=== PATIENT | male | born 1960 | race Caucasian/White ===

== ENCOUNTER → 2017-02-26 | Day surgery (SDC) | payer OTHER ==
[~2017-02-26] MED LIST: ASPIRIN EC 325 MG TAB PO ONE; ATROPINE SULFATE 1 MG/10 ML SYR IVP PRN; ATROPINE SULFATE 1 MG/10 ML SYR ONE; DIAZEPAM 5 MG TAB ONE; DIAZEPAM 5 MG TAB PO ONE; FAMOTIDINE 20 MG TAB ONE; FAMOTIDINE 20 MG TAB PO ONE; HYDROCODONE/APAP 5/325 TAB PO PRN; IOPAMIDOL (ISOVUE-370) 150 ML BTL IV ONE; LIDOCAINE 1% 30 ML SDV ONE; MIDAZOLAM 2 MG/2 ML VIAL ONE; NITROGLYCERIN 0.4 MG BTL SL PRN; NS 1,000 ML IV ONE; ONDANSETRON 4 MG/2 ML VIAL IVP PRN; OXYCODONE/APAP 5/325 TAB PO PRN; diphenhydrAMINE 25 MG CAP PO ONE; fentaNYL 100 MCG/2 ML INJ ONE
--- NOTE | 2017-02-26 06:52 | CPEKG ---
Heart Rate: 67 RR Interval: 896 P-R Interval: 140 QRSD Interval: 106 QT Interval: 420 QTC Interval: 444 P South English: 12 QRS South English: 37 T Wave South English: -21 EKG Severity - ABNORMAL ECG - EKG Impression: SINUS RHYTHM EKG Impression: PROBABLE INFERIOR INFARCT, AGE INDETERMINATE Electronically Signed By: Vicki Patterson 26-Feb-2017 09:57:57
[2017-02-26 07:09] LABS: % IMMATURE GRANULYOCYTES 0.1 % (0.0-1.1); ABSOLUTE IMMATURE GRANULOCYTES 0.01 10^3/uL (0.00-0.10); ADD DIFF? NO; ADD MORPH? NO; ADD SCAN? NO; ATYPICAL LYMPHOCYTE FLAG 0 (0-99); FRAGMENT RBC FLAG 0 (0-99); HEMATOCRIT 44.6 % (40.0-51.0); HEMOGLOBIN 15.1 g/dL (13.7-17.5); LEFT SHIFT FLG 0 (0-99); LIPEMIA HEMOLYSIS FLAG 90 (0-99); MEAN CELL HEMOGLOBIN 30.2 pg (27.9-34.1); MEAN CELL HEMOGLOBIN CONCENTR. 33.9 g/dL (32.4-36.7); MEAN CELL VOLUME 89.2 fL (81.5-99.8); MEAN PLATELET VOLUME 8.6 fL (8.7-11.7); PLATELET CLUMPS FLAG 0 (0-99); PLATELET COUNT 293 10^3/uL (150-400)
[2017-02-26 07:25] LABS: ANION GAP 10 mEq/L (8-16); CALCIUM 9.2 mg/dL (8.5-10.4); CARBON DIOXIDE 23 mEq/l (22-31); CHLORIDE 109 mEq/L (97-110); CHOLESTEROL 121 mg/dL (140-220); CHOLESTEROL/HDL RATIO 1.95 RATIO (1.00-4.97); CREATININE 0.9 mg/dL (0.7-1.3); GLOMERULAR FILTRATION RATE > 60; GLUCOSE 99 mg/dL (70-100); HIGH DENSITY LIPOPROTEIN 62 mg/dL (40-65); LDL/HDL RATIO 0.79 RATIO (1.00-3.64); LOW DENSITY LIPOPROTEIN 49 mg/dL (80-100); MAGNESIUM 2.1 mg/dL (1.6-2.3); NON-HIGH DENSITY LIPOPROTEIN 59 mg/dL (90-129); POTASSIUM 4.1 mEq/L (3.5-5.2); SODIUM 142 mEq/L (134-144); TRIGLYCERIDE 54 mg/dL (40-150); VERY LOW DENSITY LIPOPROTEINS 10 mg/dL (8-25)
[2017-02-26 07:27] LABS: INR 0.97 (0.83-1.16); PROTIME(PATIENT) 12.8 SEC (12.0-15.0)
--- NOTE | 2017-02-26 12:29 | CPIP ---
[f rep st] INVASIVE CARDIAC PROCEDURE DATE OF PROCEDURE: 02/26/2017 PROCEDURE PERFORMED: 1. Diagnostic left heart catheterization. 2. Left coronary angiography. 3. Right coronary angiography. 4. Left ventriculogram. 5. Right common femoral artery angiography. INDICATION FOR PROCEDURE: The patient is a pleasant 56-year-old gentleman with a known history of c oronary artery disease, with previous inferior wall infarction, with PCI x3 to the RCA in 2012. He underwent an exercise nuclear stress test earlier this month, demonstrating inferior ischemia and in ferior lateral ischemia, as well as anterior ischemia in the mid and basal anterior wall, with evide nce of transient ischemic dilatation. In the setting of significant findings on his nuclear stress test that placed him at high risk, part icularly in the setting of known coronary artery disease with PCI x3 to the RCA, the decision was ma carey to pursue diagnostic left heart catheterization. PROCEDURE: After informed consent was obtained, the patient was brought to the cardiac catheterizat ion lab, where he was prepped and draped in sterile fashion. Using 1% lidocaine, the right groin wa s anesthetized. Using the modified Seldinger technique, a right common femoral artery catheter was placed without complication. A JL4 catheter was used to take images of the left coronary anatomy in multiple projections. A JL4 catheter was exchanged over a guidewire for a JR4 catheter. JR4 maria [address] was used to take images of the right coronary anatomy in multiple projections. JR4 catheter was exchanged over a guidewire for angled pigtail catheter. Angled pigtail catheter was used to cross the aortic valve. LVEDP was assessed. Left ventriculogram was performed. Aortic valve gradient wa s pulled back and assessed. Angled pigtail catheter was removed over guidewire. Right common femor al artery angiography was obtained, demonstrating appropriate location of the 6-[place] sheath. Ther e was a high bifurcation at the level of the femoral head, and will with manual pressure. There was no evidence of trauma to the femoral or iliac vessel. FINDINGS: 1. Left main normal size and caliber, and trifurcates into a left anterior descending, ramus interm edius, and circumflex artery. There is no evidence of coronary disease within the left main. 2. Left anterior descending artery provides a large 1st diagonal branch. There is no evidence of c oronary disease within the left anterior descending artery, the diagonal branch, or septal perforato rs. 3. Left circumflex artery is a nondominant vessel. There is no evidence of coronary disease within the circumflex vessels. 4. The right coronary artery is a large dominant vessel with a large PDA and PLV branch. There is some mild narrowing proximal to the 1st stent of approximately 10%. There is some mild in-stent feroz nosis in the mid RCA of approximately 10%. There is a large PDA and PLV branch, free of coronary ar priscilla disease. 5. Left ventriculogram demonstrates normal left ventricular function. HEMODYNAMICS: 1. Aortic pressure of 141/78, with a mean of 103. 2. LV pressure of 136/9. 3. LVEDP of 21 mmHg. 4. No aortic valve gradient on pullback. 5. LVEF 55% to 60%. CONCLUSION: 1. Minimal in-stent stenosis to the mid right coronary artery, and minimal proximal stenosis proxim al to the 1st stent to the right coronary artery. No evidence of coronary disease within the left a nterior descending and circumflex. 2. False positive findings on nuclear stress test. PLAN: 1. Manual pressure to be held on right groin secondary to catheter placement at bifurcation. 2. Patient will continue outpatient medical management. 3. Patient is scheduled for followup as an outpatient. /[id number]/MODL
== END | disposition home or self-care (01) ==
LOC: FCATH 06:26
PROVIDERS: ATTEND Internal Medicine Cardiovascular Disease
DX: I25.10 Atherosclerotic heart disease of native coronary artery without angina pectoris (principal); I25.2 Old myocardial infarction; E78.2 Mixed hyperlipidemia; Z95.5 Presence of coronary angioplasty implant and graft
CPT/HCPCS: J0461; J1644; J2250; J3010; Q9967

== ENCOUNTER 2018-10-14 13:07 | Inpatient (IN) | payer OTHER ==
[2018-10-14] MEDS ORDERED: NS 1,000 ML IV ONE (13:09)
--- NOTE | 2018-10-14 13:09 | EDPHY ---
HPI/HX/ROS/PE/MDM Narrative: 1500: Patient is signed out to me at change of shift. The per sign out, the patient is awaiting evaluation by Neurosurgery. Patient will be admitted to either neuro surgical services or hospitalist services depending on their evaluation. 1625: I discussed the case with Dr. Eden from Neurosurgery. He feels the patient does not need be admitted from a neurosurgical standpoint. He feels this can be evaluated as an outpatient. I discussed the case with Dr. Jimenez. (Ivet Sutherland) CHIEF COMPLAINT: Altered mental status / possible seizure HPI: This patient is a 58 year old male with remote history of seizure disorder. Around 13:00 today, he was in ultrasound for a routine imaging exam and speaking with radiology staff when he had sudden onset AMS. Witnesses noted one arm was curled up to side, and the patient became altered and combative. I met radiology staff in their department following an overhead page for assistance and transferred patient here to emergency department. He is currently doing better and is alert and oriented, calm. He endorses history of possible seizure disorder in high school, and he was formerly on Dilantin. He is no longer medicated. Additionally, he endorses history of heart attack three years ago and takes daily ASA 81mg. He felt well today prior to this episode. He denies fever, chest pain, shortness of breath, nausea, vomiting diarrhea, urinary complaints, or other associated symptoms. REVIEW OF SYSTEMS: A comprehensive 10 system review of systems is otherwise negative aside from elements mentioned in the history of present illness and medical decision making. PMH: History of seizure disorder. Hypertension. [place] s/p stent placement. SOCIAL HISTORY: . Lives in [place]. Works for [employer]. PHYSICAL EXAM: General:Patient is alert, in no acute distress. ENT:Eyes are normal to inspection. ENT inspection normal. Neck: Normal inspection. Full range of motion. Respiratory:No respiratory distress. Breath sounds normal bilaterally. Cardiovascular: Regular rate and rhythm. Strong peripheral pulses. Normal cap refill. Abdomen:The abdomen is nontender to palpation. There are no peritoneal signs. There are normal bowel sounds. Back: Normal to inspection. No tenderness to palpation. Skin: Normal color. No rash. Warm and dry. Extremities: Normal appearance. Full range of motion. Neuro: Oriented x3. Normal motor function. Normal sensory function. (Samm Taveras) ED Course: 58 year-old male presents following an episode of altered mental status and possible seizure activity while waiting for a routine ultrasound appointment today. Plan for EKG, CT head, and labs including CBC, chemistries, coag panel, troponin. EKG was ordered and interpreted by myself. Please see [employer] system for official reading. Sinus rhythm. On further discussion, patient states he has had very occasional seizure activity over the past 20 years. Laboratory studies unremarkable. POC troponin negative. CT head pending. 14:[address] Martinez, radiologist. CT head shows vascular malformation vs neoplasm. Recommend MRI for further evaluation. Reassessed patient. Discussed imaging results. Plan to proceed with MRI brain for further evaluation. Preliminary MRI read indicates two brain lesions. I consulted Dr. Rubio from Neurosurgery at 1535. I informed Dr. Jimenez. Patient signed out [place]. (Samm Taveras) - Data Points Imaging Results: Imaging Impressions Head CT 10/14/18 13:16 Impression: 1. Indeterminate partially calcified posterior fossa mass at the base of the fourth ventricle. Differential diagnosis includes vascular malformation and neoplasm including metastatic disease, choroid plexus papilloma, and ependymoma/ subependymoma. Recommend MRI of the brain with and without IV contrast to further characterize. 2. No acute intracranial hemorrhage or evidence of acute cortical ischemia. 3. Normal caliber ventricular system. No obstruction. 4. Three nonaggressive, ground-glass lesions in the occipitoparietal bone may be unrelated and be manifestation of fibrous dysplasia. Findings discussed with Emergency Department physician, Samm Taveras MD, on 10/14/2018, 14:15. Brain MRI 10/14/18 14:15 Impression: 1. Two separate contrast-enhancing masses within the posterior fossa. A multilobulated partially calcified 2.4 cm tumor within the floor of the fourth ventricle is present along with a 2.3 cm mildly enhancing lesion within the right side of the brainstem at the level of the carol ann. 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 However, given the multiplicity of lesions within the posterior fossa, metastatic disease is not excluded, and CT examination of the chest, abdomen, and pelvis is suggested for further evaluation. 2. Other findings as above. Examination was reviewed directly with Dr. Samm Taveras. Cosign: Dr. Timmy Martinez. Laboratory Results: Laboratory Results 10/14/18 13:12 10/14/18 13:12 10/14/18 10/14/18 10/14/18 13:19 13:18 13:12 WBC RBC Hgb POC Hgb 16.3 gm/dL gm/dL (13.7-17.5) Hct POC Hct 48 % % (40-51) MCV MCH MCHC RDW Plt Count MPV Neut % (Auto) Lymph % (Auto) [place] % (Auto) Eos % (Auto) Baso % (Auto) Nucleat RBC Rel Count Absolute Neuts (auto) Absolute Lymphs (auto) Absolute Monos (auto) Absolute Eos (auto) Absolute Basos (auto) Absolute Nucleated RBC Immature Gran % Immature Gran # PT INR APTT POC Sodium 141 mEq/L mEq/L (135-145) Sodium 139 mEq/L mEq/L (135-145) POC Potassium 4.0 mEq/L mEq/L (3.3-5.0) Potassium 4.4 mEq/L mEq/L (3.5-5.2) POC Chloride 103 mEq/L mEq/L (97-110) Chloride 105 mEq/L mEq/L (97-110) Carbon Dioxide 26 mEq/l mEq/l (22-31) Anion Gap 8 mEq/L mEq/L (6-14) POC BUN 15 mg/dL mg/dL (7-23) BUN 16 mg/dL mg/dL (7-23) Creatinine 0.9 mg/dL mg/dL (0.7-1.3) POC Creatinine 1.0 mg/dL mg/dL (0.7-1.3) Estimated GFR > 60 Glucose 115 mg/dL H mg/dL (70-100) POC Glucose 120 mg/dL H mg/dL (70-100) Calcium 9.3 mg/dL mg/dL (8.5-10.4) POC Troponin I 0.00 ng/mL ng/mL (0.00-0.08) 10/14/18 10/14/18 13:12 13:12 WBC 7.88 10^3/uL 10^3/uL (3.80-9.50) RBC 5.06 10^6/uL 10^6/uL (4.40-6.38) Hgb 15.4 g/dL g/dL (13.7-17.5) POC Hgb Hct 45.9 % % (40.0-51.0) POC Hct MCV 90.7 fL fL (81.5-99.8) MCH 30.4 pg pg (27.9-34.1) MCHC 33.6 g/dL g/dL (32.4-36.7) RDW 14.2 % % (11.5-15.2) Plt Count 315 10^3/uL 10^3/uL (150-400) MPV 8.4 fL L fL (8.7-11.7) Neut % (Auto) 61.5 % % (39.3-74.2) Lymph % (Auto) 30.5 % % (15.0-45.0) [place] % (Auto) 6.3 % % (4.5-13.0) Eos % (Auto) 0.9 % % (0.6-7.6) Baso % (Auto) 0.3 % % (0.3-1.7) Nucleat RBC Rel Count 0.0 % % (0.0-0.2) Absolute Neuts (auto) 4.85 10^3/uL 10^3/uL (1.70-6.50) Absolute Lymphs (auto) 2.40 10^3/uL 10^3/uL (1.00-3.00) Absolute Monos (auto) 0.50 10^3/uL 10^3/uL (0.30-0.80) Absolute Eos (auto) 0.07 10^3/uL 10^3/uL (0.03-0.40) Absolute Basos (auto) 0.02 10^3/uL 10^3/uL (0.02-0.10) Absolute Nucleated RBC 0.00 10^3/uL 10^3/uL (0-0.01) Immature Gran % 0.5 % % (0.0-1.1) Immature Gran # 0.04 10^3/uL 10^3/uL (0.00-0.10) PT 12.8 SEC SEC (12.0-15.0) INR 0.94 (0.83-1.16) APTT 26.3 SEC SEC (23.0-38.0) POC Sodium Sodium POC Potassium Potassium POC Chloride Chloride Carbon Dioxide Anion Gap POC BUN BUN Creatinine POC Creatinine Estimated GFR Glucose POC Glucose Calcium POC Troponin I Medications Given: Discontinued Medications Sodium Chloride (Ns) 1,000 mls @ 0 mls/hr IV EDNOW ONE; Wide Open PRN Reason: Protocol Stop: 10/14/18 13:10 Last Admin: 10/14/18 13:59 Dose: 1,000 mls Point of Care Test Results: Chemistry 10/14/18 10/14/18 13:19 13:18 POC Sodium 141 mEq/L mEq/L (135-145) POC Potassium 4.0 mEq/L mEq/L (3.3-5.0) POC Chloride 103 mEq/L mEq/L (97-110) POC BUN 15 mg/dL mg/dL (7-23) POC Creatinine 1.0 mg/dL mg/dL (0.7-1.3) POC Glucose 120 mg/dL H mg/dL (70-100) POC Troponin I 0.00 ng/mL ng/mL (0.00-0.08) ISTAT H&H 10/14/18 13:19 POC Hgb 16.3 gm/dL gm/dL (13.7-17.5) POC Hct 48 % % (40-51) General Time Seen by Provider: 10/14/18 13:07 Initial Vital Signs: Initial Vital Signs Temperature (C) 36.3 C 10/14/18 13:14 Heart Rate 83 10/14/18 13:14 Respiratory Rate 16 10/14/18 13:14 Blood Pressure 175/92 H 10/14/18 13:14 O2 Sat (%) 96 10/14/18 13:14 O2 Delivery Mode Room Air Allergies/Adverse Reactions: No Known Allergies Allergy (Unverified 10/07/15 20:41) Home Medications: Medication Instructions Recorded Ascorbic Acid [Vitamin C 500 mg 2,000 mg PO DAILY 10/14/18 (*)] Aspirin EC [Aspirin EC 81 mg (*)] 162 mg PO DAILY 10/14/18 Atorvastatin Calcium [Lipitor 40 40 mg PO HS 10/14/18 mg (*)] Lisinopril [Zestril 2.5 mg (*)] 2.5 mg PO HS 10/14/18 Metoprolol Succinate Xr [Toprol Xl 12.5 mg PO DAILY 10/14/18 25 mg (*)] Departure - Departure Disposition: [facility] Inpatient Acute Clinical Impression: Brain mass, Seizure Condition: Fair Report Scribed for: Samm Taveras Report Scribed by: Lisa Steve Date of Report: 10/14/18 Time of Report: 13:16
[2018-10-14 13:38] LABS: PLATELET COUNT 315 10^3/uL (150-400)
[2018-10-14 14:02] LABS: INR 0.94 (0.83-1.16); PROTIME(PATIENT) 12.8 SEC (12.0-15.0)
[2018-10-14] MEDS ORDERED: GADOBUTROL 10 ML VIAL IVP ONE (14:45)
--- NOTE | 2018-10-14 14:45 | CPEKG ---
Test Reason : OPEN Blood Pressure : / mmHG Vent. Rate : 081 BPM Atrial Rate : 081 BPM P-R Int : 162 ms QRS Dur : 114 ms QT Int : 404 ms P-R-T Axes : 058 028 -12 degrees QTc Int : 469 ms Sinus rhythm Nonspecific T abnormalities, inferior leads Confirmed by Samm Taveras ([id number]) on 10/14/2018 2:45:01 PM Referred By: Confirmed By:Samm Taveras
[2018-10-14] MEDS ORDERED: HYDROCODONE/APAP 5/325 TAB PO PRN (17:53)
[2018-10-14] MEDS ORDERED: ONDANSETRON 4 MG/2 ML VIAL IVP PRN (17:53)
[2018-10-14] MEDS ORDERED: ONDANSETRON DISINTEGRATING 4 MG TAB PO PRN (17:53)
[2018-10-14] MEDS ORDERED: ACETAMINOPHEN 325 MG TAB PO PRN (17:53)
[2018-10-14] MEDS ORDERED: oxyCODONE IR 5 MG TAB PO PRN (17:53)
--- NOTE | 2018-10-14 18:29 | GCON ---
NEUROSURGERY CONSULT. DATE OF CONSULTATION: 10/14/2018 The patient was seen and evaluated at approximately 4 p.m. in the ER at [facility]. HISTORY OF PRESENT ILLNESS: The patient is a 58-year-old man with an apparent remote history of seiz ure disorder. He says he had epilepsy when he was a teenager for which he took some medication at th at time, but has not taken medication for many years. His also states that he has intermittent episodes while sleeping where his eyes are open, but he is unresponsive, which she has always thought were likely seizures. He does not take any medications for these and has never had 1 of these episo lluvia during the daytime to her knowledge over the past 10 years. Today, he was talking to a friend he re at the hospital when he reportedly became unresponsive for a brief time period, approximately a fe w minutes. He did not have a fall, but was sitting in a chair. According to the ED reports, 1 arm w as curled up to the side and the patient was a little altered and combative but cleared fairly quickl y after coming to the emergency department. He currently has no complaints and feels completely norm al. A CT of the brain and subsequent MRI of the brain was completed and the CT showed a mass with sp eckled calcification near the obex in the inferior 4th ventricle. 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 It is difficult to discern if this is based at the floor of the 4th ventricle or m ore posteriorly at the vermis. Of note, he also has what appears to be a DVA and some change in the tissue signal within the carol ann. This is originally read as a possible tumor such as a primary brainst em glioma. 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 He does not have any hydrocephalus and I do not see any other obvious abnormalities on his MRI. PAST MEDICAL HISTORY: 1. Epilepsy. 2. Hypertension. 3. Myocardial infarction in 2012, status post 2 cardiac stents placed. REVIEW OF SYSTEMS: A 10-point review of systems is negative other than described above in the HPI. SOCIAL HISTORY: The patient is . 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 FAMILY HISTORY: Strongly positive for cardiac disease with several large myocardial infarcts within his family, but no other history of cancer or neurologic disease. ALLERGIES: No known drug allergies. MEDICATIONS: 1. Aspirin. 2. Atorvastatin. 3. Lisinopril. 4. Metoprolol. 5. Plavix. PHYSICAL EXAM: VITAL SIGNS: Currently he is afebrile with normal stable vital signs. NEUROLOGIC: Lisa sewell is awake, alert, and oriented x3. Speech is clear and fluent. Pupils are equal, round, and react to light. Extraocular movements are intact. Face is symmetric. Tongue is midline. 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 In the lo wer extremities, he has 5/5 strength of the hip flexors, extensors, knee flexors, extensors, and plan tar and dorsiflexion. There is no pronator drift. His sensation is normal. He does not have any dy smetria or dysdiadochokinesia. IMAGING REVIEW: See HPI. ASSESSMENT AND PLAN: 1. The patient is a 58-year-old man who had some sort of syncopal versus a seizure type episode here at the hospital today. He currently is completely asymptomatic and feeling normal. 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 He also h as some alteration in the signal characteristics within the carol ann itself, which was read as a possible glioma. 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 He is currently completely asymptomatic and I do not think brandon t either of these findings has anything to do with the episode that he had today. He is likely to be admitted to the hospital service for further cardiac workup to be sure that he did not have syncope related to a cardiac arrhythmia or other abnormality related to the heart. I talked to him and his w sunny at length about the finding of this tumor and given the amount of calcification, it appears it serrato s been relatively slow growing. I do not think there is any urgent need for surgical intervention fo r this. However, within the short term over the next several weeks, we would like to make plans for biopsy and resection. We discussed the nature of this type of surgery at length and will discuss in further detail in the clinic. If nothing is found on his inpatient admission as a cause for this out patient followup with Neurology, possible EEG may also be useful given this history of epilepsy. Thi s type of tumor would not cause seizures or syncope given the location. Therefore, I do not think th at it is related in any way to what happened to him today. Please do not hesitate to contact us with any further questions or concerns. Thanks for the kind con sultation. /[id number]/MODL
[2018-10-14] MEDS ORDERED: ATORVASTATIN CALCIUM 40 MG TAB PO SCH (21:00)
[2018-10-14] MEDS ORDERED: LISINOPRIL 2.5 MG TAB PO SCH (21:00)
--- NOTE | 2018-10-14 21:50 | PDGENHP ---
History and Physical - Chief Complaint seizure like activity - History of Present Illness Patient is a 58 yo M with PMH of CAD s/p STEMI and PCI x 3 in 2013 as well as remote hx of seizure as a young man who presents after being called as a code blue today. 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 He was never pulseless and did not fall or clearly lose consciousness, however he was in a chair when this occurred and he does not remember the episode very well. Patient was brought to the ER and per ER doctor shortly after arrival was essentially back to normal, speaking clearly and not altered. 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 At the time of my evaluation patient notes that he feels essentially normal. He notes that he has had episodes similar to the one he had today but that they always occur at night when he will essentially sleepwalk and say strange things and not remember the episode later. He has been told that this may represent seizure and he has had seizures as a child/teenager, but he has not had this worked up. He does not believe that today was a syncopal event, but he is not sure. He will require surgery for the brain mass noted above, and this will be scheduled as an outpatient. History Information - Allergies/Home Medication List Allergies/Adverse Reactions: No Known Allergies Allergy (Unverified 10/07/15 20:41) Home Medications: Ascorbic Acid [Vitamin C 500 mg (*)] 2,000 mg PO DAILY 10/14/18 [Last Taken 12/01] Aspirin EC [Aspirin EC 81 mg (*)] 162 mg PO DAILY 10/14/18 [Last Taken 10/14/18] Atorvastatin Calcium [Lipitor 40 mg (*)] 40 mg PO HS 10/14/18 [Last Taken ] Lisinopril [Zestril 2.5 mg (*)] 2.5 mg PO HS 10/14/18 [Last Taken 10/13/18] Metoprolol Succinate Xr [Toprol Xl 25 mg (*)] 12.5 mg PO DAILY 10/14/18 [Last Taken 10/14/18] I have personally reviewed and updated: family history, medical history, social history, surgical history - Past Medical History coronary artery disease, hypertension, hyperlipidemia, seizures (as a teen) - Surgical History Reports: coronary stent - Family History Positive for: CAD Additional family history: brother with epilepsy - Social History Smoking Status: Never smoked Alcohol Use: Rarely Drug Use: None Additional social history: , works here at [employer] Review of Systems Review of Systems: ROS: 10pt was reviewed & negative except for what was stated in HPI & below Physical Exam Physical Exam: Temp Pulse Resp BP Pulse Ox 36.3 C 72 16 151/85 H 95 10/14/18 13:14 10/14/18 15:49 10/14/18 15:49 10/14/18 21:01 10/14/18 15:49 Constitutional: no apparent distress, appears nourished Eyes: PERRL, anicteric sclera Ears, Nose, Mouth, Throat: moist mucous membranes, hearing normal Cardiovascular: regular rate and rhythym, no murmur, rub, or gallop, No edema Respiratory: no respiratory distress, no rales or rhonchi, clear to auscultation Gastrointestinal: normoactive bowel sounds, soft, non-tender abdomen Genitourinary: no bladder tenderness Skin: warm, normal color Musculoskeletal: full muscle strength, no muscle tenderness Neurologic: AAOx3 Psychiatric: interacting appropriately, not anxious, not encephalopathic Lab Data & Imaging Review 10/14/18 13:12 10/14/18 13:12 WBC 7.88 10^3/uL (3.80-9.50) 10/14/18 13:12 RBC 5.06 10^6/uL (4.40-6.38) 10/14/18 13:12 Hgb 15.4 g/dL (13.7-17.5) 10/14/18 13:12 POC Hgb 16.3 gm/dL (13.7-17.5) 10/14/18 13:19 Hct 45.9 % (40.0-51.0) 10/14/18 13:12 POC Hct 48 % (40-51) 10/14/18 13:19 MCV 90.7 fL (81.5-99.8) 10/14/18 13:12 MCH 30.4 pg (27.9-34.1) 10/14/18 13:12 MCHC 33.6 g/dL (32.4-36.7) 10/14/18 13:12 RDW 14.2 % (11.5-15.2) 10/14/18 13:12 Plt Count 315 10^3/uL (150-400) 10/14/18 13:12 MPV 8.4 fL (8.7-11.7) L 10/14/18 13:12 Neut % (Auto) 61.5 % (39.3-74.2) 10/14/18 13:12 Lymph % (Auto) 30.5 % (15.0-45.0) 10/14/18 13:12 [place] % (Auto) 6.3 % (4.5-13.0) 10/14/18 13:12 Eos % (Auto) 0.9 % (0.6-7.6) 10/14/18 13:12 Baso % (Auto) 0.3 % (0.3-1.7) 10/14/18 13:12 Nucleat RBC Rel Count 0.0 % (0.0-0.2) 10/14/18 13:12 Absolute Neuts (auto) 4.85 10^3/uL (1.70-6.50) 10/14/18 13:12 Absolute Lymphs (auto) 2.40 10^3/uL (1.00-3.00) 10/14/18 13:12 Absolute Monos (auto) 0.50 10^3/uL (0.30-0.80) 10/14/18 13:12 Absolute Eos (auto) 0.07 10^3/uL (0.03-0.40) 10/14/18 13:12 Absolute Basos (auto) 0.02 10^3/uL (0.02-0.10) 10/14/18 13:12 Absolute Nucleated RBC 0.00 10^3/uL (0-0.01) 10/14/18 13:12 Immature Gran % 0.5 % (0.0-1.1) 10/14/18 13:12 Immature Gran # 0.04 10^3/uL (0.00-0.10) 10/14/18 13:12 PT 12.8 SEC (12.0-15.0) 10/14/18 13:12 INR 0.94 (0.83-1.16) 10/14/18 13:12 APTT 26.3 SEC (23.0-38.0) 10/14/18 13:12 POC Sodium 141 mEq/L (135-145) 10/14/18 13:19 Sodium 139 mEq/L (135-145) 10/14/18 13:12 POC Potassium 4.0 mEq/L (3.3-5.0) 10/14/18 13:19 Potassium 4.4 mEq/L (3.5-5.2) 10/14/18 13:12 POC Chloride 103 mEq/L (97-110) 10/14/18 13:19 Chloride 105 mEq/L (97-110) 10/14/18 13:12 Carbon Dioxide 26 mEq/l (22-31) 10/14/18 13:12 Anion Gap 8 mEq/L (6-14) 10/14/18 13:12 POC BUN 15 mg/dL (7-23) 10/14/18 13:19 BUN 16 mg/dL (7-23) 10/14/18 13:12 Creatinine 0.9 mg/dL (0.7-1.3) 10/14/18 13:12 POC Creatinine 1.0 mg/dL (0.7-1.3) 10/14/18 13:19 Estimated GFR > 60 10/14/18 13:12 Glucose 115 mg/dL (70-100) H 10/14/18 13:12 POC Glucose 120 mg/dL (70-100) H 10/14/18 13:19 Calcium 9.3 mg/dL (8.5-10.4) 10/14/18 13:12 POC Troponin I 0.00 ng/mL (0.00-0.08) 10/14/18 13:18 Troponin I < 0.012 ng/mL (0.000-0.034) 10/14/18 18:15 Visualized and Interpreted imaging results: Yes Interpretation: brain MRI: reviewed with NSG, notable for calcified 4th ventricle mass c/w ependymoma and ? of brainstem lesion Visualized and Interpreted EKG results: Yes EKG Interpretation: Positive for: normal sinsus rhythm, T waves inversion Assessment & Plan Assessment: Brain mass (Acute) Seizure (Acute) 58 yo M with PMH of CAD and found to have newly discovered brain mass presenting with seizure versus syncope # seizure versus syncope: somewhat unusual hx in patient that has a hx of remote seizures and night time events that have been noted to be potentially seizure in the past. Significant cardiac hx as well, and without real post ictal period, syncope is a consideration. Will monitor on tele, serial trops and ecgs, cardiology and neurology consultations requested. He will likely require brain surgery in the coming weeks and will need cardiac eval prior to that as well which hopefully can be completed in house. Will get echo in am. # brain mass: discussed with Dr. Mendez, the one clear mass that is present in the 4th ventricle is calcified and appears to be of some age, likely ependymoma and very unlikely to be the etiology for above. Patient to f/u as an OP with NSG to scheduled surgical resection. The ? 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 Neurology to weigh in as well as above. # CAD: with hx of STEMI in 2012 and a clean cath in 02/2017. Followed by [facility], no chest pain but given concern for syncope acs r/o undertaken, cardiology consulted, echo in am # htn: bp has been mildly elevated since arrival, will continue home meds including lisinopril and metoprolol and adjust if needed # hld: continue statin # IP status, given multiple active issues suspect patient will require > 48 hours stay for eval/mgmt of above Patient new to my care. Old records reviewed and summarized as above. Care plan reviewed with ER doctor as well as Neurosurgery and further hx obtained from patients present at bedside.
--- NOTE | 2018-10-15 07:54 | NEUSURGPN ---
Assessment/Plan: Assessment: 58 yr old M s/p syncopal episode vs seizure, incidentally found the have a 4th ventricular mass Plan: -Patient remains neuro intact -Location of brain mass likely not related to syncopal/seizure episode -Patient getting cardiac workup as well as neurology consult -We will have patient follow up with Dr Mendez as outpatient to make plans for biopsy and resection of mass. Surgery does not need to be done during this hospitalization. Neurosurgery will sign off at this time. -Patient will need cardiac clearance for surgery and plans to stop/hold anticoagulants -Patient discussed with Dr Mendez Please call neurosurgery with questions/concerns Subjective: Doing well, no complaints. Feeling fine Objective: AxO x4 CN 2-12 grossly intact PERRL EOMI MAEx4 5/ BUE, BLE Neuro Check Frequency: per routine Urinary Catheter in Place: No - Physician Discussed Patient with Dr.: Mendez Neurosurgery Physical Exam - Vitals, I&O, Labs I and O 10/14/18 10/15/18 10/16/18 05:59 05:59 05:59 Weight 77.111 kg Vital Signs Temp Pulse Resp BP Pulse Ox 36.3 C 54 L 16 151/85 H 95 10/14/18 13:14 10/15/18 03:30 10/14/18 15:49 10/14/18 21:01 10/14/18 15:49 ICD10 Worksheet Patient Problems: Problems Problem Status Onset Brain mass Acute Seizure Acute
[2018-10-15 08:33] LABS: PLATELET COUNT 288 10^3/uL (150-400)
[2018-10-15] MEDS ORDERED: ASPIRIN EC 81 MG TAB PO SCH (09:00)
[2018-10-15] MEDS ORDERED: METOPROLOL SUCCINATE XR 25 MG TAB PO SCH (09:00)
--- NOTE | 2018-10-15 09:40 | PDMN ---
Medical Necessity Medical necessity: MCG: M340 syncope A-1 day : inpt for syncope vs Sz with new brain mass noted on MRI. pt also with sig. cardiac hx ( stemi in 2012) elevated BP anticipate > 2 MN ongoing med nec care, further monitoring eval and tx.
[2018-10-15 10:19] VITALS: BP 144/94
--- NOTE | 2018-10-15 10:31 | ECHO ---
[email or web address] [address] [address] Main: [phone] Fax: [email or web address] Echocardiogram Name: MILLIE GOOD MR#: [id number] Study Date: 10/15/2018 Study Time: 08:04 AM Date of : 1960 Age: 58 year(s) Height: 167.6 cm (66 in.) Weight: 77.11 kg (170 lb.) BSA: 1.87 m2 Gender: Male Examination: Echo Indication: possible syncope, hx of CAD Image Quality: Adequate Contrast: Requested by: Debra Jimneez BP: / Heart Rate: Rhythm: Indication: possible syncope, hx of CAD Procedure Staff World Geography Teacher: Elena Lemus RDCS Reading Physician: Hima Joaquin MD Requesting Provider: Conclusions: Low normal left ventricular systolic function. EF is 51 %. Trivial mitral valve regurgitation. Trivial tricuspid valve regurgitation. Measurements: Chambers Valvular Assessment AV/MV Valvular Assessment TV/PV Normal Normal Normal Name Value Range Name Value Range Name Value Range Ao Ines (2D): 2.7 cm (1.4 cm-2.6 AV Vmax: 1.21 m/s (1 m/s-1.7 PV Vmax: 0.88 m/s (0.6 m/s-0.9 cm) m/s) m/s) IVSd (2D): 0.9 cm (0.6 cm-1.1 AV maxP mmHg ( - ) PV PGmax: 3 mmHg ( - ) cm) AV meanP mmHg ( - ) LVDd (2D): 5.2 cm (4.2 cm-5.9 SONAM (VTI): 1.8 cm ( - ) cm) MV E Vmax: 0.62 m/s ( - ) LVDs (2D): 3.8 cm (2.1 cm-4 MV A Vmax: 0.54 m/s ( - ) cm) MV E/A: 1.15 ( - ) LVPWd (2D): 0.8 cm (0.6 cm-1 cm) MV PHT: 0.085 s ( - ) LVOTd 2.0 cm 2.0 cm mm MVA (PHT): 2.6 s ( - ) LVEF (BP): 51 % (>=55 %) Continued Measurements: Chambers Valvular Assessment AV/MV Name Value Name Value LADs: 3.2 cm MV DecTime: 292 m/s LADs Lon.6 cm MV E' Septal: 0.11 m/s LA Area: 19.4 cm2 MV E/E' Septal: 5.80 LA Volume: 64 ml MV E/E' Lateral: 4.70 Patient: MILLIE GOOD Study Date: 10/15/2018 Page 1 of 2 08:04 AM LA Volume Index: 34.2 ml/m2 RA Area: 16.2 cm2 Additional Vessels Name Value Ao Ascendin.2 cm Inferior Vena Cava: 1.4 cm Findings: Left Ventricle: Normal size left ventricle. No LV hypertrophy. Low normal left ventricular systolic function. EF is 51 %. No regional wall motion abnormality. Normal diastolic LV function. Right Ventricle: Normal size right ventricle. Normal RV function. Left Atrium: The left atrium is normal in size. Right Atrium: The right atrium is normal in size. Mitral Valve: The mitral valve is normal in appearance and function. Trivial mitral valve regurgitation. No mitral stenosis is present. Aortic Valve: The aortic valve is tri-leaflet. Mild aortic valve regurgitation is present. No aortic valve stenosis is present. Tricuspid Valve: The tricuspid valve is normal in appearance and function. Trivial tricuspid valve regurgitation. Pulmonic Valve: The pulmonic valve is normal in appearance and function. There is no pulmonic regurgitation seen. Aorta: The aorta is normal. Normal size aortic root measuring 2.7 cm. Normal size ascending aorta measuring 3.2 cm. IVC: The IVC is normal sized. Pericardium: No pericardial effusion. No pleural effusion. (No Signature Object) Patient: MILLIE GOOD Study Date: 10/15/2018 Page 2 of 2 08:04 AM [id number]
--- NOTE | 2018-10-15 11:15 | CPEKG ---
Test Reason : OPEN Blood Pressure : / mmHG Vent. Rate : 061 BPM Atrial Rate : 061 BPM P-R Int : 140 ms QRS Dur : 105 ms QT Int : 448 ms P-R-T Axes : 008 028 -21 degrees QTc Int : 452 ms Sinus rhythm Inferior infarct, age indeterminate Confirmed by Jakob Parisi ([id number]) on 10/15/2018 11:15:08 AM Referred By: Confirmed By:Jakob Parisi
--- NOTE | 2018-10-15 11:17 | NEUROPROG ---
Assessment: [id number] - Neurology Consult: - CC: Dr. Debra Jimenez consulted neurology for brain mass and possible seizures. Results placed in EMR for her review. - HPI: Pt admitted to [facility] on 10/14/18 for recurrent seizure like activity. He was witnessed to have a loss of awareness event on 10/14/18 so was brought to the [facility] ER. Head CT showed a possible tumor so brain MRI was obtained showing two possible tumors. Neurosurgery was consulted and recommended outpatient f/u for the tumors. Neurosurgery felt one of the tumors may actually be a blood vessel abnormality. The patient did report a history of seizures in the past and noted the event on 10/14/18 was similar to other events he has had in the past but they generally occur at night. His has witnessed events and they typically occur at night when pt awakens in sleep, rhythmically pounds his chest , and appears confused. These may be frontal lobe seizures or temporal lobe seizures. His brother has seizures. It was not clear if the patient was having seizures or syncope per hospitalist so neurology and cardiology were consulted. I initially saw the patient on 10/15/18. Normal neurologic exam. I recommended beginning Keppra 500 mg bid for seizure prevention and f/u in neurology clinic 4-6 weeks after hospital discharge. Pt also counseled on driving and seizure precautions. - PMHx: CAD s/p STEMI and PCI x 3 in 2012, seizure d/o, HTN, HLD - SHx: no tobacco FHx: CAD, brother with seizures - ROS: Pt denied acute fever, total vision loss, active severe chest pain, respiratory failure, total body severe rash, total bowel/bladder incontinence, psychosis, active seizures, or active bleeding - O: VS reviewed General: Alert Eyes: Fundoscopic exam not able to visualize optic disks CV: Heart RRR, no murmur, no carotid bruit Lungs: Clear to auscultation bilaterally, no rhonchi or rales Neuro: - Mental: . Oriented x person/place/date . concentration appears normal . speech fluency/comprehension normal . memory appears normal . fund of knowledge appear intact - Cranial Nerves: . II: PERRL, VFFTC . III/IV/: EOMI, no nystagmus, normal smooth pursuits, no Ptosis . V: facial sensation intact to LT . VII: face symmetric to eye closure and smile . VIII: hearing intact to conversation . IX/X: uvula raises symmetrically . XI: SCM 5/5 B/L strength . XII: tongue protrudes midline w/nl strength - Motor: . Tone: normal tone in all 4 extremity . 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 A multilobulated partially calcified 2.4 cm tumor within the floor of the fourth ventricle is present along with a 2.3 cm mildly enhancing lesion within the right side of the brainstem at the level of the carol ann. The brainstem lesion may represent a primary [employer] glioma, with the cerebellar lesion demonstrating features suggestive of ependymoma, including calcification. However, given the multiplicity of lesions within the posterior fossa, metastatic disease is not excluded, and CT examination of the chest, abdomen, and pelvis is suggested for further evaluation. (I personally visualized the images on 10/15/18) - Assessment: 1. Two brain masses noted on brain MRI 10/14/18: It appears to be a possible ependymoma and a possible glioma or blood vessel abnormality. Neurosurgery has evaluated and plans otpt f/u for further evaluation and treatment. I do not have any additional insight into the etiology of the brain masses. I agree with neurosurgery plan. - 2. Recurrent episodes of altered awareness concerning for seizures: His recurrent events seem most consistent with seizures given prior reported seizure disorder, recurrent confusion events, abnormal brain MRI, and history of brother with seizure disorder. Recommend Keppra 500 mg bid and outpatient neurology f/u for EEG. Agree with cardiology evaluation to evaluate for any atypical syncope from cardiac cause. - Plan: - Agree with neurosurgery plan for outpatient f/u of brain masses with them - Begin Keppra 500 mg bid for seizure prevention - Agree with cardiology consult to exclude atypical cardiac syncope - Seizure precautions and no driving until 90 days event free - F/U in neurology clinic 1-5 weeks after hospital discharge for EEG - No further neurologic w/u needed inpatient, neurology will sign off Objective: Vital Signs Temp Pulse Resp BP Pulse Ox 36.6 C 58 L 16 144/94 H 99 10/15/18 08:36 10/15/18 08:36 10/15/18 08:36 10/15/18 08:36 10/15/18 08:36 Laboratory Results 10/15/18 08:20 10/15/18 08:20 PT 12.8 SEC (12.0-15.0) 10/14/18 13:12 INR 0.94 (0.83-1.16) 10/14/18 13:12 Allergies/Adverse Reactions: No Known Allergies Allergy (Unverified 10/07/15 20:41)
[2018-10-15] MEDS ORDERED: levETIRAcetam 500 MG TAB PO SCH (14:00)
--- NOTE | 2018-10-15 14:14 | GDS ---
DISCHARGE DIAGNOSES: Coronary artery disease, status post ST-segment elevation myocardial infarction, percutaneous coronary intervention x3 in 2013; suspected seizure, newly diagnosed fourth ventricle tumor consistent with ependymoma and right brainstem lesion. 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 He was never pulseless , did not fall or clearly have loss of consciousness. He does not remember the episode very well. He was brought to the ER and was back to normal shortly after. CT head showed a 2.4 cm tumor within the floor of the fourth ventricle and a 2.3 cm enhancing lesion in the right side of the brainstem. HOSPITAL COURSE BY PROBLEM: 1. Seizure versus syncopal episode: Per patient's history, does not appear to be syncopal; no clear LOC. Very active, plays racquetball and tennis several times a week without chest pain, shortness of breath, or dizziness. Troponins and EKG negative for ischemia. Echocardiogram showed EF of 51%, no WMA, no VHD. Dr. Stallings recommends Keppra 500 mg b.i.d. for seizure prevention. No driving for 90 days event free. Follow up in clinic in 1-5 weeks for EEG. 2. Newly diagnosed brain masses: one in the fourth ventricle and right brainstem. Follow up with Dr. Mendez for biopsy and resection of mass. 3. CAD: Troponins negative x3. No evidence of ischemia. Echocardiogram reassuring with EF of 51%. No wall motion abnormalities or no significant valvular disorder. Continue beta samantha, statin, and aspirin. Follow up with Dr. Ledezma. DISPOSITION: Patient is stable for discharge home. FOLLOWUP: 1. Dr. Stallings with Neurology in 1-[address] Mendez with Neurosurgery. 3. Dr. Ledezma, can consider outpatient Holter monitor. PHYSICAL EXAMINATION: VITAL SIGNS: Today, temperature 36.6, blood pressure 144 /94, heart rate in the 50s, respirations 16, 99% on room air. GENERAL: He is well appearing, no acute distress. HEENT: PERRLA. Moist mucous membranes. CV : Regular rate and rhythm. LUNGS: Clear. ABDOMEN: Soft, nontender, nondistended. Positive bowel sounds. : No Harvey. MUSCULOSKELETAL: 5/5 upper and lower extremity strength. NEURO: 2 through 12 intact. PSYCH: Alert and oriented x3. Time spent on discharge: Greater than 30 minutes at bedside with patient, coordinating followup plan. /[id number]/MODL MTDD
== END 2018-10-15 14:45 | disposition home or self-care (01) | DRG 101 ==
LOC: OBSVTOIN 17:18 → F2N 17:18
PROVIDERS: ADMIT Internal Medicine; ATTEND Internal Medicine
DX: G40.909 Epilepsy, unspecified, not intractable, without status epilepticus (principal); R55 Syncope and collapse; D49.6 Neoplasm of unspecified behavior of brain; G93.9 Disorder of brain, unspecified; I10 Essential (primary) hypertension; I25.10 Atherosclerotic heart disease of native coronary artery without angina pectoris; E78.5 Hyperlipidemia, unspecified; I25.2 Old myocardial infarction; Z95.5 Presence of coronary angioplasty implant and graft
CPT/HCPCS: 82435-PO; 82565-PO; 82947-PO; 84132-PO; 84295-PO; 84484-ER; 84520-PO; 85014-ER; A9585

== ENCOUNTER 2018-11-16 05:14 | Inpatient (IN) | payer OTHER ==
[2018-11-16] MEDS ORDERED: ACETAMINOPHEN 500 MG TAB PO ONE (05:42)
[2018-11-16] MEDS ORDERED: ceFAZolin 2 GM/DEXTROSE 100 ML IV ONE (05:42)
[2018-11-16] MEDS ORDERED: LR 1,000 ML IV ONE (06:04)
[2018-11-16] MEDS ORDERED: GADOBUTROL 10 ML VIAL IVP ONE (06:12)
[2018-11-16 06:25] LABS: PLATELET COUNT 290 10^3/uL (150-400)
[2018-11-16] MEDS ORDERED: DEXAMETHASONE 4 MG/ML VIAL ONE ×2 (06:42→08:17)
[2018-11-16] MEDS ORDERED: ROCURONIUM 50 MG/5 ML VIAL ONE (06:42)
[2018-11-16] MEDS ORDERED: ONDANSETRON 4 MG/2 ML VIAL ONE (06:42)
[2018-11-16] MEDS ORDERED: LIDOCAINE 2% 5 ML SDV ONE (06:42)
[2018-11-16] MEDS ORDERED: fentaNYL 250 MCG/5 ML INJ ONE (06:43)
[2018-11-16] MEDS ORDERED: PROPOFOL/EMULSION 500 MG/50 ML BOTTLE IV ONE ×4 (06:43→11:02)
[2018-11-16] MEDS ORDERED: PROPOFOL 200 MG/20 ML VIAL ONE ×3 (06:43→12:21)
[2018-11-16] MEDS ORDERED: BACITRACIN ZINC 0.5 OZ OINTTUBE TP ONE (06:48)
[2018-11-16] MEDS ORDERED: SURGIFLO MATRIX KIT WITH THROMBIN 8 ML TP ONE (06:48)
[2018-11-16] MEDS ORDERED: HYDROGEN PEROXIDE 236 ML BOTTLE TP ONE (06:49)
[2018-11-16] MEDS ORDERED: CHLORHEXIDINE GLUC HIBICLENS 118 ML BTL TP ONE (06:49)
[2018-11-16] MEDS ORDERED: BUPIVACAINE 0.25% 30 ML SDV ONE (06:49)
[2018-11-16] MEDS ORDERED: MANNITOL 20% 100 GM/500 ML BAG IV ONE (06:49)
[2018-11-16] MEDS ORDERED: THROMBIN (BOVINE) 20,000 UNIT VIAL TP ONE (06:49)
[2018-11-16] MEDS ORDERED: AVITENE POWDER 1 GM JAR TP ONE (06:49)
[2018-11-16] MEDS ORDERED: EPINEPHrine 1 MG/ML INJ ONE (06:50)
[2018-11-16] MEDS ORDERED: GENTAMICIN SULFATE 80 MG/2 ML VIAL ONE ×2 (06:50→09:13)
[2018-11-16] MEDS ORDERED: THROMBIN (BOVINE) 5,000 UNIT VIAL TP ONE (06:51)
[2018-11-16] MEDS ORDERED: MIDAZOLAM 2 MG/2 ML VIAL IVP ONE (06:58)
--- NOTE | 2018-11-16 07:02 | PDHPUP ---
History & Physical Update H&P update statement: This history and physical update is based on an assessment of the patient which was completed after admission or registration (within 24 hours), but prior to the surgery/procedure. H&P update: H&P reviewed & patient examined, no change in patient's condition since H&P completed
--- NOTE | 2018-11-16 07:13 | PDANEPAE ---
ANE Past Medical History - Cardiovascular History Hx Hypertension: Yes Hx Arrhythmias: No Hx Chest Pain: No Hx Coronary Artery / Peripheral Vascular Disease: Yes Hx CHF / Valvular Disease: No Hx Palpitations: No Cardiovascular History Comment: 2 stents placed 2013 after [place]. No issues since stents and last cath was negative - Pulmonary History Hx COPD: No Hx Asthma/Reactive Airway Disease: No Hx Recent Upper Respiratory Infection: No Hx Oxygen in Use at Home: No Hx Sleep Apnea: No Sleep Apnea Screening Result - Last Documented: Positive - Neurologic History Hx Cerebrovascular Accident: No Hx Seizures: Yes Hx Dementia: No - Endocrine History Hx Diabetes: No - Renal History Hx Renal Disorders: No - Liver History Hx Hepatic Disorders: No - Neurological & Psychiatric Hx Hx Neurological and Psychiatric Disorders: Yes Neurological / Psychiatric History Comment: seizures disorder - Cancer History Hx Cancer: No - Congenital Disorder History Hx Congenital Disorders: No - GI History Hx Gastrointestinal Disorders: No Gastrointestinal History Comment: none - Other Health History Other Health History: L healing scratch on hand - Chronic Pain History Chronic Pain: No - Surgical History Prior Surgeries: none ANE Review of Systems Review of Systems: - Exercise capacity METS (RN): 6 METS ANE Patient History - Allergies Allergies/Adverse Reactions: No Known Allergies Allergy (Verified 11/13/18 17:41) - Home Medications Home Medications: Ascorbic Acid [Vitamin C 500 mg (*)] 10/14/18 [Last Taken 11/11/18] Aspirin EC [Aspirin EC 81 mg (*)] 10/14/18 [Last Taken 11/11/18] Atorvastatin Calcium [Lipitor 40 mg (*)] 10/14/18 [Last Taken 11/15/18] Lisinopril [Zestril 2.5 mg (*)] 10/14/18 [Last Taken 11/16/18] Metoprolol Succinate Xr [Toprol Xl 25 mg (*)] 10/14/18 [Last Taken 11/15/18] levETIRAcetam [Keppra 500 mg (*)] 11/13/18 [Last Taken 11/16/18 04:30] - NPO status NPO Since - Liquids (Date): 11/16/18 NPO Since - Liquids (Time): 04:30 NPO Since - Solids (Date): 11/15/18 NPO Since - Solids (Time): 20:30 - Smoking Hx Smoking Status: Never smoked - Family Anes Hx Family Hx Anesthesia Complications: none ANE Labs/Vital Signs - Labs Result Diagrams: 11/16/18 05:42 11/16/18 05:42 - Vital Signs Blood Pressure: 146/92 Heart Rate: 59 Respiratory Rate: 16 O2 Sat (%): 97 Height: 167.64 cm Weight: 77.111 kg ANE Physical Exam - Airway Neck exam: FROM Mallampati Score: Class 2 Mouth exam: normal dental/mouth exam - Pulmonary Pulmonary: no respiratory distress, no rales or rhonchi, clear to auscultation - Cardiovascular Cardiovascular: regular rate and rhythym, no murmur, rub, or gallop - ASA Status ASA Status: III ANE Anesthesia Plan Anesthesia Plan: general endotracheal anesthesia
[2018-11-16] MEDS ORDERED: ONDANSETRON 4 MG/2 ML VIAL IVP PRN (07:14)
[2018-11-16] MEDS ORDERED: HYDROmorphONE/DILAUDID 2 MG/ML INJ IVP PRN (07:14)
[2018-11-16] MEDS ORDERED: METOCLOPRAMIDE 10 MG/2 ML VIAL IVP PRN (07:14)
[2018-11-16] MEDS ORDERED: fentaNYL 100 MCG/2 ML INJ IVP PRN (07:14)
[2018-11-16] MEDS ORDERED: PROMETHAZINE HCL 25 MG/ML INJ IVP PRN ×2 (07:14→13:48)
[2018-11-16] MEDS ORDERED: PHENYLEPHRINE HCL 100 MCG/ML SYR IVP PRN (07:14)
[2018-11-16] MEDS ORDERED: oxyCODONE IR 5 MG TAB PO PRN (07:14)
[2018-11-16] MEDS ORDERED: NALOXONE HCL 0.4 MG/ML INJ IVP PRN (07:14)
[2018-11-16] MEDS ORDERED: PHENYLEPHRINE HCL 100 MCG/ML SYR ONE (08:17)
--- NOTE | 2018-11-16 09:09 | POSTANESTH ---
Post Anesthetic Evaluation Cardiovascular Status: Normal, Stable Respiratory Status: Normal, Stable Level of Consciousness/Mental Status: Can Participate in Eval Pain Control: Adequate, Prn Tx Ordered Nausea/Vomiting Control: Adequate, Prn Tx Ordered Complications Possibly Related to Anesthesia: None Noted
[2018-11-16] MEDS ORDERED: fentaNYL 100 MCG/2 ML INJ ONE (11:39)
[2018-11-16] MEDS ORDERED: ESMOLOL HCL 100 MG/10 ML VIAL IV ONE (12:49)
[2018-11-16] MEDS ORDERED: NITROGLYCERIN 50 MG/10 ML SDV IV ONE (13:07)
--- NOTE | 2018-11-16 13:29 | POSTOPPROG ---
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 Mendez in PACU 11/16/18 13:30 Objective: Vital Signs Temp Pulse Resp BP Pulse Ox 36.4 C 59 L 16 146/92 H 97 11/16/18 06:21 11/16/18 07:13 11/16/18 07:13 11/16/18 07:13 11/16/18 07:13 Laboratory Results 11/16/18 05:42 11/16/18 05:42
[2018-11-16] MEDS ORDERED: HYDROCODONE/APAP 10/325 TAB PO PRN (13:36)
[2018-11-16] MEDS ORDERED: POLYETHYLENE GLYCOL 3350 17 GM PKT PO PRN (13:36)
[2018-11-16] MEDS ORDERED: LACTULOSE 20 GM/30 ML UDCUP PO PRN (13:36)
[2018-11-16] MEDS ORDERED: BISACODYL 10 MG SUPP PR PRN (13:36)
[2018-11-16] MEDS ORDERED: ACETAMINOPHEN 325 MG TAB PO PRN (13:36)
[2018-11-16] MEDS ORDERED: MAGNESIUM HYDROXIDE 30 ML UDCUP PO PRN (13:36)
[2018-11-16] MEDS ORDERED: ONDANSETRON DISINTEGRATING 4 MG TAB PO PRN (13:48)
[2018-11-16] MEDS ORDERED: DIAZEPAM 5 MG TAB PO PRN (13:48)
--- NOTE | 2018-11-16 13:51 | GOP ---
[f rep st] OPERATIVE REPORT DATE OF OPERATION: 11/16/2018 SURGEON: Davy Mendez MD CHIEF DEPUTY: Anuja Lazo PA-C. ANESTHESIA: General endotracheal. PREOPERATIVE DIAGNOSIS: Fourth ventricular mass. POSTOPERATIVE DIAGNOSIS: Fourth ventricular mass. PROCEDURE PERFORMED: 1. Suboccipital craniotomy. 2. Microsurgical gross total resection of 4th ventricular mass. 3. Use of the operative microscope. 4. Stealth stereotactic neuronavigation for volumetric gross total resection of tumor. 5. Intraoperative neurophysiological monitoring, including somatosensory- evoked potentials, motor-evoked potentials, EMG, and 6th and 7th nerve monitoring. FINDINGS: Successful tumor resection. SPECIMENS: Fourth ventricular mass for frozen and permanent section. ESTIMATED BLOOD LOSS: Blood loss was 100 cc. INDICATIONS: Rosas Jacobsen is a 58-year-old man with history of seizures. He presented after a seizure to the emergency department and scan incidentally showed a 4th ventricular mass. 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 We discussed the options, but ultimately I recommended surgical resection and biopsy. He presents electively today for this procedure. DESCRIPTION OF PROCEDURE: After informed consent was obtained from the patient , the patient was brought to the operating room and a formal time-out was performed, identifying the patient by name, medical record number and date of . Preoperative antibiotics were given. Endotracheal tube was placed and general endotracheal anesthesia was smoothly induced. All appropriate leads were placed for intraoperative neurophysiologic monitoring. Ruiz pins were placed and the patient was turned to the prone position on a standard table where all appropriate pressure points were padded and checked. The Stealth was registered to the scalp and checked for accuracy using known surface landmarks. A midline incision extending onto the posterior neck from the inion was planned and 20 cc of 4% Marcaine with epinephrine was infiltrated in the skin for hemostasis. The region was prepped and draped in the normal sterile fashion. A skin incision was made using a 10 blade and the subcutaneous tissues were dissected using monopolar electrocautery. The skin was undermined over the fascia and a transverse incision was made in the fascia just below the inion. The upper portions of the suboccipital muscles were divided and the avascular midline plane was then opened in a T-fashion. The occiput was skeletonized and the arch of C1 was also skeletonized. Once we had this exposure, the exposure was checked using the Stealth. Using a high-speed drill with matchstick bur, we then drilled 2 bur holes laterally over the cerebellar hemispheres. This was then used to continue a roughly 4 x 4 cm craniotomy flap down to the foramen magnum. Once this was removed, all bleeding was controlled using bipolar electrocautery, Gelfoam and bone wax. This allowed good decompression of the cerebellar hemispheres. We then drilled the upper portion of the C1 lamina, performing a near total C1 laminectomy. This allowed a good enough exposure to access the entirety of the tumor. At this point, all bleeding was controlled with bipolar electrocautery and Gelfoam. The operative microscope was brought on the field and the remainder of the procedure was performed under high-power magnification. Starting near the arch of C1, the dura was opened in the midline and then over the cerebellar hemisphere and hemispheres in a Y-shaped fashion. The dura was tacked up and the arachnoid was opened. This allowed egress of CSF. The tumor was visualized extending out of the area near the obex and was heavily involved in the left PICA. We carefully then inspected the area and the cerebellar tonsils were lifted slightly and the mass was seen extending laterally in this area. At this point , both the cerebellomedullary fissure and tubular tonsillar fissures were dissected. There were arachnoid adhesions. This allowed us to open the area between the uvula of the vermis and the tonsil. We then were able to dissect carefully around the lateral aspect of the tumor and the tumor was extending both sides out quite far laterally. The PICA branches were carefully dissected with care not to damage the PICA. Several branches from the PICA were seen coursing into the tumor and these were bipolared and cut. 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 We continued removing tumor in this piecemeal fashion. On the left side, we were able to skeletonize the entire PICA and its branches, and we then carefully were able to dissect around the lateral aspect of the tumor. The tumor was pulled from the area of the foramen of Luschka and the 4th ventricular floor was identified. We then coursed more cephalad, trying to carefully separate the tumor from the inferior portion of the vermis. Once this was obtained, we were also able to dissect the right side. On the right side, the tumor extended further out into the area of the foramen of Luschka extensively. The small vessels were carefully dissected away from the tumor capsule and was collapsed upon itself. This brought us down to the area of the obex. This tumor was clearly attached to the brainstem in this area and there was no clear plane between the tumor and the 4th ventricular floor. The ultrasonic aspirator was used to carefully aspirate the tumor from this interface until I did not see any tissue that had the appearance of tumor any longer. At this point, the floor of the 4th ventricle was covered with some Surgicel. This allowed complete relaxation of the 4th ventricle and the cephalad area was completely free of tumor. We then extended out into the area of the PICA where the tumor was extensively near circumferential around the brainstem, extending out near the vertebral artery. The tumor was then carefully from the small branches of the PICA and the vertebral artery and these pieces of tumor were removed en bloc. This was the case on both sides, which required extensive decompression into the cerebellar medullary fissure. Both vertebral arteries were well visualized and both 11th cranial nerves were well visualized. At this point, it appeared as though we had removed the entirety of the tumor. Our borders were checked again with navigation and I did not see any further areas of tumor and the brain was well decompressed. The wound was then copiously irrigated using sterile saline irrigation. All neurophysiologic monitoring remained stable with no changes from baseline. Some Surgicel was laid over the cerebellar tonsils and the inferior portion of the dura was then closed using interrupted 4-0 Nurolons. The dura had shrunk some and was not able to be closed completely in a watertight fashion. Therefore, a DuraGen graft was placed superiorly, both as an inlay and onlay and was held in place using DuraSeal. No more CSF was seen leaking. Therefore, the bone flap was plated back in place using Synthes titanium plates and screws. The muscles were tacked together centrally to close the space. The fascia was then closed in a watertight fashion using interrupted 0 Vicryls. The deep dermis was closed using interrupted 2-0 Vicryls. The skin was closed using Steri- Strips. The patient was then turned back into the supine position where the Ruiz pins were removed and he was extubated. He was transferred to the PACU in stable condition with no operative complications. I was scrubbed and present the entire procedure. All sponge and needle counts were correct at the end of the case. FLUIDS AND URINE OUTPUT: Per the anesthesia record. /[id number]/MODL MTDD
[2018-11-16] MEDS ORDERED: *MD ORDERING ONLY-DEXAMETHASONE TAPER PO SCH (14:00)
[2018-11-16] MEDS ORDERED: hydrALAZINE 20 MG/ML VIAL ONE (14:00)
[2018-11-16] MEDS: hydrALAZINE 20 MG/ML VIAL IVP PRN ×2 (14:01→14:17)
[2018-11-16] MEDS: niCARdipine/NACL 200 ML IV PRN ×3 (15:03→22:37)
[2018-11-16] MEDS: NS W/ 20 KCl/L 1,000 ML IV SCH (15:11)
[2018-11-16] MEDS: ONDANSETRON 4 MG/2 ML VIAL IVP PRN (15:11)
[2018-11-16] MEDS: METHOCARBAMOL 750 MG TAB PO SCH ×2 (15:33→16:22)
[2018-11-16] MEDS: DEXAMETHASONE 4 MG TAB PO SCH ×2 (15:33→16:22)
--- NOTE | 2018-11-16 15:42 | PDMN ---
Medical Necessity Medical necessity: MCG: S410 craniotomy 3 days: OP: suboccipital craniotomy, resection of 4th ventriucular mass, -AUTH# [id number] APPROVED FOR 3 DAYS LOS FOR INPATIENT STAY
--- NOTE | 2018-11-16 16:12 | GCON ---
[f rep st] CONSULTATION CATSHOVEL DRIVER CONSULTATION REASON FOR CONSULTATION: I was asked by Dr. Davy Mendez to see the patient in barrel straightener consultat ion. HISTORY OF PRESENT ILLNESS: The patient is a 58-year-old white male with a past medical history of h yperlipidemia, hypertension, coronary artery disease, and seizures. He was admitted earlier in the [facility] and found to have a brain mass in the 4th ventricle. He underwent a suboccipital craniotomy wit h a microsurgical resection of 4th ventricle mass. In discussion with the patient, he states he is c urrently complaining of some pain and nausea. He has no resting shortness of breath or any dyspnea u richard exertion. There is no chest pain, pleuritic-type chest pain, or angina equivalent. There is no fever or night sweats. In early October of 2018, he was admitted for seizure. REVIEW OF SYSTEMS: A 10-point review of systems is performed and negative except for what is listed in the HPI. PAST MEDICAL HISTORY: Significant for coronary artery disease, hyperlipidemia, hypertension, seizure s. PAST SURGICAL HISTORY: He has had a coronary stent. ALLERGIES: No known allergies to medications. SOCIAL HISTORY: No history of tobacco use. Infrequent alcohol use. He works at [employer]. He is , has excellent family support. MEDICATIONS: At home include vitamin C, aspirin, atorvastatin, lisinopril, metoprolol. PHYSICAL EXAM: VITAL SIGNS: Blood pressure 123/81, pulse is 80, respiration 14, temperature is 36.1 , oxygen saturation 97% on 2 L. GENERAL: He is a well-developed, well-nourished 58-year-old white m zakia who is resting comfortably, although complaining of headache and nausea. HEENT: Eyes PERRL, EOMI . Throat shows no erythema or tonsillar hypertrophy. NECK: Supple. There is no cervical adenopath y. HEART: Regular rate and rhythm without murmurs, rubs, gallops. LUNGS: Clear to auscultation. No wheeze or rhonchi. ABDOMEN: Soft, nontender. Bowel sounds are present in all 4 quadrants. EXTR EMITIES: No clubbing, cyanosis, or edema. LABORATORIES: White count is 6.7, hemoglobin 14, hematocrit 43, platelet count is 290. Sodium 138, potassium 4.3, chloride 108, CO2 is 22, BUN 29, creatinine 1.1, glucose is 95. IMPRESSION: 1. 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 2. Status post suboccipital craniotomy and microsurgical resection of 4th ventricle mass. 3. History of coronary artery disease. 4. Hypertension. 5. Hyperlipidemia. 6. History of seizures. RECOMMENDATIONS: 1. Adequate blood pressure control. 2. DVT and PE prophylaxis. Holding anticoagulation for now. 3. Stress ulcer prophylaxis. 4. Adequate pain control. 5. Nausea control. 6. Close cardiovascular monitoring. 7. Follow chemistries closely. /[id number]/MODL
[2018-11-16] MEDS: KETOROLAC 30 MG/1 ML SDV IVP PRN (16:32)
[2018-11-16] MEDS: DEXAMETHASONE 4 MG/ML VIAL IVP SCH ×2 (17:24→21:41)
[2018-11-16] MEDS: METHOCARBAMOL 750 MG in NS 50 ML IV SCH ×2 (17:24→21:35)
[2018-11-16] MEDS: DIAZEPAM 5 MG/ML 1 ML SYR IVP PRN (20:37)
[2018-11-16] MEDS ORDERED: levETIRAcetam 500 MG TAB PO SCH (21:00)
[2018-11-16] MEDS ORDERED: levOFLOXACIN 500 MG/DEXTROSE 100 ML IV SCH (21:00)
[2018-11-16] MEDS ORDERED: DEXAMETHASONE 4 MG/ML VIAL IVP ONE (21:15)
[2018-11-16] MEDS: levETIRAcetam 500MG/NACL 100 ML IV SCH (21:35)
[2018-11-16] MEDS: SENNOSIDES/DOCUSATE SODIUM TAB PO SCH (21:40)
[2018-11-16] MEDS: ATORVASTATIN CALCIUM 40 MG TAB PO SCH (21:41)
[2018-11-17] MEDS: niCARdipine/NACL 200 ML IV PRN ×2 (02:41→19:36)
[2018-11-17] MEDS: DEXAMETHASONE 4 MG/ML VIAL IVP SCH ×2 (02:42→08:40)
[2018-11-17] MEDS: DIAZEPAM 5 MG/ML 1 ML SYR IVP PRN ×2 (02:42→08:40)
[2018-11-17] MEDS: KETOROLAC 30 MG/1 ML SDV IVP PRN ×2 (03:02→19:36)
[2018-11-17 06:06] LABS: PLATELET COUNT 273 10^3/uL (150-400)
[2018-11-17] MEDS: METHOCARBAMOL 750 MG in NS 50 ML IV SCH ×3 (06:19→21:09)
[2018-11-17] MEDS: LISINOPRIL 2.5 MG TAB PO SCH (08:33)
[2018-11-17] MEDS: METOPROLOL SUCCINATE XR 25 MG TAB PO SCH (08:33)
[2018-11-17] MEDS: SENNOSIDES/DOCUSATE SODIUM TAB PO SCH ×2 (08:34→20:41)
[2018-11-17] MEDS: levETIRAcetam 500MG/NACL 100 ML IV SCH ×2 (08:39→21:09)
--- NOTE | 2018-11-17 08:42 | NEUSURGPN ---
Date of Surgery: 11/16/18 Post Op Day: 1 Assessment/Plan: A: 58 yo male sp Sub-occipital craniotomy for resection of 4th ventricular mass POD#1 Postoperatively having diplopia P: -Continue neuro checks -SBP < 140 -Postop MRI pending -Advance diet as tolerated -Advance activity as tolerated -7 day Decadron taper -PT/OT/HEALTH AND SAFETY CONSULTANT -Monitor incision for signs of CSF leak -Please contact neurosurgery with any changes in neuro status/exam -Possibly to the floor later today if progresses well Discussed with Dr. Mendez. Subjective: Notes difficulty with swallowing secretions and diplopia. Objective: Awake. Alert. Pupils equal. Has nystagmus upon extraocular movements and absent lateral gaze tongue in midline with protrusion speech fluent facial expression symmetrical strength full following commands incision c/d/i Catheter Insertion Date: 11/16/18 - Physician Discussed Patient with Dr.: Mendez Neurosurgery Physical Exam - Vitals, I&O, Labs I and O 11/16/18 11/17/18 11/18/18 05:59 05:59 05:59 Intake Total 3608 Output Total 1230 Balance 2378 Weight 77.111 kg Intake: Oral (ml) 0 IV Intake (ml) 1500 IV Infused (ml) 2108 NS W/ 20 KCl/L 1,000 ml @ 1499 100 mls/hr IV CONT ERIN Rx#:[id number] niCARdipine/NACL 200 ml @ 609 Titrate IV PRN PRN Rx#: [id number] Output: Urine (ml) 1180 Catheter 1180 Estimated Blood Loss (ml) 50 Vital Signs Temp Pulse Resp BP Pulse Ox 37.1 C 99 18 124/66 H 98 11/17/18 07:32 11/17/18 08:33 11/17/18 07:32 11/17/18 08:33 11/17/18 07:32 Laboratory Results 11/17/18 05:15 11/16/18 05:42 ICD10 Worksheet Patient Problems: Problems Problem Status Onset Brain mass Acute Seizure Acute
--- NOTE | 2018-11-17 08:55 | PDINTPN ---
Access Lead Progress Note Assessment/Plan: Assessment/plan: * Tumor-4th ventricle * Status post suboccipital craniotomy and microsurgical resection of 4th ventricle mass -pathology is pending * Diplopia * Pain-complains of throat pain -consider magic mouthwash * Dyspnea-likely secondary to intubation. Oxygen saturations are good on room air -follow closely * History of coronary disease * VTE prophylaxis * Hypertension * PT/OT * Out of bed Subjective: Sitting up in chair. Complains of throat pain. Feels that his throat pain/ swelling is contributing to dyspnea Objective: Vital Signs Temp Pulse Resp BP Pulse Ox 37.1 C 99 18 124/66 H 98 11/17/18 07:32 11/17/18 08:33 11/17/18 07:32 11/17/18 08:33 11/17/18 07:32 Laboratory Results 11/17/18 05:15 11/16/18 05:42 11/16/18 11/17/18 11/18/18 05:59 05:59 05:59 Intake Total 3608 Output Total 1230 Balance 2378 - Time Spent With Patient Time Spent With Patient: 35 min of time spent with patient, over 1/2 involved coordination of care counseling. Case discussed with Nursing and patient's Physical Exam - Physical Exam General Appearance: alert, mild distress EENT: PERRL/EOMI Neck: non-tender, supple, other (No stridor) Respiratory: chest non-tender, lungs clear, normal breath sounds Cardiac/Chest: normal peripheral pulses, regular rate, rhythm Abdomen: normal bowel sounds, non-tender, soft Male Genitalia: deferred Rectal: deferred Skin: normal color, warm/dry Extremities: normal range of motion, non-tender, normal inspection, normal capillary refill Neuro/Psych: alert, oriented x 3 ICD10 Worksheet Patient Problems: Problems Problem Status Onset Brain mass Acute Seizure Acute
[2018-11-17] MEDS ORDERED: DIAZEPAM 5 MG/ML 1 ML SYR IVP ONE (09:26)
--- NOTE | 2018-11-17 09:42 | ASMTCMCOM ---
CM Note CM Note Notes: CM met with pt and his and sister. Pt presents with suboccipital craniotomy. CM provided education about CM and discharge planning. Therapies are ordered; pending eval. CM to follow. Plan: TBD Date Signed: 11/17/2018 09:42 AM Electronically Signed By:RADHA Mcdonald
[2018-11-17] MEDS: hydrALAZINE 20 MG/ML VIAL IVP PRN ×2 (10:09→18:11)
[2018-11-17] MEDS: NS W/ 20 KCl/L 1,000 ML IV SCH (10:10)
[2018-11-17] MEDS ORDERED: GADOBUTROL 10 ML VIAL IVP ONE (11:25)
[2018-11-17] MEDS: ONDANSETRON 4 MG/2 ML VIAL IVP PRN (15:25)
[2018-11-17] MEDS: DEXAMETHASONE 4 MG/ML VIAL IV SCH (18:11)
[2018-11-17] MEDS: ATORVASTATIN CALCIUM 40 MG TAB PO SCH (20:41)
[2018-11-18] MEDS: DEXAMETHASONE 4 MG/ML VIAL IV SCH ×3 (00:19→20:33)
[2018-11-18] MEDS: ONDANSETRON 4 MG/2 ML VIAL IVP PRN ×2 (02:43→16:39)
[2018-11-18] MEDS: KETOROLAC 30 MG/1 ML SDV IVP PRN (02:43)
[2018-11-18] MEDS: METHOCARBAMOL 750 MG in NS 50 ML IV SCH (05:28)
[2018-11-18] MEDS: hydrALAZINE 20 MG/ML VIAL IVP PRN ×2 (07:40→13:26)
--- NOTE | 2018-11-18 07:45 | SOAPPROG ---
SOAP Progress Note Assessment/Plan: Assessment: 58 yo M POD #2 resection of fourth ventricular tumor Plan: neuro: stable MRI with good resection of tumor, some edema in medula which is likely source of diplopia dysphagia, starting to improve today, ST to work with patient PT/OT on decadron transfer to floor please call with neuro changes seen by Dr Mendez 11/18/18 07:42 Subjective: No headaches, no N/V. some issues with swallowing, continued double vision Objective: Vital Signs Temp Pulse Resp BP Pulse Ox 36.6 C 107 H 20 131/73 H 95 11/18/18 04:00 11/18/18 06:00 11/18/18 06:00 11/18/18 06:00 11/18/18 06:00 Laboratory Results 11/17/18 05:15 11/16/18 05:42 11/17/18 11/18/18 11/19/18 05:59 05:59 05:59 Intake Total 3608 2486 Output Total 1230 2775 Balance 2378 -289 AAOx4, +FC PERRL, nystagmus with EOM no facial droop DAVID x 4 + light touch C/D/I ICD10 Worksheet Patient Problems: Problems Problem Status Onset Brain mass Acute Seizure Acute
[2018-11-18] MEDS ORDERED: LABETALOL HCL 20 MG/4 ML INJ IVP ONE (08:45)
[2018-11-18] MEDS: levETIRAcetam 500MG/NACL 100 ML IV SCH ×2 (08:53→21:37)
[2018-11-18] MEDS ORDERED: BISACODYL 10 MG SUPP PR PRN (11:33)
[2018-11-18] MEDS: METOPROLOL TARTRATE 5 MG/5 ML INJ IV SCH ×2 (12:04→17:59)
[2018-11-18] MEDS: SENNOSIDES/DOCUSATE SODIUM TAB PO SCH (12:05)
[2018-11-18] MEDS: DIAZEPAM 5 MG/ML 1 ML SYR IVP PRN ×2 (12:05→17:59)
[2018-11-18] MEDS: LISINOPRIL 2.5 MG TAB PO SCH (12:05)
[2018-11-18] MEDS: METOPROLOL SUCCINATE XR 25 MG TAB PO SCH (12:05)
[2018-11-18] MEDS ORDERED: METHOCARBAMOL 750 MG TAB PO PRN (14:00)
[2018-11-18] MEDS: ENALAPRILAT DIHYDRATE 1.25 MG/ML VIAL IV PRN (15:40)
[2018-11-18] MEDS ORDERED: IOHEXOL 300 mgI/ML (OMNIPAQUE) 150 ML BTL IV ONE (18:10)
[2018-11-18] MEDS: niCARdipine/NACL 200 ML IV PRN (22:03)
[2018-11-19] MEDS: METOPROLOL TARTRATE 5 MG/5 ML INJ IV SCH ×5 (01:06→23:50)
[2018-11-19] MEDS: niCARdipine/NACL 200 ML IV PRN ×2 (04:30→11:44)
[2018-11-19] MEDS: ENOXAPARIN 40 MG/0.4 ML SYR SC SCH (08:57)
[2018-11-19] MEDS: DEXAMETHASONE 4 MG/ML VIAL IV SCH ×2 (08:57→20:51)
[2018-11-19] MEDS: levETIRAcetam 500MG/NACL 100 ML IV SCH ×2 (08:57→20:52)
--- NOTE | 2018-11-19 09:20 | NEUSURGPN ---
Assessment/Plan: Assessment: Plan: S: Doing ok, emotional this morning and happy that double vision slightly improved this morning. Has abdominal pain that he describes as wrapping around jsut below his sternum. O: NAD, VSS PERRL No facial droop Still waking up from anesthesia ABBE X4 Assessment/Plan: Assessment: 58 yo M POD #3 resection of fourth ventricular tumor Plan: neuro: Overall doing ok, continued double vision that is slightly improved this morning MRI with good resection of tumor, some edema in medula which is likely source of diplopia dysphagia, still present- will continue to have PRODUCTION SUPV see him today and will talk to Dr. Mendez about ENT possibly seeing patient as well PT/OT on decadron Some GI upset/abdominal pain- no BM yet but passing gas. Also will consider steroids as source of GI discomfort- will start Protonix for this Will order xray abdomen to check for ileus or obstruction. Patient is passing gas please call with neuro changes Discussed with Dr. Mendez Catheter Insertion Date: 11/16/18 - Physician Discussed Patient with Dr.: Mendez Neurosurgery Physical Exam - Vitals, I&O, Labs I and O 11/18/18 11/19/18 11/20/18 05:59 05:59 05:59 Intake Total 2486 1666 Output Total 2775 2325 325 Balance -289 -789 325 Intake: Oral (ml) 0 IV Infused (ml) 2486 1666 NS W/ 20 KCl/L 1,000 ml @ 2157 1323 100 mls/hr IV CONT ERIN Rx#:[id number] niCARdipine/NACL 200 ml @ 329 343 Titrate IV PRN PRN Rx#: [id number] Output: Urine (ml) 2775 2325 325 Urinal 2775 2325 325 Other: Number of Voids Urinal 5 1 1 Vital Signs Temp Pulse Resp BP Pulse Ox 36.5 C 84 15 132/72 H 97 11/19/18 07:44 11/19/18 07:44 11/19/18 07:44 11/19/18 07:44 11/19/18 07:44 Laboratory Results 11/17/18 05:15 11/16/18 05:42 ICD10 Worksheet Patient Problems: Problems Problem Status Onset Brain mass Acute Seizure Acute
[2018-11-19] MEDS: PANTOPRAZOLE SODIUM 40 MG VIAL IVP SCH (10:20)
--- NOTE | 2018-11-19 12:25 | ASMTCMCOM ---
CM Note CM Note Notes: Therapies are recommending inpatient rehab. Spoke with Dr. Mortensen who will place the inpatient rehab eval order. CM will follow. Date Signed: 11/19/2018 12:25 PM Electronically Signed By:Kizzy Monte LCSW
[2018-11-19] MEDS: D5W NS 1,000 ML IV SCH (19:40)
[2018-11-19] MEDS: hydrALAZINE 20 MG/ML VIAL IVP PRN (20:42)
[2018-11-19] MEDS: ONDANSETRON 4 MG/2 ML VIAL IVP PRN (23:55)
[2018-11-20] MEDS: ENALAPRILAT DIHYDRATE 1.25 MG/ML VIAL IV PRN ×2 (01:01→13:45)
[2018-11-20] MEDS: DIAZEPAM 5 MG/ML 1 ML SYR IVP PRN (01:20)
[2018-11-20] MEDS: D5W NS 1,000 ML IV SCH (01:31)
[2018-11-20] MEDS: hydrALAZINE 20 MG/ML VIAL IVP PRN ×2 (03:52→10:33)
[2018-11-20] MEDS: KETOROLAC 30 MG/1 ML SDV IVP PRN (03:57)
[2018-11-20] MEDS ORDERED: niCARdipine/NACL/200 ML BAG IV ONE (04:49)
[2018-11-20] MEDS: METOPROLOL TARTRATE 5 MG/5 ML INJ IV SCH ×3 (07:23→18:34)
--- NOTE | 2018-11-20 07:48 | NEUSURGPN ---
Assessment/Plan: Assessment: 58 yo M POD #4 resection of fourth ventricular tumor Plan: MRI with good resection of tumor, some edema in medula which is likely source of diplopia dysphagia, still present- will continue to have SEPTIC TANK CLEANER see. Discussed with patient and that if they do not see improvement and progression that may need to place a dobhoff for nutrition PT/OT Continue decadron Some GI upset/abdominal pain- no BM yet but passing gas. Started on PPI yesterday with some improvement. Medicine consulted Will order xray abdomen, ordered but patient was having increased pain and blood pressure concerns so this was not done yesterday. Hospitalist consults for assistance with BP meds, goal is <160. Was transferred to SDU for SBP on >180 last night and Cardene gtt started Discussed plan of care with patient and this morning Discussed with Dr. Mendez Please notify NS with any change in neuro/motor exam Subjective: Abdominal pain improved somewhat with adding in PPI. Still with significant dysphagia Objective: NAD, VSS PERRL No facial droop MCADAMS X4 5/5 and equal Incisional dressing with sanguineous staining Catheter Insertion Date: 11/16/18 - Physician Discussed Patient with : Vanessa Neurosurgery Physical Exam - Vitals, I&O, Labs I and O 11/19/18 11/20/18 11/21/18 05:59 05:59 05:59 Intake Total 1666 1420 Output Total 2325 1775 Balance -659 -355 Intake: Oral (ml) 300 IV Intake (ml) 950 IV Infused (ml) 1666 170 NS W/ 20 KCl/L 1,000 ml @ 1323 100 mls/hr IV CONT ERIN Rx#:[id number] niCARdipine/NACL 200 ml @ 343 170 Titrate IV PRN PRN Rx#: [id number] Output: Urine (ml) 2325 1775 Toilet 700 Urinal 2325 1075 Other: Intake Quantity Yes Sufficient Number of Voids Toilet 1 Urinal 1 1 Number of Stools Toilet 0 Vital Signs Temp Pulse Resp BP Pulse Ox 36.5 C 77 20 120/75 96 11/19/18 23:34 11/20/18 07:23 11/20/18 07:00 11/20/18 07:23 11/20/18 07:00 Laboratory Results 11/17/18 05:15 11/16/18 05:42 ICD10 Worksheet Patient Problems: Problems Problem Status Onset Brain mass Acute Seizure Acute
[2018-11-20] MEDS: levETIRAcetam 500MG/NACL 100 ML IV SCH ×2 (09:31→21:13)
[2018-11-20] MEDS: DEXAMETHASONE 4 MG/ML VIAL IV SCH ×2 (09:31→21:14)
[2018-11-20] MEDS: PANTOPRAZOLE SODIUM 40 MG VIAL IVP SCH ×2 (09:31→21:14)
[2018-11-20] MEDS: ENOXAPARIN 40 MG/0.4 ML SYR SC SCH (09:40)
--- NOTE | 2018-11-20 11:36 | ASMTCMCOM ---
CM Note CM Note Notes: Inpatient rehab states they feel patient is a good candidate but they need to monitor his progress. All therapies are recommending inpatient rehab currently. Patient continues to have significant dysphagia. CM will follow. Date Signed: 11/20/2018 11:35 AM Electronically Signed By:Kizzy Monte LCSW
--- NOTE | 2018-11-20 11:58 | PDINTPN ---
Rigger Helper Progress Note Assessment/Plan: Assessment/plan: * Tumor-4th ventricle * Status post suboccipital craniotomy and microsurgical resection of 4th ventricle mass -pathology is pending * Pain-complains of throat pain -consider magic mouthwash * Dyspnea-likely secondary to intubation. Oxygen saturations are good on room air -follow closely * History of coronary disease * VTE prophylaxis * Hypertension--difficult to control with IV pushes. Cannot take p.o. Yet. -will add clonidine patch * PT/OT * Out of bed Subjective: Sitting up in chair. About to work with physical therapy. Still having some dizziness. Objective: Vital Signs Temp Pulse Resp BP Pulse Ox 36.9 C 84 16 147/86 H 96 11/20/18 09:30 11/20/18 11:00 11/20/18 08:04 11/20/18 11:27 11/20/18 08:04 Laboratory Results 11/17/18 05:15 11/16/18 05:42 11/19/18 11/20/18 11/21/18 05:59 05:59 05:59 Intake Total 1666 1420 Output Total 2325 1775 575 [facility] -[phone] - Time Spent With Patient Time Spent With Patient: 35 min of time spent with patient, over 1/2 involved with coordination of care or counseling. Case discussed with nursing Physical Exam - Physical Exam General Appearance: alert, no apparent distress EENT: PERRL/EOMI Neck: non-tender, supple Respiratory: chest non-tender, lungs clear Cardiac/Chest: normal peripheral pulses, regular rate, rhythm Abdomen: normal bowel sounds, non-tender, soft Male Genitalia: deferred Rectal: deferred Skin: normal color, warm/dry Extremities: normal range of motion, non-tender, normal inspection, normal capillary refill Neuro/Psych: alert ICD10 Worksheet Patient Problems: Problems Problem Status Onset Brain mass Acute Seizure Acute
[2018-11-20] MEDS: niCARdipine/NACL 200 ML IV PRN (15:43)
[2018-11-20] MEDS ORDERED: LORazepam 2 MG/ML INJ IVP PRN (16:04)
[2018-11-20] MEDS ORDERED: ORAL BALANCE GEL TUBE PO PRN (16:50)
--- NOTE | 2018-11-20 16:56 | ASMTCMCOM ---
CM Note CM Note Notes: Met with patient's and sister regarding discharge planning. Patient is being recommended for inpatient rehab and Ashley is in agreement. A referral has been sent . Inpatient rehab is following and thinks patient is appropriate. Ashley was given the folder containing info on the program and encouraged to go visit. Ashley had questions about coverage and we let her know they had to have insurance auth before the patient transfers. CM will follow. Date Signed: 11/20/2018 04:56 PM Electronically Signed By:Kizzy Monte LCSW
--- NOTE | 2018-11-20 18:07 | GCON ---
[f rep st] CONSULTATION INTERNAL MEDICINE CONSULTATION DATE OF CONSULTATION: 11/20/2018 REASON FOR CONSULTATION: Medical opinion regarding hypertension. HISTORY: The patient is a 58-year-old male, who recently had a syncopal event and was incidentally f ound to have a 4th ventricle brain mass. He was seen by Neurosurgery. They thought this was probabl y an ependymoma and could be resected electively. He presented to the hospital and had craniotomy on November 16. Postoperatively, he has had edema in the medulla which has caused some persistent dip lopia and dysphagia. He remains n.p.o. and has been n.p.o. now for 5 days. Video fluoro swallow ivania dy scheduled for tomorrow morning and if he does not pass, plan is to proceed with Dobbhoff tube plac ement. He is on IV Decadron. The IV Decadron is causing some upper GI distress which has improved w ith initiation of empiric IV PPI. He has also been having severe blood pressure issues. He spent la st night on IV Cardene drip with a blood pressure goal of less than 160. His anxiety level is extrem gena high, although he does not have a baseline anxiety disorder. A combination of being n.p.o. and h aving the postoperative course being bumpier than anticipated has caused him severe emotional distres s. PAST MEDICAL HISTORY: 1. Hypertension. 2. Coronary artery disease, status post stent. 3. Seizure disorder. MEDICATIONS: Please see computerized record for full details. ALLERGIES: No known drug allergies. SOCIAL HISTORY: No smoking. No alcohol. He lives with his . He is a [employer] employee. REVIEW OF SYSTEMS: Complete review of systems obtained. Review of systems negative regarding consti tutional, HEENT, GI, pulmonary, cardiovascular, , hematology, skin, musculoskeletal, endocrine, psy ch, except for positives as in HPI. FAMILY HISTORY: Reviewed, noncontributory to presenting complaint. PHYSICAL EXAMINATION: GENERAL: Well-developed, well-nourished male, in no distress. VITAL SIGNS: Temperature is 36.5, pulse 81, blood pressure 190/90, saturating 94% on room air. EYES: Normal conj unctivae. Pupils equal and reactive to light. ENT: Normal ears, nose. Hearing intact. Normal danny th. Oropharynx moist. NECK: Trachea midline. No thyromegaly. CHEST: Normal effort. LUNGS: Sai ar to auscultation bilaterally. CARDIOVASCULAR: Regular rate and rhythm. No murmur. No lower extr emity edema. ABDOMEN: Soft, nontender. No hepatosplenomegaly. SKIN: Warm, dry, intact. No rash. MUSCULOSKELETAL: No cyanosis or clubbing. Strength 5/5 upper and lower extremities. NEUROLOGIC: Cranial nerves intact, except he does suffer from diplopia. Normal sensation light touch. PSYCH: Alert and oriented x3. Normal affect. Normal judgment and insight. Normal memory. LABORATORY DATA: White count 18.44, hematocrit 39.6, platelets 273. Sodium 138, potassium 4.3 chlor baljit 108, bicarb 22, BUN 29, creatinine 1.1. Glucose 95. CT angiogram of the chest shows atelectasis. No PE. This case was discussed with Dr. Guilherme Mortensen, ICU physician, regarding addition of clonidine patch thi s morning and lack of response. He continues to require multiple doses of IV medications throughout the day today. ASSESSMENT/PLAN: 1. Hypertensive urgency. This is due to cerebral edema and anxiety. For now, will continue on the IV Cardene drip. Will start oral medications once he is able to take p.o. or once the Dobbhoff tube is placed. He is also on scheduled IV metoprolol and initiated on a clonidine patch. 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 Formal pathology is pending. For cerebra l edema, he is on IV Decadron. 3. Seizure disorder. Continue IV Keppra. 4. Dyspepsia secondary to intravenous steroids. This has improved on intravenous proton pump inhibi tor. 5. Dysphagia. Videofluoroscopic swallowing study is scheduled for tomorrow morning. He is agreeabl e to Dobbhoff tube feeding if he fails. Once we re-establish ability to take oral medications, I thi nk we will have an easier time getting his blood pressure under control in a sustained manner. 6. Coronary artery disease, status post previous stent. He is appropriately on aspirin, a statin dr pinzon, beta samantha, and MOHAMUD inhibitor as an outpatient, but these are currently being held due to inabi lity for oral intake. Thank you very much for this consultation. Internal Medicine will continue to follow. /[id number]/MODL
[2018-11-21] MEDS: METOPROLOL TARTRATE 5 MG/5 ML INJ IV SCH ×3 (00:10→12:33)
[2018-11-21] MEDS: niCARdipine/NACL 200 ML IV PRN (00:44)
[2018-11-21 06:24] LABS: PLATELET COUNT 246 10^3/uL (150-400)
--- NOTE | 2018-11-21 08:36 | NEUSURGPN ---
Date of Surgery: 11/16/18 Post Op Day: 5 Assessment/Plan: A: 58 yo male sp Sub-occipital craniotomy for resection of 4th ventricular mass MRI with good resection of tumor, some edema in medula which is likely source of diplopia P: -Continue neuro checks -dysphagia: video swallow eval today. If swallowing does not improve, will need to place Dobhoff -SBP < 160, appreciate medicine's assistance with this -GI upset improved on PPI -Advance activity as tolerated -7 day Decadron taper -PT/OT/CENTRAL SUPPLY TECHNICIAN SUPERVISOR -Monitor incision for signs of CSF leak -Please contact neurosurgery with any changes in neuro status/exam Discussed with Dr. Mendez. Subjective: Was able to sleep 6 hours last night. Continues to have diplopia and difficulties swallowing. Objective: Awake. Alert. PERRL. Facial expression symmetrical Tongue in midline Following commands Strength full at 5/5 Incision c/d/i Catheter Insertion Date: 11/16/18 - Physician Discussed Patient with Dr.: Mendez Neurosurgery Physical Exam - Vitals, I&O, Labs I and O 11/20/18 11/21/18 11/22/18 05:59 05:59 05:59 Intake Total 1420 1765 Output Total 1775 2075 Balance -355 -310 Intake: Oral (ml) 300 IV Intake (ml) 950 IV Infused (ml) 170 1765 D5w Ns 1,000 ml @ 100 mls 1499 /hr IV CONT ERIN Rx#: [id number] niCARdipine/NACL 200 ml @ 170 266 Titrate IV PRN PRN Rx#: [id number] Output: Urine (ml) 1775 2075 Toilet 700 1975 Urinal 1075 100 Other: Intake Quantity Yes Sufficient Number of Voids Toilet 1 Urinal 1 1 Number of Stools Toilet 0 Vital Signs Temp Pulse Resp BP Pulse Ox 36.9 C 77 14 154/103 H 96 11/20/18 09:30 11/21/18 05:50 11/21/18 04:00 11/21/18 05:50 11/21/18 04:00 Laboratory Results 11/21/18 06:00 11/21/18 06:00 ICD10 Worksheet Patient Problems: Problems Problem Status Onset Brain mass Acute Seizure Acute
[2018-11-21] MEDS: ENOXAPARIN 40 MG/0.4 ML SYR SC SCH (09:06)
[2018-11-21] MEDS: levETIRAcetam 500MG/NACL 100 ML IV SCH ×2 (09:06→21:15)
[2018-11-21] MEDS: DEXAMETHASONE 4 MG/ML VIAL IV SCH ×2 (09:07→21:15)
[2018-11-21] MEDS: PANTOPRAZOLE SODIUM 40 MG VIAL IVP SCH ×2 (09:07→21:15)
--- NOTE | 2018-11-21 09:50 | ASMTCMCOM ---
CM Note CM Note Notes: 11/21/2018 Case Management Note Notified from [employer] that pt has auth for inpatient rehab. Auth # [id number]. Referral sent to [facility] inpatient rehab. Case Management d/c poc: Inpatient rehab pending acceptance. Case Management to follow. Date Signed: 11/21/2018 09:49 AM Electronically Signed By:Leah Jiménez RN
--- NOTE | 2018-11-21 09:52 | PDINTPN ---
Access Director Progress Note Assessment/Plan: Assessment/plan: * Tumor-4th ventricle * Status post suboccipital craniotomy and microsurgical resection of 4th ventricle mass -pathology is pending * Pain-complains of throat pain -consider magic mouthwash * Dyspnea-resolved -continue IS * History of coronary disease * VTE prophylaxis * Hypertension--difficult to control with IV pushes. Improved -will add clonidine patch * Dysphagia- -swallow eval today * PT/OT * Out of bed Subjective: Sitting up in chair. Resting comfortably. Slept well last night. Denies any dyspnea. Objective: Vital Signs Temp Pulse Resp BP Pulse Ox 35.7 C L 75 24 H 136/89 H 96 11/21/18 08:00 11/21/18 08:00 11/21/18 08:00 11/21/18 08:00 11/21/18 08:00 Laboratory Results 11/21/18 06:00 11/21/18 06:00 11/20/18 11/21/18 11/22/18 05:59 05:59 05:59 Intake Total 1420 1765 Output Total 1772 3366 Balance -355 -310 - Time Spent With Patient Time Spent With Patient: 35 min of time spent with patient, over 1/2 involved with coordination of care or counseling. Case discussed with nursing Physical Exam - Physical Exam General Appearance: alert, no apparent distress EENT: PERRL/EOMI Neck: non-tender, supple Respiratory: chest non-tender, lungs clear Cardiac/Chest: normal peripheral pulses, regular rate, rhythm Peripheral Pulses: 2+: carotid (R), carotid (L), femoral (R), femoral (L), dorsalis-pedis (R), dorsalis-pedis (L) Abdomen: normal bowel sounds, non-tender, soft Male Genitalia: deferred Rectal: deferred Skin: normal color, warm/dry Extremities: normal range of motion, non-tender, normal inspection, normal capillary refill Neuro/Psych: alert, normal mood/affect, oriented x 3 ICD10 Worksheet Patient Problems: Problems Problem Status Onset Brain mass Acute Seizure Acute
[2018-11-21] MEDS: D5W NS 1,000 ML IV SCH (12:36)
[2018-11-21] MEDS: hydrALAZINE 20 MG/ML VIAL IVP PRN (14:55)
[2018-11-21] MEDS ORDERED: LORazepam 2 MG/ML INJ IVP PRN (15:07)
[2018-11-21] MEDS ORDERED: METOPROLOL TARTRATE 5 MG/5 ML INJ IV PRN (15:18)
[2018-11-21] MEDS ORDERED: ZOLPIDEM TARTRATE 5 MG TAB PO PRN (16:40)
--- NOTE | 2018-11-21 16:40 | HOSPPROG ---
Hospitalist Progress Note Assessment/Plan: * HTN urgency -still on IV Cardene gtt - transition to PO meds once able to give * Dysphagia -failed VFSS - place feeding tube * Brain tumor 4th ventricle s/p resection -suspect ependymoma - path pending * Cerebral edema - causing diplopia/dysphagia -IV decadron * Seizure disorder -IV keppra while NPO * CAD/stent -holding ASA * Dyspepsia due to IV steroids -IV PPI BID Subjective: Better night last night, slept with ativan Objective: Vital Signs Temp Pulse Resp BP Pulse Ox 35.7 C L 77 14 112/76 97 11/21/18 08:00 11/21/18 15:10 11/21/18 15:10 11/21/18 15:10 11/21/18 15:10 Laboratory Results 11/21/18 06:00 11/21/18 06:00 11/20/18 11/21/18 11/22/18 05:59 05:59 05:59 Intake Total 1420 1765 Output Total 1772 5925 Balance -355 -310 - Physical Exam Constitutional: no apparent distress, appears nourished, not in pain Cardiovascular: regular rate and rhythym, no murmur, rub, or gallop Respiratory: no respiratory distress, no rales or rhonchi, clear to auscultation Gastrointestinal: normoactive bowel sounds, soft, non-tender abdomen, no palpable masses Skin: no rashes or abrasions, no fluctuance, no induration Neurologic: AAOx3, sensation intact bilaterally Psychiatric: interacting appropriately, not anxious, not encephalopathic, thought process linear ICD10 Worksheet Patient Problems: Problems Problem Status Onset Brain mass Acute Seizure Acute
[2018-11-21] MEDS ORDERED: LISINOPRIL 10 MG TAB PO SCH (16:45)
[2018-11-21] MEDS ORDERED: LISINOPRIL 2.5 MG TAB PO SCH (17:00)
[2018-11-21] MEDS ORDERED: METOPROLOL SUCCINATE XR 25 MG TAB PO SCH (17:00)
[2018-11-21] MEDS: LISINOPRIL 10 MG TAB TUBE SCH (19:00)
[2018-11-21] MEDS: METOPROLOL TARTRATE 25 MG TAB TUBE SCH (21:15)
[2018-11-22] MEDS: niCARdipine/NACL 200 ML IV PRN (04:33)
[2018-11-22] MEDS: hydrALAZINE 20 MG/ML VIAL IVP PRN ×2 (07:33→14:25)
[2018-11-22] MEDS: METOPROLOL TARTRATE 25 MG TAB TUBE SCH ×2 (08:21→21:42)
[2018-11-22] MEDS: levETIRAcetam 500MG/NACL 100 ML IV SCH (08:22)
[2018-11-22] MEDS: LISINOPRIL 10 MG TAB TUBE SCH ×2 (08:22→21:43)
[2018-11-22] MEDS: ENOXAPARIN 40 MG/0.4 ML SYR SC SCH (08:22)
[2018-11-22] MEDS: PANTOPRAZOLE SODIUM 40 MG VIAL IVP SCH (08:22)
[2018-11-22] MEDS: D5W NS 1,000 ML IV SCH (08:22)
--- NOTE | 2018-11-22 08:33 | NEUSURGPN ---
Date of Surgery: 11/16/18 Post Op Day: 6 Assessment/Plan: A: 58 yo male sp Sub-occipital craniotomy for resection of 4th ventricular mass MRI with good resection of tumor, some edema in medula which is likely source of diplopia P: -Continue neuro checks -dysphagia: failed video swallow eval, feeding tube placed -SBP < 160, appreciate medicine's assistance with this, transitioning to orals -GI upset improved on PPI -Advance activity as tolerated -7 day Decadron taper -PT/OT/HOSPICE DIRECTOR -Monitor incision for signs of CSF leak -Please contact neurosurgery with any changes in neuro status/exam Discussed with Dr. Mendez. Subjective: Continues to have diplopia and dysphagia Objective: Awake. Alert. PERRL Following commands, Strength full Incision c/d/i Catheter Insertion Date: 11/16/18 - Physician Discussed Patient with Dr.: Mendez Neurosurgery Physical Exam - Vitals, I&O, Labs I and O 11/21/18 11/22/18 11/23/18 05:59 05:59 05:59 Intake Total 1765 2487 Output Total 2075 1100 Balance -310 1387 Intake: IV Infused (ml) 1765 2487 D5w Ns 1,000 ml @ 100 mls 1499 2328 /hr IV CONT ERIN Rx#: [id number] niCARdipine/NACL 200 ml @ 266 159 Titrate IV PRN PRN Rx#: [id number] Output: Urine (ml) 2075 1100 Toilet 1975 1100 Urinal 100 Other: Number of Voids Toilet 3 Urinal 1 Vital Signs Temp Pulse Resp BP Pulse Ox 35.8 C L 74 11 L 152/94 H 98 11/22/18 07:20 11/22/18 08:21 11/22/18 07:20 11/22/18 08:22 11/22/18 07:20 Laboratory Results 11/21/18 06:00 11/21/18 06:00 ICD10 Worksheet Patient Problems: Problems Problem Status Onset Brain mass Acute Seizure Acute
--- NOTE | 2018-11-22 09:34 | PDINTPN ---
Leasing Machine Tender Progress Note Assessment/Plan: Assessment/plan: * Tumor-4th ventricle * Status post suboccipital craniotomy and microsurgical resection of 4th ventricle mass -pathology is pending * Pain-controlled * Dyspnea-resolved -continue IS * History of coronary disease * VTE prophylaxis * Hypertension-now on orals -continue hydralazine pushes * Dysphagia-did not pass swallow eval -feeding for Dobbhoff * PT/OT * Out of bed Subjective: Sitting up in chair. Still somewhat dizzy. Objective: Vital Signs Temp Pulse Resp BP Pulse Ox 35.8 C L 74 11 L 152/94 H 98 11/22/18 07:20 11/22/18 08:21 11/22/18 07:20 11/22/18 08:22 11/22/18 07:20 Laboratory Results 11/21/18 06:00 11/21/18 06:00 11/21/18 11/22/18 11/23/18 05:59 05:59 05:59 Intake Total 1765 2487 Output Total 2075 1100 Balance -310 1387 - Time Spent With Patient Time Spent With Patient: 35 min of time spent with patient, over 1/2 involved with coordination of care or counseling. Case discussed with nursing Physical Exam - Physical Exam General Appearance: alert, no apparent distress EENT: PERRL/EOMI Neck: non-tender, supple Respiratory: chest non-tender, lungs clear, normal breath sounds Cardiac/Chest: normal peripheral pulses, regular rate, rhythm Abdomen: normal bowel sounds, non-tender, soft Male Genitalia: deferred Rectal: deferred Skin: normal color, warm/dry Extremities: non-tender Neuro/Psych: alert, oriented x 3 ICD10 Worksheet Patient Problems: Problems Problem Status Onset Brain mass Acute Seizure Acute
--- NOTE | 2018-11-22 14:29 | HOSPPROG ---
Hospitalist Progress Note Assessment/Plan: * HTN urgency -still on IV Cardene gtt -started oral meds down tube, lisinopril + metoprolol -IV hydralazine prn, okay to DC gtt * Dysphagia -failed VFSS - place feeding tube * Brain tumor 4th ventricle s/p resection -suspect ependymoma - path pending * Cerebral edema - causing diplopia/dysphagia -IV decadron * Seizure disorder -keppra * CAD/stent -holding ASA * Dyspepsia due to IV steroids -PPI BID Subjective: No new complaints, double vision is the same Objective: Vital Signs Temp Pulse Resp BP Pulse Ox 35.8 C L 74 11 L 167/93 H 98 11/22/18 07:20 11/22/18 08:21 11/22/18 07:20 11/22/18 14:25 11/22/18 07:20 Laboratory Results 11/21/18 06:00 11/21/18 06:00 11/21/18 11/22/18 11/23/18 05:59 05:59 05:59 Intake Total 1765 2487 Output Total 2075 1100 Balance -310 1387 - Physical Exam Constitutional: no apparent distress, appears nourished, not in pain Cardiovascular: regular rate and rhythym, no murmur, rub, or gallop Respiratory: no respiratory distress, no rales or rhonchi, clear to auscultation Gastrointestinal: normoactive bowel sounds, soft, non-tender abdomen, no palpable masses Skin: no rashes or abrasions, no fluctuance, no induration Neurologic: AAOx3, sensation intact bilaterally Psychiatric: interacting appropriately, not anxious, not encephalopathic, thought process linear ICD10 Worksheet Patient Problems: Problems Problem Status Onset Brain mass Acute Seizure Acute
[2018-11-22] MEDS ORDERED: amLODIPine BESYLATE 5 MG TAB PO SCH (16:00)
[2018-11-22] MEDS: amLODIPine BESYLATE 5 MG TAB TUBE SCH (17:06)
[2018-11-22] MEDS ORDERED: BISACODYL 10 MG SUPP PR PRN (17:07)
[2018-11-22] MEDS ORDERED: LACTULOSE 20 GM/30 ML UDCUP TUBE PRN (17:07)
[2018-11-22] MEDS ORDERED: POLYETHYLENE GLYCOL 3350 17 GM PKT TUBE PRN (17:07)
[2018-11-22] MEDS ORDERED: MAGNESIUM HYDROXIDE 30 ML UDCUP TUBE PRN (17:07)
[2018-11-22] MEDS: levETIRAcetam 500 MG/5 ML UDCUP TUBE SCH (21:41)
[2018-11-22] MEDS: SENNOSIDES 17.6 MG/10 ML UDL - IF LIQUID ORDERED TUBE SCH (21:41)
[2018-11-22] MEDS: LANSOPRAZOLE SUSP 30MG/10ML UDSYR (Adult) TUBE SCH (21:41)
[2018-11-22] MEDS: DEXAMETHASONE 4 MG/ML VIAL IV SCH (21:41)
[2018-11-22] MEDS: ZOLPIDEM TARTRATE 5 MG TAB TUBE PRN (21:42)
[2018-11-22] MEDS: ACETAMINOPHEN 325 MG TAB TUBE PRN (21:43)
[2018-11-22] MEDS: ATORVASTATIN CALCIUM 40 MG TAB TUBE SCH (21:43)
[2018-11-23 05:22] LABS: PLATELET COUNT 257 10^3/uL (150-400)
[2018-11-23] MEDS: ACETAMINOPHEN 325 MG TAB TUBE PRN ×3 (05:51→21:44)
[2018-11-23] MEDS: levETIRAcetam 500 MG/5 ML UDCUP TUBE SCH ×2 (08:02→21:46)
[2018-11-23] MEDS: SENNOSIDES 17.6 MG/10 ML UDL - IF LIQUID ORDERED TUBE SCH (08:02)
[2018-11-23] MEDS: METOPROLOL TARTRATE 25 MG TAB TUBE SCH ×2 (08:02→21:49)
[2018-11-23] MEDS: amLODIPine BESYLATE 5 MG TAB TUBE SCH (08:03)
[2018-11-23] MEDS: LISINOPRIL 10 MG TAB TUBE SCH ×2 (08:03→21:48)
[2018-11-23] MEDS: ENOXAPARIN 40 MG/0.4 ML SYR SC SCH (08:03)
--- NOTE | 2018-11-23 08:22 | NEUSURGPN ---
Assessment/Plan: Assessment: Plan: Assessment/Plan: A: 58 yo male sp Sub-occipital craniotomy for resection of 4th ventricular mass MRI with good resection of tumor, some edema in medula which is likely source of diplopia P: -Continue neuro checks: Overall continued diplopia but this is getting slowly better. -dysphagia: Continue work with TIME STUDY OBSERVER, feeding tube placed. -SBP < 160, appreciate medicine's assistance with this, transitioning to orals. Currently not on any Cardene -GI upset improved on PPI -Advance activity as tolerated -7 day Decadron taper -PT/OT/TIME STUDY OBSERVER -Monitor incision for signs of CSF leak -Ok to transfer to floor as long as medicine ok with this. BP seems to be controlled on orals now and Ok to dispo to rehab as well when bed available -Please contact neurosurgery with any changes in neuro status/exam Discussed with Dr. Mendez. Subjective: Continues to have diplopia but he feels that he has Objective: Awake. Alert. PERRL Nystagmus horizontal still present, EOMI- not moving together but improving Following commands, Strength full Incision c/d/i Catheter Insertion Date: 11/16/18 - Physician Discussed Patient with : Vanessa Patient Seen by : Vanessa Neurosurgery Physical Exam - Vitals, I&O, Labs I and O 11/22/18 11/23/18 11/24/18 05:59 05:59 05:59 Intake Total 2487 2006 Output Total 1100 800 Balance 1387 1207 Weight 73.028 kg Intake: IV Infused (ml) 2487 866 D5w Ns 1,000 ml @ 100 mls 2328 866 /hr IV CONT ERIN Rx#: [id number] niCARdipine/NACL 200 ml @ 159 Titrate IV PRN PRN Rx#: [id number] Tube Feeding (ml) 531 Tube Flush (ml) 610 Output: Urine (ml) 1100 800 Toilet 1100 Urinal 800 Other: Intake Quantity NPO Sufficient Number of Voids Toilet 3 2 Urinal 1 Vital Signs Temp Pulse Resp BP Pulse Ox 36.4 C 80 15 140/75 H 94 11/23/18 07:52 11/23/18 07:52 11/23/18 07:52 11/23/18 07:52 11/23/18 07:52 Laboratory Results 11/23/18 05:03 11/23/18 05:03 ICD10 Worksheet Patient Problems: Problems Problem Status Onset Brain mass Acute Seizure Acute
[2018-11-23] MEDS: LANSOPRAZOLE SUSP 30MG/10ML UDSYR (Adult) TUBE SCH ×2 (09:06→21:55)
[2018-11-23] MEDS ORDERED: oxyCODONE IR 5 MG TAB PO PRN (12:23)
[2018-11-23] MEDS ORDERED: guaiFENesin 200 MG/10 ML UDL TUBE PRN (16:34)
--- NOTE | 2018-11-23 16:34 | HOSPPROG ---
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 * Cerebral edema - causing diplopia/dysphagia -IV decadron - taper complete -d/w neurosurgery plan for further decadron * Seizure disorder -keppra * CAD/stent -holding ASA * Dyspepsia due to IV steroids -PPI BID Subjective: Diarrhea Objective: Vital Signs Temp Pulse Resp BP Pulse Ox 36.4 C 67 19 98/67 L 96 11/23/18 11:08 11/23/18 11:08 11/23/18 11:08 11/23/18 11:08 11/23/18 11:08 Laboratory Results 11/23/18 05:03 11/23/18 05:03 11/22/18 11/23/18 11/24/18 05:59 05:59 05:59 Intake Total 2487 2006 Output Total 1100 800 Balance 1387 1207 - Time Spent With Patient Time Spent with Patient: greater than 35 minutes (lots of questions from patient and answered) Time Spent with Patient: Greater than 35 minutes spent on this patients care, greater than 50% of time spent counseling, educating, and coordinating care regarding the above mentioned plan. - Physical Exam Constitutional: no apparent distress, appears nourished, not in pain Cardiovascular: regular rate and rhythym, no murmur, rub, or gallop Respiratory: no respiratory distress, no rales or rhonchi, clear to auscultation Gastrointestinal: normoactive bowel sounds, soft, non-tender abdomen, no palpable masses Skin: no rashes or abrasions, no fluctuance, no induration Neurologic: AAOx3, sensation intact bilaterally Psychiatric: interacting appropriately, not anxious, not encephalopathic, thought process linear ICD10 Worksheet Patient Problems: Problems Problem Status Onset Brain mass Acute Seizure Acute
[2018-11-23] MEDS: ATORVASTATIN CALCIUM 40 MG TAB TUBE SCH (21:48)
[2018-11-23] MEDS: ZOLPIDEM TARTRATE 5 MG TAB TUBE PRN (21:51)
[2018-11-24] MEDS: ACETAMINOPHEN 325 MG TAB TUBE PRN (02:05)
--- NOTE | 2018-11-24 07:11 | NEUSURGPN ---
Date of Surgery: 11/16/18 Post Op Day: 8 Assessment/Plan: Assessment: 58 yo male sp Sub-occipital craniotomy for resection of 4th ventricular mass MRI with good resection of tumor, some edema in medulla which is likely source of diplopia Plan: -Continue neuro checks: Overall continued diplopia but this is getting slowly better. -dysphagia: Continue work with HUMAN FACTORS SCIENTIST, feeding tube placed. -SBP < 160, currently controlled with oral medications -Advance activity as tolerated -7 day Decadron taper -PT/OT/HUMAN FACTORS SCIENTIST -Monitor incision for signs of CSF leak -Ok to transfer to rehab today Please franklin with questions/concerns Discussed with Dr. Mendez. Subjective: resting in bed, denies headache Objective: Awake. Alert. PERRL Nystagmus horizontal still present, EOMI- not moving together but improving CN2-12 otherwise grossly intact Following commands, Strength full Incision c/d/i Neuro Check Frequency: per routine Urinary Catheter in Place: No Catheter Insertion Date: 11/16/18 - Physician Discussed Patient with Dr.: Mendez Neurosurgery Physical Exam - Vitals, I&O, Labs I and O 11/23/18 11/24/18 11/25/18 05:59 05:59 05:59 Intake Total 2006 818 Output Total 800 Balance 1207 818 Weight 73.028 kg Intake: IV Infused (ml) 866 D5w Ns 1,000 ml @ 100 mls 866 /hr IV CONT ERIN Rx#: [id number] Tube Feeding (ml) 531 368 Tube Flush (ml) 610 450 Output: Urine (ml) 800 Urinal 800 Other: Intake Quantity NPO Sufficient Number of Voids Toilet 2 1 Urinal 1 Number of Stools Toilet 8 Vital Signs Temp Pulse Resp BP Pulse Ox 36.7 C 81 16 131/91 H 94 11/24/18 04:00 11/24/18 04:00 11/24/18 04:00 11/24/18 04:00 11/24/18 04:00 Laboratory Results 11/23/18 05:03 11/23/18 05:03 ICD10 Worksheet Patient Problems: Problems Problem Status Onset Brain mass Acute Seizure Acute
--- NOTE | 2018-11-24 07:21 | PDIAF ---
- Diagnosis Diagnosis: S/P suboccipital craniotomy for resection of mass Code Status: Full Code - Medication Management Discharge Medications: electronically signed and located in the Home Medication List. PICC Care - Routine: N/A - Orders Services needed: Registered Nurse, Certified Hide Worker, Physical Therapy, Occupational Therapy, Speech Language Pathologist Diet Recommendation: other (Currently receiviung Jevity TF ) Diet Texture: Ice Chips, Non Oral Meds Tube feeding: Jevity Additional Instructions: Do not lift greater than 10 pounds Ok to shower daily - Follow Up Care Current Providers and Referrals: Anupama Fragoso MD [Primary Care Provider] - Davy Mendez MD [Medical Doctor] - follow up in 2 weeks
[2018-11-24] MEDS: levETIRAcetam 500 MG/5 ML UDCUP TUBE SCH (08:21)
[2018-11-24] MEDS: amLODIPine BESYLATE 5 MG TAB TUBE SCH (08:21)
[2018-11-24] MEDS: LISINOPRIL 10 MG TAB TUBE SCH (08:22)
[2018-11-24] MEDS: METOPROLOL TARTRATE 25 MG TAB TUBE SCH (08:23)
[2018-11-24] MEDS: ENOXAPARIN 40 MG/0.4 ML SYR SC SCH (08:24)
[2018-11-24] MEDS ORDERED: hydrALAZINE 10 MG TAB PO PRN (09:10)
--- NOTE | 2018-11-24 09:34 | ASMTLACE ---
LACE Length of stay for Answers: 7-13 days current admission Acuity / Level of Answers: Yes Care: Did the patient have an inpatient admission? Comorbidities - select Answers: Any tumor (including all that apply lymphoma or leukemia) Coronary Artery Disease Previous myocardial infarction Other Notes: HTN; Seizure disorder # of Emergency department Answers: 1-2 visits in the last 6 months Score: 15 Date Signed: 11/24/2018 09:33 AM Electronically Signed By:Kizzy Monte LCSW
[2018-11-24] MEDS ORDERED: oxyCODONE IR 5 MG TAB TUBE PRN (10:30)
[2018-11-24] MEDS ORDERED: hydrALAZINE 10 MG TAB TUBE PRN (10:30)
[2018-11-24] MEDS: LANSOPRAZOLE SUSP 30MG/10ML UDSYR (Adult) TUBE SCH (10:58)
[2018-11-24 11:34] VITALS: BP 142/70
--- NOTE | 2018-11-24 11:38 | ASMTDCNOTE ---
Case Management Discharge Discharge Order Complete? Answers: Yes Patient to Obtain Answers: Other Notes: [facility] Inpatient Rehab Medications Transportation Arranged Answers: Other Notes: [facility] Transport will Pick (Date 11/24/2018 12:00 AM & Time) Case Management Transport Answers: No Form Complete Faxed Final Orders Answers: Yes Notes: [facility] Inpatient Rehab Agency/Facility Transfer Answers: Yes Notes: [facility] Inpatient Rehab Report Printed & Faxed to Receiving Agency Family Notified Answers: Yes Notes: - Ashley Discharge Comments Notes: Patient is discharging to [facility] Inpatient Rehab today. Orders to be obtained via [employer]. WC transport scheduled with [facility] for 1300, pt aware of payment requirement. Date Signed: 11/24/2018 11:37 AM Electronically Signed By:TRAMAINE Romero
--- NOTE | 2018-11-24 16:34 | ASDISCHSUM ---
Discharge Information Plan Status:Inpatient Rehab Medically Cleared to Leave: Discharge Date:11/24/2018 01:26 PM CM D/C Disposition: ADT D/C Disposition:[facility] IP Projected Discharge Date:11/24/2018 11:00 AM Transportation at D/C: Discharge Delay Reason: Follow-Up Date:11/24/2018 11:00 AM Discharge Slot: Final Diagnosis: Placement Information Referral Type:Rehabilitation Hospital Referral ID:[id number] Provider Name:[facility] Inpatient Rehab Address 1:[address] Phone Number: Address 2: Fax Number: City:[place] Selection Factors: State:[place] Patient Contact Information Contact Name:CROW Relationship: Address:[address] City:[facility] Phone: State/[facility] Code:[place] [address] Email: Financial Information Financial Class:[employer] Primary Plan Desc:[facility] Primary Plan Number:[id number] Secondary Plan Desc: Secondary Plan Number: Assessment Information LACE LACE Length of stay for Answers: 7-13 days current admission Acuity / Level of Answers: Yes Care: Did the patient have an inpatient admission? Comorbidities - select Answers: Any tumor (including all that apply lymphoma or leukemia) Coronary Artery Disease Previous myocardial infarction Other Notes: HTN; Seizure disorder # of Emergency department Answers: 1-2 visits in the last 6 months Score: 15 Date Signed: 11/24/2018 09:33 AM Electronically Signed By:Kizzy Monte LCSW [facility] CM Progress Note CM Note CM Note Notes: CM met with pt and his and sister. Pt presents with suboccipital craniotomy. CM provided education about CM and discharge planning. Therapies are ordered; pending eval. CM to follow. Plan: TBD Date Signed: 11/17/2018 09:42 AM Electronically Signed By:RADHA Mcdonald [facility] CM Progress Note CM Note CM Note Notes: Therapies are recommending inpatient rehab. Spoke with Dr. Mortensen who will place the inpatient rehab eval order. CM will follow. Date Signed: 11/19/2018 12:25 PM Electronically Signed By:Kizzy Monte LCSW [facility] CM Progress Note CM Note CM Note Notes: Inpatient rehab states they feel patient is a good candidate but they need to monitor his progress. All therapies are recommending inpatient rehab currently. Patient continues to have significant dysphagia. CM will follow. Date Signed: 11/20/2018 11:35 AM Electronically Signed By:Kizzy Monte LCSW [facility] CM Progress Note CM Note CM Note Notes: Met with patient's and sister regarding discharge planning. Patient is being recommended for inpatient rehab and Ashley is in agreement. A referral has been sent . Inpatient rehab is following and thinks patient is appropriate. Ashley was given the folder containing info on the program and encouraged to go visit. Ashley had questions about coverage and we let her know they had to have insurance auth before the patient transfers. CM will follow. Date Signed: 11/20/2018 04:56 PM Electronically Signed By:Kizzy Monte LCSW [facility] CM Progress Note CM Note CM Note Notes: 11/21/2018 Case Management Note Notified from [facility] that pt has auth for inpatient rehab. Auth # [id number]. Referral sent to [facility] inpatient rehab. Case Management d/c poc: Inpatient rehab pending acceptance. Case Management to follow. Date Signed: 11/21/2018 09:49 AM Electronically Signed By:Leah Jiménez RN Case Management Discharge Plan Note Case Management Discharge Discharge Order Complete? Answers: Yes Patient to Obtain Answers: Other Notes: [facility] Inpatient Rehab Medications Transportation Arranged Answers: Other Notes: Huy RAMSAY Transport will Pick (Date 11/24/2018 12:00 AM & Time) Case Management Transport Answers: No Form Complete Faxed Final Orders Answers: Yes Notes: [facility] Inpatient Rehab Agency/Facility Transfer Answers: Yes Notes: [facility] Inpatient Rehab Report Printed & Faxed to Receiving Agency Family Notified Answers: Yes Notes: - Ashley Discharge Comments Notes: Patient is discharging to [facility] Inpatient Rehab today. Orders to be obtained via [employer]. transport scheduled with Huy Vasquez for 1300, pt aware of payment requirement. Date Signed: 11/24/2018 11:37 AM Electronically Signed By:TRAMAINE Romero Intervention Information
--- NOTE | 2018-11-24 18:05 | HOSPPROG ---
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 * Cerebral edema - causing diplopia/dysphagia -IV decadron - taper complete -d/w neurosurgery, no plan for further decadron * Seizure disorder -keppra * CAD/stent -ASA restarted by neurosurgery * Dyspepsia due to IV steroids -PPI BID Subjective: feeling ready for rehab today Objective: Vital Signs Temp Pulse Resp BP Pulse Ox 36.6 C 73 18 142/70 H 92 11/24/18 11:33 11/24/18 11:33 11/24/18 11:33 11/24/18 11:33 11/24/18 11:33 Laboratory Results 11/23/18 05:03 11/23/18 05:03 11/23/18 11/24/18 11/25/18 05:59 05:59 05:59 Intake Total 2006 818 Output Total 800 Balance 1207 818 - Physical Exam Constitutional: no apparent distress, appears nourished, not in pain Cardiovascular: regular rate and rhythym, no murmur, rub, or gallop Respiratory: no respiratory distress, no rales or rhonchi, clear to auscultation Gastrointestinal: normoactive bowel sounds, soft, non-tender abdomen, no palpable masses Skin: no rashes or abrasions, no fluctuance, no induration Neurologic: AAOx3, sensation intact bilaterally Psychiatric: interacting appropriately, not anxious, not encephalopathic, thought process linear ICD10 Worksheet Patient Problems: Problems Problem Status Onset Brain mass Acute Seizure Acute
== END 2018-11-24 13:26 | DRG 25 ==
LOC: F3N 05:14 → F2N 11:08 → F3N 11-19 18:30 → F2N 11-20 04:35 → F3N 11-23 17:45
PROVIDERS: ADMIT Neurological Surgery; ATTEND Neurological Surgery
PROC: 00B60ZZ Excision of Cerebral Ventricle, Open Approach (ICD-10-PCS; principal; 2018-11-16 07:15)
PROC: 8E09XBZ Computer Assisted Procedure of Head and Neck Region (ICD-10-PCS; principal; 2018-11-16 07:15)
PROC: 4A1004G Monitoring of Central Nervous Electrical Activity, Intraoperative, Open Approach (ICD-10-PCS; principal; 2018-11-16 07:15)
DX: C71.5 Malignant neoplasm of cerebral ventricle (principal); G93.6 Cerebral edema; H53.2 Diplopia; R13.10 Dysphagia, unspecified; I16.0 Hypertensive urgency; I25.10 Atherosclerotic heart disease of native coronary artery without angina pectoris; G40.909 Epilepsy, unspecified, not intractable, without status epilepticus; E78.5 Hyperlipidemia, unspecified; I25.2 Old myocardial infarction; G47.30 Sleep apnea, unspecified; Z95.5 Presence of coronary angioplasty implant and graft
CPT/HCPCS: 88323-90; 88342; 92526-GN; 92610-GN; 92611-GN; 97110-GP; 97112-GP; 97116-GP; 97163-GP; 97166-GO; 97530-GO; 97530-GP; 97535-GO; A9585; C1713; J0171; J0360; J0690; J1100; J1580; J1650; J1885; J1953; J1956; J2060; J2250; J2270; J2370; J2405; J2550; J2704; J2800; J3010; J3360; Q9967

== ENCOUNTER 2018-11-23 15:34 | Inpatient (IN) | payer OTHER ==
[2018-11-24] MEDS ORDERED: POLYETHYLENE GLYCOL 3350 17 GM PKT TUBE PRN (15:08)
[2018-11-24] MEDS ORDERED: ZOLPIDEM TARTRATE 5 MG TAB TUBE PRN (15:08)
--- NOTE | 2018-11-24 17:07 | GHP ---
[f rep st] HISTORY AND PHYSICAL DATE OF ADMISSION: 11/24/2018 TIME OF EVALUATION: 1455. REFERRING FACILITY: [facility]. REFERRING PHYSICIAN: Dr. Mortensen IMPAIRMENT GROUP: 2.1. DATE OF ONSET: 11/16/2017. REHABILITATION DIAGNOSIS: Debility following excision of 4th ventricle tumor. ETIOLOGIC DIAGNOSIS: Nontraumatic brain dysfunction. DATE OF SURGERY: 11/16/2017. HISTORY OF PRESENT ILLNESS: This patient had a seizure at work on October 28, 2018. He was taken to the emergency department where a CT scan revealed a tumor in the 4th ventricle and right brainstem. The patient returned to the hospital on November 16, 2018, and he underwent a he underwent a suboccipital craniotomy and resection of a 4th ventricular mass, which also largely surrounded the posterior inferior cerebellar artery. He came through surgery well and Neurosurgery believed there was a complete resection. 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 Postoperatively the patient has double vision, likely due to edema in the brain stem. He also has dysphagia and has an NG tube, all nutrition and medications by the tube. There was elevated blood pressure postoperatively, but ultimately he was medically stabilized and appropriate for inpatient rehabilitation. His main complaint is phlegm in his mouth. He has a suction catheter which he is using regularly whenever the phlegm buildup in his throat. He feels that this awakens him from sleep and interferes with his sleep. He has an occasional cough. He denies dyspnea. Studies and labs during his hospitalization: most recent blood tests were done on November 23, 2017. He had an elevated white blood cell count at 15.33, consistent with corticosteroid treatment. There was no left shift. He did not have anemia and platelet count was normal. Coagulation studies on 10/14/2018 prior to his hospitalization were normal. Serum chemistry on 11/23/2018 revealed a slightly elevated chloride at 111 and he had some dehydration with a BUN of 49 and creatinine of 0.8. Otherwise, renal function and electrolytes were normal. Glucose was elevated at 112, calcium was slightly low at 8.3, Mag was high at 2.7. In his emergency department evaluation from the seizure, troponins were checked and were normal. 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 He had a CT angiogram done on 11/18/2018 , which ruled out a pulmonary embolus, but showed left lower lobe consolidation consistent atelectasis versus pneumonia. There was trace left pleural effusion. Abdominal x-ray on 11/21/2018 confirmed placement of feeding tube. By my reading of it, there was no infiltrate in the left lower lobe. Swallow study rather on 11/21/2018 showed delayed initiation of swallow and persistent contrast in both piriform sinuses. There was 1 episode of penetration but no aspiration below the level of the vocal cords. PRECAUTIONS: He has fall risk and aspiration precautions. ACTIVE COMORBIDITIES: tier 2 dysphagia. PAST MEDICAL HISTORY: 1. Coronary artery disease. 2. Dyslipidemia. 3. Hypertension. 4. Seizures in his teens. PAST SURGICAL HISTORY: He has had coronary stenting. PRE-HOSPITAL MEDICATIONS: 1. Vitamin C. 2. Aspirin. 3. Atorvastatin. 4. Lisinopril. 5. Metoprolol. ADMISSION MEDICATIONS: 1. Acetaminophen 650 mg per tube q.4 hours as needed. 2. Amlodipine 5 mg per tube daily. 3. Aspirin 81 mg per tube daily. 4. Atorvastatin 40 mg per tube at bedtime. 5. Enoxaparin 40 mg subcutaneous daily. 6. Pantoprazole 30 mg per tube twice daily. 7. Levetiracetam 500 mg per tube twice daily. 8. Lisinopril 10 per tube twice daily. 9. Metoprolol 50 mg per tube twice daily. 10. Polyethylene glycol 17 g per tube daily. 11. Zolpidem 5 mg per tube at bedtime. ALLERGIES: There are no known drug allergies. PSYCHOSOCIAL HISTORY: He is . He lives with . They have no children. He has children and grandchildren out of state. They have 2 teenage high school exchange students living with them. There are 2 stairs to enter the house through the garage or 3 platform steps to the front door and he needs to climb 16 steps in the house to access a full bath and his bedroom. He is a nonsmoker and has infrequent alcohol use. He works at [employer]. FAMILY HISTORY: Noncontributory. REVIEW OF SYSTEMS: He complains of phlegm production and frequent use of the suction catheter. He is unclear if it is coming from his sinuses and nasopharynx versus lungs. He coughs it up when it is accumulating. He denies dyspnea otherwise, though he used oxygen briefly postoperatively. He had excessive bowel movements yesterday and laxatives were reduced or eliminated. He has not had a bowel movement today. He had a very dry throat postoperatively , but not currently. He has no chest pain or palpitations. He has no nausea or vomiting and the last use of ondansetron was on 11/19/2018. He has some headache pain which is effectively treated with acetaminophen. He has double vision. It resolves when he closes one or the other eye. It is improving. He reports that he can see and read the clock even though he sees 2 clocks across the room. He is aware of difficulty swallowing. He feels his hand conductor orchestra are weak. Otherwise, he denies weakness, numbness or tingling of the extremities. He has been ambulating. He denies any urinary complaints. Otherwise, a 10- point review of systems is negative. PHYSICAL EXAM: VITAL SIGNS: Blood pressure is 137/94, heart rate is 79, respiratory rate is 19, oxygen saturation 94% on room air, temperature is 36.9 centigrade. His weight is 73 kg for a body mass of 26. GENERAL: This is a well-nourished, well-developed man, sitting in a chair, dressed in street clothes cooperative and in no acute distress HEENT: Extraocular movements are intact but discoordinated, especially with up gaze and lateral gaze to either side. If he closes 1 eye, the other eye deviates medially and this happens bilaterally. Pupils are equal, round, and reactive to light. Mucous membranes are moist. Dentition is in good condition. He has a non-crowded airway, Mallampati class 2. NECK: Supple. HEART: There is a regular rate and rhythm. No murmurs, rubs, or gallops. LUNGS: He has crackles in the left lower lobe. Otherwise lungs are clear to auscultation bilaterally with no wheezes or rhonchi. ABDOMEN: Soft, nontender, nondistended, with normoactive bowel sounds. No splenomegaly. EXTREMITIES: There is no cyanosis, clubbing, or edema. Radial and dorsalis pedis pulses are 2+ bilaterally. NEUROLOGIC: He is alert and oriented x3. Other than the eye movements, cranial nerves generally appear to be intact. There is no focal weakness and hand conductor orchestra are 5 + bilaterally and equal. Sensation is intact to light touch. Deep tendon reflexes are 2+ bilaterally at the biceps, patellar, and Achilles tendon. There is no dysdiadochokinesis. [id number]-gc-[id number] is inaccurate and wavering bilaterally, more so on the right than the left. Heel to ng is overall normal. SKIN: He has a well-approximated incision on his posterior occipital and neck region. It is closed with Steri-Strips. There is no edema and no purulence or drainage. CURRENT LEVEL OF FUNCTION PER THE PRE-ADMISSION SCREEN: He was n.p.o. due to dysphagia, except for ice chips, and feeding was by NG tube. Grooming required setup and minimal assist. Lower extremity was done seated with moderate assist. Toileting required minimal assistance to manage clothing and standing. Toilet transfer required minimal assist with a front-wheeled walker. Bed mobility required minimal assist with a raised head of the bed. Transfers required minimal to moderate assist with a front-wheeled walker. Standing balance required minimal to moderate assist. He was able to tolerate 4 minutes of work with ADLs. He ambulated 20 to 100 feet with a front-wheeled walker and minimal assist. Communication and cognition were considered to be normal. There are no significant changes from the pre-existing screen on today's exam. IMPRESSION: This is a 58-year-old man who had a seizure in October and was diagnosed with a 4th ventricle mass. 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 He came through the surgery well but has diplopia, loss of coordination and deficits to mobility and needs assistance with mobility and activities of daily living. He has dysphagia and is fed by NG tube. His goal is to complete a rehabilitation stay and then return home to his family. For a safe discharge he will need to achieve supervision level for all ADLs and mobility using the least restrictive device. He will need to tolerate the least restrictive diet. He will need to have insight into his deficits and be able to use compensatory strategies. He will have therapy with physical therapy, occupational therapy, and speech and language pathology for 60 minute per day for each discipline on 5-7 week. His expected duration of stay is 21 days. 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 PLAN: 1. Debility with diplopia and impaired balance and coordination. Status post suboccipital craniotomy 11/16/2018 and excision of 4th ventricle tumor. PT and OT to optimize mobility and activities of daily living. 2. Dysphagia to be assessed and treated per speech pathology. 3. Excessive phlegm production. Guaifenesin has been started today at the hospital. Unclear whether this will be effective. He and his were not clear whether he had less phlegm production when he is on dexamethasone; might consider a nasal steroid, but only 1 nare is available due to the NG tube. We will investigate other options to reduce phlegm. In the meantime, continue periodic self suctioning. 4. Coronary artery disease status post stenting. Continue aspirin. 5. Hypertension. Continue amlodipine, lisinopril and metoprolol. 6. Dyslipidemia. Continue atorvastatin. 7. Prophylaxis with recent excision of solid tumor and impaired mobility. He is at elevated risk for deep venous thrombosis. Continue enoxaparin 40 mg subcutaneous daily until his mobility considerably improves. While he is concurrently on enoxaparin and aspirin, continue lansoprazole, and will investigate further whether there is history of gastroesophageal reflux disorder justifying continued use of lansoprazole subsequently. 8. Followup. Primary care provider is Anupama Fragoso. He is to follow up with neurosurgeon, Dr. Mendez in approximately 2 weeks. /[id number]/MODL MTDD
[2018-11-24] MEDS: LANSOPRAZOLE SUSP 30MG/10ML UDSYR (Adult) TUBE SCH (20:55)
[2018-11-24] MEDS: levETIRAcetam 500 MG/5 ML UDCUP TUBE SCH (20:55)
[2018-11-24] MEDS: ATORVASTATIN CALCIUM 40 MG TAB TUBE SCH (20:55)
[2018-11-24] MEDS: ACETAMINOPHEN 325 MG TAB TUBE PRN (20:56)
[2018-11-24] MEDS: LISINOPRIL 10 MG TAB TUBE SCH (20:56)
[2018-11-24] MEDS: METOPROLOL TARTRATE 25 MG TAB TUBE SCH (20:56)
[2018-11-24] MEDS ORDERED: levETIRAcetam 500 MG TAB TUBE SCH (21:00)
[2018-11-25] MEDS: ACETAMINOPHEN 325 MG TAB TUBE PRN (04:00)
[2018-11-25] MEDS ORDERED: ASPIRIN EC 81 MG TAB PO SCH (09:00)
[2018-11-25] MEDS: levETIRAcetam 500 MG/5 ML UDCUP TUBE SCH ×2 (09:03→20:29)
[2018-11-25 09:04] LABS: PLATELET COUNT 264 10^3/uL (150-400)
[2018-11-25] MEDS: LISINOPRIL 10 MG TAB TUBE SCH ×2 (09:04→20:29)
[2018-11-25] MEDS: LANSOPRAZOLE SUSP 30MG/10ML UDSYR (Adult) TUBE SCH ×2 (09:04→20:29)
[2018-11-25] MEDS: METOPROLOL TARTRATE 25 MG TAB TUBE SCH ×2 (09:04→20:43)
[2018-11-25] MEDS: amLODIPine BESYLATE 5 MG TAB TUBE SCH (09:04)
[2018-11-25] MEDS: ASPIRIN 81 MG CHEWABLE TAB TUBE SCH (09:05)
[2018-11-25] MEDS: ENOXAPARIN 40 MG/0.4 ML SYR SC SCH (09:05)
[2018-11-25] MEDS: GLYCOPYRROLATE 1 MG TAB PO SCH ×3 (11:29→20:44)
--- NOTE | 2018-11-25 11:29 | SOAPPROG ---
SOAP Progress Note Assessment/Plan: Assessment: Debility with diplopia and impaired balance and coordination. Status post suboccipital craniotomy 11/16/2018 and excision of 4th ventricle tumor. Radiologist noted ischemia in the medulla on MRI. PT and OT to optimize mobility and activities of daily living. Dysphagia to be assessed and treated per speech pathology. Continue Dobbhoff tube feeding until swallowing improves. Dietitian has adjusted rate so that it can be turned off during therapies. Excessive phlegm production. Guaifenesin has been started today at the hospital. Unclear whether this will be effective, though he reports less phlegm production today, 11/25/2018. * Ordered glycopyrrolate starting 11/25/2018. Observe for improvement. Hypertension. Prior to hospitalization he was on lisinopril 2.5 mg at bedtime and metoprolol XL 12.5 mg q.day. Had hypertensive urgency in the hospital requiring IV medication as well as clonidine patch, subsequently changed to p.o. Medications once Dobbhoff was in place per * Currently taking amlodipine 5 mg q.day,, lisinopril 10 mg twice daily, and metoprolol 50 mg twice daily. * Had elevated blood pressure overnight 11/24/2018 to 11/25/2018. Unclear whether there might have been an anxiety component. Continue to monitor. * Check orthostatics. Insomnia. Will schedule trazodone 50 mg at HS beginning 11/25/2018. Seizure prevention status post craniotomy. Continue levetiracetam until followup with Neurosurgery. Coronary artery disease status post stenting. Continue aspirin, blood pressure control, lipid control. Will also serve as prophylaxis for CVA. Dyslipidemia. Continue atorvastatin. Prophylaxis with recent excision of solid tumor and impaired mobility. He is at elevated risk for deep venous thrombosis. Continue enoxaparin 40 mg subcutaneous daily until his mobility considerably improves. While he is concurrently on enoxaparin and aspirin, continue lansoprazole, and will investigate further whether there is history of gastroesophageal reflux disorder justifying continued use of lansoprazole subsequently. FOLLOW-UP. Primary care provider is Anupama Fragoso. He is to follow up with neurosurgeon, Dr. Mendez in approximately 2 weeks. 11/25/18 12:23 Subjective: Had interrupted sleep overnight. He was concerned about high blood pressure. He did not take p.r.n. Zolpidem. He thinks the phlegm in his throat is improving though he continues to suction regularly. Not in pain. No fevers or chills. No cough or dyspnea. Objective: Vital Signs Temp Pulse Resp BP Pulse Ox 36.7 C 89 18 110/72 92 11/25/18 06:25 11/25/18 09:04 11/25/18 06:25 11/25/18 10:32 11/25/18 06:25 Laboratory Results 11/25/18 06:00 11/25/18 06:00 11/24/18 11/25/18 11/26/18 05:59 05:59 05:59 Intake Total 120 Output Total 600 Balance 120 -600 Physical Exam - Physical Exam General Appearance: WD/WN, alert, no apparent distress Respiratory: normal breath sounds, No crackles, No rhonchi, No wheezing Cardiac/Chest: regular rate, rhythm, No edema, No diastolic murmur, No systolic murmur Skin: normal color, warm/dry Neuro/Psych: alert, normal mood/affect, oriented x 3 ICD10 Worksheet Patient Problems: Problems Problem Status Onset Brain mass Acute Seizure Acute
[2018-11-25] MEDS: ATORVASTATIN CALCIUM 40 MG TAB TUBE SCH (20:29)
[2018-11-25] MEDS: traZODone 50 MG TAB TUBE SCH (20:43)
[2018-11-26] MEDS: ACETAMINOPHEN 325 MG TAB TUBE PRN (03:20)
[2018-11-26] MEDS: ENOXAPARIN 40 MG/0.4 ML SYR SC SCH (09:23)
[2018-11-26] MEDS: levETIRAcetam 500 MG/5 ML UDCUP TUBE SCH ×2 (09:28→20:14)
[2018-11-26] MEDS: amLODIPine BESYLATE 5 MG TAB TUBE SCH (09:33)
[2018-11-26] MEDS: ASPIRIN 81 MG CHEWABLE TAB TUBE SCH (09:34)
[2018-11-26] MEDS: LANSOPRAZOLE SUSP 30MG/10ML UDSYR (Adult) TUBE SCH ×2 (09:40→20:15)
[2018-11-26] MEDS: GLYCOPYRROLATE 1 MG TAB PO SCH (10:41)
[2018-11-26] MEDS: METOPROLOL TARTRATE 25 MG TAB TUBE SCH ×2 (10:48→20:14)
[2018-11-26] MEDS: LISINOPRIL 10 MG TAB TUBE SCH ×2 (10:51→20:14)
[2018-11-26] MEDS ORDERED: ACETAMINOPHEN 650 MG/20.3 ML UDCUP TUBE PRN (11:15)
--- NOTE | 2018-11-26 12:28 | SOAPPROG ---
SOAP Progress Note Assessment/Plan: Assessment: Debility with diplopia and impaired balance and coordination. Status post suboccipital craniotomy 11/16/2018 and excision of 4th ventricle tumor. Radiologist noted ischemia in the medulla on MRI. * Ataxic gait complicated by diplopia and occasional presyncopal symptoms. * Continue PT and OT to optimize mobility and activities of daily living. Dysphagia to be assessed and treated per speech pathology. Continue Dobbhoff tube feeding until swallowing improves. Dietitian has adjusted rate so that it can be turned off during therapies. Excessive phlegm production. * No improvement with guaifenesin and glycopyrrolate. Will discontinue. * Hypoxia noted, 11/26/2018. CXR with questionable early infiltrate right upper lobe. CBC with white blood cell count increased to 20 from 15. Initiated antibiotics with p.o. Augmentin as he does not seem ill enough to merit IV Unasyn or piperacillin/tazobactam. Augmentin would also cover a possible sinusitis. Repeat CBC in the morning 11/27/2018. Monitor for continued hypoxia. Hypertension. Prior to hospitalization he was on lisinopril 2.5 mg at bedtime and metoprolol XL 12.5 mg q.day. Had hypertensive urgency in the hospital requiring IV medication as well as clonidine patch, subsequently changed to p.o. Medications once Dobbhoff was in place per * Currently taking amlodipine 5 mg q.day,, lisinopril 10 mg twice daily, and metoprolol 50 mg twice daily. * Had elevated blood pressure overnight 11/24/2018 to 11/25/2018. Unclear whether there might have been an anxiety component. * He is orthostatic and intermittently symptomatic. Ordered thigh-high GWEN hose when out of bed. Continue to monitor. Insomnia. Scheduled trazodone 50 mg at HS beginning 11/25/2018. Seizure prevention status post craniotomy. Continue levetiracetam until followup with Neurosurgery. Coronary artery disease status post stenting. Continue aspirin, blood pressure control, lipid control. Will also serve as prophylaxis for CVA. Dyslipidemia. Continue atorvastatin. Prophylaxis: with recent excision of solid tumor and impaired mobility, he is at elevated risk for deep venous thrombosis. Continue enoxaparin 40 mg subcutaneous daily until his mobility considerably improves. While he is concurrently on enoxaparin and aspirin, continue lansoprazole, and will investigate further whether there is history of gastroesophageal reflux disorder justifying continued use of lansoprazole subsequently. FOLLOW-UP. Primary care provider is Anupama Fragoso. He is to follow up with neurosurgeon, Dr. Mendez in approximately 2 weeks. 11/26/18 15:30 Subjective: Continues to experience increased phlegm. Woke up during the night and felt that he was choking. Not clear that the guaifenesin or the glycopyrrolate have had any effect. Has a cough. Feels warm sometimes but has not had fevers or chills. No sinus pain. Objective: Vital Signs Temp Pulse Resp BP Pulse Ox 36.9 C 92 94 H 113/66 91 L 11/26/18 09:33 11/26/18 09:33 11/26/18 09:33 11/26/18 09:33 11/26/18 06:26 Laboratory Results 11/25/18 06:00 11/25/18 06:00 11/25/18 11/26/18 11/27/18 05:59 05:59 05:59 Intake Total 120 2790 500 Output Total 1925 Balance 120 865 500 Physical Exam - Physical Exam General Appearance: WD/WN, alert, no apparent distress EENT: normal ENT inspection, other (No tenderness over the maxillary or frontal sinuses), No purulent nasal drainage Respiratory: normal breath sounds, crackles (Left lower lobe), No rhonchi, No wheezing Skin: normal color, warm/dry Neuro/Psych: alert, normal mood/affect, oriented x 3 ICD10 Worksheet Patient Problems: Problems Problem Status Onset Brain mass Acute Seizure Acute
[2018-11-26 14:42] LABS: PLATELET COUNT 282 10^3/uL (150-400)
[2018-11-26] MEDS: AMOXICILLIN/CLAVULANATE POT 875/125 MG TAB PO SCH ×2 (16:35→20:14)
[2018-11-26] MEDS: ATORVASTATIN CALCIUM 40 MG TAB TUBE SCH (20:14)
[2018-11-26] MEDS: traZODone 50 MG TAB TUBE SCH (20:15)
[2018-11-27 01:04] VITALS: BP 83/43
--- NOTE | 2018-11-27 12:50 | PDOREHIP ---
Admission [facility] - Admission - 3 Day Assessment Period Admission Date/Day 1: 11/24/18 Day 2: 11/25/18 Day 3: 11/26/18 - Active Diagnoses Comorbidities and Co-existing Conditions at Admission: 59556. None of the Above - Skin Conditions Unhealed Pressure Ulcer (1 or more/Stage 1 or >)-Admission: 0. No # Stage 1 Pressure Ulcers-Admission: 0 # Stage 2 Pressure Ulcers-Admission: 0 # Stage 3 Pressure Ulcers-Admission: 0 # Stage 4 Pressure Ulcers-Admission: 0 # Unstageable Pressure Ulcers (Non-remove Dress)-Admission: 0 # Unstageable Pressure Ulcers (Slough/Eschar)-Admission: 0 # Unstageable Pressure Ulcers (Deep Tissue Injury)-Admission: 0
--- NOTE | 2018-11-27 12:50 | PDOREHIP ---
Admission [facility] - Admission - 3 Day Assessment Period Admission Date/Day 1: 11/24/18 Day 2: 11/25/18 Day 3: 11/26/18 - Active Diagnoses Comorbidities and Co-existing Conditions at Admission: 50177. None of the Above Discharge [facility] - Discharge Skin Conditions Unhealed Pressure Ulcer (1 or more/Stage 1 or >)-Discharge: 0. No # Stage 1 Pressure Ulcers-Discharge: 0 # Stage 2 Pressure Ulcers-Discharge: 0 # of These Stage 2 Pressure Ulcers Present on Admission: 0 # Stage 3 Pressure Ulcers-Discharge: 0 # of These Stage 3 Pressure Ulcers Present on Admission: 0 # Stage 4 Pressure Ulcers-Discharge: 0 # of These Stage 4 Pressure Ulcers Present on Admission: 0 # Unstageable Pressure Ulcers (Non-remove Dress)-Discharge: 0 # These Unstageable Pressure Ulcers (NRD)-Present on Admit: 0 # Unstageable Pressure Ulcers (Slough/Eschar)-Discharge: 0 # These Unstageable Pressure Ulcers(Slough) Present on Admit: 0 # Unstageable Pressure Ulcers (Deep Tissue Injury)-Discharge: 0 # These Unstageable Pressure Ulcers (DTI) Present on Admit: 0
--- NOTE | 2018-11-27 18:17 | GDS ---
[f rep st] DISCHARGE SUMMARY ADMITTING DIAGNOSIS: Debility status post occipital craniotomy and excision of fourth ventricle tumo r. DISCHARGE DIAGNOSIS: Debility status post occipital craniotomy and excision of fourth ventricle tumo r. OTHER DISCHARGE DIAGNOSES: 1. Dysphagia. 2. Likely aspiration . 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 He had debility including diplopia, impaired balance and coordination and severe dysphagia with feeding per Dobbhoff tube. He had a very brief rehabilitation stay and on his 3rd day in rehabilitation develope d fevers and chills. He had an elevated white blood cell count. This was considered to be possibly co nsistent with aspiration pneumonia. He was begun on Augmentin, but his condition deteriorated with hy potension and so he was discharged to the emergency department and admitted to [facility] DICTATION ENDS HERE... /[id number]/MODL
== END 2018-11-27 04:41 | disposition still patient (30) | DRG 949 ==
LOC: BREH 11-24 13:50
PROVIDERS: ADMIT Internal Medicine Hospice and Palliative Medicine; ATTEND Internal Medicine Hospice and Palliative Medicine
DX: Z48.3 Aftercare following surgery for neoplasm (principal); H53.2 Diplopia; R13.10 Dysphagia, unspecified; J69.0 Pneumonitis due to inhalation of food and vomit; R09.3 Abnormal sputum; R51 Headache; G40.909 Epilepsy, unspecified, not intractable, without status epilepticus; I10 Essential (primary) hypertension; I25.10 Atherosclerotic heart disease of native coronary artery without angina pectoris; G47.00 Insomnia, unspecified; E78.5 Hyperlipidemia, unspecified; I25.2 Old myocardial infarction; Z95.5 Presence of coronary angioplasty implant and graft; Z96.89 Presence of other specified functional implants
CPT/HCPCS: 92523-GN; 92526-GN; 92610-GN; 97112-GP; 97162-GP; 97166-GO; 97530-GP; 97535-GO; J1650

== ENCOUNTER 2018-11-27 01:38 | Inpatient (IN) | payer OTHER ==
[2018-11-27] MEDS ORDERED: NS 1,000 ML IV ONE ×3 (01:40→02:22)
[2018-11-27] MEDS ORDERED: PIPERACILLIN/TAZO 4.5 GM/DEX 100 ML IV ONE (01:46)
[2018-11-27] MEDS ORDERED: VANCOMYCIN HCL/NORMAL SALINE 250 ML IV ONE (01:46)
--- NOTE | 2018-11-27 01:51 | EDPHY ---
H & P Stated Complaint: hYPOTENSIVE, POST BRAIN TUMOR REMOVED /, DIZZY, CONGESTED COUGH Time Seen by Provider: 11/27/18 01:49 HPI/ROS: HPI CHIEF COMPLAINT: Shortness of breath cough. Hypotension from rehab. HISTORY OF PRESENT ILLNESS: Patient very pleasant 58-year-old male, presents emergency room by EMS from rehab for hypotension. Patient presents emergency room by EMS for low blood pressure at rehab. He has been recovering in rehab from brain surgery. He was noted tonight that he had low blood pressures in the 80s and 70 systolic. Due to this he was sent to the emergency room for evaluation for low blood pressure. He presents emergency room in his coughing up thick yellow foul-smelling sputum , is noted be hypotensive in the 70s. Patient's main complaint shortness of breath and cough. Denies chest pain. 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 Family History: Noncontributory ROS REVIEW OF SYSTEMS: 10 Systems were reviewed and negative with the exception of the elements mentioned in the history of present illness. Exam Constitutional triage nursing summary reviewed, vital signs reviewed, awake/ alert. Vital signs upon arrival 70s over 50s. Eyes normal conjunctivae and sclera, EOMI, PERRLA. HENT NG tube. normal inspection, atraumatic, moist mucus membranes, no epistaxis, neck supple/ no meningismus, no raccoon eyes. Respiratory rhonchorous cough on exam. Thick upper airway secretions yellow, foul-smelling Cardiovascular rate normal, regular rhythm, no murmur, no edema, distal pulses normal. Gastrointestinal soft, non-tender, no rebound, no guarding, normal bowel sounds, no distension, no pulsatile mass. Genitourinary no CVA tenderness. Musculoskeletal no midline vertebral tenderness, full range of motion, no calf swelling, no tenderness of extremities, no meningismus, good pulses, neurovascularly intact. Skin pink, warm, & dry, no rash, skin atraumatic. Neurologic awake, alert and oriented x 3, AAOx3, moves all 4 extremities equally, motor intact, sensory intact, CN II-XII intact, normal cerebellar, normal vision, normal speech. Psychiatric normal mood/affect. Heme/Lymph/Immune no lymphadenopathy. Differential Diagnosis: Includes but is not limited to in a particular order sepsis, severe sepsis him a 2nd shock, pneumonia, bacteremia Medical Decision Making: Plan for this patient IV establishment, x2, IV fluid bolus 2 L normal saline, lactic acid, blood cultures, sputum culture, chest x- ray, KUB, fluid resuscitation. If patient states hypertensive will need vasopressors. Will need broad-spectrum antibiotics IV vancomycin IV Zosyn. Re-evaluation: Critical Care: Total Critical Care Time Spent Managing this Patient: 85 Minutes. This time was spent Exclusively with this patient. This Care was exclusive of procedures. The Organ System/life at risk was hypotension, end-organ damage, pneumonia, bacteremia, sepsis This Patient was in Critical Condition because hypotension, end-organ damage, pneumonia, bacteremia, sepsis EKG interpretation by me on record in [facility] system. Impression time of EKG 1:47 a.m., sinus rhythm rate of 87, no signs of acute ischemia. Chest x-ray reviewed possible early right infiltrate. KUB reviewed NG tube in place. No free air no abnormal bowel gas pattern. Patient here with hypertension, cough with yellow sputum. Chest x-ray possible shows an early right infiltrate will proceed with CT angiogram of the chest to make sure there is no dense pneumonia or PE. Patient has received broad-spectrum antibiotics IV vancomycin IV Zosyn. Patient getting 3rd L fluid. Patient's current vitals heart rate 84, blood pressure 102/62 at this time. CBC sent to me by the lab on paper, white count 73755, hemoglobin 11.9, hematocrit 34.6, platelet count 239. Troponin 0.03. Patient pending CT angiogram Patient to the hospitalist service ICU for severe sepsis. Lactic acid less than 2. Blood pressure has stabilized. Patient is gotten 3 L of fluid. Broad-spectrum antibiotics. CT angiogram chest results are pending Plan for admission to ICU for close observation. Spoke with the hospitalist service Dr. Singh Agrees to admit. Source: Patient, EMS - Personal History Current Tetanus Diphtheria and Acellular Pertussis (TDAP): Yes - Medical/Surgical History Hx Asthma: No Hx Chronic Respiratory Disease: No Hx Diabetes: No Hx Cardiac Disease: Yes Hx Renal Disease: No Hx Cirrhosis: No Hx Alcoholism: No Hx HIV/AIDS: No Hx Splenectomy or Spleen Trauma: No Other PMH: NC with 2 stents, Seizure Disorder (currently unmedicated - last SZ in teens), HTN, - Social History Smoking Status: Never smoked Constitutional: Initial Vital Signs Temperature (C) 37.6 C 11/27/18 01:42 Heart Rate 90 11/27/18 01:42 Respiratory Rate 14 11/27/18 01:42 Blood Pressure 77/55 L 11/27/18 01:42 O2 Sat (%) 93 11/27/18 01:42 O2 Delivery Mode Nasal Cannula O2 (L/minute) 3 Allergies/Adverse Reactions: No Known Allergies Allergy (Verified 11/27/18 01:41) Home Medications: Medication Instructions Recorded Aspirin EC [Aspirin EC 81 mg (*)] 81 mg PO DAILY 10/14/18 Atorvastatin Calcium [Lipitor 40 40 mg PO HS 10/14/18 mg (*)] levETIRAcetam [Keppra 500 mg (*)] 500 mg PO BID 11/13/18 Enoxaparin [Lovenox 40 MG (*)] 40 mg SC DAILY syr 11/24/18 Ondansetron HCl Pf [Zofran 4 mg 4 mg IVP Q4HRS PRN vial 11/24/18 Inj (*)] Acetaminophen [Tylenol 325mg (*)] 650 mg PO Q4HRS PRN 11/27/18 Lansoprazole [PREVACID 30mg/10ml 30 mg PO BID 11/27/18 susp (Adult) (*)] Lisinopril [Zestril 10 mg (*)] 10 mg PO BID 11/27/18 Metoprolol Tartrate [Lopressor 25 50 mg PO BID 11/27/18 mg (*)] Polyethylene Glycol 3350 [Miralax 17 gm PO DAILY PRN 11/27/18 17 gm (*)] Zolpidem Tartrate [Ambien 5MG (*)] 5 mg PO HS PRN 11/27/18 amLODIPine BESYLATE [Norvasc 5 mg 5 mg PO DAILY 11/27/18 (*)] Medical Decision Making - Data Points Laboratory Results: Laboratory Results 11/27/18 01:40 11/27/18 01:40 Microbiology Results: MICROBIOLOGY 11/27/18 01:55 Sputum, Expectorated - Final 11/27/18 01:55 Sputum, Expectorated Sputum Culture - Final 11/27/18 02:05 Blood Blood Culture - Preliminary 11/27/18 02:05 Blood Blood Culture - Preliminary Medications Given: Acetaminophen (Tylenol 650/20.3ml Oral Liquid) 650 mg TUBE Q4HRS PRN PRN Reason: Pain, Mild/Fever, Can Take PO Stop: 05/26/19 03:00 Last Admin: 11/28/18 05:58 Dose: 650 mg Amlodipine Besylate (Norvasc) 5 mg TUBE DAILY ERIN Stop: 05/26/19 11:44 Last Admin: 11/28/18 08:52 Dose: 5 mg Atorvastatin Calcium (Lipitor) 40 mg TUBE HS ERIN Stop: 05/26/19 20:59 Last Admin: 11/28/18 21:14 Dose: Not Given Enoxaparin Sodium (Lovenox) 40 mg SC DAILY ERIN Stop: 05/27/19 11:14 Last Admin: 11/28/18 12:32 Dose: 40 mg Sodium Chloride (Ns) 1,000 mls @ 150 mls/hr IV CONT ERIN Stop: 05/26/19 03:14 Last Admin: 11/28/18 21:37 Dose: 1,000 mls Piperacillin/Tazobactam/Dextrose (Zosyn 3.375 Gm (Premix)) 50 mls @ 100 mls/hr IV Q6HRS ERIN PRN Reason: Protocol Stop: 12/27/18 06:29 Last Admin: 11/28/18 23:57 Dose: 50 mls Lansoprazole (Prevacid Susp (Adult)) 30 mg TUBE BID ERIN Stop: 05/26/19 20:59 Last Admin: 11/28/18 21:21 Dose: 30 mg Levetiracetam (Keppra Oral Liquid) 500 mg TUBE BID ERIN Stop: 05/26/19 11:44 Last Admin: 11/28/18 21:16 Dose: 500 mg Lisinopril (Zestril) 10 mg TUBE BID ERIN Stop: 05/26/19 11:44 Last Admin: 11/28/18 21:14 Dose: Not Given Metoprolol Tartrate (Lopressor) 50 mg TUBE BID ERIN Stop: 05/26/19 11:44 Last Admin: 11/28/18 21:15 Dose: Not Given Discontinued Medications Acetaminophen (Tylenol 650/20.3ml Oral Liquid) 650 mg PO Q4HRS PRN PRN Reason: Pain, Mild/Fever, Can Take PO Stop: 05/26/19 03:00 Last Admin: 11/27/18 04:38 Dose: 650 mg Enoxaparin Sodium (Lovenox) 40 mg SC ONCE ONE Stop: 11/27/18 11:46 Last Admin: 11/27/18 11:58 Dose: 40 mg Sodium Chloride (Ns) 1,000 mls @ 0 mls/hr IV EDNOW ONE; Wide Open PRN Reason: Protocol Stop: 11/27/18 01:41 Last Admin: 11/27/18 01:45 Dose: 1,000 mls Sodium Chloride (Ns) 1,000 mls @ 3,000 mls/hr IV ONCE ONE Stop: 11/27/18 02:05 Last Admin: 11/27/18 01:47 Dose: 1,000 mls Vancomycin/Sodium Chloride (Vancomycin 1 Gm (Premix)) 250 mls @ 250 mls/hr IV EDNOW ONE PRN Reason: Protocol Stop: 11/27/18 02:45 Last Admin: 11/27/18 02:23 Dose: 250 mls Piperacillin/Tazobactam/Dextrose (Zosyn (Premix)) 100 mls @ 200 mls/hr IV EDNOW ONE PRN Reason: Protocol Stop: 11/27/18 02:15 Last Admin: 11/27/18 02:07 Dose: 100 mls Sodium Chloride (Ns) 1,000 mls @ 0 mls/hr IV ONCE ONE PRN Reason: Wide Open Stop: 11/27/18 02:23 Last Admin: 11/27/18 02:33 Dose: 1,000 mls Vancomycin HCl 1.25 gm/ Sodium (Chloride) 250 mls @ 166.667 mls/hr IV Q12H ERIN Stop: 11/28/18 14:00 Last Admin: 11/28/18 12:32 Dose: 250 mls Levetiracetam (Keppra) 500 mg PO BID ERIN Stop: 05/26/19 10:44 Last Admin: 11/27/18 12:59 Dose: Not Given Point of Care Test Results: Chemistry 11/27/18 02:36 POC Troponin I 0.03 ng/mL ng/mL (0.00-0.08) Departure - Departure Disposition: [facility] Acute Clinical Impression: Sepsis Qualifiers: Sepsis type: sepsis due to unspecified organism Qualified Code(s): A41.9 - Sepsis, unspecified organism Hypotension Qualifiers: Hypotension type: unspecified hypotension type Qualified Code(s): I95.9 - Hypotension, unspecified Pneumonia Qualifiers: Pneumonia type: due to unspecified organism Laterality: bilateral Lung location : lower lobe of lung Qualified Code(s): J18.1 - Lobar pneumonia, unspecified organism Condition: Critical
[2018-11-27 02:19] LABS: INR 1.03 (0.83-1.16); PROTIME(PATIENT) 13.7 SEC (12.0-15.0)
[2018-11-27] MEDS ORDERED: IOHEXOL 350mgI/ML (OMNIPAQUE) 150 ML BTL IV ONE (02:23)
[2018-11-27 02:58] LABS: PLATELET COUNT 239 10^3/uL (150-400)
[2018-11-27] MEDS ORDERED: ONDANSETRON 4 MG/2 ML VIAL IVP PRN (03:01)
[2018-11-27] MEDS ORDERED: ACETAMINOPHEN 325 MG TAB PO PRN (03:01)
[2018-11-27] MEDS ORDERED: ONDANSETRON DISINTEGRATING 4 MG TAB PO PRN (03:01)
[2018-11-27] MEDS ORDERED: ACETAMINOPHEN 650 MG/20.3 ML UDCUP PO PRN (04:00)
--- NOTE | 2018-11-27 04:23 | PDGENHP ---
History and Physical - Chief Complaint Fever, hypoxia, cough - History of Present Illness 58 yo M w/ hx of recent brain tumor excision (11/16/18), related dysphagia, CAD, and HTN presents form rehab with reports of fever, hypotension, and hypoxia. The patient was discharged to inpatient rehab on 11/24. Over the last 24 hours he has developed hypoxia and chills. Tonight he was noted to be febrile and hypotensive so he was sent back to our ED for evaluation. In the ED his BP responded nicely to fluids. His evaluation is highly suggestive of aspiration pneumonia, for which he is at very high risk. He continues to have significant dysphagia and has been receiving tube feeds via Dobhoff tube at his facility. CT performed here suggestive of multifocal pneumonia. The patient is being admitted for severe sepsis. Case discussed with ED physician Dr. Arnold; records reviewed and summarized above. History Information - Allergies/Home Medication List Allergies/Adverse Reactions: No Known Allergies Allergy (Verified 11/27/18 01:41) Home Medications: Aspirin EC [Aspirin EC 81 mg (*)] 81 mg PO DAILY 10/14/18 [Last Taken 11/11/18] Atorvastatin Calcium [Lipitor 40 mg (*)] 40 mg PO HS 10/14/18 [Last Taken ] levETIRAcetam [Keppra 500 mg (*)] 500 mg PO BID 11/13/18 [Last Taken 11/16/18 04 :30] I have personally reviewed and updated: family history, medical history - Past Medical History coronary artery disease, hypertension, hyperlipidemia, seizures (as a teen) - Surgical History Reports: coronary stent Additional surgical history: Suboccipital craniotomy and brain tumor resection - Family History Positive for: CAD Additional family history: brother with epilepsy - Social History Smoking Status: Never smoked Additional social history: , works here at [employer] Review of Systems Review of Systems: ROS: 10pt was reviewed & negative except for what was stated in HPI & below Physical Exam Physical Exam: Temp Pulse Resp BP Pulse Ox 37.5 C 90 17 118/77 94 11/27/18 03:23 11/27/18 03:23 11/27/18 03:23 11/27/18 03:23 11/27/18 03:23 O2 (L/minute) 3 Constitutional: appears nourished, uncomfortable, other (Dobhoff tube in place) Eyes: PERRL, EOMI Ears, Nose, Mouth, Throat: dry mucous membranes, other (Copious secretions) Cardiovascular: regular rate and rhythym, no murmur, rub, or gallop Respiratory: no respiratory distress, inspiratory crackles, rhonchi Gastrointestinal: normoactive bowel sounds, soft, non-tender abdomen Skin: warm, normal color, other (Posterior cervical incision without signs of infection) Musculoskeletal: full muscle strength, no muscle tenderness Neurologic: AAOx3, CN II-XII Intact Psychiatric: interacting appropriately, not anxious Lab Data & Imaging Review 11/27/18 01:40 11/27/18 03:50 WBC 16.53 10^3/uL (3.80-9.50) H 11/27/18 01:40 RBC 3.84 10^6/uL (4.40-6.38) L 11/27/18 01:40 Hgb 11.9 g/dL (13.7-17.5) L 11/27/18 01:40 Hct 34.6 % (40.0-51.0) L 11/27/18 01:40 MCV 90.1 fL (81.5-99.8) 11/27/18 01:40 MCH 31.0 pg (27.9-34.1) 11/27/18 01:40 MCHC 34.4 g/dL (32.4-36.7) 11/27/18 01:40 RDW 14.2 % (11.5-15.2) 11/27/18 01:40 Plt Count 239 10^3/uL (150-400) 11/27/18 01:40 MPV 9.9 fL (8.7-11.7) 11/27/18 01:40 Neut % (Auto) 89.2 % (39.3-74.2) H 11/27/18 01:40 Lymph % (Auto) 4.8 % (15.0-45.0) L 11/27/18 01:40 [place] % (Auto) 5.2 % (4.5-13.0) 11/27/18 01:40 Eos % (Auto) 0.1 % (0.6-7.6) L 11/27/18 01:40 Baso % (Auto) 0.2 % (0.3-1.7) L 11/27/18 01:40 Nucleat RBC Rel Count 0.0 % (0.0-0.2) 11/27/18 01:40 Absolute Neuts (auto) 14.75 10^3/uL (1.70-6.50) H 11/27/18 01:40 Absolute Lymphs (auto) 0.79 10^3/uL (1.00-3.00) L 11/27/18 01:40 Absolute Monos (auto) 0.86 10^3/uL (0.30-0.80) H 11/27/18 01:40 Absolute Eos (auto) 0.02 10^3/uL (0.03-0.40) L 11/27/18 01:40 Absolute Basos (auto) 0.03 10^3/uL (0.02-0.10) 11/27/18 01:40 Absolute Nucleated RBC 0.00 10^3/uL (0-0.01) 11/27/18 01:40 Immature Gran % 0.5 % (0.0-1.1) 11/27/18 01:40 Immature Gran # 0.08 10^3/uL (0.00-0.10) 11/27/18 01:40 PT 13.7 SEC (12.0-15.0) 11/27/18 01:40 INR 1.03 (0.83-1.16) 11/27/18 01:40 APTT 22.9 SEC (23.0-38.0) L 11/27/18 01:40 Puncture Site RIGHT RADIAL 11/27/18 02:00 pCO2 39 mmHg (34-38) H 11/27/18 02:00 pO2 116 mmHg (65-75) H 11/27/18 02:00 Total CO2 29 mEq/L (23-27) H 11/27/18 02:00 ABG pH 7.47 (7.35-7.45) H 11/27/18 02:00 ABG HCO3 28 mEq/L (22-26) H 11/27/18 02:00 ABG O2 Saturation 98 % (92-95) H 11/27/18 02:00 ABG Base Excess 4.0 mEq/L (-2.5-2.5) H 11/27/18 02:00 VBG Lactic Acid 1.2 mmol/L (0.7-2.1) 11/27/18 01:42 Total O2 Concentration 5.0 LITERS 11/27/18 02:00 Sodium 135 mEq/L (135-145) 11/27/18 03:50 Potassium 4.0 mEq/L (3.5-5.2) 11/27/18 03:50 Chloride 107 mEq/L (97-110) 11/27/18 03:50 Carbon Dioxide 26 mEq/l (22-31) 11/27/18 03:50 Anion Gap 2 mEq/L (6-14) L 11/27/18 03:50 BUN 30 mg/dL (7-23) H 11/27/18 03:50 Creatinine 1.0 mg/dL (0.7-1.3) 11/27/18 03:50 Estimated GFR > 60 11/27/18 03:50 Glucose 118 mg/dL (70-100) H 11/27/18 03:50 Calcium 6.9 mg/dL (8.5-10.4) L 11/27/18 03:50 Total Bilirubin 0.7 mg/dL (0.1-1.4) 11/27/18 01:40 Conjugated Bilirubin 0.2 mg/dL (0.0-0.5) 11/27/18 01:40 Unconjugated Bilirubin 0.5 mg/dL (0.0-1.1) 11/27/18 01:40 AST 31 IU/L (17-59) 11/27/18 01:40 ALT 59 IU/L (21-72) 11/27/18 01:40 Alkaline Phosphatase 148 IU/L (38-126) H 11/27/18 01:40 POC Troponin I 0.03 ng/mL (0.00-0.08) 11/27/18 02:36 NT-Pro-B Natriuret Pep 81 pg/mL (0-125) 11/27/18 01:40 Total Protein 4.4 g/dL (6.3-8.2) L 11/27/18 01:40 Albumin 2.3 g/dL (3.5-5.0) L 11/27/18 01:40 Procalcitonin 0.40 ng/mL (0.02-0.10) H 11/27/18 01:40 Urine Color YELLOW 11/27/18 03:20 Urine Appearance CLEAR 11/27/18 03:20 Urine pH 6.0 (5.0-7.5) 11/27/18 03:20 Ur Specific [place] 1.029 (1.002-1.030) 11/27/18 03:20 Urine Protein NEGATIVE (NEGATIVE) 11/27/18 03:20 Urine Ketones NEGATIVE (NEGATIVE) 11/27/18 03:20 Urine Blood NEGATIVE (NEGATIVE) 11/27/18 03:20 Urine Nitrate NEGATIVE (NEGATIVE) 11/27/18 03:20 Urine Bilirubin NEGATIVE (NEGATIVE) 11/27/18 03:20 Urine Urobilinogen 2.0 EU (0.2-1.0) H 11/27/18 03:20 Ur Leukocyte Esterase NEGATIVE (NEGATIVE) 11/27/18 03:20 Urine Glucose NEGATIVE (NEGATIVE) 11/27/18 03:20 Imaging Review: CTPE Prelim: - Multifocal pneumonia - No PE Visualized and Interpreted EKG results: Yes EKG Interpretation: Positive for: normal sinsus rhythm, Q waves (Inferior leads) Assessment & Plan Assessment: 58 yo M w/ recent brain surgery and related dysphagia presents with sepsis due to aspiration pneumonia. Plan: 1. Sepsis - 2/2 aspiration pneumonia; CT obtained (personally reviewed/ interpreted) demonstrates multifocal airspace disease. Sepsis per 3/4 SIRS criteria (WBC, T, RR); he was also hypotensive on arrival but this corrected with IVF. He is at high risk for hospital acquired organisms due to recent hospitalization. - Vancomycin, Zosyn for broad coverage - Blood and sputum cultures ordered - Continue IVF 2. AHRF - Currently requiring 4 L/min O2 to maintain O2 sats>89%; this is due to multifocal pneumonia. - Infectious management as above - O2 PRN - Incentive spirometry 3. Dysphagia - Thought to be due to cerebral edema related to recent surgery. - NPO for now noting aspiration - Dietary consult placed 4. Brain tumor - S/p suboccipital craniotomy and brain tumor resection 11/16/18. Pathology revealed mixed subependymoma-ependymoma, WHO grade II. Surgical incision does not appear infected. - Will need neurosurgery consult most likely 5. HTN - With recently labile BPs. - Hold antihypertensives in setting of acute infection, restart as indicated 6. CAD - Continue home medications pending reconciliation Diet - NPO Code - Full Ppx - SCDs Dispo - Admit under inpatient status
[2018-11-27] MEDS: NS 1,000 ML IV SCH ×2 (04:38→11:29)
[2018-11-27] MEDS: PIPERACILLIN/TAZO 3.375 GM/DEX 50 ML IV SCH ×3 (06:14→17:21)
--- NOTE | 2018-11-27 08:19 | PDMN ---
Medical Necessity Medical necessity: Pt meets inpt criteria per MD order and MCG [id number], Pneumonia Due to Aspiration, 3 days. 58 y/o w/hx recent craniotomy for brain tumor excision (11/16/18), related dysphagia, CAD, and HTN presents from inpt rehab w/ fever, hypotension (77/55), and hypoxia, admitted now w/sepsis sec to asp pneumonia, and AHRF- currently requiring 3-4 LO2 to maintain sats>90%. ICU care , anticipate>2MN for ongoing eval/management of above.
[2018-11-27] MEDS ORDERED: POLYETHYLENE GLYCOL 3350 17 GM PKT PO PRN (10:36)
[2018-11-27] MEDS ORDERED: ZOLPIDEM TARTRATE 5 MG TAB PO PRN (10:36)
[2018-11-27] MEDS ORDERED: levETIRAcetam 500 MG TAB PO SCH (10:45)
--- NOTE | 2018-11-27 11:13 | ASMTCMCOM ---
CM Note CM Note Notes: Pt is a 58 yo M, discharged to inpatient rehab on 11/24. Presents from rehab with fever, hypotension, and hypoxia; pt being admitted for severe sepsis. No therapies ordered at this time, CM to follow to determine discharge plan. Pt will likely return to Inpatient rehab once medically stabled. CM left message for inpt rehab. Plan: TBD, likely will return to inpatient rehab. Date Signed: 11/27/2018 11:12 AM Electronically Signed By:RADHA Mcdonald
[2018-11-27] MEDS: VANCOMYCIN 1.25 GM in NS 250 ML IV SCH (11:29)
[2018-11-27] MEDS ORDERED: ZOLPIDEM TARTRATE 5 MG TAB TUBE PRN (11:30)
[2018-11-27] MEDS ORDERED: ENOXAPARIN 40 MG/0.4 ML SYR SC SCH (11:30)
[2018-11-27] MEDS ORDERED: ONDANSETRON DISINTEGRATING 4 MG TAB TUBE PRN (11:30)
[2018-11-27] MEDS ORDERED: ENOXAPARIN 40 MG/0.4 ML SYR SC ONE (11:45)
[2018-11-27] MEDS: levETIRAcetam 500 MG/5 ML UDCUP TUBE SCH ×2 (11:59→21:37)
[2018-11-27] MEDS: METOPROLOL TARTRATE 25 MG TAB TUBE SCH ×2 (11:59→21:38)
[2018-11-27] MEDS: LISINOPRIL 10 MG TAB TUBE SCH ×2 (11:59→21:38)
[2018-11-27] MEDS: amLODIPine BESYLATE 5 MG TAB TUBE SCH (12:00)
--- NOTE | 2018-11-27 12:42 | PDCONSULT ---
[employer] Manager Note: ASSESSMENT 58-year-old male recent sub-occipital craniotomy (11/16/18) for resection of 4th ventricular mass admitted with acute hypoxemic respiratory failure from aspiration pneumonia versus pneumonitis in the setting of persistent and severe dysphagia # acute hypoxemic respiratory. Improving # aspiration pneumonia. Versus pneumonitis # dysphagia, severe. No improvement today with speech therapy. Currently with Dobbhoff in place. GI consulted. Prefer to wait until Friday after adequate antibiosis to attempt GJ tube # diplopia # fevers # hypertension PLAN # continue broad spectrum abx given rx for MDR, if cx negative at 48 to 72 hrs will descalate to CTX or unasyn # trend procalcitonin # restart antihypertensives # Dr Mendez is aware patient is admitted and in agreement with PEG # GI consulted for PEG, they would like to wait until patient has been treated with antibiotics for a few days to proceed and will likely place GJ tube # PT/OT/Speech # Feeding - continue tube feeds # Analgesia APAP # Sedation propofol # Thromboprophylaxis - lovenox # Head of bed elevated # Ulcer prophylaxis - NA # Glucose SSI # Skin no skin breakdown # Delirium - delirium precautions # if clinically stable can downgrade ABX 11/27/18 vanc, zosyn- EVENTS 08/08/18 intubation, bronchoscopy CX Data Pending IMAGING LABS 11/27/18 procalcitonin 0.4, WBC 16.5 w 90% neutrophils CONSULT I was asked by Dr. Holland holguin of Hospital Medicine to evaluate this patient for acute hypoxemic respiratory failure and ICU care CC shortness of breath HPI 58-year-old male recent sub-occipital craniotomy (11/16/18) for resection of 4th ventricular mass admitted with acute hypoxemic respiratory failure from aspiration pneumonia versus pneumonitis in the setting of persistent and severe dysphagia. He was discharged from [facility] and rehabilitation. He developed progressive shortness of breath, fevers and low blood pressure was given 1 dose of Augmentin in his fci. He subsequently worsened and was brought to the emergency department. He was initially hypotensive in responded well to fluids. He was also given antibiotics. He was admitted to the ICU for closer monitoring. He had a CT scan done the demonstrate bilateral lower lobe opacifications with scattered right upper lobe ground-glass opacifications Allergies No known drug allergies Past medical history Fourth ventricle tumor status post suboccipital craniotomy 11/16/2018, hypertension, coronary disease, hyperlipidemia, remote history of epilepsy as a child Family history Coronary disease Social history , works at [employer], lives with Review of systems A comprehensive 10 point review of systems was obtained is negative except as per HPI Physical exam Afebrile, blood pressure 170/90, respiratory 16, 99% 2 L nasal cannula, heart rate 81 GEN: NAD, up in chair, interactive NEURO: Diplopia present, some difficulties with [id number], hearing in tact tongue midline HEENT: PERRL, EOMI, MMM, OP clear NECK: supple, trachea midline CHEST normal shape, no pes excavatum CVS: rrr no m/r/g PULM: Coarse breath sounds bilaterally, no use of accessory muscles ABD: soft, NT, ND, NABS EXT: no swelling, no cyanosis, full ROM SKIN: warm, dry, intact, no rash PSYCH CAM negative, appropriate affect
--- NOTE | 2018-11-27 16:16 | NEUSURGPN ---
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 Discussed timing for follow up MRI at 6-12 weeks from surgery. Discussed in detail with Dr. Mendez Please notify NS with any change in neuro/motor exam Subjective: Vision slowly improving. Will have some right sided zingers on his scalp. Objective: NAD, VSS PERRL No facial droop MCADAMS X4 5/5 and equal Incision c/d/i Neurosurgery Physical Exam - Vitals, I&O, Labs I and O 11/26/18 11/27/18 11/28/18 05:59 05:59 05:59 Intake Total 2350 Output Total 750 1400 Balance 1600 -1400 Weight 83.1 kg Intake: Oral (ml) 0 IV Infused (ml) 2350 Output: Urine (ml) 750 1400 Urinal 300 1400 Other: Number of Voids 1 Urinal 1 Number of Stools Urinal 0 Microbiology 11/27/18 09:30 - Final Sputum, Expectorated Vital Signs Temp Pulse Resp BP Pulse Ox 36.8 C 69 14 141/86 H 98 11/27/18 15:10 11/27/18 15:10 11/27/18 15:10 11/27/18 15:10 11/27/18 15:10 Laboratory Results 11/27/18 03:50 ICD10 Worksheet Patient Problems: Problems Problem Status Onset Hypotension Acute Sepsis Acute Brain mass Acute Seizure Acute
[2018-11-27] MEDS: LANSOPRAZOLE SUSP 30MG/10ML UDSYR (Adult) TUBE SCH (21:37)
[2018-11-27] MEDS: ATORVASTATIN CALCIUM 40 MG TAB TUBE SCH (21:38)
[2018-11-28] MEDS: PIPERACILLIN/TAZO 3.375 GM/DEX 50 ML IV SCH ×5 (00:58→23:57)
[2018-11-28] MEDS: VANCOMYCIN 1.25 GM in NS 250 ML IV SCH ×2 (00:58→12:32)
[2018-11-28] MEDS: NS 1,000 ML IV SCH ×2 (01:00→21:37)
[2018-11-28] MEDS: ACETAMINOPHEN 650 MG/20.3 ML UDCUP TUBE PRN ×2 (01:29→05:58)
--- NOTE | 2018-11-28 07:34 | CPEKG ---
Test Reason : OPEN Blood Pressure : / mmHG Vent. Rate : 087 BPM Atrial Rate : 086 BPM P-R Int : 124 ms QRS Dur : 100 ms QT Int : 375 ms P-R-T Axes : -03 -05 -04 degrees QTc Int : 451 ms Sinus rhythm Consider inferior infarct Confirmed by Rey Bonilla ([id number]) on 11/28/2018 7:34:02 AM Referred By: Rey Bonilla Confirmed By:Rey Bonilla
--- NOTE | 2018-11-28 08:06 | PDCONSULT ---
Transmission Superintendent Note: [email or web address] p: f: REFERRING PHYSICIAN: I was asked to see the patient in consultation by Dr. Ronak Singh for a chief complaint of dysphagia. HISTORY OF PRESENT ILLNESS: Mr. Jacobsen is a 58-year-old male with a recent suboccipital craniotomy on 11/16/2018 for 1/4 ventricular mass presenting with acute hypoxic respiratory failure from aspiration pneumonia in the setting of severe oropharyngeal dysphagia. There are reports of severe oropharyngeal dysphasia based on speech therapy evaluation though I do not have these reports for confirmation. He was reportedly receiving Dobbhoff feeds at his rehabilitation facility. Avelino endorses not being able to swallow his saliva and has to use a suction catheter constantly to for comfort. Preceding the surgery he did not have any heartburn or regurgitation. He does not feel that he is having refluxate either. PAST MEDICAL HISTORY: Suboccipital craniotomy to 11/16/2018, coronary artery disease, hypertension, hyperlipidemia, seizures PAST SURGICAL HISTORY: Suboccipital craniotomy to 11/16/2018, hypertension, coronary artery disease, hyperlipidemia, remote history of epilepsy as a child HomeMEDICATIONS: Aspirin 81 mg daily, atorvastatin 40 mg daily at bedtime, Keppra 500 mg twice a day Inpatient medications: Acetaminophen 650 mg via tube every 4, amlodipine 5 mg via tube daily, atorvastatin 40 mg via tube daily, and nontoxic appearing 40 mg SQ daily, lansoprazole 30 mg via tube daily, Keppra 500 mg twice a day, lisinopril 10 mg twice a day, metoprolol 50 mg twice a day, O dances turned 4 mg every 4 when necessary, so sent 3.375 g every 6 hours, vancomycin 1.25 g every 12 hours, Ambien 5 mg tube every HS when necessary ALLERGIES: NKDA FAMILY HISTORY: No family history coronary artery disease SOCIAL HISTORY visit white No Tobacco use No Alcohol use ROS I have performed a comprehensive review of systems, which is negative except for pertinent positives and/or pertinent negatives as noted above in the HPI Physical exam: Vitals 36.6 78 17 163/91 07:30 am CONSTITUTIONAL: alert, unwell appearing, in no distress MENTAL STATUS: alert, oriented to person, place and time PSYCH: mood appropriate for affect EYES: pupils equal and reactive extra ocular eye movements intact EARS: right and left ear normal NOSE: normal and patent, no erythema, discharge or polyps MOUTH: mucous membranes moist, pharynx normal without lesions, Mallampati II HEAD: normal NECK: supple, no significant adenopatchy CHEST: clear to auscultation, no wheezes, rales or rhonchi, symmetric air entry CARDIOVASCULAR: normal rate, regular rhythm, normal S1,S2, no murmurs, rubs, clicks or gallops GASTROINTESTINAL: no surgical scars, soft, non tender, non distended, no masses or organomegaly NEUROLOGICAL: alert, oriented, slightly slurred speech, not swallowing well - suction catheter in mouth MUSCULOSKELETAL: no joint tenderness, deformity or swelling SKIN: normal coloration and turgor, no rashes, no suspicious skin lesions CURRENT DATA: LABS: 11/27/2018 CBC: 16>11<239 IMAGIN11/27/2018 CT scan of chest Multifactorial bilateral pneumonia and a pattern suggestive of possible aspiration pneumonitis, continued imaging surveillance until reticulocyte solution as documented, no evidence of embolic disease ASSESSMENT: Mr. Jacobsen,goes by "Avelino" is a 58-year-old male with a recent suboccipital craniotomy on 11/16/2018 for a 4th ventricular mass presenting with severe sepsis, acute hypoxic respiratory failure from aspiration pneumonia in the setting of severe oropharyngeal dysphagia. Overally hypoxia is significantly improving. Likely this is oropharyngeal dysphagia causing aspiration. In this situation the oropharyngeal dysphagia may resolve with time. Though silent reflux can lead to aspiration I do not think this is the situation. We discussed the benefits and risk PEG tube placement. Typically I require at least 12 weeks of placement before removing the PEG tube. RECOMMENDATIONS: -Keep patient NPO. Ensure large bore IV access. -Dobhoff for current feedings -Will obtain previous beside swallow evaluation or any esophograms, if available -Will plan on endoscopy with PEG placement this upcoming week. The patient will be at increased risk for this procedure given his recent pneumonia, hypoxia and history of CAD but the benefits of placement outweigh the risk. -Thank you for this consultation Sincerely, Kathy Pedro MD [facility]
[2018-11-28] MEDS: LISINOPRIL 10 MG TAB TUBE SCH ×2 (08:52→21:14)
[2018-11-28] MEDS: levETIRAcetam 500 MG/5 ML UDCUP TUBE SCH ×2 (08:52→21:16)
[2018-11-28] MEDS: LANSOPRAZOLE SUSP 30MG/10ML UDSYR (Adult) TUBE SCH ×2 (08:52→21:21)
[2018-11-28] MEDS: METOPROLOL TARTRATE 25 MG TAB TUBE SCH ×2 (08:52→21:15)
[2018-11-28] MEDS: amLODIPine BESYLATE 5 MG TAB TUBE SCH (08:52)
--- NOTE | 2018-11-28 12:13 | PDINTPN ---
[employer] [employer] Progress Note Assessment/Plan: ASSESSMENT 58-year-old male recent sub-occipital craniotomy (11/16/18) for resection of 4th ventricular mass admitted with acute hypoxemic respiratory failure from aspiration pneumonia versus pneumonitis in the setting of persistent and severe dysphagia # acute hypoxemic respiratory. Improving # aspiration pneumonia versus pneumonitis # dysphagia, severe. No improvement today with speech therapy. Currently with Dobbhoff in place. GI consulted. Prefer to wait until Friday after adequate antibiosis to attempt GJ tube # diplopia # fevers, resolved # hypotension, resolved # hypertension # GERD PLAN # continue broad spectrum abx given rx for MDR, if cx negative at 48 to 72 hrs will descalate to CTX or unasyn to complete 5 TOTAL DAYS OF ABX # trend procalcitonin # restart antihypertensives # PEG placement friday per GI\ # continue PPI but decrease dose to 30 daily # Dr Mendez is aware of admission # PT/OT/Speech # Feeding - continue tube feeds # Analgesia APAP # Sedation none # Thromboprophylaxis - lovenox, hold on # Head of bed elevated # Ulcer prophylaxis - NA # Glucose SSI # Skin no skin breakdown # Delirium - delirium precautions # med surg today ABX 11/27/18 vanc, zosyn- EVENTS 08/08/18 intubation, bronchoscopy CX Data Pending IMAGING LABS 11/27/18 procalcitonin 0.4, WBC 16.5 w 90% neutrophils 11/28/18 12:15 Subjective: Hypoxemia has nearly resolved. Patient feeling better. More strength. No fevers, no chills, no nausea, no vomiting, no shortness of Breath. Current wearing glasses for diplopia, Objective: Vital Signs Temp Pulse Resp BP Pulse Ox 36.6 C 79 17 145/88 H 97 11/28/18 07:30 11/28/18 08:52 11/28/18 07:30 11/28/18 08:52 11/28/18 07:30 Microbiology 11/27/18 09:30 - Final Sputum, Expectorated Laboratory Results 11/27/18 03:50 11/27/18 11/28/18 11/29/18 05:59 05:59 05:59 Intake Total 2350 3721 Output Total 750 3300 Balance 1600 421 PT 13.7 SEC (12.0-15.0) 11/27/18 01:40 INR 1.03 (0.83-1.16) 11/27/18 01:40 Physical Exam - Physical Exam General Appearance: alert, no apparent distress EENT: normal ENT inspection, pharynx normal, other (Dobbhoff in place, diplopia present) Neck: non-tender, supple, normal inspection Respiratory: chest non-tender, lungs clear, normal breath sounds, No respiratory distress Cardiac/Chest: normal peripheral pulses, regular rate, rhythm, No edema Abdomen: normal bowel sounds, non-tender Back: Normal inspection, No CVA tenderness Skin: normal color, warm/dry, No cyanosis, No jaundice Extremities: normal range of motion, non-tender, normal inspection Neuro/Psych: speech abnormalities, other (Alert and oriented to person place and time. Double vision present in still with dysphagia but but cranial nerves 2-12 otherwise intact) ICD10 Worksheet Patient Problems: Problems Problem Status Onset Hypotension Acute Sepsis Acute Brain mass Acute Seizure Acute
[2018-11-28] MEDS: ENOXAPARIN 40 MG/0.4 ML SYR SC SCH (12:32)
--- NOTE | 2018-11-28 16:22 | HOSPPROG ---
Hospitalist Progress Note Assessment/Plan: 58 yo M w subocciptal craniotomy for 4th ventricle mass here w sepsis, aspiration pneumonia aspiration: zosyn, tube feeds gpc in sputum noted follow dysphagia: PEG this week shaking episodes: not rigors on keppra but consider partial seizures eeg if continue may also be diaphragmatic spasm as initiate w hiccups cad: statin, soco asa on hold proph: scd dispo: inpt Subjective: case d/w dr [place]. having episodes of "shaking" that begin w hiccups. afebrile Objective: Vital Signs Temp Pulse Resp BP Pulse Ox 36.4 C 77 15 138/85 H 96 11/28/18 12:12 11/28/18 12:12 11/28/18 12:12 11/28/18 12:12 11/28/18 12:12 Microbiology 11/27/18 09:30 - Final Sputum, Expectorated Laboratory Results 11/27/18 03:50 11/27/18 11/28/18 11/29/18 05:59 05:59 05:59 Intake Total 2350 3721 Output Total 750 3300 500 Balance 1600 421 -500 PT 13.7 SEC (12.0-15.0) 11/27/18 01:40 INR 1.03 (0.83-1.16) 11/27/18 01:40 - Physical Exam Constitutional: no apparent distress, appears nourished Eyes: PERRL, anicteric sclera Ears, Nose, Mouth, Throat: moist mucous membranes, hearing normal Cardiovascular: regular rate and rhythym, no murmur, rub, or gallop Respiratory: no respiratory distress, no rales or rhonchi Gastrointestinal: normoactive bowel sounds, soft, non-tender abdomen Genitourinary: no bladder fullness, No ohara in urethra Skin: warm Musculoskeletal: No full muscle strength Neurologic: AAOx3 ICD10 Worksheet Patient Problems: Problems Problem Status Onset Hypotension Acute Sepsis Acute Brain mass Acute Seizure Acute
[2018-11-28] MEDS: ATORVASTATIN CALCIUM 40 MG TAB TUBE SCH (21:14)
[2018-11-29] MEDS: NS 1,000 ML IV SCH ×5 (04:46→23:49)
[2018-11-29] MEDS: PIPERACILLIN/TAZO 3.375 GM/DEX 50 ML IV SCH ×4 (06:11→23:46)
[2018-11-29] MEDS: amLODIPine BESYLATE 5 MG TAB TUBE SCH (08:03)
[2018-11-29] MEDS: ENOXAPARIN 40 MG/0.4 ML SYR SC SCH (08:03)
[2018-11-29] MEDS: LISINOPRIL 10 MG TAB TUBE SCH ×2 (08:03→20:57)
[2018-11-29] MEDS: levETIRAcetam 500 MG/5 ML UDCUP TUBE SCH ×2 (08:04→20:56)
[2018-11-29] MEDS: METOPROLOL TARTRATE 25 MG TAB TUBE SCH ×2 (08:04→21:00)
[2018-11-29] MEDS: LANSOPRAZOLE SUSP 30MG/10ML UDSYR (Adult) TUBE SCH ×2 (08:38→20:56)
[2018-11-29] MEDS ORDERED: LANSOPRAZOLE SUSP 30MG/10ML UDSYR (Adult) TUBE SCH (09:00)
--- NOTE | 2018-11-29 11:57 | SOAPPROG ---
SOAP Progress Note Assessment/Plan: ASSESSMENT: Mr. Jacobsen,goes by "Avelino" is a 58-year-old male with a recent suboccipital craniotomy on 11/16/2018 for a 4th ventricular mass presenting with severe sepsis, acute hypoxic respiratory failure from aspiration pneumonia in the setting of severe oropharyngeal dysphagia. Overall his hypoxia has significantly improved and he is on the floor with minimal oxygen requirements. We had a very long discussion about placement of an endoscopic PEG tube with both Avelino as well as his , Ashley,. I answered all the questions about the postoperative, as well as when the PEG tube could be manually removed. Plan: 1. Tube feeds off at midnight 2. Patient considered high risk for this procedure given recent aspiration, will have Anesthesia support, the benefit of the procedure outweighs the risk 3. Will need antibiotics prior to the PEG - patient on Zosyn thus may not need to add pending dose timing tomorrow 4. Hold any anti-coagulants such as morning heparin Kathy Pedro MD 11/29/18 11:52 11/29/18 12:00 11/29/18 12:04 Subjective: no shortness of breath, unable to swallow, no abdominal pain Objective: Vital Signs Temp Pulse Resp BP Pulse Ox 36.8 C 84 16 168/90 H 91 L 11/29/18 11:44 11/29/18 11:44 11/29/18 11:44 11/29/18 11:44 11/29/18 11:44 Microbiology 11/27/18 09:30 - Final Sputum, Expectorated Laboratory Results 11/27/18 03:50 11/28/18 11/29/18 11/30/18 05:59 05:59 05:59 Intake Total 3721 1142 2682 Output Total 3300 1300 600 Balance 421 -158 2082 PT 13.7 SEC (12.0-15.0) 11/27/18 01:40 INR 1.03 (0.83-1.16) 11/27/18 01:40 Physical Exam - Physical Exam General Appearance: alert EENT: PERRL/EOMI Neck: non-tender Respiratory: chest non-tender, lungs clear Cardiac/Chest: regular rate, rhythm Skin: normal color Neuro/Psych: alert, normal mood/affect, oriented x 3 ICD10 Worksheet Patient Problems: Problems Problem Status Onset Hypotension Acute Pneumonia Acute Sepsis Acute Brain mass Acute Seizure Acute
[2018-11-29] MEDS ORDERED: DIAZEPAM 5 MG TAB PO PRN (15:47)
--- NOTE | 2018-11-29 15:50 | HOSPPROG ---
Hospitalist Progress Note Assessment/Plan: 58 yo M w subocciptal craniotomy for 4th ventricle mass here w sepsis, aspiration pneumonia aspiration: zosyn, tube feeds gpc in sputum noted follow dysphagia: PEG tomorrow shaking episodes: looks like diaphragmatic spasm trial of low dose valium cad: statin, soco asa on hold proph: scd dispo: inpt Subjective: witnessed "shaking episode". afebrile Objective: Vital Signs Temp Pulse Resp BP Pulse Ox 36.7 C 82 17 140/84 H 97 11/29/18 15:02 11/29/18 15:02 11/29/18 15:02 11/29/18 15:02 11/29/18 15:02 Microbiology 11/27/18 09:30 - Final Sputum, Expectorated Laboratory Results 11/27/18 03:50 11/28/18 11/29/18 11/30/18 05:59 05:59 05:59 Intake Total 3721 1142 3099 Output Total 3300 1300 1375 Balance 421 -158 1724 PT 13.7 SEC (12.0-15.0) 11/27/18 01:40 INR 1.03 (0.83-1.16) 11/27/18 01:40 - Physical Exam Constitutional: no apparent distress, appears nourished Eyes: PERRL, anicteric sclera Ears, Nose, Mouth, Throat: moist mucous membranes, hearing normal Cardiovascular: regular rate and rhythym, no murmur, rub, or gallop Respiratory: no respiratory distress, no rales or rhonchi Gastrointestinal: normoactive bowel sounds, soft, non-tender abdomen Genitourinary: No ohara in urethra Skin: warm, normal color Musculoskeletal: full muscle strength Neurologic: AAOx3 ICD10 Worksheet Patient Problems: Problems Problem Status Onset Hypotension Acute Pneumonia Acute Sepsis Acute Brain mass Acute Seizure Acute
[2018-11-29] MEDS: ATORVASTATIN CALCIUM 40 MG TAB TUBE SCH (20:56)
[2018-11-29] MEDS: DIAZEPAM 5 MG TAB TUBE PRN (21:00)
[2018-11-30] MEDS: DIAZEPAM 5 MG TAB TUBE PRN ×2 (03:02→21:20)
[2018-11-30] MEDS: PIPERACILLIN/TAZO 3.375 GM/DEX 50 ML IV SCH ×4 (05:39→23:54)
--- NOTE | 2018-11-30 07:45 | PDGENHP ---
History & Physical Chief Complaint: oropharyngeal dysphagia History of Present Illness: 58 year old male with oropharyngeal dysphagia with aspiration pneumonitis s/p craniotomy Relevant Physical Exam: Alert and oriented x 3, Abdomen soft non tender no surgical scars, Mallampati 1 Cardiorespiratory Assessment: RRR, CTAB. Plan for endoscopy with PEG tube placement
[2018-11-30] MEDS ORDERED: LR 1,000 ML IV ONE (08:43)
[2018-11-30] MEDS: amLODIPine BESYLATE 5 MG TAB TUBE SCH (09:53)
[2018-11-30] MEDS: LISINOPRIL 10 MG TAB TUBE SCH ×2 (09:54→21:21)
[2018-11-30] MEDS: levETIRAcetam 500 MG/5 ML UDCUP TUBE SCH ×2 (09:54→21:20)
[2018-11-30] MEDS: LANSOPRAZOLE SUSP 30MG/10ML UDSYR (Adult) TUBE SCH (09:54)
[2018-11-30] MEDS: METOPROLOL TARTRATE 25 MG TAB TUBE SCH ×2 (10:11→21:22)
[2018-11-30] MEDS ORDERED: MIDAZOLAM 2 MG/2 ML VIAL ONE (11:02)
[2018-11-30] MEDS ORDERED: PROPOFOL/EMULSION 500 MG/50 ML BOTTLE IV ONE ×2 (11:02→11:39)
[2018-11-30] MEDS ORDERED: fentaNYL 100 MCG/2 ML INJ ONE (11:02)
[2018-11-30] MEDS ORDERED: LIDOCAINE 2% 5 ML SDV ONE (11:03)
[2018-11-30] MEDS ORDERED: EPINEPHrine 1 MG/ML INJ ONE ×2 (11:22→11:30)
[2018-11-30] MEDS ORDERED: ePHEDrine SULFATE 25 MG/5 ML SYR ONE (11:42)
[2018-11-30] MEDS ORDERED: ALBUTEROL 3 ML DEYVIAL IH PRN (12:04)
[2018-11-30] MEDS ORDERED: fentaNYL 100 MCG/2 ML INJ IVP PRN (12:04)
[2018-11-30] MEDS ORDERED: ONDANSETRON 4 MG/2 ML VIAL IVP PRN (12:04)
[2018-11-30] MEDS ORDERED: NALOXONE HCL 0.4 MG/ML INJ IVP PRN (12:04)
--- NOTE | 2018-11-30 12:04 | GIREPORT ---
[facility] Surgical Services - Endoscopy Department Patient Name: Rosas Jacobsen Procedure Date: 11/30/2018 10:04 AM Patient Type: Inpatient Attending MD/ ER Physician: Kathy Pedro MD Procedure: Upper GI endoscopy Indications: Place PEG due to dysphagia, Place PEG due to impaired swallowing Providers: Kathy Pedro MD Medicines: Monitored Anesthesia Care Complications: No immediate complications. Description of Procedure: After obtaining informed consent, the endoscope was passed under direct vision. Throughout the procedure, the patient's blood pressure, pulse, and oxygen saturations were monitored continuously. The Endoscope was intro duced through the mouth, and advanced to the second part of duodenum. The [facility] GI endoscopy was accomplished without difficulty. The patient tolerated th e procedure well. Findings: The examined esophagus was normal. One oozing cratered gastric ulcer with adherent clot was found in the prepyloric region of the stomach. The lesion was 5 mm in largest dimens ion. Area was successfully injected with 2 mL of a 1:10,000 solution of epinephrine for drug delivery. Coagulation for hemostasis using bipolar probe was successful. Estimated blood loss was minimal. Diffuse moderate inflammation characterized by erythema was found in th e entire examined stomach. Biopsies were taken with a cold forceps for histology. The patient was placed in the supine position for PEG placem ent. The stomach was insufflated to appose gastric and abdominal bhardwaj. A si te was located in the body of the stomach with excellent transillumination for placement. The abdominal wall was marked and prepped in a sterile martina r. The area was anesthetized with 4 mL of 0.5% lidocaine. The trocar needl e was introduced through the abdominal wall and into the stomach under direct endoscopic view. A snare was introduced through the endoscope and opene d in the gastric lumen. The guide wire was passed through the trocar and int o the open snare. The snare was closed around the guide wire. The endoscope a nd snare were removed, pulling the wire out through the mouth. A skin inci samina was made at the site of needle insertion. The externally removable 20 F r EndoVive Safety gastrostomy tube was lubricated. The G-tube was tied to the guide wire and pulled through the mouth and into the stomach. The troca r needle was removed, and the gastrostomy tube was pulled out from the [facility] through the skin. The external bumper was attached to the gastrostomy t ube, and the tube was cut to remove the guide wire. The final position of th e gastrostomy tube was confirmed by relook endoscopy, and skin marking no nilsa to be 2.5 cm at the external bumper. The final tension and compression of the abdominal wall by the PEG tube and external bumper were checked and revealed that the bumper was loose and lightly touching the skin. The feeding tube was capped, and the tube site cleaned and dressed. Estimat ed blood loss was minimal. Many oozing cratered duodenal ulcers with a visible vessel were found i n the duodenal bulb and in the first portion of the duodenum. Area was successfully injected with 8 mL of a 1:10,000 solution of epinephrine f or hemostasis. Coagulation for hemostasis using bipolar probe was successf ul. Estimated blood loss was minimal. The second portion of the duodenum was normal. Estimated Blood Loss: Estimated blood loss was minimal. Post Op Diagnosis: - Normal esophagus. - Oozing gastric ulcer with adherent clot. Injected. Treated with bipol ar cautery. - Gastritis. Biopsied. - Multiple oozing duodenal ulcers with a visible vessel. Injected. [place] nilsa with bipolar cautery. - Normal second portion of the duodenum. - An externally removable PEG placement was successfully completed. Recommendation: - Return patient to [facility] for ongoing care. - NPO. - Use Protonix (pantoprazole) 40 mg PO QID for 3 days then BID x 12 wee ks then daily. - Await biopsies from today's endoscopy - Please follow the post-PEG recommendations including: Nutrition consu lt for formula and volume. DO NOT START TUBE FEEDINGS UNTIL TOMORROW. - Please follow the post-PEG recommendations including: external bolste r 1 cm from abdominal wall and may use PEG today for meds and water. - Repeat hospital endoscopy in 12 weeks to assess for the gastric/pylor ic channel ulcer healing. - Thank you for this consultation Attending Participation: I personally performed the entire procedure. Kathy Pedro MD Kathy Pedro MD 11/30/2018 12:03:38 PM This report has been signed electronicallyKathy Pedro MD Number of Addenda: 0 Note Initiated On: 11/30/2018 10:04 AM [email or web address]
--- NOTE | 2018-11-30 12:05 | PDANEPAE ---
ANE History of Present Illness egd/peg ANE Past Medical History - Cardiovascular History Hx Hypertension: Yes Hx Arrhythmias: No Hx Chest Pain: No Hx Coronary Artery / Peripheral Vascular Disease: Yes Hx CHF / Valvular Disease: No Hx Palpitations: No Cardiovascular History Comment: 2 stents placed 2013 after [place]. No issues since stents and last cath was negative - Pulmonary History Hx COPD: No Hx Asthma/Reactive Airway Disease: No Hx Recent Upper Respiratory Infection: No Hx Oxygen in Use at Home: No Hx Sleep Apnea: No Sleep Apnea Screening Result - Last Documented: Positive - Neurologic History Hx Cerebrovascular Accident: No Hx Seizures: Yes Hx Dementia: No - Endocrine History Hx Diabetes: No - Renal History Hx Renal Disorders: No - Liver History Hx Hepatic Disorders: No - Neurological & Psychiatric Hx Hx Neurological and Psychiatric Disorders: Yes Neurological / Psychiatric History Comment: seizures disorder - Cancer History Hx Cancer: No - Congenital Disorder History Hx Congenital Disorders: No - GI History Hx Gastrointestinal Disorders: No Gastrointestinal History Comment: none - Other Health History Other Health History: L healing scratch on hand - Chronic Pain History Chronic Pain: No - Surgical History Prior Surgeries: none ANE Review of Systems Review of Systems: - Exercise capacity Exercise capacity: <4 METS ANE Patient History - Allergies Allergies/Adverse Reactions: No Known Allergies Allergy (Verified 11/27/18 01:41) - Home Medications Home Medications: Aspirin EC [Aspirin EC 81 mg (*)] 81 mg PO DAILY 10/14/18 [Last Taken 11/11/18] Atorvastatin Calcium [Lipitor 40 mg (*)] 40 mg PO HS 10/14/18 [Last Taken ] levETIRAcetam [Keppra 500 mg (*)] 500 mg PO BID 11/13/18 [Last Taken 11/16/18 04 :30] Acetaminophen [Tylenol 325mg (*)] 650 mg PO Q4HRS PRN 11/27/18 [Last Taken Unknown] Lansoprazole [PREVACID 30mg/10ml susp (Adult) (*)] 30 mg PO BID 11/27/18 [Last Taken Unknown] Lisinopril [Zestril 10 mg (*)] 10 mg PO BID 11/27/18 [Last Taken Unknown] Metoprolol Tartrate [Lopressor 25 mg (*)] 50 mg PO BID 11/27/18 [Last Taken Unknown] Polyethylene Glycol 3350 [Miralax 17 gm (*)] 17 gm PO DAILY PRN 11/27/18 [Last Taken Unknown] Zolpidem Tartrate [Ambien 5MG (*)] 5 mg PO HS PRN 11/27/18 [Last Taken Unknown] amLODIPine BESYLATE [Norvasc 5 mg (*)] 5 mg PO DAILY 11/27/18 [Last Taken Unknown] - NPO status NPO Status: no food or drink >8 hours NPO Since - Liquids (Date): 11/29/18 NPO Since - Liquids (Time): 21:15 NPO Since - Solids (Date): 11/29/18 NPO Since - Solids (Time): 21:15 - Smoking Hx Smoking Status: Never smoked - Family Anes Hx Family Hx Anesthesia Complications: none ANE Labs/Vital Signs - Labs Result Diagrams: 11/27/18 01:40 11/27/18 03:50 - Vital Signs Blood Pressure: 148/72 Heart Rate: 83 Respiratory Rate: 14 O2 Sat (%): 97 Height: 167.64 cm Weight: 83.1 kg ANE Physical Exam - Airway Mallampati Score: Class 2 Mouth exam: normal dental/mouth exam - Pulmonary Pulmonary: no respiratory distress - Cardiovascular Cardiovascular: regular rate and rhythym - ASA Status ASA Status: II ANE Anesthesia Plan Anesthesia Plan: GA with mask, MAC
[2018-11-30] MEDS: PANTOPRAZOLE SODIUM 40 MG VIAL IVP SCH ×3 (13:12→23:54)
--- NOTE | 2018-11-30 17:04 | HOSPPROG ---
Hospitalist Progress Note Assessment/Plan: 58 yo M w subocciptal craniotomy for 4th ventricle mass here w sepsis, aspiration pneumonia aspiration: zosyn, tube feeds gpc in sputum noted follow dysphagia: PEG today ulcers: cushings ulcers qid ppi cbc and met panel in am shaking episodes: looks like diaphragmatic spasm not seizures trial of low dose valium cad: statin, soco asa on hold proph: scd dispo: inpt, inpt rehab consult placed Subjective: case d/w dr oconnor. unexpected finding of multiple ulcers on egd. peg placed uneventfully Objective: Vital Signs Temp Pulse Resp BP Pulse Ox 36.8 C 91 14 138/84 H 91 L 11/30/18 16:00 11/30/18 16:00 11/30/18 16:00 11/30/18 16:00 11/30/18 16:00 Microbiology 11/27/18 09:30 - Final Sputum, Expectorated Sputum Culture - Final Laboratory Results 11/27/18 03:50 11/29/18 11/30/18 12/01/18 05:59 05:59 05:59 Intake Total 1142 6989 1000 Output Total 1300 3750 670 Balance -158 3239 330 PT 13.7 SEC (12.0-15.0) 11/27/18 01:40 INR 1.03 (0.83-1.16) 11/27/18 01:40 - Physical Exam Constitutional: no apparent distress, appears nourished Eyes: PERRL, anicteric sclera Ears, Nose, Mouth, Throat: moist mucous membranes, hearing normal Cardiovascular: regular rate and rhythym, no murmur, rub, or gallop Respiratory: no respiratory distress, no rales or rhonchi Gastrointestinal: normoactive bowel sounds, soft, non-tender abdomen Genitourinary: No ohara in urethra Skin: warm, normal color Musculoskeletal: No full muscle strength Neurologic: AAOx3 ICD10 Worksheet Patient Problems: Problems Problem Status Onset Hypotension Acute Pneumonia Acute Sepsis Acute Brain mass Acute Seizure Acute
[2018-11-30] MEDS: NS 1,000 ML IV SCH ×2 (21:16→21:17)
[2018-11-30] MEDS: ATORVASTATIN CALCIUM 40 MG TAB TUBE SCH (21:21)
[2018-12-01] MEDS: NS 1,000 ML IV SCH ×4 (03:54→21:21)
[2018-12-01 05:26] LABS: PLATELET COUNT 291 10^3/uL (150-400)
[2018-12-01] MEDS: PANTOPRAZOLE SODIUM 40 MG VIAL IVP SCH ×3 (05:40→18:27)
[2018-12-01] MEDS: PIPERACILLIN/TAZO 3.375 GM/DEX 50 ML IV SCH ×3 (05:40→18:21)
[2018-12-01] MEDS: DIAZEPAM 5 MG TAB TUBE PRN (05:49)
--- NOTE | 2018-12-01 09:29 | SOAPPROG ---
SOAP Progress Note Assessment/Plan: ASSESSMENT: Mr. Jacobsen,goes by "Avelino" is a 58-year-old male with a recent suboccipital craniotomy on 11/16/2018 for a 4th ventricular mass presenting aspiration pneumonia in the setting of severe oropharyngeal dysphagia. Currently he is s/p endoscopic treatment of a pyloric channel and duodenal ulcer ([employer]'s ulcer?) and gastric PEG tube placement. Overall doing well. Plan: 1. PPI 40 mg IV q 6 for a total of 3 days 2. Then PPI BID x 12 weeks then daily 3. Okay to use the PEG tube for water, medications and tube feeds 4. Patient to follow up in clinic in next 1-2 months to assess PEG and discuss scheduling a repeat endoscopy 5. If he needs the PEG tube longer we can discuss exchange with a low profile Gurpreet-Goins tube (2.5 cm at bumper now) Kathy Pedro MD Subjective: trouble swallowing, having diaphragm spasms, no large bowel movements, no bleeding Objective: Vital Signs Temp Pulse Resp BP Pulse Ox 36.8 C 80 14 136/86 H 97 12/01/18 07:29 12/01/18 07:29 12/01/18 07:29 12/01/18 07:29 12/01/18 07:29 Microbiology 11/27/18 09:30 - Final Sputum, Expectorated Sputum Culture - Final Laboratory Results 12/01/18 04:25 12/01/18 04:25 11/30/18 12/01/18 12/02/18 05:59 05:59 05:59 Intake Total 6989 3000 Output Total 3750 2290 250 Balance 3239 710 -250 PT 13.7 SEC (12.0-15.0) 11/27/18 01:40 INR 1.03 (0.83-1.16) 11/27/18 01:40 Physical Exam - Physical Exam General Appearance: alert, no apparent distress Respiratory: lungs clear Abdomen: normal bowel sounds, non-tender, soft, other (PEG tube site clean, removed gauze, at 2-2.5 cm at bumper, tight but does not indent skin) Skin: normal color Neuro/Psych: alert ICD10 Worksheet Patient Problems: Problems Problem Status Onset Hypotension Acute Pneumonia Acute Sepsis Acute Brain mass Acute Seizure Acute
[2018-12-01] MEDS: levETIRAcetam 500 MG/5 ML UDCUP TUBE SCH ×2 (10:49→21:18)
--- NOTE | 2018-12-01 12:37 | ASMTCMCOM ---
CM Note CM Note Notes: Pt had PEG tube placed. OT/PT/[employer] continue to rec inpatient rehab. [facility] inpatient rehab still following pt and will need new insurance authorization, spoke with Sammi in admissions today. Pt not medically ready for d/c today per SILVIA Swartz. CM to follow. Date Signed: 12/01/2018 12:36 PM Electronically Signed By:TRAMAINE Romero
[2018-12-01] MEDS: LISINOPRIL 10 MG TAB TUBE SCH ×2 (12:45→21:19)
[2018-12-01] MEDS: METOPROLOL TARTRATE 25 MG TAB TUBE SCH ×2 (12:45→21:20)
[2018-12-01] MEDS: amLODIPine BESYLATE 5 MG TAB TUBE SCH (12:45)
[2018-12-01] MEDS ORDERED: DIAZEPAM 5 MG TAB TUBE PRN (13:52)
--- NOTE | 2018-12-01 20:33 | HOSPPROG ---
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 hiccups * Insomnia -no effect with valium, did better on Ambien in past -trazodone qhs * CAD/stent * HTN -goal SBP < 160 * Seizure disorder -Keppra Subjective: insomnia, spasms Objective: Vital Signs Temp Pulse Resp BP Pulse Ox 36.6 C 73 17 126/68 H 98 12/01/18 20:00 12/01/18 20:00 12/01/18 20:00 12/01/18 20:00 12/01/18 20:00 Laboratory Results 12/01/18 04:25 12/01/18 04:25 11/30/18 12/01/18 12/02/18 05:59 05:59 05:59 Intake Total 6989 3000 1918 Output Total 3750 2290 250 Balance 3239 710 1668 PT 13.7 SEC (12.0-15.0) 11/27/18 01:40 INR 1.03 (0.83-1.16) 11/27/18 01:40 - Time Spent With Patient Time Spent with Patient: greater than 35 minutes Time Spent with Patient: Greater than 35 minutes spent on this patients care, greater than 50% of time spent counseling, educating, and coordinating care regarding the above mentioned plan. - Physical Exam Constitutional: no apparent distress, appears nourished, not in pain, other ( frequent shaking episodes visualized, atypical) Respiratory: no respiratory distress Gastrointestinal: normoactive bowel sounds, soft, non-tender abdomen, no palpable masses Skin: no rashes or abrasions, no fluctuance, no induration Neurologic: AAOx3, sensation intact bilaterally Psychiatric: interacting appropriately, not anxious, not encephalopathic, thought process linear ICD10 Worksheet Patient Problems: Problems Problem Status Onset Brain mass Acute Seizure Acute Sepsis Acute Hypotension Acute Pneumonia Acute
[2018-12-01] MEDS: traZODone 50 MG TAB TUBE SCH (21:19)
[2018-12-01] MEDS: ATORVASTATIN CALCIUM 40 MG TAB TUBE SCH (21:19)
[2018-12-02] MEDS: PIPERACILLIN/TAZO 3.375 GM/DEX 50 ML IV SCH ×5 (05:42→23:10)
[2018-12-02] MEDS: PANTOPRAZOLE SODIUM 40 MG VIAL IVP SCH ×5 (05:42→23:06)
[2018-12-02] MEDS: LISINOPRIL 10 MG TAB TUBE SCH ×2 (12:11→22:41)
[2018-12-02] MEDS: amLODIPine BESYLATE 5 MG TAB TUBE SCH (12:11)
[2018-12-02] MEDS: METOPROLOL TARTRATE 25 MG TAB TUBE SCH ×2 (12:12→22:41)
[2018-12-02] MEDS: ENOXAPARIN 40 MG/0.4 ML SYR SC SCH (14:27)
[2018-12-02] MEDS: levETIRAcetam 500 MG/5 ML UDCUP TUBE SCH ×2 (14:30→22:38)
[2018-12-02] MEDS ORDERED: METHOCARBAMOL 750 MG TAB PO PRN (15:10)
[2018-12-02] MEDS ORDERED: chlorproMAZINE HCL 25 MG TAB PO PRN (15:12)
[2018-12-02] MEDS ORDERED: ALBUTEROL 3 ML DEYVIAL IH ONE (15:15)
[2018-12-02] MEDS ORDERED: ACETYLCYSTEINE 10% IH/PO 4 ML VIAL IH ONE (15:16)
[2018-12-02] MEDS ORDERED: IPRATROPIUM/ALBUTEROL 3 ML DEYVIAL IH PRN (15:17)
[2018-12-02] MEDS ORDERED: chlorproMAZINE HCL 25 MG TAB TUBE PRN (15:30)
--- NOTE | 2018-12-02 15:34 | SOAPPROG ---
SOAP Progress Note Assessment/Plan: ASSESSMENT: Mr. Jacobsen is a 58-year-old male with a recent suboccipital craniotomy on 11/16/2018 presenting aspiration pneumonia in the setting of severe oropharyngeal dysphagia. Currently he is s/p endoscopic treatment of a pyloric channel and duodenal ulcer and gastric PEG tube placement. Overall doing well. Gastric residuals have been high but he is not reporting reflux, regurgitation or nausea with tube feedinsg. Plan: 0. Okay if patient has Reglan 5-10 mg q6 to help with PEG tube feedings 1. PPI 40 mg IV q 6 for a total of 3 days 2. Then PPI BID x 12 weeks then daily 3. Okay to use the PEG tube for water, medications and tube feeds 4. Patient to follow up in clinic in next 1-2 months to assess PEG and discuss scheduling a repeat endoscopy 5. If he needs the PEG tube longer we can discuss exchange with a low profile Gurpreet-Goins tube (2.5 cm at bumper now) Kathy Pedro MD 12/02/18 15:32 Subjective: PEG tube feels sore, nauseated once Objective: Vital Signs Temp Pulse Resp BP Pulse Ox 36.5 C 58 L 16 133/83 H 100 12/02/18 11:38 12/02/18 12:12 12/02/18 11:38 12/02/18 13:08 12/02/18 11:38 Laboratory Results 12/01/18 04:25 12/01/18 04:25 12/01/18 12/02/18 12/03/18 05:59 05:59 05:59 Intake Total 3000 4438 Output Total 2290 1050 200 Balance 710 3388 -200 PT 13.7 SEC (12.0-15.0) 11/27/18 01:40 INR 1.03 (0.83-1.16) 11/27/18 01:40 Physical Exam - Physical Exam General Appearance: alert, no apparent distress Respiratory: lungs clear, normal breath sounds Abdomen: normal bowel sounds, non-tender, soft Male Genitalia: other (PEG tight, adjust so not too tight to skin) Skin: normal color Extremities: normal range of motion, non-tender Neuro/Psych: alert, oriented x 3 ICD10 Worksheet Patient Problems: Problems Problem Status Onset Hypotension Acute Pneumonia Acute Sepsis Acute Brain mass Acute Seizure Acute
--- NOTE | 2018-12-02 16:36 | ASMTCMCOM ---
CM Note CM Note Notes: Sammi at the [facility] inpatient rehab reports she received [employer] authorization for 7 days this afternoon. Hospitalist Tone indicated pt may be medically ready for d/c tomorrow, Sammi is updated to plan on pt admission tomorrow. Pt Ashley ([phone]) is updated. Went to pt room to updated him and he was occupied with RT, this CM will try to update him this afternoon. D/c plan of care: [facility] inpatient rehab Date Signed: 12/02/2018 04:36 PM Electronically Signed By:TRAMAINE Romero
[2018-12-02] MEDS: METOCLOPRAMIDE 10 MG/2 ML VIAL IVP SCH ×2 (16:44→23:06)
[2018-12-02] MEDS: ACETYLCYSTEINE 10% IH/PO 4 ML VIAL IH PRN (16:47)
[2018-12-02] MEDS: METHOCARBAMOL 750 MG TAB TUBE PRN (17:01)
[2018-12-02] MEDS: guaiFENesin 200 MG/10 ML UDL TUBE SCH ×2 (17:01→22:42)
--- NOTE | 2018-12-02 21:14 | HOSPPROG ---
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 hiccups -try Robaxin -he thinks it's related to his excessive secretions * Insomnia -trazodone qhs * CAD/stent * HTN -goal SBP < 160 -consider decrease meds if low BP persists * Seizure disorder -Keppra Subjective: Still with spasms/hiccups - no better, lots of secretions Objective: Vital Signs Temp Pulse Resp BP Pulse Ox 36.5 C 66 12 114/73 98 12/02/18 16:16 12/02/18 16:21 12/02/18 16:21 12/02/18 16:16 12/02/18 16:21 Laboratory Results 12/01/18 04:25 12/01/18 04:25 12/01/18 12/02/18 12/03/18 05:59 05:59 05:59 Intake Total 3000 4438 1538 Output Total 2290 1050 200 Balance 710 3388 1338 PT 13.7 SEC (12.0-15.0) 11/27/18 01:40 INR 1.03 (0.83-1.16) 11/27/18 01:40 - Physical Exam Constitutional: no apparent distress, appears nourished, not in pain Cardiovascular: regular rate and rhythym, no murmur, rub, or gallop Respiratory: no respiratory distress, no rales or rhonchi, clear to auscultation Gastrointestinal: normoactive bowel sounds, soft, non-tender abdomen, no palpable masses Skin: no rashes or abrasions, no fluctuance, no induration Neurologic: AAOx3, sensation intact bilaterally Psychiatric: interacting appropriately, not anxious, not encephalopathic, thought process linear ICD10 Worksheet Patient Problems: Problems Problem Status Onset Brain mass Acute Seizure Acute Sepsis Acute Hypotension Acute Pneumonia Acute
[2018-12-02] MEDS: ATORVASTATIN CALCIUM 40 MG TAB TUBE SCH (22:38)
[2018-12-02] MEDS: traZODone 50 MG TAB TUBE SCH (22:42)
[2018-12-03 05:37] LABS: PLATELET COUNT 320 10^3/uL (150-400)
[2018-12-03] MEDS: METOCLOPRAMIDE 10 MG/2 ML VIAL IVP SCH (05:46)
[2018-12-03] MEDS: PANTOPRAZOLE SODIUM 40 MG VIAL IVP SCH ×2 (05:47→20:03)
[2018-12-03] MEDS: PIPERACILLIN/TAZO 3.375 GM/DEX 50 ML IV SCH ×4 (05:48→23:02)
[2018-12-03] MEDS: ACETYLCYSTEINE 10% IH/PO 4 ML VIAL IH PRN ×2 (09:33→18:34)
[2018-12-03] MEDS: guaiFENesin 200 MG/10 ML UDL TUBE SCH ×3 (09:33→23:06)
[2018-12-03] MEDS: levETIRAcetam 500 MG/5 ML UDCUP TUBE SCH ×2 (09:33→20:02)
[2018-12-03] MEDS ORDERED: METOCLOPRAMIDE 10 MG/2 ML VIAL IVP PRN (09:35)
[2018-12-03] MEDS: METHOCARBAMOL 750 MG TAB TUBE PRN ×2 (09:36→18:29)
[2018-12-03] MEDS: ENOXAPARIN 40 MG/0.4 ML SYR SC SCH (09:39)
[2018-12-03] MEDS ORDERED: NS 1,000 ML IV SCH (09:45)
--- NOTE | 2018-12-03 10:44 | ASMTCMCOM ---
CM Note CM Note Notes: Pt is not medically stable for d/c today to [facility] inpatient rehab. Voicemail left for Lindsey at [facility] updating her. updated pt Ashley. CM to follow. Date Signed: 12/03/2018 10:44 AM Electronically Signed By:TRAMAINE Romero
[2018-12-03] MEDS: LISINOPRIL 10 MG TAB TUBE SCH (15:22)
[2018-12-03] MEDS: METOPROLOL TARTRATE 25 MG TAB TUBE SCH ×2 (15:24→20:03)
--- NOTE | 2018-12-03 18:30 | HOSPPROG ---
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 hiccups -try Robaxin -he thinks it's related to his excessive secretions * Insomnia -trazodone qhs * CAD/stent * HTN -goal SBP < 160 -BP suddenly much lower - decrease meds * Seizure disorder -Keppra * ABL anemia -H/H down this am - continue to monitor Subjective: High residuals on TF. Still lots of secretions with spasms Objective: Vital Signs Temp Pulse Resp BP Pulse Ox 36.6 C 70 16 98/58 L 94 12/03/18 15:20 12/03/18 15:20 12/03/18 15:20 12/03/18 15:22 12/03/18 15:20 Laboratory Results 12/03/18 11:36 12/03/18 04:30 12/02/18 12/03/18 12/04/18 05:59 05:59 05:59 Intake Total 4438 1538 1455 Output Total 1050 1275 400 Balance 3388 263 1055 PT 13.7 SEC (12.0-15.0) 11/27/18 01:40 INR 1.03 (0.83-1.16) 11/27/18 01:40 - Physical Exam Constitutional: no apparent distress, appears nourished, not in pain Cardiovascular: regular rate and rhythym, no murmur, rub, or gallop Respiratory: no respiratory distress, no rales or rhonchi, clear to auscultation Gastrointestinal: normoactive bowel sounds, soft, non-tender abdomen, no palpable masses Skin: no rashes or abrasions, no fluctuance, no induration Neurologic: AAOx3, sensation intact bilaterally Psychiatric: interacting appropriately, not anxious, not encephalopathic, thought process linear ICD10 Worksheet Patient Problems: Problems Problem Status Onset Brain mass Acute Seizure Acute Sepsis Acute Hypotension Acute Pneumonia Acute
[2018-12-03] MEDS: LISINOPRIL 5 MG TAB TUBE SCH (20:02)
[2018-12-03] MEDS: ATORVASTATIN CALCIUM 40 MG TAB TUBE SCH (20:02)
[2018-12-03] MEDS: traZODone 50 MG TAB TUBE SCH (20:04)
[2018-12-04 05:08] LABS: PLATELET COUNT 325 10^3/uL (150-400)
[2018-12-04] MEDS: PIPERACILLIN/TAZO 3.375 GM/DEX 50 ML IV SCH (05:22)
[2018-12-04] MEDS: guaiFENesin 200 MG/10 ML UDL TUBE SCH (08:59)
[2018-12-04] MEDS: levETIRAcetam 500 MG/5 ML UDCUP TUBE SCH (08:59)
[2018-12-04] MEDS: PANTOPRAZOLE SODIUM 40 MG VIAL IVP SCH (08:59)
[2018-12-04 09:05] VITALS: BP 120/68
[2018-12-04] MEDS: LISINOPRIL 5 MG TAB TUBE SCH (09:06)
[2018-12-04] MEDS: METOPROLOL TARTRATE 25 MG TAB TUBE SCH (09:07)
--- NOTE | 2018-12-04 09:29 | PDIAF ---
- Diagnosis Diagnosis: UGIB due to gastric and duodenal ulcers Code Status: Full Code - Medication Management Discharge Medications: electronically signed and located in the Home Medication List. - Orders Diet Recommendation: other Diet Texture: Non Oral Meds, None Additional Instructions: Repeat endoscopy 1-2 months to assess ulcer healing PPI BID for 12 weeks, then reduce to daily Estimated Needs: using admit wt 73kg Energy: 6747-7921 kcals (25-30 kcals/kg) Protein: 88-110 gm/kg (1.2-1.5 gm Pro/kg) Fluids: 2.2 L/day (30mL/g) Recommend: Change to GI tolerance peptide-based low residue formula Vital AF 1.2 , at goal will provide 2016 kcals, 126 gm Pro (29 kcals, 1.7 gm Pro/kg), EN provides 1362 ml free water, see flush schedule for flushes from 50-140 ml q 4 hrs depending on if Pt is on IVF, no residual checks per Dr Wayne, instead, RN will watch for signs of abdominal distress-recommend hold EN if moderately present, alert MD and RD at X [phone] Goal: Pt will tolerate Vital AF 1.2, return to Rehab with this specialized formula, F/U daily - Follow Up Care Current Providers and Referrals: Patient,NotPresent [Unknown] - As per Instructions Willis,Kathy Bloom MD [Medical Doctor] - follow up as scheduled (Follow-up 1 month to check PEG tube and schedule repeat endoscopy)
--- NOTE | 2018-12-04 14:29 | ASMTLACE ---
LACE Length of stay for Answers: 7-13 days current admission Acuity / Level of Answers: Yes Care: Did the patient have an inpatient admission? Comorbidities - select Answers: Any tumor (including all that apply lymphoma or leukemia) Coronary Artery Disease Previous myocardial infarction Other Notes: Seizures; HTN; HLD # of Emergency department Answers: 1-2 visits in the last 6 months Score: 15 Date Signed: 12/04/2018 02:29 PM Electronically Signed By:TRAMAINE Romero
--- NOTE | 2018-12-04 14:31 | ASMTCMCOM ---
CM Note CM Note Notes: Pt medically stable for return to [facility] inpatient rehab. Orders to be obtained via [employer]. [place] transport scheduled for 1400, pt Ashley knows about payment requirement. SILVIA Post called report. Date Signed: 12/04/2018 02:30 PM Electronically Signed By:TRAMAINE Romero
--- NOTE | 2018-12-04 14:33 | ASDISCHSUM ---
Discharge Information Plan Status:Inpatient Rehab Medically Cleared to Leave: Discharge Date:12/04/2018 02:18 PM CM D/C Disposition: ADT D/C Disposition:[facility] IP Projected Discharge Date:12/04/2018 11:00 AM Transportation at D/C: Discharge Delay Reason: Follow-Up Date:12/04/2018 11:00 AM Discharge Slot: Final Diagnosis: Placement Information Referral Type:Rehabilitation Hospital Referral ID:[id number] Provider Name:[facility] Inpatient Rehab Address 1:[address] Phone Number: Address 2: Fax Number: City:[place] Selection Factors: State:[place] Patient Contact Information Contact Name:CROW Relationship: Address:[address] City:[facility] Phone: State/[facility] Code:[place] [address] Email: Financial Information Financial Class:[employer] [facility] Primary Plan Number:[id number] Secondary Plan Desc: Secondary Plan Number: Assessment Information LACE LACE Length of stay for Answers: 7-13 days current admission Acuity / Level of Answers: Yes Care: Did the patient have an inpatient admission? Comorbidities - select Answers: Any tumor (including all that apply lymphoma or leukemia) Coronary Artery Disease Previous myocardial infarction Other Notes: Seizures; HTN; HLD # of Emergency department Answers: 1-2 visits in the last 6 months Score: 15 Date Signed: 12/04/2018 02:29 PM Electronically Signed By:TRAMAINE Romero [facility] CM Progress Note CM Note CM Note Notes: Pt is a 58 yo M, discharged to inpatient rehab on 11/24. Presents from rehab with fever, hypotension, and hypoxia; pt being admitted for severe sepsis. No therapies ordered at this time, CM to follow to determine discharge plan. Pt will likely return to Inpatient rehab once medically stabled. CM left message for inpt rehab. Plan: TBD, likely will return to inpatient rehab. Date Signed: 11/27/2018 11:12 AM Electronically Signed By:RADHA Mcdonald [facility] Progress Note CM Note CM Note Notes: Pt had PEG tube placed. OT/PT/[employer] L[employer]ER continue to rec inpatient rehab. [facility] inpatient rehab still following pt and will need new insurance authorization, spoke with Sammi in admissions today. Pt not medically ready for d/c today per SILVIA Swartz. CM to follow. Date Signed: 12/01/2018 12:36 PM Electronically Signed By:TRAMAINE Romero [facility] CM Progress Note CM Note CM Note Notes: Sammi at the [facility] inpatient rehab reports she received [employer] authorization for 7 days this afternoon. Hospitalist Tone indicated pt may be medically ready for d/c tomorrow, Sammi is updated to plan on pt admission tomorrow. Pt Ashley ([phone]) is updated. Went to pt room to updated him and he was occupied with RT, this CM will try to update him this afternoon. D/c plan of care: [facility] inpatient rehab Date Signed: 12/02/2018 04:36 PM Electronically Signed By:TRAMAINE Romero [facility] CM Progress Note CM Note CM Note Notes: Pt is not medically stable for d/c today to [facility] inpatient rehab. Voicemail left for Lindsey at [facility] updating her. updated pt Ashley. CM to follow. Date Signed: 12/03/2018 10:44 AM Electronically Signed By:TRAMAINE Romero [facility] CM Progress Note CM Note CM Note Notes: Pt medically stable for return to [facility] inpatient rehab. Orders to be obtained via [employer]. [employer] transport scheduled for 1400, pt Ashley knows about payment requirement. SILVIA Post called report. Date Signed: 12/04/2018 02:30 PM Electronically Signed By:TRAMAINE Romero Intervention Information
--- NOTE | 2018-12-04 18:15 | GDS ---
[f rep st] DISCHARGE SUMMARY DISCHARGE DIAGNOSES: 1. Ependymoma of the four ventricle, status post resection. 2. Aspiration pneumonia. 3. Dysphagia, status post PEG. 4. Gastric and duodenal ulcers with a visible vessel. 5. Coronary artery disease, status post stent. 6. Hypertension. 7. Seizure disorder. 8. Acute blood-loss anemia. HISTORY: The patient is a 58-year-old male who recently had an elective resection of an ependymoma o f the fourth ventricle by Dr. Mendez. He went to inpatient rehab with a Dobbhoff tube in place. He p [facility] with [facility] pneumonia, as well as an upper GI bleed. He continues to have difficulty swallowing. EGD showed both gastric and duodenal ulcers with the duoden al ulcer having a visible vessel. This was a high-risk EGD. GI recommended IV proton pump inhibitor q.6 for 3 days, which was done on an inpatient basis. He will now continue on twice-daily proton pu mp inhibitor and will need followup endoscopy to ensure healing. A PEG tube was also placed as it wa s clear his swallow was an ongoing issue. At the time of discharge, he is tolerating tube feeds at g oal. He was treated with a full 7-day course of IV Zosyn for his aspiration pneumonia and antibiotic s are now complete. Prior to surgery, he was only taking 2.5 of lisinopril and 12.5 mg of metoprolol for his history of c oronary artery disease and stenting. He did not have significant hypertension. After surgery, he serrato d severe hypertension and Neurosurgery wanted a systolic blood pressure less than 160. We had to dra roach increase his blood pressure medications. While he was here during this hospitalization, hi s blood pressure has acutely lowered and he is no longer requiring all the medications he did just af ter surgery. I have dramatically reduced doses and I think he can taper back down to his home doses as stated above. DISCHARGE MEDICATIONS: Please see computerized record for full detailed list. New medications: 1. Lisinopril decreased to 5 mg p.o. daily. 2. Metoprolol decreased to 25 mg p.o. twice daily. 3. Trazodone 50 mg p.o. at bedtime for sleep. 4. Robaxin 750 mg p.o. three times daily as needed for spasms. 5. Guaifenesin 200 mg p.o. three times daily for secretions. ADDITIONAL DISCHARGE INSTRUCTIONS: 1. Follow up with Dr. Kathy oconnor of Gastroenterology in 1 month to check PEG tube and schedule repea t endoscopy. 2. Twice-daily proton pump inhibitor for 12 weeks and then it can be reduced to daily. 3. Please refer to chart for tube feed recommendations. 4. Transfer to inpatient rehabilitation for further care. 5. Greater than 30 minutes' time spent arranging this discharge. The patient was seen and examined by emani sewell on the day of discharge. /[id number]/MODL
[2018-12-04] MEDS ORDERED: PANTOPRAZOLE SODIUM 40 MG TAB PO SCH (21:00)
[2018-12-05] MEDS ORDERED: LISINOPRIL 5 MG TAB TUBE SCH (09:00)
--- NOTE | 2018-12-08 12:54 | PQFORM ---
PHYSICIAN QUERY FORM Needs Your Response This query form is being sent to you to assure this patient record is coded properly. Please respond to the question below: DEMOLITION ENGINEER QUESTION: Dear Dr. Wayne, In reviewing this patient medical record, it is noted that the patient was diagnosed with 'Sepsis.' Patient presented to ER with Hypotension, shortness of breath and cough. Critical Care was spent managing patients hypotension, end -organ damage, pneumonia, bacteremia, and sepsis. In the H&P patient was noted to have 'Sepsis due to aspiration pneumonia." Patients labs; WBC 11/27 16.53, 10.19. Blood pressure 11/27 77/55. After study, should the diagnosis of "Sepsis" be included in the Discharge Summary? __x___Yes No Other more appropriate diagnosis (please specify) Unable to determine Thank you PEPE Uriarte HIM/Coding Dept. INSTRUCTIONS FOR RESPONSE: Answer question by clicking on the "Edit Document" button. Move cursor to area below the stars. When complete, hit "Save." Click on the "Sign" button, then click "Sign" again. Type in your PIN and hit "Enter." MTDD
== END 2018-12-04 14:18 | DRG 871 ==
LOC: EDUNIT# → F2N 03:49 → F3N 11-28 17:47
PROVIDERS: ADMIT Student in an Organized Health Care Education/Training Program; ATTEND Student in an Organized Health Care Education/Training Program
DX: A41.9 Sepsis, unspecified organism (principal); J69.0 Pneumonitis due to inhalation of food and vomit; D62 Acute posthemorrhagic anemia; R13.12 Dysphagia, oropharyngeal phase; K28.9 Gastrojejunal ulcer, unspecified as acute or chronic, without hemorrhage or perforation; K26.9 Duodenal ulcer, unspecified as acute or chronic, without hemorrhage or perforation; E86.9 Volume depletion, unspecified; I25.10 Atherosclerotic heart disease of native coronary artery without angina pectoris; I10 Essential (primary) hypertension; G40.909 Epilepsy, unspecified, not intractable, without status epilepticus; E78.5 Hyperlipidemia, unspecified; H53.2 Diplopia; G47.00 Insomnia, unspecified; Z95.5 Presence of coronary angioplasty implant and graft
CPT/HCPCS: 84484-ER; 92526-GN; 92610-GN; 96365; 97116-GP; 97162-GP; 97166-GO; 97530-GO; 97530-GP; 97535-GO; B4087; J0171; J1650; J2250; J2543; J2704; J2765; J3010; J3370; J7613; Q9967

== ENCOUNTER 2018-12-04 14:31 | Inpatient (IN) | payer OTHER ==
[2018-12-04] MEDS ORDERED: POLYETHYLENE GLYCOL 3350 17 GM PKT TUBE PRN (15:57)
[2018-12-04] MEDS ORDERED: ACETAMINOPHEN 160 MG/5 ML UDCUP TUBE PRN (15:57)
[2018-12-04] MEDS ORDERED: METHOCARBAMOL 750 MG TAB TUBE PRN (15:57)
[2018-12-04] MEDS ORDERED: ACETAMINOPHEN 325 MG TAB TUBE PRN (16:30)
--- NOTE | 2018-12-04 16:38 | PDOREHIP ---
Admission [facility] - Admission - 3 Day Assessment Period Admission Date/Day 1: 12/04/18 Day 2: 12/05/18 Day 3: 12/06/18 - Active Diagnoses Comorbidities and Co-existing Conditions at Admission: 77084. None of the Above - Skin Conditions Unhealed Pressure Ulcer (1 or more/Stage 1 or >)-Admission: 0. No # Stage 1 Pressure Ulcers-Admission: 0 # Stage 2 Pressure Ulcers-Admission: 0 # Stage 3 Pressure Ulcers-Admission: 0 # Stage 4 Pressure Ulcers-Admission: 0 # Unstageable Pressure Ulcers (Non-remove Dress)-Admission: 0 # Unstageable Pressure Ulcers (Slough/Eschar)-Admission: 0 # Unstageable Pressure Ulcers (Deep Tissue Injury)-Admission: 0
[2018-12-04] MEDS: guaiFENesin 200 MG/10 ML UDL TUBE SCH ×2 (16:47→20:57)
--- NOTE | 2018-12-04 17:39 | GHP ---
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 ETIOLOGIC DIAGNOSIS: Nontraumatic brain dysfunction DATE OF SURGERY: 11/16/2018 HISTORY OF PRESENT ILLNESS: This patient was initially admitted to [facility] on 10/28/2018 following a seizure. Head CT showed a tumor in the 4th ventricle and brainstem. He was readmitted and had a suboccipital craniotomy for tumor resection on 11/16/2018. Postoperatively he had diplopia and dysphagia, requiring a Dobbhoff tube. He had hypertension. He was medically stabilized and came to [facility] on 09/2019. On 11/27, he developed hypoxia, fevers, chills, and hypotension. He was transferred back to [facility]. There he was diagnosed with aspiration pneumonia and severe sepsis. He was treated with antibiotics. As his swallowing had not improved at all, he had placement of a PEG tube by Gastroenterology and there was an incidental finding of ulcers. Other hospital complications included continued excessive oropharyngeal or bronchial secretions and he was treated with acetylcysteine nebulizers and also guaifenesin. He developed abdominal muscle spasms. He had anemia. He eventually had a lowered blood pressure and adjustment of his medications. STUDIES AND LABS DURING STAY: CT angiogram of the chest showed multifocal bilateral pneumonia and ruled out pulmonary embolus. On labs, he initially had a markedly elevated white blood cell count at 16.53. He had anemia with a hemoglobin of 11.9 and hematocrit of 34.9, hemoglobin and hematocrit drifted down to 8.9 and 26.8. He apparently had a blood transfusion with an improvement to 9.5 and 29.3 and then 10.4 and 31.7 on 11/24/2018. On 12/04/2018, the day of discharge, hemoglobin is 9.1 and hematocrit is 27.9. He had normal coagulation studies on 11/27/2018, with a PT and PTT. Basic metabolic panel revealed overall normal renal function and electrolytes. Liver functions revealed a low albumin at 2.3, but otherwise were overall normal. Alkaline phosphatase was slightly high at 148. TSH was normal at 0.893. Magnesium was slightly high at 2.4. Urinalysis showed 2+ urobilinogen, but otherwise was normal. PRECAUTIONS: He is a fall risk. He has aspiration precautions and has seizure precautions. ACTIVE COMORBIDITIES: He has the tier 2 comorbidity of dysphagia. He otherwise has no active tier 1, tier 2 or tier 3 comorbidities. PAST MEDICAL HISTORY: 1. Coronary artery disease. 2. Dyslipidemia. 3. Hypertension. 4. Seizures as a teenager. 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 PAST SURGICAL HISTORY: 1. Coronary artery stenting. 2. 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 MEDICATIONS: Before his initial hospitalization were vitamin C, aspirin, atorvastatin, lisinopril and metoprolol. ADMISSION MEDICATIONS: 1. Acetaminophen 650 mg per tube q.4 hours p.r.n. 2. Aspirin 81 mg per tube daily. 3. Atorvastatin 40 mg per tube at bedtime. 4. Guaifenesin 200 mg per tube three times daily. 5. Lansoprazole 30 mg per tube twice daily. 6. Levetiracetam 500 mg per tube twice daily. 7. Lisinopril 5 mg per tube daily. 8. Methocarbamol 750 mg per tube three times daily p.r.n. spasms. 9. Metoclopramide 5-10 mg per tube q.6 hours p.r.n. nausea or vomiting. 10. Polyethylene glycol 17 g per tube daily. 11. Trazodone 50 mg per tube at bedtime. ALLERGIES: There are no known drug allergies. PSYCHOSOCIAL HISTORY: He is and lives with his . 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 He and his have no children, but he has children from a previous marriage and a grandchild who live out of [facility]. They have 2 teenage high school exchange students living with them. There are 2 stairs to enter the house through the garage or 3 platform steps to the front door. He needs to climb 16 steps in the house to access a full bath and his bedroom. He is a nonsmoker and has infrequent alcohol use. FAMILY HISTORY: Noncontributory. REVIEW OF SYSTEMS: He continues to have double vision. He continues to have difficulty swallowing. He has abdominal spasms periodically. His breathing feels much better. His secretions still buildup in his mouth and throat and he periodically uses the Yankauer suction device, but he reports his secretions are improved. He does not feel weak. He has had normal bowel movements and no difficulty with urination. He is aware of balance difficulties. Otherwise, a 10- point review of systems is negative. PHYSICAL EXAM: VITAL SIGNS: Blood pressure is 118/74, heart rate is 72, respiratory rate is 16, oxygen saturation is 90% on room air. Temperature is 36.5 degrees centigrade. His most recent weight was 83.1 kg for a body mass index of 29.6. His recorded weight is more than 8 kg up from his weight when previously on the inpatient rehabilitation unit, which was 73 kg. GENERAL: This is a well-nourished, well-developed man, dressed in street clothes, lying in bed , cooperative and in no acute distress. HEENT: Extraocular movements are abnormal and jerky. He has some conversion, in the left eye more so than the right eye with attempts at lateral gaze. He has reduced upgaze. Pupils are equal , round, reactive to light. Mucous membranes are moist. Dentition is in good condition. NECK: Supple. HEART: There is regular rate and rhythm with no murmurs , rubs, or gallops. LUNGS: Clear to auscultation bilaterally with no crackles, rhonchi, or wheezes. ABDOMEN: Soft, nontender, nondistended with normoactive bowel sounds. PEG site is with only minimal secretions and no erythema. He has periodic abdominal myoclonus. EXTREMITIES: No cyanosis, clubbing, or edema. Radial and dorsalis pedis pulses are 2+ bilaterally. NEUROLOGIC: He is alert and oriented x3. He has abnormal eye movements, though it is unclear whether these are due to cranial nerves or medullary or cerebellar control. Sensation is intact to light touch. There is no weakness. On finger-nose testing he is normal on the left. He has inaccuracy, wavering and past-pointing on the right. CURRENT LEVEL OF FUNCTION PER PREADMISSION SCREEN: He had moderate to severe dysphagia. He was n.p.o. and fed by PEG tube. Grooming required minimal assist to contact guard with a front-wheeled walker to stand at the sink. Dressing lower body required minimal assist. Toileting required minimal assist with front wheeled walker when standing for clothing management and standby assist for perineal hygiene, toilet transfer required moderate assist to lower himself on the toilet using a grab bar and minimal assist to stand. He required voice cues for instruction. He was continent of bowel and bladder. Bed mobility required standby assist with voice cues. Transfers required minimal assist with voice cues for safety, using a front-wheeled walker. His balance required minimal to moderate assist. Endurance was fair. He was able to ambulate 60 feet with minimal to moderate assist with voice cues and front wheeled walker. He needed increased assistance with turns. He had decreased coordination and balance. Communication and cognition were considered normal. IMPRESSION: This is a 58-year-old man who had a suboccipital craniotomy and excision of a 4th ventricle tumor on 11/16/2018. 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 He has very abnormal eye movements and diplopia, and he has impaired balance and ataxia. He has severe dysphagia. He left the hospital after his surgery and came to inpatient rehabilitation where he had initial progress in rehabilitation and then he developed aspiration pneumonia and severe sepsis for which he was returned to the hospital. He has been treated with intravenous antibiotics with resolution of pneumonia and sepsis. He had a PEG tube placement by Gastroenterology and discovery of gastric and duodenal ulcers. He had anemia and blood transfusions. He had development of diaphragmatic spasms of unclear etiology, which may have responded to medication with metoclopramide and methocarbamol. He has an improvement in his secretion quantity since treatment with antibiotics. He is medically stable and appropriate to continue inpatient rehabilitation. His goal is to complete a rehabilitation stay and then return home with his family and supportive services. For a safe discharge he will need to progress to modified independent for all activities of daily living and functional activities using the least restrictive device. It is hoped that he will tolerate minimal oral nutritional intake. He will need to learn and utilize compensatory strategies for diplopia independently, he will need to demonstrate a good understanding of all impairments and functional limitations utilizing appropriate strategies for safety. He will have therapy with physical therapy, occupational therapy and speech pathology for 60 minutes per day for each, discipline on 5-7 days of the week. The expected duration of stay is 10-14 days. It is anticipated that upon discharge he will continue to benefit from home health services including nursing, speech and language pathology, occupational therapy, and physical therapy. PLAN: 1. Ataxia, diplopia, and balance impairment following excision of cerebellar tumor. PT and OT to optimize mobility and activities of daily living. 2. Severe dysphagia. Evaluation and treatment per Speech and Language Pathology. N.p.o. for now except for ice chips. Medications, nutrition and hydration by PEG tube. 3. Gastric ulcers. Continue lansoprazole b.i.d. for 12 weeks and then afterwards he will have daily proton pump inhibitor; 12 weeks would be through approximately 02/21/2019. He is to follow up in GI Clinic with Dr. Pedro in the next 1-2 months to assess the PEG and discuss scheduling a repeat endoscopy. 4. Diaphragmatic spasms, unclear etiology. Continue metoclopramide and methocarbamol on a p.r.n. basis. These do not seem to cause him great distress at present. 5. Coronary artery disease with history of angioplasty and stenting. Continue aspirin and can continue secondary prevention with control of lipids and hypertension. 6. Dyslipidemia. Continue atorvastatin. 7. Hypertension. Continue lisinopril. Dose has been reduced to 5 mg per day. Continue metoprolol 25 mg twice daily. 8. Insomnia has responded to trazodone. We will continue 50 mg at bedtime. FOLLOWUP: 1. He will follow up with canvas products sales representative, Dr. Pedro, in 1-2 months. 2. He will follow up with neurosurgeon, Dr. Mendez, likely after discharge from inpatient rehabilitation. His primary care provider is Dr. Anupama Fragoso. 3. Prophylaxis. He is ambulating well. He has had a GI bleed, on balancing the risks of further GI bleeding with pharmacologic anticoagulation exceed the risks of DVT/PE, so pharmacologic prophylaxis will not be initiated. /[id number]/MODL and [id number]/MODL [facility]
--- NOTE | 2018-12-04 17:59 | GHP ---
[f rep st] HISTORY AND PHYSICAL POST ADMISSION PHYSICIAN EVALUATION AND REHABILITATION TREATMENT PLAN DATE OF ADMISSION: 12/04/2018 DATE OF EVALUATION: 12/04/2018 TIME OF EVALUATION: 1545 REFERRING FACILITY: Ronak Singh MD IMPAIRMENT GROUP: 2.1 DATE OF ONSET: 10/28/2018 CONSULTING PHYSICIANS: Last Sawyer Kathy Pedro MD; tobacco educator Alli Myrick MD REHABILITATION DIAGNOSIS: Debility with diplopia and dysphagia status post craniotomy and excision o f 4th ventricular tumor. ETIOLOGIC DIAGNOSIS: Nontraumatic brain dysfunction DATE OF SURGERY: 11/16/2018 HISTORY OF PRESENT ILLNESS: This patient was initially admitted to [facility] on following a seizure. Head CT showed a tumor in the 4th ventricle and brainstem. He was readmi tted and had a suboccipital craniotomy for tumor resection on 11/16/2018. Postoperatively he had dipl opia and dysphagia, requiring a Dobbhoff tube. He had hypertension. He was medically stabilized and c jean paul to [facility] inpatient rehabilitation on 11/24/2018. On 11/27, he went back to [facility]. c/p [facility] #[id number] /[id number]/MODL
[2018-12-04] MEDS: METOPROLOL TARTRATE 25 MG TAB TUBE SCH (20:57)
[2018-12-04] MEDS: levETIRAcetam 500 MG/5 ML UDCUP TUBE SCH (20:57)
[2018-12-04] MEDS: LANSOPRAZOLE SUSP 30MG/10ML UDSYR (Adult) TUBE SCH (20:58)
[2018-12-04] MEDS: traZODone 50 MG TAB TUBE SCH (20:58)
[2018-12-04] MEDS: ATORVASTATIN CALCIUM 40 MG TAB TUBE SCH (20:58)
[2018-12-05] MEDS: METOPROLOL TARTRATE 25 MG TAB TUBE SCH ×2 (08:44→20:21)
[2018-12-05] MEDS: LISINOPRIL 5 MG TAB TUBE SCH (08:44)
[2018-12-05] MEDS: levETIRAcetam 500 MG/5 ML UDCUP TUBE SCH ×2 (08:45→20:21)
[2018-12-05] MEDS: guaiFENesin 200 MG/10 ML UDL TUBE SCH ×3 (08:45→20:21)
[2018-12-05] MEDS: LANSOPRAZOLE SUSP 30MG/10ML UDSYR (Adult) TUBE SCH ×2 (08:45→20:22)
[2018-12-05] MEDS ORDERED: ASPIRIN 81 MG CHEWABLE TAB TUBE SCH (09:00)
--- NOTE | 2018-12-05 10:41 | SOAPPROG ---
SANDRA Progress Note Assessment/Plan: Assessment/Plan: This is a 58-year-old man who had a suboccipital craniotomy and excision of a 4th ventricle tumor on 11/16/2018. 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 He has very abnormal eye movement and diplopia, and he has impaired balance and ataxia. 1. S/p Craniotomy and 4th ventricle tumor resection. Will benefit from supportive care from PT/OT/BLACK [employer]T. 2. Ataxia, diplopia, and balance impairment following excision of cerebellar tumor. PT and OT to optimize mobility and activities of daily living. 3. Severe dysphagia. Evaluation and treatment per Speech and Language Pathology. N.p.o. for now except for ice chips, medications, nutrition hydration by PEG tube. Pt utilizing the suction independently to manage secretions 4. Gastric ulcers. Continue lansoprazole b.i.d. for 12 weeks and then afterwards he will have daily proton pump inhibitor; 12 weeks would be through approximately 02/21/2019. 5. Diaphragmatic spasms, unclear etiology. Continue metoclopramide and methocarbamol on a p.r.n. basis. These do not seem to cause him great distress at present.. Can trial short trial of baclofen for these 6. Coronary artery disease with history of angioplasty and stenting. Continue aspirin and can continue secondary prevention with control of lipids and hypertension. 7. Dyslipidemia. Continue atorvastatin. 8. Hypertension. Continue lisinopril. Dose has been reduced to 5 mg per day. Continue metoprolol 25 mg twice daily. 9. Insomnia has responded to trazodone. We will continue 50 mg at bedtime. 10. Diarrhea - Had his tube feed changed on evening of 12/04. Found to have bleeding ulcers just recently. Will monitor closely and have a low threshold to test for C-diff given recent dosing of IV ABX. Doesn't appear ill currently FOLLOWUP: 1. He will follow up with anchorman, Dr. Pedro, in 1-2 months. Discussion about repeat endoscopy 2. He will follow up with neurosurgeon, Dr. Mendez, likely after discharge from inpatient rehabilitation. 3. His primary care provider is Dr. Anupama Fragoso. 4. Prophylaxis. He is ambulating well. He has had a GI bleed, on balancing the risks of further GI bleeding with pharmacologic anticoagulation exceed the risks of DVT/PE, so pharmacologic prophylaxis will not be initiated. 12/05/18 10:44 Subjective: Overall he is feeling better. Did have questions about his blood counts - he feels it was pretty lety to have found those ulcers when he did. Still continues to have diplopia but feeling that overall he is stronger. NO fever/ chills or abdominal pain. still having 'diaphragm' spasms. Objective: Vital Signs Temp Pulse Resp BP Pulse Ox 97.9 F 70 18 132/75 H 99 12/05/18 08:00 12/05/18 08:44 12/05/18 08:00 12/05/18 08:44 12/05/18 08:00 12/04/18 12/05/18 12/06/18 05:59 05:59 05:59 Intake Total 1222 Output Total 800 Balance 422 Physical Exam - Physical Exam General Appearance: alert, no apparent distress EENT: other (Mouth is midly dry today. ) Respiratory: lungs clear, normal breath sounds Cardiac/Chest: regular rate, rhythm Abdomen: non-tender, soft, other (Having intermittent mid abdomen? spasms ) Skin: normal color, warm/dry, other (G-tube site looks good -no evidence of infection) Neuro/Psych: alert, normal mood/affect ICD10 Worksheet Patient Problems: Problems Problem Status Onset Brain mass Acute Hypotension Acute Pneumonia Acute Seizure Acute Sepsis Acute
[2018-12-05 11:08] LABS: PLATELET COUNT 396 10^3/uL (150-400)
[2018-12-05] MEDS: METOCLOPRAMIDE 5 MG TAB TUBE PRN (17:55)
[2018-12-05] MEDS: ATORVASTATIN CALCIUM 40 MG TAB TUBE SCH (20:22)
[2018-12-05] MEDS: traZODone 50 MG TAB TUBE SCH (21:12)
[2018-12-06] MEDS: levETIRAcetam 500 MG/5 ML UDCUP TUBE SCH ×2 (08:27→20:57)
[2018-12-06] MEDS: LISINOPRIL 5 MG TAB TUBE SCH (08:27)
[2018-12-06] MEDS: guaiFENesin 200 MG/10 ML UDL TUBE SCH ×3 (08:27→20:57)
[2018-12-06] MEDS: LANSOPRAZOLE SUSP 30MG/10ML UDSYR (Adult) TUBE SCH ×2 (08:27→20:58)
[2018-12-06] MEDS: METOPROLOL TARTRATE 25 MG TAB TUBE SCH ×2 (08:28→20:57)
[2018-12-06] MEDS: METOCLOPRAMIDE 5 MG TAB TUBE PRN ×2 (08:39→21:04)
[2018-12-06] MEDS ORDERED: LISINOPRIL 5 MG TAB PO ONE (11:00)
[2018-12-06] MEDS ORDERED: LISINOPRIL 5 MG TAB TUBE ONE (11:00)
--- NOTE | 2018-12-06 12:14 | SOAPPROG ---
SANDRA Progress Note Assessment/Plan: Assessment/Plan: This is a 58-year-old man who had a suboccipital craniotomy and excision of a 4th ventricle tumor on 11/16/2018. 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 He has very abnormal eye movement and diplopia, and he has impaired balance and ataxia. 1. S/p Craniotomy and 4th ventricle tumor resection. Will benefit from supportive care from PT/OT/GENERAL LOT ATTENDANT. 2. Ataxia, diplopia, and balance impairment following excision of cerebellar tumor. PT and OT to optimize mobility and activities of daily living. 3. Severe dysphagia. Evaluation and treatment per Speech and Language Pathology. N.p.o. for now except for ice chips, medications, nutrition hydration by PEG tube. Pt utilizing the suction independently to manage secretions 4. Gastric ulcers. Continue lansoprazole b.i.d. for 12 weeks and then afterwards he will have daily proton pump inhibitor; 12 weeks would be through approximately 02/21/2019. 5. Diaphragmatic spasms, unclear etiology. Continue metoclopramide and methocarbamol on a p.r.n. basis. These do not seem to cause him great distress at present.. Can trial short trial of baclofen for these 6. Coronary artery disease with history of angioplasty and stenting. Continue aspirin and can continue secondary prevention with control of lipids and hypertension. 7. Dyslipidemia. Continue atorvastatin. 8. Hypertension. Will give extra dose of lisinopril today and increase overall dose to 10mg. May need to continue to escalate this medication. Continue metoprolol 25 mg twice daily. 9. Insomnia has responded to trazodone. We will continue 50 mg at bedtime. 10. Diarrhea - Had his tube feed changed on evening of 12/04. Found to have bleeding ulcers just recently. Will monitor closely and have a low threshold to test for C-diff given recent dosing of IV ABX.- Improved 12/05 with d/c of colace and change of tube feeds FOLLOWUP: 1. He will follow up with television announcer, Dr. Pedro, in 1-2 months. Discussion about repeat endoscopy 2. He will follow up with neurosurgeon, Dr. Mendez, likely after discharge from inpatient rehabilitation. 3. His primary care provider is Dr. Anupama Fragoso. 4. Prophylaxis. He is ambulating well. He has had a GI bleed, on balancing the risks of further GI bleeding with pharmacologic anticoagulation exceed the risks of DVT/PE, so pharmacologic prophylaxis will not be initiated. 12/06/18 12:13 Subjective: Feeling good today - better than yesterday. Stool more formed today and feels less gassy than he did yesterday. No new neurologic concerns, no fevers/chills. Objective: Vital Signs Temp Pulse Resp BP Pulse Ox 97.6 F 68 18 145/80 H 97 12/06/18 08:00 12/06/18 11:15 12/06/18 08:00 12/06/18 11:38 12/06/18 08:00 Laboratory Results 12/05/18 06:30 12/05/18 12/06/18 12/07/18 05:59 05:59 05:59 Intake Total 1222 1719 Output Total 800 400 Balance 422 1719 -400 Physical Exam - Physical Exam General Appearance: alert, no apparent distress, other (Relaxing in his recliner in his room. ) EENT: other (wearing glasses with right eye taped. ) Respiratory: lungs clear, normal breath sounds Cardiac/Chest: regular rate, rhythm Abdomen: non-tender, soft, other (PEG site without evidence of infection) Skin: warm/dry Extremities: non-tender Neuro/Psych: alert, normal mood/affect ICD10 Worksheet Patient Problems: Problems Problem Status Onset Brain mass Acute Hypotension Acute Pneumonia Acute Seizure Acute Sepsis Acute
[2018-12-06] MEDS: traZODone 50 MG TAB TUBE SCH (20:58)
[2018-12-06] MEDS: ATORVASTATIN CALCIUM 40 MG TAB TUBE SCH (20:58)
[2018-12-07] MEDS: LISINOPRIL 5 MG TAB TUBE SCH (09:41)
[2018-12-07] MEDS: METOPROLOL TARTRATE 25 MG TAB TUBE SCH (09:42)
[2018-12-07] MEDS: guaiFENesin 200 MG/10 ML UDL TUBE SCH (09:47)
[2018-12-07] MEDS: LANSOPRAZOLE SUSP 30MG/10ML UDSYR (Adult) TUBE SCH ×2 (09:48→21:03)
[2018-12-07] MEDS: levETIRAcetam 500 MG/5 ML UDCUP TUBE SCH ×2 (09:48→21:03)
--- NOTE | 2018-12-07 11:44 | SOAPPROG ---
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 * Initial functional independence measure is 69 on 12/07/2018. Standby assist bed mobility. Transfers are done with standby assist to contact guard assist with mild retropulsion. Ambulated 120 ft with a front wheeled walker and contact guard assist for loss of balance to the left. He is ataxic with decreased endurance. Contact guard assist for shower transfer, minimal assist for bathing. Standby assist for upper body dressing and contact guard assist for lower body dressing. Standby assist for grooming and hygiene. * Continue PT and OT to optimize mobility and activities of daily living. Severe dysphagia. Evaluation and treatment per Speech and Language Pathology. NPO for now except for ice chips. Medications, nutrition and hydration by PEG tube. Gastric ulcers. Continue lansoprazole b.i.d. for 12 weeks and then afterwards he will have daily proton pump inhibitor; 12 weeks would be through approximately 02/21/2019. He is to follow up in GI Clinic with Dr. Pedro in the next 1-2 months to assess the PEG and discuss scheduling a repeat endoscopy. * Decrease in hemoglobin and hematocrit noted on labs today, 12/07/2018. Recheck in a.m., 12/08/2018. Hemoccult stool x3. 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 * Has mild decrease of hemoglobin and hematocrit but questionable whether large enough affect to cause orthostatic hypotension, and would expect a heart rate response, which is absent, if he was hypovolemic. Also he had orthostatic hypotension on 11/25/2018 when he was not anemic. * Will increase tube feeding flushes. * Initiate midodrine 2.5 mg three times daily at 8:00 a.m., noon and 1 600, starting 12/07/2018. Discontinue metoprolol on 12/07/2018. Set parameters for lisinopril to hold for standing blood pressure less than 120. Diaphragmatic spasms, unclear etiology. Continue metoclopramide and methocarbamol on a p.r.n. basis. These do not seem to cause him great distress at present. Coronary artery disease with history of angioplasty and stenting. Continue aspirin and can continue secondary prevention with control of lipids and hypertension. Dyslipidemia. Continue atorvastatin. Hypertension. Continue lisinopril. Dose has been reduced to 5 mg per day. Continue metoprolol 25 mg twice daily. Insomnia has responded to trazodone. We will continue 50 mg at bedtime, Prophylaxis. He is ambulating well. He has had a GI bleed. The risks of further GI bleeding with pharmacologic anticoagulation exceed the risks of DVT/ PE, so pharmacologic prophylaxis will not be initiated. DISPOSITION: Attended staffing, 15 min. Discussed with case management, dietitian, nursing, PT, OT, BUSINESS MACHINE MECHANIC. He lives with his who works from home and is available to assist 24 hr. Plan is to discharge home. Tentative discharge date set for 12/18/2018. FOLLOWUP: 1. He will follow up with taker down, Dr. Pedro, in 1-2 months. 2. He will follow up with neurosurgeon, Dr. Mendez, likely after discharge from inpatient rehabilitation. His primary care provider is Dr. Anupama Fragoso. 12/07/18 14:10 Subjective: Complains of dizziness with standing. Otherwise without complaints. No fevers or chills, no cough or dyspnea. Objective: Vital Signs Temp Pulse Resp BP Pulse Ox 36.7 C 68 18 106/71 90 L 12/07/18 09:00 12/07/18 09:00 12/06/18 20:00 12/07/18 09:00 12/07/18 01:31 Laboratory Results 12/05/18 06:30 12/06/18 12/07/18 12/08/18 05:59 05:59 05:59 Intake Total 1719 2200 Output Total 901 Balance 1719 1299 - Time Spent With Patient Time Spent With Patient: Greater than 35 min floor time today, including more than 50% of time in coordination of care during staffing meeting, and in discussion with taker down Dr. Pedro and neurologist Dr. Zavala, and counseling patient. Physical Exam - Physical Exam General Appearance: WD/WN, alert, no apparent distress Respiratory: normal breath sounds, No crackles, No rhonchi, No wheezing Cardiac/Chest: regular rate, rhythm, No edema, No diastolic murmur, No systolic murmur Abdomen: soft, other (Abdominal myoclonus with palpable movement of the diaphragm. Mild tenderness at PEG tube site.), No pulsatile mass, No distended , No guarding Skin: normal color, warm/dry Neuro/Psych: alert, normal mood/affect, oriented x 3, other (Abnormal eye movements) ICD10 Worksheet Patient Problems: Problems Problem Status Onset Brain mass Acute Hypotension Acute Pneumonia Acute Seizure Acute Sepsis Acute
[2018-12-07 12:24] LABS: PLATELET COUNT 390 10^3/uL (150-400)
[2018-12-07] MEDS ORDERED: MIDODRINE HCL 5 MG TAB PO SCH (14:15)
[2018-12-07] MEDS: MIDODRINE HCL 5 MG TAB TUBE SCH (14:40)
[2018-12-07] MEDS: ATORVASTATIN CALCIUM 40 MG TAB TUBE SCH (21:03)
[2018-12-07] MEDS: traZODone 50 MG TAB TUBE SCH (21:03)
[2018-12-08] MEDS: MIDODRINE HCL 5 MG TAB TUBE SCH ×3 (07:41→16:23)
[2018-12-08] MEDS: levETIRAcetam 500 MG/5 ML UDCUP TUBE SCH ×2 (08:56→20:54)
[2018-12-08] MEDS: LANSOPRAZOLE SUSP 30MG/10ML UDSYR (Adult) TUBE SCH ×2 (09:06→20:54)
[2018-12-08] MEDS: LISINOPRIL 5 MG TAB TUBE SCH (09:10)
--- NOTE | 2018-12-08 14:09 | SOAPPROG ---
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 * Initial functional independence measure is 69 on 12/07/2018. Standby assist bed mobility. Transfers are done with standby assist to contact guard assist with mild retropulsion. Ambulated 120 ft with a front wheeled walker and contact guard assist for loss of balance to the left. He is ataxic with decreased endurance. Contact guard assist for shower transfer, minimal assist for bathing. Standby assist for upper body dressing and contact guard assist for lower body dressing. Standby assist for grooming and hygiene. * Continue PT and OT to optimize mobility and activities of daily living. Severe dysphagia. Evaluation and treatment per Speech and Language Pathology. NPO for now except for ice chips. Medications, nutrition and hydration by PEG tube. Gastric ulcers. Continue lansoprazole b.i.d. for 12 weeks and then afterwards he will have daily proton pump inhibitor; 12 weeks would be through approximately 02/21/2019. He is to follow up in GI Clinic with Dr. Pedro in the next 1-2 months to assess the PEG and discuss scheduling a repeat endoscopy. * Decrease in hemoglobin and hematocrit noted on labs today, 12/07/2018. Improved on 12/08/2018. Hemoccult stool positive, not surprising given recent bleeding ulcer. Recheck H/H PRN. 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 * Had mild decrease of hemoglobin and hematocrit but questionable whether large enough affect to cause orthostatic hypotension, and would expect a heart rate response, which is absent, if he was hypovolemic. Also he had orthostatic hypotension on 11/25/2018 when he was not anemic. * Increased tube feeding flushes 12/07/2018 from 140 cc q.4 hours to 160 cc q.4 hours.. * Initiated midodrine 2.5 mg three times daily at 8:00 a.m., noon and 1 600, starting 12/07/2018. Discontinue metoprolol on 12/07/2018. Set parameters for lisinopril to hold for standing blood pressure less than 120. * Blood pressure elevated this afternoon, 12/08/2018, lying in bed with head of bed at 30 degrees. Did not receive lisinopril in the morning. Will change timing of lisinopril to 10:00 a.m. Reduced dose to 5 mg. Check orthostatics prior to administering. Diaphragmatic spasms, unclear etiology. Continue metoclopramide and methocarbamol on a p.r.n. basis. These do not seem to cause him great distress at present. * Resolving? He reports they are less frequent on 12/08/2018. Coronary artery disease with history of angioplasty and stenting. Continue aspirin and can continue secondary prevention with control of lipids and hypertension. Dyslipidemia. Continue atorvastatin. Hypertension. Continue lisinopril. Change timing to 10:00 a.m.. Check orthostatics and hold for systolic less than 110. Insomnia has responded to trazodone. We will continue 50 mg at bedtime, Prophylaxis. He is ambulating. He has had a GI bleed. The risks of further GI bleeding with pharmacologic anticoagulation exceed the risks of DVT/PE, so pharmacologic prophylaxis will not be initiated. DISPOSITION: He lives with his who works from home and is available to assist 24 hr. Plan is to discharge home. Tentative discharge date set for 2018. FOLLOWUP: 1. He will follow up with manager medicare marketing, Dr. Pedro, in 1-2 months. 2. He will follow up with neurosurgeon, Dr. Mendez, likely after discharge from inpatient rehabilitation. His primary care provider is Dr. Anupama Fragoso. 12/07/18 14:10 12/08/18 14:01 Subjective: Feeling better today. No dizziness with standing. He thinks the hiccups are getting less frequent. Still has double vision. Has noted black stool. Objective: Vital Signs Temp Pulse Resp BP Pulse Ox 36.6 C 75 16 152/86 H 96 12/08/18 12:15 12/08/18 13:39 12/08/18 12:15 12/08/18 13:43 12/08/18 13:39 Laboratory Results 12/08/18 06:00 12/07/18 11:15 12/07/18 12/08/18 12/09/18 05:59 05:59 05:59 Intake Total 2200 2415 533 Output Total 901 1325 500 Balance 1299 1090 33 Physical Exam - Physical Exam General Appearance: WD/WN, alert, no apparent distress Respiratory: No respiratory distress, No accessory muscle use Cardiac/Chest: regular rate, rhythm, No gallop, No diastolic murmur, No systolic murmur, No extra beats Abdomen: non-tender, soft, other (No abdominal myoclonus) Neuro/Psych: alert, normal mood/affect, oriented x 3 ICD10 Worksheet Patient Problems: Problems Problem Status Onset Brain mass Acute Hypotension Acute Pneumonia Acute Seizure Acute Sepsis Acute
[2018-12-08] MEDS: traZODone 50 MG TAB TUBE SCH (20:54)
[2018-12-08] MEDS: ATORVASTATIN CALCIUM 40 MG TAB TUBE SCH (20:54)
[2018-12-09] MEDS: MIDODRINE HCL 5 MG TAB TUBE SCH ×3 (08:09→16:31)
[2018-12-09] MEDS: levETIRAcetam 500 MG/5 ML UDCUP TUBE SCH ×2 (09:33→20:36)
[2018-12-09] MEDS: LANSOPRAZOLE SUSP 30MG/10ML UDSYR (Adult) TUBE SCH ×2 (09:35→20:37)
[2018-12-09] MEDS: LISINOPRIL 5 MG TAB TUBE SCH (11:08)
--- NOTE | 2018-12-09 11:43 | SOAPPROG ---
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 * Initial functional independence measure is 69 on 12/07/2018. Standby assist bed mobility. Transfers are done with standby assist to contact guard assist with mild retropulsion. Ambulated 120 ft with a front wheeled walker and contact guard assist for loss of balance to the left. He is ataxic with decreased endurance. Contact guard assist for shower transfer, minimal assist for bathing. Standby assist for upper body dressing and contact guard assist for lower body dressing. Standby assist for grooming and hygiene. * Continue PT and OT to optimize mobility and activities of daily living. Severe dysphagia. Evaluation and treatment per Speech and Language Pathology. NPO for now except for ice chips. Medications, nutrition and hydration by PEG tube. Gastric ulcers. Continue lansoprazole b.i.d. for 12 weeks and then afterwards he will have daily proton pump inhibitor; 12 weeks would be through approximately 02/21/2019. He is to follow up in GI Clinic with Dr. Pedro in the next 1-2 months to assess the PEG and discuss scheduling a repeat endoscopy. * Decrease in hemoglobin and hematocrit noted on labs today, 12/07/2018. Improved on 12/08/2018. Hemoccult stool positive, not surprising given recent bleeding ulcer. Recheck H/H PRN. 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 * Had mild decrease of hemoglobin and hematocrit but questionable whether large enough affect to cause orthostatic hypotension, and would expect a heart rate response, which is absent, if he was hypovolemic. Also he had orthostatic hypotension on 11/25/2018 when he was not anemic. * Increased tube feeding flushes 12/07/2018 from 140 cc q.4 hours to 160 cc q.4 hours.. * Discontinued metoprolol on 12/07/2018. Set parameters for lisinopril to hold for standing blood pressure less than 120; administer at 10:00 a.m. Reduced dose to 5 mg on 12/08/2018.. Check orthostatics prior to administering. * Initiated midodrine 2.5 mg three times daily at 8:00 a.m., noon and 1 600, starting 12/07/2018. Increased to 5 mg three times daily starting 12/09/2018, as he remains symptomatic. Diaphragmatic spasms, unclear etiology. Continue metoclopramide and methocarbamol on a p.r.n. basis. * Trial of gabapentin at starting 12/09/2018. Coronary artery disease with history of angioplasty and stenting. Continue aspirin and can continue secondary prevention with control of lipids and hypertension. Dyslipidemia. Continue atorvastatin. Hypertension. Continue lisinopril. Change timing to 10:00 a.m.. Check orthostatics and hold for systolic less than 110. Insomnia has responded to trazodone. We will continue 50 mg at bedtime, Prophylaxis. He is ambulating. He has had a GI bleed. The risks of further GI bleeding with pharmacologic anticoagulation exceed the risks of DVT/PE, so pharmacologic prophylaxis will not be initiated. DISPOSITION: He lives with his who works from home and is available to assist 24 hr. Plan is to discharge home. Tentative discharge date set for 2018. FOLLOWUP: 1. He will follow up with watch crystal edge grinder, Dr. Pedro, in 1-2 months. 2. He will follow up with neurosurgeon, Dr. Mendez, likely after discharge from inpatient rehabilitation. His primary care provider is Dr. Anupama Fragoso. 12/09/18 11:39 Subjective: Continues to have diaphragmatic spasms, predominantly at night. Sometimes it seems as though at the end of a bout of spasms he is unable to dry breath through his mouth. He feels he is able to breathe through his nose however. The symptoms can interfere with sleep had hypotension and was symptomatic with dizziness this morning when standing with physical therapy. Objective: Vital Signs Temp Pulse Resp BP Pulse Ox 36.6 C 71 16 86/50 L 94 12/09/18 07:40 12/09/18 10:25 12/09/18 07:40 12/09/18 11:08 12/09/18 00:20 Laboratory Results 12/08/18 06:00 12/07/18 11:15 12/08/18 12/09/18 12/10/18 05:59 05:59 05:59 Intake Total 6515 1997 Output Total 1325 1999 100 Balance 1090 -2 -100 Physical Exam - Physical Exam General Appearance: WD/WN, alert, no apparent distress Respiratory: No respiratory distress, No accessory muscle use Skin: normal color, warm/dry Neuro/Psych: alert, normal mood/affect, oriented x 3, other (Abnormal eye movement) ICD10 Worksheet Patient Problems: Problems Problem Status Onset Brain mass Acute Hypotension Acute Pneumonia Acute Seizure Acute Sepsis Acute
[2018-12-09] MEDS: ATORVASTATIN CALCIUM 40 MG TAB TUBE SCH (20:37)
[2018-12-09] MEDS: traZODone 50 MG TAB TUBE SCH (20:37)
[2018-12-09] MEDS ORDERED: GABAPENTIN 300 MG CAP PO SCH (21:00)
[2018-12-10] MEDS: levETIRAcetam 500 MG/5 ML UDCUP TUBE SCH ×2 (08:02→20:35)
[2018-12-10] MEDS: LANSOPRAZOLE SUSP 30MG/10ML UDSYR (Adult) TUBE SCH ×2 (08:02→20:35)
[2018-12-10] MEDS: MIDODRINE HCL 5 MG TAB TUBE SCH ×3 (08:03→16:14)
[2018-12-10] MEDS: LISINOPRIL 5 MG TAB TUBE SCH (11:00)
--- NOTE | 2018-12-10 13:56 | SOAPPROG ---
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 * Initial functional independence measure is 69 on 12/07/2018. Standby assist bed mobility. Transfers are done with standby assist to contact guard assist with mild retropulsion. Ambulated 120 ft with a front wheeled walker and contact guard assist for loss of balance to the left. He is ataxic with decreased endurance. Contact guard assist for shower transfer, minimal assist for bathing. Standby assist for upper body dressing and contact guard assist for lower body dressing. Standby assist for grooming and hygiene. * Unable to participate in PT, afternoon of 12/10/2018, due to low blood pressure * Continue PT and OT to optimize mobility and activities of daily living. Severe dysphagia. Evaluation and treatment per Speech and Language Pathology. NPO for now except for ice chips. Medications, nutrition and hydration by PEG tube. Gastric ulcers. Continue lansoprazole b.i.d. for 12 weeks and then afterwards he will have daily proton pump inhibitor; 12 weeks would be through approximately 02/21/2019. He is to follow up in GI Clinic with Dr. Pedro in the next 1-2 months to assess the PEG and discuss scheduling a repeat endoscopy. * Decrease in hemoglobin and hematocrit noted on labs today, 12/07/2018. Improved on 12/08/2018. Hemoccult stool positive, not surprising given recent bleeding ulcer. Recheck H/H PRN. 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 * Had mild decrease of hemoglobin and hematocrit but questionable whether large enough affect to cause orthostatic hypotension, and would expect a heart rate response, which is absent, if he was hypovolemic. Also he had orthostatic hypotension on 11/25/2018 when he was not anemic. * Increased tube feeding flushes 12/07/2018 from 140 cc q.4 hours to 160 cc q.4 hours.. * Discontinued metoprolol on 12/07/2018. Discontinue lisinopril, 12/10/2018. * Initiated midodrine 2.5 mg three times daily at 8:00 a.m., noon and 1600, starting 12/07/2018. Increased to 5 mg three times daily starting 12/09/2018, as he remains symptomatic. Increased again to 10 mg three times daily starting . * Consider adding fludrocortisone. Diaphragmatic spasms, unclear etiology. Continue metoclopramide and methocarbamol on a p.r.n. basis. * Trial of gabapentin at HS starting 12/09/2018. May have had improvement. Increased to three times daily 12/10/2018 as he has daytime symptoms as well. Coronary artery disease with history of angioplasty and stenting. Continue aspirin and can continue secondary prevention with control of lipids and hypertension. Dyslipidemia. Continue atorvastatin. Hypertension. Continue lisinopril. Change timing to 10:00 a.m.. Check orthostatics and hold for systolic less than 110. Insomnia has responded to trazodone. We will continue 50 mg at bedtime, Prophylaxis. He is ambulating. He has had a GI bleed. The risks of further GI bleeding with pharmacologic anticoagulation exceed the risks of DVT/PE, so pharmacologic prophylaxis will not be initiated. DISPOSITION: He lives with his who works from home and is available to assist 24 hr. Plan is to discharge home. Tentative discharge date set for 2018. FOLLOWUP: 1. He will follow up with globe cleaner, Dr. Pedro, in 1-2 months. 2. He will follow up with neurosurgeon, Dr. Mendez, likely after discharge from inpatient rehabilitation. His primary care provider is Dr. Anupama Fragoso. 12/10/18 13:56 12/10/18 13:59 Subjective: Has a seated systolic of 64 during physical therapy. Unable to stand up to work with therapist. Abdominal myoclonus continues; last night may have been better than the night before. Otherwise without complaints. Objective: Vital Signs Temp Pulse Resp BP Pulse Ox 36.7 C 68 16 98/60 L 96 12/09/18 20:00 12/10/18 10:59 12/10/18 07:04 12/10/18 11:00 12/10/18 07:04 Laboratory Results 12/08/18 06:00 12/07/18 11:15 12/09/18 12/10/18 12/11/18 05:59 05:59 05:59 Intake Total 19977 Output Total 1999 950 250 Balance -2 1198 -250 Physical Exam - Physical Exam General Appearance: WD/WN, alert, no apparent distress Respiratory: No respiratory distress, No accessory muscle use Abdomen: other (Myoclonus) Skin: normal color, warm/dry Neuro/Psych: alert, normal mood/affect, oriented x 3 ICD10 Worksheet Patient Problems: Problems Problem Status Onset Brain mass Acute Hypotension Acute Pneumonia Acute Seizure Acute Sepsis Acute
[2018-12-10] MEDS ORDERED: MIDODRINE HCL 10 MG TAB TUBE ONE (14:07)
[2018-12-10] MEDS ORDERED: MIDODRINE HCL 5 MG TAB TUBE ONE (14:15)
[2018-12-10] MEDS ORDERED: GABAPENTIN 300 MG CAP PO SCH (16:00)
[2018-12-10] MEDS: GABAPENTIN 250 MG/5 ML 30 ML BOTTLE TUBE SCH ×2 (16:14→20:36)
[2018-12-10] MEDS: ATORVASTATIN CALCIUM 40 MG TAB TUBE SCH (20:35)
[2018-12-10] MEDS: traZODone 50 MG TAB TUBE SCH (20:35)
[2018-12-11] MEDS: levETIRAcetam 500 MG/5 ML UDCUP TUBE SCH ×2 (08:14→20:26)
[2018-12-11] MEDS: MIDODRINE HCL 5 MG TAB TUBE SCH ×3 (08:14→16:16)
[2018-12-11] MEDS: GABAPENTIN 250 MG/5 ML 30 ML BOTTLE TUBE SCH (08:15)
[2018-12-11] MEDS: LANSOPRAZOLE SUSP 30MG/10ML UDSYR (Adult) TUBE SCH ×2 (10:41→20:26)
--- NOTE | 2018-12-11 11:20 | SOAPPROG ---
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 * Initial functional independence measure is 69 on 12/07/2018. Standby assist bed mobility. Transfers are done with standby assist to contact guard assist with mild retropulsion. Ambulated 120 ft with a front wheeled walker and contact guard assist for loss of balance to the left. He is ataxic with decreased endurance. Contact guard assist for shower transfer, minimal assist for bathing. Standby assist for upper body dressing and contact guard assist for lower body dressing. Standby assist for grooming and hygiene. * Unable to participate in PT, morning of 12/10/2018, due to low blood pressure * Continue PT and OT to optimize mobility and activities of daily living. Severe dysphagia. Evaluation and treatment per Speech and Language Pathology. NPO for now except for ice chips. Medications, nutrition and hydration by PEG tube. * D/W Dr. Mendez, Neurosurgery. Cleared for [employer] exercise. Gastric ulcers. Continue lansoprazole b.i.d. for 12 weeks and then afterwards he will have daily proton pump inhibitor; 12 weeks would be through approximately 02/21/2019. He is to follow up in GI Clinic with Dr. Pedro in the next 1-2 months to assess the PEG and discuss scheduling a repeat endoscopy. * Decrease in hemoglobin and hematocrit noted on labs today, 12/07/2018. Improved on 12/08/2018. Hemoccult stool positive, not surprising given recent bleeding ulcer. Recheck H/H PRN. 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 * Had mild decrease of hemoglobin and hematocrit but questionable whether large enough affect to cause orthostatic hypotension, and would expect a heart rate response, which is absent, if he was hypovolemic. Also he had orthostatic hypotension on 11/25/2018 when he was not anemic. * Increased tube feeding flushes 12/07/2018 from 140 cc q.4 hours to 160 cc q.4 hours.. * Discontinued metoprolol on 12/07/2018. Discontinue lisinopril, 12/10/2018. * Initiated midodrine 2.5 mg three times daily at 8:00 a.m., noon and 1600, starting 12/07/2018. Increased to 5 mg three times daily starting 12/09/2018, as he remains symptomatic. Increased again to 10 mg three times daily starting . * Adding fludrocortisone 0.1 mg q.day and sodium chloride 1 g three times daily , 12/11/2018. Initiate 3 inches of reversed Trendelenburg overnight starting 2018. * Get MRI of the brain to evaluate for any new findings in the medulla. Diaphragmatic spasms, unclear etiology. Continue metoclopramide and methocarbamol on a p.r.n. basis. * Trial of gabapentin at HS starting 12/09/2018. May have had improvement. Increased to three times daily 12/10/2018 as he has daytime symptoms as well. * Little improvement. DC gabapentin 12/11/2018. Coronary artery disease with history of angioplasty and stenting. Continue aspirin and can continue secondary prevention with control of lipids and hypertension. Dyslipidemia. Continue atorvastatin. Hypertension. Discontinued all antihypertensives due to severe orthostatic hypotension. Insomnia has responded to trazodone. We will continue 50 mg at bedtime, Prophylaxis. He is ambulating. He has had a GI bleed. The risks of further GI bleeding with pharmacologic anticoagulation exceed the risks of DVT/PE, so pharmacologic prophylaxis will not be initiated. DISPOSITION: He lives with his who works from home and is available to assist 24 hr. Plan is to discharge home. Tentative discharge date set for 2018. FOLLOWUP: 1. He will follow up with vegetable grower, Dr. Pedro, in 1-2 months. 2. He will follow up with neurosurgeon, Dr. Mendez, likely after discharge from inpatient rehabilitation. His primary care provider is Dr. Anupama Fragoso. 12/11/18 11:16 Subjective: Slept well. Thinks his abdominal movements might be a little bit better. Not in pain. No improvement in double vision. Has some improvement in swallowing. Continues to be symptomatic of orthostatic hypotension, better in the afternoon in the morning. Objective: Vital Signs Temp Pulse Resp BP Pulse Ox 36.7 C 60 16 104/61 96 12/11/18 06:51 12/11/18 08:30 12/11/18 06:51 12/11/18 08:30 12/11/18 06:51 Laboratory Results 12/08/18 06:00 12/07/18 11:15 12/10/18 12/11/18 12/12/18 05:59 05:59 05:59 Intake Total 2148 1080 Output Total 950 1350 Balance 1198 -270 Physical Exam - Physical Exam General Appearance: WD/WN, alert, no apparent distress Respiratory: normal breath sounds, No crackles, No rhonchi, No wheezing Cardiac/Chest: regular rate, rhythm, No edema, No JVD, No diastolic murmur, No systolic murmur Skin: normal color, warm/dry Neuro/Psych: alert, normal mood/affect, oriented x 3 ICD10 Worksheet Patient Problems: Problems Problem Status Onset Brain mass Acute Hypotension Acute Pneumonia Acute Seizure Acute Sepsis Acute
[2018-12-11] MEDS: FLUDROCORTISONE ACETATE 0.1 MG TAB TUBE SCH (11:44)
[2018-12-11] MEDS: SODIUM CHLORIDE 1,000 MG TAB TUBE SCH ×2 (11:44→16:17)
[2018-12-11] MEDS ORDERED: GADOBUTROL 10 ML VIAL IVP ONE (17:38)
[2018-12-11] MEDS: ATORVASTATIN CALCIUM 40 MG TAB TUBE SCH (20:26)
[2018-12-11] MEDS: traZODone 50 MG TAB TUBE SCH (20:26)
[2018-12-12] MEDS: LANSOPRAZOLE SUSP 30MG/10ML UDSYR (Adult) TUBE SCH ×2 (08:01→20:55)
[2018-12-12] MEDS: SODIUM CHLORIDE 1,000 MG TAB TUBE SCH ×3 (08:01→16:56)
[2018-12-12] MEDS: FLUDROCORTISONE ACETATE 0.1 MG TAB TUBE SCH (08:01)
[2018-12-12] MEDS: MIDODRINE HCL 5 MG TAB TUBE SCH ×3 (08:01→16:56)
[2018-12-12] MEDS: levETIRAcetam 500 MG/5 ML UDCUP TUBE SCH ×2 (08:01→20:54)
--- NOTE | 2018-12-12 12:00 | HOSPPROG ---
Hospitalist Progress Note Assessment/Plan: Ataxia, diplopia, and balance impairment following excision of cerebellar tumor. * Initial functional independence measure is 69 on 12/07/2018. Standby assist bed mobility. Transfers are done with standby assist to contact guard assist with mild retropulsion. Ambulated 120 ft with a front wheeled walker and contact guard assist for loss of balance to the left. He is ataxic with decreased endurance. Contact guard assist for shower transfer, minimal assist for bathing. Standby assist for upper body dressing and contact guard assist for lower body dressing. Standby assist for grooming and hygiene. * Unable to participate in PT, morning of 12/10/2018, due to low blood pressure * Continue PT and OT to optimize mobility and activities of daily living. Severe dysphagia. Evaluation and treatment per Speech and Language Pathology. NPO for now except for ice chips. Medications, nutrition and hydration by PEG tube. * D/W Dr. Mendez, Neurosurgery. Cleared for [employer]. Gastric ulcers. Continue lansoprazole b.i.d. for 12 weeks and then afterwards he will have daily proton pump inhibitor; 12 weeks would be through approximately 02/21/2019. He is to follow up in GI Clinic with Dr. Pedro in the next 1-2 months to assess the PEG and discuss scheduling a repeat endoscopy. * Decrease in hemoglobin and hematocrit noted on labs today, 12/07/2018. Improved on 12/08/2018. Hemoccult stool positive, not surprising given recent bleeding ulcer. Recheck H/H PRN. 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 * Had mild decrease of hemoglobin and hematocrit but questionable whether large enough affect to cause orthostatic hypotension, and would expect a heart rate response, which is absent, if he was hypovolemic. Also he had orthostatic hypotension on 11/25/2018 when he was not anemic. * Increased tube feeding flushes 12/07/2018 from 140 cc q.4 hours to 160 cc q.4 hours.. * Discontinued metoprolol on 12/07/2018. Discontinue lisinopril, 12/10/2018. * Initiated midodrine 2.5 mg three times daily at 8:00 a.m., noon and 1600, starting 12/07/2018. Increased to 5 mg three times daily starting 12/09/2018, as he remains symptomatic. Increased again to 10 mg three times daily starting . * Adding fludrocortisone 0.1 mg q.day and sodium chloride 1 g three times daily , 12/11/2018. Initiate 3 inches of reversed Trendelenburg overnight starting 2018. 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 Continue metoclopramide and methocarbamol on a p.r.n. basis. * Trial of gabapentin at HS starting 12/09/2018. May have had improvement. Increased to three times daily 12/10/2018 as he has daytime symptoms as well. * Little improvement. DC gabapentin 12/11/2018. Coronary artery disease with history of angioplasty and stenting. Continue aspirin and can continue secondary prevention with control of lipids and hypertension. Dyslipidemia. Continue atorvastatin. Hypertension. Discontinued all antihypertensives due to severe orthostatic hypotension. Insomnia has responded to trazodone. We will continue 50 mg at bedtime, Prophylaxis. He is ambulating. He has had a GI bleed. The risks of further GI bleeding with pharmacologic anticoagulation exceed the risks of DVT/PE, so pharmacologic prophylaxis will not be initiated. DISPOSITION: He lives with his who works from home and is available to assist 24 hr. Plan is to discharge home. Tentative discharge date set for 2018. Subjective: orthostatic this morning before meds with symptoms standing. but bp improved with meds Objective: Vital Signs Temp Pulse Resp BP Pulse Ox 36.6 C 61 16 115/68 96 12/12/18 06:34 12/12/18 11:39 12/12/18 06:34 12/12/18 11:39 12/12/18 06:34 Laboratory Results 12/08/18 06:00 12/07/18 11:15 12/11/18 12/12/18 12/13/18 05:59 05:59 05:59 Intake Total 1080 1930 1060 Output Total 1350 2024 600 Balance -270 -95 460 - Physical Exam Constitutional: no apparent distress, appears nourished, not in pain Eyes: anicteric sclera Cardiovascular: regular rate and rhythym, no murmur, rub, or gallop Respiratory: no respiratory distress, no rales or rhonchi, clear to auscultation Gastrointestinal: normoactive bowel sounds, soft, non-tender abdomen, no palpable masses Skin: warm Neurologic: AAOx3 Psychiatric: interacting appropriately, not anxious, not encephalopathic, thought process linear ICD10 Worksheet Patient Problems: Problems Problem Status Onset Brain mass Acute Hypotension Acute Pneumonia Acute Seizure Acute Sepsis Acute
[2018-12-12] MEDS: ATORVASTATIN CALCIUM 40 MG TAB TUBE SCH (20:55)
[2018-12-12] MEDS: traZODone 50 MG TAB TUBE SCH (20:55)
[2018-12-13] MEDS: MIDODRINE HCL 5 MG TAB TUBE SCH ×3 (06:16→16:16)
[2018-12-13] MEDS: levETIRAcetam 500 MG/5 ML UDCUP TUBE SCH ×2 (07:24→21:11)
[2018-12-13] MEDS: SODIUM CHLORIDE 1,000 MG TAB TUBE SCH ×3 (07:24→16:16)
[2018-12-13] MEDS: LANSOPRAZOLE SUSP 30MG/10ML UDSYR (Adult) TUBE SCH ×2 (07:24→21:11)
[2018-12-13] MEDS: FLUDROCORTISONE ACETATE 0.1 MG TAB TUBE SCH (07:25)
--- NOTE | 2018-12-13 15:31 | HOSPPROG ---
Hospitalist Progress Note Assessment/Plan: Ataxia, diplopia, and balance impairment following excision of cerebellar tumor. * Initial functional independence measure is 69 on 12/07/2018. Standby assist bed mobility. Transfers are done with standby assist to contact guard assist with mild retropulsion. Ambulated 120 ft with a front wheeled walker and contact guard assist for loss of balance to the left. He is ataxic with decreased endurance. Contact guard assist for shower transfer, minimal assist for bathing. Standby assist for upper body dressing and contact guard assist for lower body dressing. Standby assist for grooming and hygiene. * Unable to participate in PT, morning of 12/10/2018, due to low blood pressure * Continue PT and OT to optimize mobility and activities of daily living. Severe dysphagia. Evaluation and treatment per Speech and Language Pathology. NPO for now except for ice chips. Medications, nutrition and hydration by PEG tube. * D/W Dr. Mendez, Neurosurgery. Cleared for [employer]. Gastric ulcers. Continue lansoprazole b.i.d. for 12 weeks and then afterwards he will have daily proton pump inhibitor; 12 weeks would be through approximately 02/21/2019. He is to follow up in GI Clinic with Dr. Pedro in the next 1-2 months to assess the PEG and discuss scheduling a repeat endoscopy. * Decrease in hemoglobin and hematocrit noted on labs today, 12/07/2018. Improved on 12/08/2018. Hemoccult stool positive, not surprising given recent bleeding ulcer. Recheck H/H PRN. 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 * Had mild decrease of hemoglobin and hematocrit but questionable whether large enough affect to cause orthostatic hypotension, and would expect a heart rate response, which is absent, if he was hypovolemic. Also he had orthostatic hypotension on 11/25/2018 when he was not anemic. * Increased tube feeding flushes 12/07/2018 from 140 cc q.4 hours to 160 cc q.4 hours.. * Discontinued metoprolol on 12/07/2018. Discontinue lisinopril, 12/10/2018. * Initiated midodrine 2.5 mg three times daily at 8:00 a.m., noon and 1600, starting 12/07/2018. Increased to 5 mg three times daily starting 12/09/2018, as he remains symptomatic. Increased again to 10 mg three times daily starting . * Adding fludrocortisone 0.1 mg q.day and sodium chloride 1 g three times daily , 12/11/2018. Initiate 3 inches of reversed Trendelenburg overnight starting 2018. 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 Continue metoclopramide and methocarbamol on a p.r.n. basis. * Trial of gabapentin at HS starting 12/09/2018. May have had improvement. Increased to three times daily 12/10/2018 as he has daytime symptoms as well. * Little improvement. DC gabapentin 12/11/2018. Coronary artery disease with history of angioplasty and stenting. Continue aspirin and can continue secondary prevention with control of lipids and hypertension. Dyslipidemia. Continue atorvastatin. Hypertension. Discontinued all antihypertensives due to severe orthostatic hypotension. Insomnia has responded to trazodone. We will continue 50 mg at bedtime, Prophylaxis. He is ambulating. He has had a GI bleed. The risks of further GI bleeding with pharmacologic anticoagulation exceed the risks of DVT/PE, so pharmacologic prophylaxis will not be initiated. DISPOSITION: He lives with his who works from home and is available to assist 24 hr. Plan is to discharge home. Tentative discharge date set for 2018. Subjective: blood pressure still pretty low with some symptoms at times. couldn' t do afternoon rehab because of it Objective: Vital Signs Temp Pulse Resp BP Pulse Ox 36.5 C 64 16 115/69 94 12/13/18 06:05 12/13/18 13:30 12/13/18 06:05 12/13/18 13:30 12/13/18 06:05 Laboratory Results 12/08/18 06:00 12/07/18 11:15 12/12/18 12/13/18 12/14/18 05:59 05:59 05:59 Intake Total 1929 2739 1939 Output Total 2024 5483 200 Balance -95 355 1740 - Physical Exam Constitutional: no apparent distress, appears nourished, not in pain Eyes: anicteric sclera, EOMI Ears, Nose, Mouth, Throat: moist mucous membranes Cardiovascular: regular rate and rhythym, no murmur, rub, or gallop Respiratory: no respiratory distress, no rales or rhonchi, clear to auscultation Gastrointestinal: normoactive bowel sounds Skin: warm Neurologic: AAOx3 Psychiatric: interacting appropriately, not anxious, not encephalopathic, thought process linear ICD10 Worksheet Patient Problems: Problems Problem Status Onset Brain mass Acute Hypotension Acute Pneumonia Acute Seizure Acute Sepsis Acute
[2018-12-13] MEDS: traZODone 50 MG TAB TUBE SCH (21:12)
[2018-12-13] MEDS: ATORVASTATIN CALCIUM 40 MG TAB TUBE SCH (21:12)
[2018-12-14] MEDS: MIDODRINE HCL 5 MG TAB TUBE SCH ×3 (08:26→18:07)
[2018-12-14] MEDS: LANSOPRAZOLE SUSP 30MG/10ML UDSYR (Adult) TUBE SCH ×2 (08:27→21:33)
[2018-12-14] MEDS: SODIUM CHLORIDE 1,000 MG TAB TUBE SCH ×3 (08:27→18:35)
[2018-12-14] MEDS: levETIRAcetam 500 MG/5 ML UDCUP TUBE SCH ×2 (08:27→21:33)
[2018-12-14] MEDS: FLUDROCORTISONE ACETATE 0.1 MG TAB TUBE SCH (08:27)
[2018-12-14 09:06] LABS: PLATELET COUNT 500 10^3/uL (150-400)
--- NOTE | 2018-12-14 09:57 | SOAPPROG ---
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 * Initial functional independence measure is 69 on 12/07/2018, improved to 87 as of 12/14/2018. Independent with bed mobility. Transfers are done with standby assist to contact guard assist. Ambulated 300 ft with front wheeled walker and standby assist to contact guard assist. Climbed and descended 18 stairs with 1 rail with standby assist. Mobility is inconsistent due to blood pressure fluctuations. Did grooming hygiene seated with standby assist. Upper body dressing required setup, lower body dressing required contact guard assist for balance. Contact guard to standby assist for toilet transfer, standby assist for toileting. Unable to shower with occupational therapy due to low blood pressure. * Continue PT and OT to optimize mobility and activities of daily living. Severe dysphagia. NPO for now except for ice chips. Medications, nutrition and hydration by PEG tube. * D/W Dr. Mendez, Neurosurgery. Cleared for [employer] exercise. * Has delayed swallow on set. Upper esophageal sphincter is not opening well. He is tolerating Vital stimulation therapy and the shock year exercise. He is having trials of advancing diet and fluid textures * Continue [employer] TAPPER Gastric ulcers. Continue lansoprazole b.i.d. for 12 weeks and then afterwards he will have daily proton pump inhibitor; 12 weeks would be through approximately 02/21/2019. He is to follow up in GI Clinic with Dr. Pedro in the next 1-2 months to assess the PEG and discuss scheduling a repeat endoscopy. * Decrease in hemoglobin and hematocrit noted on labs today, 12/07/2018. Improved on 12/08/2018 and 12/14/2018. Hemoccult stool positive, not surprising given recent bleeding ulcer. Recheck H/H PRN. 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 * Increased tube feeding flushes 12/07/2018 from 140 cc q.4 hours to 160 cc q.4 hours.. * Discontinued metoprolol on 12/07/2018. Discontinued lisinopril, 12/10/2018. * Initiated midodrine 2.5 mg three times daily at 8:00 a.m., noon and 1600, starting 12/07/2018. Increased to 5 mg three times daily starting 12/09/2018, as he remains symptomatic. Increased again to 10 mg three times daily starting . * Added fludrocortisone 0.1 mg q.day and sodium chloride 1 g three times daily, 12/11/2018. Increased to 0.2 mg starting 12/14/2018 * Initiated 3 inches of reversed Trendelenburg overnight starting 12/11/2018. 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 * Discussed with Dr. Stacy, cardiology, 12/14/2018. Dr. Stacy does not feel that this patient is a candidate for pacemaker placement as he does not have a heart rate drop that would trigger a pacer. Advised consideration of ACTH stimulation test, but fludrocortisone would likely interfere. Diaphragmatic spasms, unclear etiology. Continue metoclopramide and methocarbamol on a p.r.n. basis. * Trial of gabapentin at HS starting 12/09/2018. May have had improvement. Increased to three times daily 12/10/2018 as he has daytime symptoms as well. * Little improvement. DC gabapentin 12/11/2018. Coronary artery disease with history of angioplasty and stenting. Continue aspirin and can continue secondary prevention with control of lipids and hypertension. Dyslipidemia. Continue atorvastatin. Hypertension. Discontinued all antihypertensives due to severe orthostatic hypotension. Insomnia has responded to trazodone. We will continue 50 mg at bedtime, Prophylaxis. He is ambulating. He has had a GI bleed. The risks of further GI bleeding with pharmacologic anticoagulation exceed the risks of DVT/PE, so pharmacologic prophylaxis will not be initiated. DISPOSITION: Attended staffing, 15 min. Discussed with case management, nursing, dietitian, PT, OT, POT ROOM TAPPER. He lives with his who works from home and is available to assist 24 hr. Plan is to discharge home. Discharge date set for 12/18/2018. FOLLOWUP: 1. He will follow up with wheel press operator, Dr. Pedro, in 1-2 months. 2. He will follow up with neurosurgeon, Dr. Mendez, likely after discharge from inpatient rehabilitation. His primary care provider is Dr. Anupama Fragoso. 12/14/18 11:32 Subjective: Continues to have frequent lightheadedness with standing, and orthostatic blood pressures. Otherwise without complaints. Not in pain. No cough or dyspnea, no fevers or chills. Objective: Vital Signs Temp Pulse Resp BP Pulse Ox 36.6 C 68 15 80/50 L 95 12/14/18 08:04 12/14/18 08:04 12/14/18 08:04 12/14/18 08:04 12/14/18 08:04 Laboratory Results 12/14/18 06:20 12/14/18 06:20 12/13/18 12/14/18 12/15/18 05:59 05:59 05:59 Intake Total 2740 3560 Output Total 2385 2300 Balance 355 1260 - Time Spent With Patient Time Spent With Patient: Greater than 35 min floor time today, including more than 50% of time in coordination of care during staffing meeting and in discussion with Cardiology, and counseling patient. Physical Exam - Physical Exam General Appearance: WD/WN, alert, no apparent distress Respiratory: No respiratory distress, No accessory muscle use Cardiac/Chest: regular rate, rhythm, extra beats (Occasional S4?), No edema, No JVD, No diastolic murmur, No systolic murmur Skin: normal color, warm/dry Neuro/Psych: alert, normal mood/affect, oriented x 3, other (Abnormal eye movements) ICD10 Worksheet Patient Problems: Problems Problem Status Onset Brain mass Acute Hypotension Acute Pneumonia Acute Seizure Acute Sepsis Acute
[2018-12-14] MEDS ORDERED: MIDODRINE HCL 5 MG TAB TUBE ONE (18:15)
[2018-12-14] MEDS: traZODone 50 MG TAB TUBE SCH (21:33)
[2018-12-14] MEDS: ATORVASTATIN CALCIUM 40 MG TAB TUBE SCH (21:33)
[2018-12-15] MEDS: MIDODRINE HCL 5 MG TAB TUBE SCH ×3 (06:34→15:59)
[2018-12-15] MEDS: SODIUM CHLORIDE 1,000 MG TAB TUBE SCH ×3 (08:12→18:10)
[2018-12-15] MEDS: levETIRAcetam 500 MG/5 ML UDCUP TUBE SCH ×2 (08:12→21:32)
[2018-12-15] MEDS: FLUDROCORTISONE ACETATE 0.1 MG TAB TUBE SCH (08:12)
[2018-12-15] MEDS: LANSOPRAZOLE SUSP 30MG/10ML UDSYR (Adult) TUBE SCH ×2 (08:12→21:33)
--- NOTE | 2018-12-15 13:05 | SOAPPROG ---
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 * Initial functional independence measure is 69 on 12/07/2018, improved to 87 as of 12/14/2018. Independent with bed mobility. Transfers are done with standby assist to contact guard assist. Ambulated 300 ft with front wheeled walker and standby assist to contact guard assist. Climbed and descended 18 stairs with 1 rail with standby assist. Mobility is inconsistent due to blood pressure fluctuations. Did grooming hygiene seated with standby assist. Upper body dressing required setup, lower body dressing required contact guard assist for balance. Contact guard to standby assist for toilet transfer, standby assist for toileting. Unable to shower with occupational therapy due to low blood pressure. * Unable to participate in PT, morning of 12/10/2018, due to low blood pressure * Continue PT and OT to optimize mobility and activities of daily living. Severe dysphagia. Evaluation and treatment per Speech and Language Pathology. NPO for now except for ice chips. Medications, nutrition and hydration by PEG tube. * Has delayed swallow on set. Upper esophageal sphincter is not opening well. He is tolerating Vital stimulation therapy and the Valdo exercise. He is having trials of advancing diet and fluid textures. Gastric ulcers. Continue lansoprazole b.i.d. for 12 weeks and then afterwards he will have daily proton pump inhibitor; 12 weeks would be through approximately 02/21/2019. He is to follow up in GI Clinic with Dr. Pedro in the next 1-2 months to assess the PEG and discuss scheduling a repeat endoscopy. * Decrease in hemoglobin and hematocrit noted on labs 12/07/2018. Improved on and 12/14/2018. Hemoccult stool positive, not surprising given recent bleeding ulcer. Recheck H/H PRN. Orthostatic hypotension, improving with medication management. 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 * Increased tube feeding flushes 12/07/2018 from 140 cc q.4 hours to 160 cc q.4 hours.. * Discontinued metoprolol on 12/07/2018. Discontinued lisinopril, 12/10/2018. * Initiated midodrine 2.5 mg three times daily at 8:00 a.m., noon and 1600, starting 12/07/2018. Increased to 5 mg three times daily starting 12/09/2018, as he remained symptomatic. Increased again to 10 mg three times daily starting . * Added fludrocortisone 0.1 mg q.day and sodium chloride 1 g three times daily, 12/11/2018. Increased to 0.2 mg starting 12/14/2018 * Initiated 3 inches of reversed Trendelenburg overnight starting 12/11/2018. 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 * Discussed with Dr. Stacy, cardiology, 12/14/2018. Dr. Stacy does not feel that this patient is a candidate for pacemaker placement as he does not have a heart rate drop that would trigger a pacer. Advised consideration of ACTH stimulation test, but fludrocortisone would likely interfere. Diaphragmatic spasms, unclear etiology. Continue metoclopramide and methocarbamol on a p.r.n. basis. * Trial of gabapentin at HS starting 12/09/2018. May have had improvement. Increased to three times daily 12/10/2018 as he has daytime symptoms as well. * Little improvement. DC gabapentin 12/11/2018. Coronary artery disease with history of angioplasty and stenting. Continue aspirin and can continue secondary prevention with control of lipids and hypertension. Dyslipidemia. Continue atorvastatin. Hypertension. Discontinued all antihypertensives due to severe orthostatic hypotension. Insomnia has responded to trazodone. We will continue 50 mg at bedtime, Prophylaxis. He is ambulating. He has had a GI bleed. The risks of further GI bleeding with pharmacologic anticoagulation exceed the risks of DVT/PE, so pharmacologic prophylaxis will not be initiated. DISPOSITION: He lives with his who works from home and is available to assist 24 hr. Plan is to discharge home. Tentative discharge date set for 2018. FOLLOWUP: 1. He will follow up with dry chain operator, Dr. Pedro, in 1-2 months. 2. He will follow up with neurosurgeon, Dr. Mendez, likely after discharge from inpatient rehabilitation. His primary care provider is Dr. Anupama Fragoso. 3. He will have evaluation by a neuro pouncing lathe operator. 12/15/18 13:00 Subjective: Feeling better today. Was ambulating outside including over curbs. Feels his swallowing is improving as well as his vision. Still has double vision but feels he is benefitting from exercises with occupational therapy. Objective: Vital Signs Temp Pulse Resp BP Pulse Ox 36.9 C 71 15 98/58 L 94 12/15/18 06:02 12/15/18 06:11 12/15/18 06:02 12/15/18 12:15 12/15/18 06:02 Laboratory Results 12/14/18 06:20 12/14/18 06:20 12/14/18 12/15/18 12/16/18 05:59 05:59 05:59 Intake Total 3560 2575 590 Output Total 2300 1401 Balance 1260 1174 590 Physical Exam - Physical Exam General Appearance: WD/WN, alert, no apparent distress Respiratory: normal breath sounds, No crackles, No rhonchi, No wheezing Cardiac/Chest: regular rate, rhythm, No edema, No JVD, No diastolic murmur, No systolic murmur Skin: normal color, warm/dry Neuro/Psych: alert, normal mood/affect, oriented x 3, other (Abnormal eye movements) ICD10 Worksheet Patient Problems: Problems Problem Status Onset Brain mass Acute Hypotension Acute Pneumonia Acute Seizure Acute Sepsis Acute
[2018-12-15] MEDS: ATORVASTATIN CALCIUM 40 MG TAB TUBE SCH (21:26)
[2018-12-15] MEDS: traZODone 50 MG TAB TUBE SCH (21:26)
[2018-12-15] MEDS: METOCLOPRAMIDE 5 MG TAB TUBE PRN (23:24)
[2018-12-16] MEDS: MIDODRINE HCL 5 MG TAB TUBE SCH ×3 (06:08→19:03)
[2018-12-16] MEDS: LANSOPRAZOLE SUSP 30MG/10ML UDSYR (Adult) TUBE SCH ×2 (08:30→21:03)
[2018-12-16] MEDS: FLUDROCORTISONE ACETATE 0.1 MG TAB TUBE SCH (08:31)
[2018-12-16] MEDS: levETIRAcetam 500 MG/5 ML UDCUP TUBE SCH ×2 (08:31→21:03)
[2018-12-16] MEDS: SODIUM CHLORIDE 1,000 MG TAB TUBE SCH ×3 (08:31→19:03)
--- NOTE | 2018-12-16 11:16 | CPEKG ---
Test Reason : OPEN Blood Pressure : / mmHG Vent. Rate : 070 BPM Atrial Rate : 070 BPM P-R Int : 156 ms QRS Dur : 102 ms QT Int : 404 ms P-R-T Axes : 043 045 007 degrees QTc Int : 436 ms SINUS RHYTHM Confirmed by Jakob Quinteros ([id number]) on 12/16/2018 11:16:28 AM Referred By: Cedrick Clement Confirmed By:Jakob Quinteros
--- NOTE | 2018-12-16 18:29 | SOAPPROG ---
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 * Initial functional independence measure is 69 on 12/07/2018, improved to 87 as of 12/14/2018. Independent with bed mobility. Transfers are done with standby assist to contact guard assist. Ambulated 300 ft with front wheeled walker and standby assist to contact guard assist. Climbed and descended 18 stairs with 1 rail with standby assist. Mobility is inconsistent due to blood pressure fluctuations. Did grooming hygiene seated with standby assist. Upper body dressing required setup, lower body dressing required contact guard assist for balance. Contact guard to standby assist for toilet transfer, standby assist for toileting. Unable to shower with occupational therapy due to low blood pressure. * Unable to participate in PT, morning of 12/10/2018, due to low blood pressure * Continue PT and OT to optimize mobility and activities of daily living. Severe dysphagia. Evaluation and treatment per Speech and Language Pathology. NPO for now except for ice chips. Medications, nutrition and hydration by PEG tube. * Has delayed swallow on set. Upper esophageal sphincter is not opening well. He is tolerating Vital stimulation therapy and the Valdo exercise. He is having trials of advancing diet and fluid textures. * Regurgitation discussed with dietitian, who who has adjusted feeding schedule , 12/16/2018. Gastric ulcers. Continue lansoprazole b.i.d. for 12 weeks and then afterwards he will have daily proton pump inhibitor; 12 weeks would be through approximately 02/21/2019. He is to follow up in GI Clinic with Dr. Pedro in the next 1-2 months to assess the PEG and discuss scheduling a repeat endoscopy. * Decrease in hemoglobin and hematocrit noted on labs 12/07/2018. Improved on and 12/14/2018. Hemoccult stool positive, not surprising given recent bleeding ulcer. Recheck H/H PRN. Orthostatic hypotension, improving with medication management. 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 * Increased tube feeding flushes 12/07/2018 from 140 cc q.4 hours to 160 cc q.4 hours.. * Discontinued metoprolol on 12/07/2018. Discontinued lisinopril, 12/10/2018. * Initiated midodrine 2.5 mg three times daily at 8:00 a.m., noon and 1600, starting 12/07/2018. Increased to 5 mg three times daily starting 12/09/2018, as he remained symptomatic. Increased again to 10 mg three times daily starting . * Added fludrocortisone 0.1 mg q.day and sodium chloride 1 g three times daily, 12/11/2018. Increased to 0.2 mg starting 12/14/2018 * Initiated 3 inches of reversed Trendelenburg overnight starting 12/11/2018. 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 * Discussed with Dr. Stacy, cardiology, 12/14/2018. Dr. Stacy does not feel that this patient is a candidate for pacemaker placement as he does not have a heart rate drop that would trigger a pacer. Advised consideration of ACTH stimulation test, but fludrocortisone would likely interfere. Diaphragmatic spasms, unclear etiology. Continue metoclopramide and methocarbamol on a p.r.n. basis. * Trial of gabapentin at starting 12/09/2018. May have had improvement. Increased to three times daily 12/10/2018 as he has daytime symptoms as well. * Little improvement. DC gabapentin 12/11/2018. Coronary artery disease with history of angioplasty and stenting. Continue aspirin and can continue secondary prevention with control of lipids and hypertension. Dyslipidemia. Continue atorvastatin. Hypertension. Discontinued all antihypertensives due to severe orthostatic hypotension. Insomnia has responded to trazodone. We will continue 50 mg at bedtime, Prophylaxis. He is ambulating. He has had a GI bleed. The risks of further GI bleeding with pharmacologic anticoagulation exceed the risks of DVT/PE, so pharmacologic prophylaxis will not be initiated. DISPOSITION: He lives with his who works from home and is available to assist 24 hr. Plan is to discharge home. Tentative discharge date set for 2018. FOLLOWUP: 1. He will follow up with audio experience expert, Dr. Pedro, in 1-2 months. 2. He will follow up with neurosurgeon, Dr. Mendez, likely after discharge from inpatient rehabilitation. His primary care provider is Dr. Anupama Fragoso. 3. He will have evaluation by a neuro sound effects technician. 12/16/18 18:28 Subjective: Noted regurgitation after tube feeding last night. Has subsequently had burping but no dexter regurgitation associated with feedings through the day. Otherwise without complaints. Objective: Vital Signs Temp Pulse Resp BP Pulse Ox 36.5 C 67 16 111/76 94 12/16/18 06:20 12/16/18 10:48 12/16/18 06:20 12/16/18 10:48 12/16/18 06:20 Laboratory Results 12/14/18 06:20 12/14/18 06:20 12/15/18 12/16/18 12/17/18 05:59 05:59 05:59 Intake Total 2575 1670 1250 Output Total 1401 1100 0 Balance 0199 663 9647 Physical Exam - Physical Exam General Appearance: WD/WN, alert, no apparent distress Respiratory: normal breath sounds, No crackles, No rhonchi, No wheezing Cardiac/Chest: No edema Skin: normal color, warm/dry Neuro/Psych: alert, normal mood/affect, oriented x 3, abnormal gait ICD10 Worksheet Patient Problems: Problems Problem Status Onset Brain mass Acute Hypotension Acute Pneumonia Acute Seizure Acute Sepsis Acute
[2018-12-16] MEDS: ATORVASTATIN CALCIUM 40 MG TAB TUBE SCH (21:02)
[2018-12-16] MEDS: traZODone 50 MG TAB TUBE SCH (21:03)
[2018-12-17] MEDS: MIDODRINE HCL 5 MG TAB TUBE SCH ×3 (06:34→13:55)
[2018-12-17] MEDS: levETIRAcetam 500 MG/5 ML UDCUP TUBE SCH ×2 (10:12→21:29)
[2018-12-17] MEDS: SODIUM CHLORIDE 1,000 MG TAB TUBE SCH ×3 (10:12→18:11)
[2018-12-17] MEDS: FLUDROCORTISONE ACETATE 0.1 MG TAB TUBE SCH (10:12)
[2018-12-17] MEDS: LANSOPRAZOLE SUSP 30MG/10ML UDSYR (Adult) TUBE SCH ×2 (10:12→21:29)
--- NOTE | 2018-12-17 14:14 | SOAPPROG ---
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 * Initial functional independence measure is 69 on 12/07/2018, improved to 87 as of 12/14/2018. Independent with bed mobility. Transfers are done with standby assist to contact guard assist. Ambulated 300 ft with front wheeled walker and standby assist to contact guard assist. Climbed and descended 18 stairs with 1 rail with standby assist. Mobility is inconsistent due to blood pressure fluctuations. Did grooming hygiene seated with standby assist. Upper body dressing required setup, lower body dressing required contact guard assist for balance. Contact guard to standby assist for toilet transfer, standby assist for toileting. Unable to shower with occupational therapy due to low blood pressure. * Unable to participate in PT, morning of 12/10/2018, due to low blood pressure * Continue PT and OT to optimize mobility and activities of daily living. Severe dysphagia. Evaluation and treatment per Speech and Language Pathology. NPO for now except for ice chips. Medications, nutrition and hydration by PEG tube. * Has delayed swallow on set. Upper esophageal sphincter is not opening well. He is tolerating Vital stimulation therapy and the Valdo exercise. He is having trials of advancing diet and fluid textures. * Regurgitation discussed with dietitian, who who has adjusted feeding schedule , 12/16/2018. Gastric ulcers. Continue lansoprazole b.i.d. for 12 weeks and then afterwards he will have daily proton pump inhibitor; 12 weeks would be through approximately 02/21/2019. He is to follow up in GI Clinic with Dr. Pedro in the next 1-2 months to assess the PEG and discuss scheduling a repeat endoscopy. * Decrease in hemoglobin and hematocrit noted on labs 12/07/2018. Improved on and 12/14/2018. Hemoccult stool positive, not surprising given recent bleeding ulcer. Recheck H/H PRN. Orthostatic hypotension, improving with medication management. 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 * Increased tube feeding flushes 12/07/2018 from 140 cc q.4 hours to 160 cc q.4 hours.. * Discontinued metoprolol on 12/07/2018. Discontinued lisinopril, 12/10/2018. * Initiated midodrine 2.5 mg three times daily at 8:00 a.m., noon and 1600, starting 12/07/2018. Increased to 5 mg three times daily starting 12/09/2018, as he remained symptomatic. Increased again to 10 mg three times daily starting . * Added fludrocortisone 0.1 mg q.day and sodium chloride 1 g three times daily, 12/11/2018. Increased to 0.2 mg starting 12/14/2018 * Initiated 3 inches of reversed Trendelenburg overnight starting 12/11/2018. 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 * Discussed with Dr. Stacy, cardiology, 12/14/2018. Dr. Stacy does not feel that this patient is a candidate for pacemaker placement as he does not have a heart rate drop that would trigger a pacer. Advised consideration of ACTH stimulation test, but fludrocortisone would likely interfere. Diaphragmatic spasms, unclear etiology. Continue metoclopramide and methocarbamol on a p.r.n. basis. * Trial of gabapentin at starting 12/09/2018. May have had improvement. Increased to three times daily 12/10/2018 as he has daytime symptoms as well. * Little improvement. DC gabapentin 12/11/2018. Coronary artery disease with history of angioplasty and stenting. Continue aspirin and can continue secondary prevention with control of lipids and hypertension. Dyslipidemia. Continue atorvastatin. Hypertension. Discontinued all antihypertensives due to severe orthostatic hypotension. Insomnia has responded to trazodone. We will continue 50 mg at bedtime, Prophylaxis. He is ambulating. He has had a GI bleed. The risks of further GI bleeding with pharmacologic anticoagulation exceed the risks of DVT/PE, so pharmacologic prophylaxis will not be initiated. DISPOSITION: He lives with his who works from home and is available to assist 24 hr. Plan is to discharge home. Tentative discharge date set for 2018. FOLLOWUP: 1. He will follow up with counter intelligence agent, Dr. Pedro, in 1-2 months. 2. He will follow up with neurosurgeon, Dr. Mendez, likely after discharge from inpatient rehabilitation. His primary care provider is Dr. Anupama Fragoso. 3. He will have evaluation by a neuro kiln door builder. 12/17/18 14:13 Subjective: No complaints. Slept well. Not in pain. Wonders if his diplopia has improved as much as it is going to. Still has hypotensive symptoms in the morning but after he gets his morning midodrine he does better through the day. Objective: Vital Signs Temp Pulse Resp BP Pulse Ox 36.7 C 66 15 110/72 93 12/17/18 06:30 12/17/18 12:42 12/17/18 06:30 12/17/18 12:42 12/17/18 06:30 Laboratory Results 12/14/18 06:20 12/14/18 06:20 12/16/18 12/17/18 12/18/18 05:59 05:59 05:59 Intake Total 1670 1250 740 Output Total 1100 550 Balance 570 700 740 Physical Exam - Physical Exam General Appearance: WD/WN, alert, no apparent distress Respiratory: No respiratory distress, No accessory muscle use Cardiac/Chest: No edema Skin: normal color, warm/dry Neuro/Psych: alert, normal mood/affect, oriented x 3, abnormal gait, other ( Abnormal eye movements) ICD10 Worksheet Patient Problems: Problems Problem Status Onset Brain mass Acute Hypotension Acute Pneumonia Acute Seizure Acute Sepsis Acute
[2018-12-17] MEDS: traZODone 50 MG TAB TUBE SCH (21:29)
[2018-12-17] MEDS: ATORVASTATIN CALCIUM 40 MG TAB TUBE SCH (21:29)
[2018-12-18] MEDS: MIDODRINE HCL 5 MG TAB TUBE SCH ×2 (06:19→11:49)
[2018-12-18] MEDS: FLUDROCORTISONE ACETATE 0.1 MG TAB TUBE SCH (09:16)
[2018-12-18] MEDS: SODIUM CHLORIDE 1,000 MG TAB TUBE SCH ×2 (09:16→11:49)
[2018-12-18] MEDS: levETIRAcetam 500 MG/5 ML UDCUP TUBE SCH (09:16)
[2018-12-18] MEDS: LANSOPRAZOLE SUSP 30MG/10ML UDSYR (Adult) TUBE SCH (09:16)
[2018-12-18 11:47] VITALS: BP 103/68
--- NOTE | 2018-12-18 14:05 | PDOREHIP ---
Admission [facility] - Admission - 3 Day Assessment Period Admission Date/Day 1: 12/04/18 Day 2: 12/05/18 Day 3: 12/06/18 - Active Diagnoses Comorbidities and Co-existing Conditions at Admission: 42052. None of the Above Discharge [facility] - Discharge - 3 Day Assessment Period 2 Days Prior to Anticipated Discharge Date: 12/16/18 1 Day Prior to Anticipated Discharge Date: 12/17/18 Anticipated Discharge Date: 12/18/18 - Discharge Skin Conditions Unhealed Pressure Ulcer (1 or more/Stage 1 or >)-Discharge: 0. No # Stage 1 Pressure Ulcers-Discharge: 0 # Stage 2 Pressure Ulcers-Discharge: 0 # of These Stage 2 Pressure Ulcers Present on Admission: 0 # Stage 3 Pressure Ulcers-Discharge: 0 # of These Stage 3 Pressure Ulcers Present on Admission: 0 # Stage 4 Pressure Ulcers-Discharge: 0 # of These Stage 4 Pressure Ulcers Present on Admission: 0 # Unstageable Pressure Ulcers (Non-remove Dress)-Discharge: 0 # These Unstageable Pressure Ulcers (NRD)-Present on Admit: 0 # Unstageable Pressure Ulcers (Slough/Eschar)-Discharge: 0 # These Unstageable Pressure Ulcers(Slough) Present on Admit: 0 # Unstageable Pressure Ulcers (Deep Tissue Injury)-Discharge: 0 # These Unstageable Pressure Ulcers (DTI) Present on Admit: 0
--- NOTE | 2018-12-18 14:39 | GDS ---
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 OTHER DISCHARGE DIAGNOSES: 1. Dysphagia. 2. Orthostatic hypotension. 3. Diaphragmatic spasms. COMPLICATIONS: There were none. PROCEDURES: He had an MRI of the brain. CONSULTATIONS: There were none. HISTORY AND HOSPITAL COURSE: This patient was initially admitted to [facility] inpatient rehabilitation on 11/24/2018. He was then readmitted to [facility] on 11/27/2018 with hypoxia, fevers, chills, and hypotension, where he was diagnosed with aspiration pneumonia and sepsis. He was treated with antibiotics for aspiration pneumonia. He had placement of a PEG tube by Gastroenterology, and there was an incidental finding of gastric ulcers. He also had the development of diaphragmatic spasms. He was otherwise medically stabilized and returned to inpatient rehabilitation. He had good progress in terms of mobility and activities of daily living. His initial functional independence measure was 69 on 12/07/2018 which is consistent with retirement level of care. He improved to 87 as of 12/14/2018 which is consistent with assisted living level of care. He was independent with bed mobility. He needed standby assist to contact guard assist for transfers. He was able to ambulate greater than 300 feet with a front-wheeled walker or a 4-wheeled walker and standby assist to contact guard assist. He climbed and descended 18 stairs with 1 rail and standby assist. Grooming and hygiene were done seated with standby assist. He required only setup for upper body dressing and contact guard assist for balance for lower body dressing. He required contact guard to standby assist for toilet transfer and standby assist for toileting. He continued to have severe dysphagia. There was delayed swallow onset and difficulty with fully opening the upper esophageal sphincter. He tolerated Vital stimulation therapy and he was having trials of advancing diet and fluid textures. Oral trials with Speech and Language Pathology included pureed texture while connected to the Vital stimulation. He had severe orthostatic hypotension. He was initially treated with thigh- high GWEN hose and an abdominal binder, and his antihypertensive medications of metoprolol and lisinopril were discontinued. Subsequently, he had titration of midodrine starting at 2.5 mg 3 times a day and titrated to 10 mg 3 times a day by 12/10/2018. He had initiation of fludrocortisone at 1 mg daily on 12/11/2018 , along with sodium chloride 1 g t.i.d. Fludrocortisone was increased to 0.2 mg starting 12/14/2018. He was kept in 3 inches of reverse Trendelenburg in bed at night starting 12/11/2018. 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 Repeat MRI scan done on 2018 showed right medulla and cerebellar midline infarctions, but otherwise, no new findings that would explain orthostatic hypotension. There was a discussion with hotel attendant, Dr. Stacy, who did not feel that there would be any benefit to consideration of a pacemaker. Laboratory studies showed normal renal function and electrolytes and a normal fasting cortisol. With titration of medications, his blood pressure stabilized. He continued to have low standing blood pressure in the mornings. On the morning of discharge, standing blood pressure was 77/52 and supine was 119/77. There was no heart rate response to orthostasis. Typically, his blood pressure was improved later in the day. He was able to tolerate therapies and normal activity once he received his morning midodrine. Regarding gastric ulcers that were incidental findings with PEG tube placement while he was in the hospital, he was continued on lansoprazole at 30 mg per tube b.i.d. This is to continue for 12 weeks through approximately 02/21/2019, and then he can change to daily lansoprazole. He had diaphragmatic spasms. These were of unclear etiology. It was unclear whether metoclopramide or methocarbamol was effective. These had been prescribed on hospital discharge. He had a trial of gabapentin which was also not effective. He had gradual improvement of this symptom. It was not interfering with tube feeding and minimally interfering with normal speech or other activities. He continued to have diplopia. He was able to function with alternate side taping of glasses. He had insomnia early on his course which responded to trazodone. DISCHARGE PLAN: Disposition is home with his . Condition is good. Diet is n.p.o. and all nutrition, hydration, and medications per PEG tube. He may have water protocol as instructed by Speech and Language Pathology. ALLERGIES: There are no known drug allergies. DISCHARGE MEDICATIONS: 1. Aspirin 81 mg per tube daily. 2. Atorvastatin 40 mg per tube q.h.s. 3. Fludrocortisone 0.2 mg per tube daily. 4. Lansoprazole 30 mg per tube b.i.d. 5. Levetiracetam 500 mg per tube b.i.d. 6. Midodrine 10 mg per tube q.8 hours. 7. Sodium chloride 1000 mg per tube t.i.d. 8. Trazodone 50 mg per tube q.h.s. ISSUES TO BE ADDRESSED AT FOLLOWUP: 1. Mobility and activities of daily living. He will continue PT and OT after discharge, and he can follow up with his primary care provider regarding his progress. 2. Dysphagia. Continue tube feedings and continue working with Speech and Language Pathology. 3. Gastric ulcers. Incidental finding while in the hospital. It is of note that he was not tolerant of normal tube feeding formulas but did much better with Vital AF, which he is to continue after discharge. He will follow up with manufacturing quality manager, Dr. Kathy Pedro. 4. Orthostatic hypotension. Appears to be stabilized. Continue medications as prescribed. He and his will monitor his blood pressures. It is hoped that this symptom will eventually resolve. 5. Diplopia. He will follow up with Dr. Samm Gallagher, MICHAEL, for neuro- ophthalmology consultation. 6. History of coronary artery disease and stenting. Continue aspirin. He will follow up with his primary hotel attendant, Dr. Ludin Ledezma. He can also inquire as to whether Dr. Ledezma has any insights on management of orthostatic hypotension. 7. Status post craniotomy and excision of tumor from the 4th ventricle. He will follow up with neurosurgeon, Dr. Davy Mendez. Greater than 30 minutes were spent on discharge including medication reconciliation, coordination of care, and counseling patient and . Patient was seen and exam on the day of discharge. Copy requested to: Samm Gallagher OD /[id number]/MODL MTDD
== END 2018-12-18 14:01 | disposition home health service (06) | DRG 950 ==
LOC: BREH 14:31 → UNDODISIN 12-18 12:36
PROVIDERS: ADMIT Internal Medicine Hospice and Palliative Medicine; ATTEND Internal Medicine Hospice and Palliative Medicine
PROC: F08Z7ZZ Vocational Activities and Functional Community or Work Reintegration Skills Treatment (ICD-10-PCS; principal; 2018-12-04)
PROC: F08Z4ZZ Home Management Treatment (ICD-10-PCS; principal; 2018-12-04)
PROC: F07M3ZZ Motor Function Treatment of Musculoskeletal System - Whole Body (ICD-10-PCS; principal; 2018-12-04)
PROC: 3E0G76Z Introduction of Nutritional Substance into Upper GI, Via Natural or Artificial Opening (ICD-10-PCS; 2018-12-04)
DX: Z48.3 Aftercare following surgery for neoplasm (principal); H53.2 Diplopia; R13.10 Dysphagia, unspecified; R27.0 Ataxia, unspecified; I10 Essential (primary) hypertension; D49.6 Neoplasm of unspecified behavior of brain; D64.9 Anemia, unspecified; I25.10 Atherosclerotic heart disease of native coronary artery without angina pectoris; E78.5 Hyperlipidemia, unspecified; G47.00 Insomnia, unspecified; K25.9 Gastric ulcer, unspecified as acute or chronic, without hemorrhage or perforation; R06.6 Hiccough; Z93.1 Gastrostomy status; Z95.5 Presence of coronary angioplasty implant and graft; Z79.82 Long term (current) use of aspirin
CPT/HCPCS: 92507-GN; 92523-GN; 92526-GN; 92610-GN; 92611-GN; 97110-GO; 97110-GP; 97112-GP; 97116-GP; 97140-GO; 97162-GP; 97166-GO; 97530-GO; 97530-GP; 97535-GO; A9585; G0515-GO

== ENCOUNTER 2019-01-03 21:49 | Inpatient (IN) | payer OTHER ==
--- NOTE | 2019-01-03 22:14 | EDPHY ---
H & P Stated Complaint: N/V, ABD PAIN, FAINT, PEG TUBE Time Seen by Provider: 01/03/19 22:14 HPI/ROS: HPI CHIEF COMPLAINT: Nausea, upper abdominal pain. HISTORY OF PRESENT ILLNESS: Patient is a 58-year-old male, he has a PEG tube for severe dysphagia after brain surgery, also has diplopia, presents emergency room with epigastric abdominal pain associated nausea. Patient recently started eating oral foods after having a PEG tube for the past month. He has been eating solid food since slowly advancing. He has noticed that at night after he eats he gets severe epigastric abdominal pain. It got worse over the last 2 nights very severe tonight 10/10 pain. He complains of fullness and discomfort epigastric region. No back pain, no lower abdominal pain. He denies any chest pain or shortness of breath, denies fever. Denies vomiting but does feel full and nauseous. Also has a history of gastric ulcers. Past Medical History: Patient has significant medical history for severe dysphagia, requiring PEG tube, diaphragmatic spasms, aspiration pneumonia, hypoxic, gastric ulcers, sepsis, and had inpatient rehabilitation stay. Past Surgical History: Peg tube. Brain surgery. Social History: Denies drugs alcohol tobacco. Family History: Noncontributory ROS REVIEW OF SYSTEMS: 10 Systems were reviewed and negative with the exception of the elements mentioned in the history of present illness. Exam Constitutional triage nursing summary reviewed, vital signs reviewed, awake/ alert. Vital signs stable. Eyes normal conjunctivae and sclera, EOMI, PERRLA. HENT normal inspection, atraumatic, moist mucus membranes, no epistaxis, neck supple/ no meningismus, no raccoon eyes. Respiratory clear to auscultation bilaterally, normal breath sounds, no respiratory distress, no wheezing. Cardiovascular rate normal, regular rhythm, no murmur, no edema, distal pulses normal. Gastrointestinal mild tender palpation epigastric and fullness present. No peritoneal signs. Genitourinary no CVA tenderness. Musculoskeletal no midline vertebral tenderness, full range of motion, no calf swelling, no tenderness of extremities, no meningismus, good pulses, neurovascularly intact. Skin pink, warm, & dry, no rash, skin atraumatic. Neurologic awake, alert and oriented x 3, AAOx3, moves all 4 extremities equally, motor intact, sensory intact, CN II-XII intact, normal cerebellar, normal vision, normal speech. Psychiatric normal mood/affect. Heme/Lymph/Immune no lymphadenopathy. Differential Diagnosis: Differential diagnosis includes but is not limited to and in no particular order: Peg tube malfunction, gastric ulcers, gastritis, gastric tear Bowel obstruction, appendicitis, gallbladder disease, diverticulitis, colitis, enteritis, perforated viscus, gastritis, GERD, esophagitis, urinary tract infection, pyelonephritis, kidney stones Medical Decision Making: Plan for this patient IV establishment IV fluid bolus , IV Dilaudid 1 mg for pain control IV Zofran for nausea, basic labs, KUB, re- evaluate. Re-evaluation: 8:05 p.m. Patient re-evaluated feels better after IV fluids and IV Dilaudid. KUB reviewed shows dilated stomach. This where he is having discomfort. Plan for CT scan abdomen pelvis with IV contrast. Help delineate abdominal pain. Patient consents for this. Labs reviewed Patient elevated lactic acid. Repeat after [address] scan abdomen pelvis with IV contrast faxed to me by direct Radiology at 12: 11 a.m. Shows abnormal gastric distention without evidence of nonspecific distal esophagitis the history distension could be mechanical or functional no definitive cause of symptoms identified normal. Gastric to Additionally density in the lung bases is probable atelectasis small left pleural effusion cannot exclude mild pneumonia. I spoke with the hospitalist service Dr. Singh, agrees for admission. Spoke with the patient as well as at bedside agree for hospital admission. Source: Patient - Personal History Current Tetanus Diphtheria and Acellular Pertussis (TDAP): Yes - Medical/Surgical History Hx Asthma: No Hx Chronic Respiratory Disease: No Hx Diabetes: No Hx Cardiac Disease: Yes Hx Renal Disease: No Hx Cirrhosis: No Hx Alcoholism: No Hx HIV/AIDS: No Hx Splenectomy or Spleen Trauma: No Other PMH: [place] with 2 stents (2012), Seizure (10/14/2018) , HTN, Brain tumor, craniotomy (11/16), dudodenal gastric ulcers (cauterized) - Social History Smoking Status: Never smoked Constitutional: Initial Vital Signs Temperature (C) 36.6 C 01/03/19 22:04 Heart Rate 75 01/03/19 22:04 Respiratory Rate 22 H 01/03/19 22:04 Blood Pressure 136/84 H 01/03/19 22:04 O2 Sat (%) 96 01/03/19 22:04 O2 Delivery Mode Nasal Cannula O2 (L/minute) 1 Allergies/Adverse Reactions: No Known Allergies Allergy (Verified 11/27/18 01:41) Home Medications: Medication Instructions Recorded Atorvastatin Calcium [Lipitor 40 40 mg PO HS 01/04/19 mg (*)] Fludrocortisone Acetate [Florinef] 0.2 mg PO DAILY 01/04/19 Lansoprazole [Prevacid] 30 mg PO BID 01/04/19 Midodrine HCl 5 mg PO DAILY 01/04/19 Midodrine HCl 10 mg PO HS PRN 01/04/19 Sodium Chloride [Salt Tablet] 1 gm PO DAILY 01/04/19 levETIRAcetam [Keppra 500 mg (*)] 500 mg PO BID 01/04/19 traZODone [traZODONE 50MG (*)] 50 mg PO HS 01/04/19 Medical Decision Making - Data Points Laboratory Results: Laboratory Results 01/03/19 22:25 01/03/19 22:25 Medications Given: Atorvastatin Calcium (Lipitor) 40 mg PO HS ERIN Stop: 07/03/19 20:59 Last Admin: 01/04/19 21:14 Dose: 40 mg Enoxaparin Sodium (Lovenox) 40 mg SC DAILY ERIN Stop: 07/03/19 08:59 Last Admin: 01/04/19 10:45 Dose: 40 mg Fludrocortisone Acetate (Florinef) 0.2 mg PO DAILY ERIN Stop: 07/03/19 10:14 Last Admin: 01/04/19 10:45 Dose: 0.2 mg Potassium Chloride/Sodium Chloride (Ns W/ 20 Kcl/L) 1,000 mls @ 100 mls/hr IV CONT ERIN Stop: 07/03/19 00:44 Last Admin: 01/04/19 21:14 Dose: 1,000 mls Levetiracetam (Keppra) 500 mg PO BID ERIN Stop: 07/03/19 10:14 Last Admin: 01/04/19 21:14 Dose: 500 mg Midodrine (Proamatine) 5 mg PO DAILY ERIN Stop: 07/03/19 10:14 Last Admin: 01/04/19 10:45 Dose: 5 mg Pantoprazole Sodium (Protonix) 40 mg IVP BID ERIN Stop: 07/03/19 08:59 Last Admin: 01/04/19 21:14 Dose: 40 mg Trazodone HCl (Trazodone) 50 mg PO HS ERIN Stop: 07/03/19 20:59 Last Admin: 01/04/19 21:14 Dose: 50 mg Discontinued Medications Famotidine (Pepcid) 20 mg IVP EDNOW ONE Stop: 01/04/19 00:26 Last Admin: 01/04/19 00:31 Dose: 20 mg Hydromorphone HCl (Dilaudid) 1 mg IVP EDNOW ONE Stop: 01/03/19 22:30 Last Admin: 01/03/19 22:33 Dose: 1 mg Sodium Chloride (Ns) 1,000 mls @ 0 mls/hr IV EDNOW ONE; Wide Open PRN Reason: Protocol Stop: 01/03/19 22:16 Last Admin: 01/03/19 22:26 Dose: 1,000 mls Sodium Chloride (Ns) 1,000 mls @ 0 mls/hr IV EDNOW ONE; Wide Open PRN Reason: Protocol Stop: 01/03/19 22:16 Last Admin: 01/03/19 22:29 Dose: 1,000 mls Levetiracetam (Keppra Oral Liquid) 500 mg PO ONCE ONE Stop: 01/04/19 01:09 Last Admin: 01/04/19 01:53 Dose: 500 mg Ondansetron HCl (Zofran) 4 mg IVP EDNOW ONE Stop: 01/03/19 22:16 Last Admin: 01/03/19 22:28 Dose: 4 mg Departure - Departure Disposition: [facility] Acute Clinical Impression: Abdominal pain Condition: Fair
[2019-01-03] MEDS ORDERED: NS 1,000 ML IV ONE ×2 (22:15)
[2019-01-03] MEDS ORDERED: ONDANSETRON 4 MG/2 ML VIAL IVP ONE (22:15)
[2019-01-03] MEDS ORDERED: HYDROmorphONE/DILAUDID 2 MG/ML INJ IVP ONE (22:29)
[2019-01-03 22:51] LABS: PLATELET COUNT 312 10^3/uL (150-400)
[2019-01-03 22:59] LABS: INR 1.03 (0.83-1.16); PROTIME(PATIENT) 13.1 SEC (12.0-15.0)
[2019-01-03] MEDS ORDERED: IOPAMIDOL (ISOVUE-300) 100 ML BTL ONE (23:28)
[2019-01-04] MEDS ORDERED: FAMOTIDINE 20 MG/2 ML SDV IVP ONE (00:25)
[2019-01-04] MEDS ORDERED: ONDANSETRON 4 MG/2 ML VIAL IVP PRN (00:31)
[2019-01-04] MEDS ORDERED: ACETAMINOPHEN 325 MG TAB PO PRN (00:31)
[2019-01-04] MEDS ORDERED: ONDANSETRON DISINTEGRATING 4 MG TAB PO PRN (00:31)
[2019-01-04] MEDS ORDERED: PROMETHAZINE HCL 25 MG/ML INJ IVP PRN (00:31)
[2019-01-04] MEDS ORDERED: levETIRAcetam 500 MG/5 ML UDCUP PO ONE (01:08)
[2019-01-04] MEDS ORDERED: traZODone 50 MG TAB PO PRN (01:09)
[2019-01-04] MEDS: NS W/ 20 KCl/L 1,000 ML IV SCH ×3 (01:50→21:14)
--- NOTE | 2019-01-04 02:05 | PDGENHP ---
History and Physical - Chief Complaint Abdominal pain - History of Present Illness 58 yo M w/ hx of brain tumor resection with complicated subsequent course including dysphagia requiring PEG tube presents with abdominal pain. The patient was cleared to eat regular food 4 days ago. Shortly after resuming regular food he began to notice epigastric pain. The pain is constant and increased throughout the day. He tells me the pain starts in the morning around 4/10 intensity and increased to 8/10 by nighttime. Tonight he noted pain radiating up his esophagus so he came in to the ED for evaluation. In the ED a CT demonstrates gastric distention and esophagitis. Of note, during PEG tube placement by GI on 11/30 gastritis and an oozing gastric ulcer were noted. He was started on PPI BID at that time and he has continued this therapy. Case discussed with ED physician Dr. Wakefield; records reviewed and summarized above. History Information - Allergies/Home Medication List Allergies/Adverse Reactions: No Known Allergies Allergy (Verified 11/27/18 01:41) Home Medications: Acetaminophen [ACETAMINOPHEN] 650 mg TUBE Q4HRS PRN 12/04/18 [Last Taken Unknown ] I have personally reviewed and updated: family history, medical history - Past Medical History coronary artery disease, hypertension, hyperlipidemia, seizures (as a teen) - Surgical History Reports: coronary stent Additional surgical history: Suboccipital craniotomy and brain tumor resection - Family History Positive for: CAD Additional family history: brother with epilepsy - Social History Smoking Status: Never smoked Additional social history: , works here at [employer] Review of Systems Review of Systems: ROS: 10pt was reviewed & negative except for what was stated in HPI & below Physical Exam Physical Exam: Temp Pulse Resp BP Pulse Ox 36.6 C 78 16 107/60 92 01/04/19 01:22 01/04/19 01:22 01/04/19 01:22 01/04/19 01:22 01/04/19 01:22 O2 (L/minute) 2 Constitutional: no apparent distress, appears nourished Eyes: PERRL, EOMI Ears, Nose, Mouth, Throat: moist mucous membranes, no oral mucosal ulcers Cardiovascular: regular rate and rhythym, no murmur, rub, or gallop Respiratory: no respiratory distress, clear to auscultation Gastrointestinal: normoactive bowel sounds, soft, non-tender abdomen Skin: warm, normal color, other (PEG tube in place) Musculoskeletal: full muscle strength, no muscle tenderness Neurologic: AAOx3, CN II-XII Intact Psychiatric: interacting appropriately, not anxious Lab Data & Imaging Review 01/03/19 22:25 01/03/19 22:25 WBC 12.38 10^3/uL (3.80-9.50) H 01/03/19 22: RBC 4.43 10^6/uL (4.40-6.38) 01/03/19 22:25 Hgb 13.3 g/dL (13.7-17.5) L 01/03/19 22: Hct 39.8 % (40.0-51.0) L 01/03/19 22: MCV 89.8 fL (81.5-99.8) 01/03/19 22: MCH 30.0 pg (27.9-34.1) 01/03/19 22: MCHC 33.4 g/dL (32.4-36.7) 01/03/19 22: RDW 14.4 % (11.5-15.2) 01/03/19 22: Plt Count 312 10^3/uL (150-400) 01/03/19 22: MPV 8.9 fL (8.7-11.7) 01/03/19 22: Neut % (Auto) 84.9 % (39.3-74.2) H 01/03/19 22: Lymph % (Auto) 6.8 % (15.0-45.0) L 01/03/19 22: [place] % (Auto) 6.9 % (4.5-13.0) 01/03/19 22: Eos % (Auto) 0.8 % (0.6-7.6) 01/03/19 22: Baso % (Auto) 0.2 % (0.3-1.7) L 01/03/19 22: Nucleat RBC Rel Count 0.0 % (0.0-0.2) 01/03/19 22: Absolute Neuts (auto) 10.51 10^3/uL (1.70-6.50) H 01/03/19 22: Absolute Lymphs (auto) 0.84 10^3/uL (1.00-3.00) L 01/03/19 22:25 Absolute Monos (auto) 0.86 10^3/uL (0.30-0.80) H 01/03/19 22:25 Absolute Eos (auto) 0.10 10^3/uL (0.03-0.40) 01/03/19 22:25 Absolute Basos (auto) 0.02 10^3/uL (0.02-0.10) 01/03/19 22:25 Absolute Nucleated RBC 0.00 10^3/uL (0-0.01) 01/03/19 22:25 Immature Gran % 0.4 % (0.0-1.1) 01/03/19: Immature Gran # 0.05 10^3/uL (0.00-0.10) 01/03/19 22:25 PT 13.1 SEC (12.0-15.0) 01/03/19 22:25 INR 1.03 (0.83-1.16) 01/03/19 22:25 APTT 25.0 SEC (23.0-38.0) 01/03/19 22:25 VBG Lactic Acid 1.0 mmol/L (0.7-2.1) 01/03/19 23:35 Sodium 140 mEq/L (135-145) 01/03/19 22:25 Potassium 3.3 mEq/L (3.5-5.2) L 01/03/19 22:25 Chloride 102 mEq/L (97-110) 01/03/19 22:25 Carbon Dioxide 26 mEq/l (22-31) 01/03/19 22:25 Anion Gap 12 mEq/L (6-14) 01/03/19 22:25 BUN 20 mg/dL (7-23) 01/03/19 22:25 Creatinine 0.8 mg/dL (0.7-1.3) 01/03/19 22:25 Estimated GFR > 60 01/03/19 22:25 Glucose 115 mg/dL (70-100) H 01/03/19 22:25 Calcium 9.3 mg/dL (8.5-10.4) 01/03/19 22:25 Total Bilirubin 1.0 mg/dL (0.1-1.4) 01/03/19 22:25 Conjugated Bilirubin 0.3 mg/dL (0.0-0.5) 01/03/19 22:25 Unconjugated Bilirubin 0.7 mg/dL (0.0-1.1) 01/03/19 22:25 AST 24 IU/L (17-59) 01/03/19 22:25 ALT 47 IU/L (21-72) 01/03/19 22:25 Alkaline Phosphatase 138 IU/L (38-126) H 01/03/19 22:25 Total Protein 6.6 g/dL (6.3-8.2) 01/03/19 22:25 Albumin 3.8 g/dL (3.5-5.0) 01/03/19 22:25 Lipase 774 IU/L (23-300) H 01/03/19 22:25 Urine Color YELLOW 01/03/19 23:51 Urine Appearance CLEAR 01/03/19 23:51 Urine pH 6.0 (5.0-7.5) 01/03/19 23:51 Ur Specific Hope 1.028 (1.002-1.030) 01/03/19 23:51 Urine Protein NEGATIVE (NEGATIVE) 01/03/19 23:51 Urine Ketones 2+ (NEGATIVE) H 01/03/19 23:51 Urine Blood NEGATIVE (NEGATIVE) 01/03/19 23:51 Urine Nitrate NEGATIVE (NEGATIVE) 01/03/19 23:51 Urine Bilirubin NEGATIVE (NEGATIVE) 01/03/19 23:51 Urine Urobilinogen NEGATIVE EU (0.2-1.0) 01/03/19 23:51 Ur Leukocyte Esterase NEGATIVE (NEGATIVE) 01/03/19 23:51 Urine Glucose NEGATIVE (NEGATIVE) 01/03/19 23:51 Imaging Review: Imaging Impressions Abdomen X-Ray 01/03/19 22:29 Impression: 1. Marked distention of the stomach. Assessment & Plan Assessment: 58 yo M w/ recent brain surgery and related dysphagia requiring PEG tube presents with abdominal pain. Plan: 1. Abdominal pain - I suspect this is related to gastritis/PUD noting he resumed eating regular foods about 4 days ago. The pain started shortly after resuming a regular diet. Gastritis and an oozing ulcer were noted during 11/30 EGD; he has been on PPI BID since. CT (personally reviewed/interpreted) also demonstrated gastric distention, unclear if this is mechanical or functional. - Admit for observation - Clear liquids, pain control, anti-emetics PRN - PPI IV BID - GI consult in the morning, he may benefit from repeat EGD 2. Dysphagia - Thought to be related to cerebral edema from surgery. This has been resolving over the last month and he has been cleared for regular diet as of 4 days prior to admission. - Clear liquids for now 3. Brain tumor - S/p suboccipital craniotomy and brain tumor resection 11/16/18. - Continue Keppra BID pending reconciliation 4. CAD - Continue home meds pending reconciliation Diet - Clears Code - Full Ppx - LMWH Dispo - Admit under observation status
[2019-01-04 05:13] LABS: PLATELET COUNT 241 10^3/uL (150-400)
--- NOTE | 2019-01-04 08:34 | HOSPPROG ---
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 - s/p resection # dysphagia - from above - improving # double vision # orthostatic hypotension - currently on midodrine and florinef - will check orthostatics and follow closely - may need to adjust meds # CAD - home meds Subjective: epigastric pain better this am Objective: Vital Signs Temp Pulse Resp BP Pulse Ox 36.6 C 60 16 121/67 H 96 01/04/19 08:01 01/04/19 08:01 01/04/19 08:01 01/04/19 08:01 01/04/19 08:01 Laboratory Results 01/04/19 04:39 01/04/19 04:39 01/03/19 01/04/19 01/05/19 05:59 05:59 05:59 Intake Total 1999 Balance 1999 PT 13.1 SEC (12.0-15.0) 01/03/19 22:25 INR 1.03 (0.83-1.16) 01/03/19 22:[address] reviewed discussed with Dr Linn 35 mins prolonged, direct patient care time - Physical Exam Constitutional: no apparent distress, appears nourished Cardiovascular: regular rate and rhythym, no murmur, rub, or gallop Respiratory: no respiratory distress, no rales or rhonchi, clear to auscultation Gastrointestinal: soft, non-tender abdomen, no palpable masses, other (PEG without surrounding erythema) ICD10 Worksheet Patient Problems: Problems Problem Status Onset Brain mass Acute Hypotension Acute Pneumonia Acute Seizure Acute Sepsis Acute
[2019-01-04] MEDS ORDERED: MIDODRINE HCL 10 MG TAB PO PRN (10:11)
[2019-01-04] MEDS: FLUDROCORTISONE ACETATE 0.1 MG TAB PO SCH (10:45)
[2019-01-04] MEDS: PANTOPRAZOLE SODIUM 40 MG VIAL IVP SCH ×2 (10:45→21:14)
[2019-01-04] MEDS: ENOXAPARIN 40 MG/0.4 ML SYR SC SCH (10:45)
[2019-01-04] MEDS: levETIRAcetam 500 MG TAB PO SCH ×2 (10:45→21:14)
[2019-01-04] MEDS: MIDODRINE HCL 5 MG TAB PO SCH (10:45)
--- NOTE | 2019-01-04 12:24 | GCON ---
[f rep st] CONSULTATION DATE OF CONSULTATION: 01/04/2019 REQUESTING PHYSICIAN: Alec Mijares MD CHIEF COMPLAINT: Gastric outlet obstruction. HISTORY OF PRESENT ILLNESS: The patient is a 58-year-old gentleman who is status post brain tumor resection with resultant dysphagia requiring PEG tube feedings, who was also noted to have significant ulcers of the distal stomach and small bowel on EGD 11/30/2018, and is on chronic twice daily PPI therapy. He was tolerating clear liquids through his G-tube, and because of this, was advanced to a regular diet 5 days ago. He stated that he developed some intermittent epigastric abdominal pain and bloating after eating. These symptoms became progressively more worse over the last 5 days to the point where he was having severe epigastric pain and distention, as well as pain into his chest. He presented to the emergency room this morning for these complaints. CT scan was performed and revealed a gastric outlet obstruction with a large amount of material in the stomach. This patient has been n.p.o. except sips of water with his medications. MEDICATIONS: Prior to admission included Prevacid 30 mg p.o. b.i.d., atorvastatin 40 mg p.o. q.h.s., Florinef 0.2 mg p.o. daily, Keppra 500 mg p.o. b.i.d., midodrine 5 mg p.o. daily, salt tablet 1000 mg p.o. daily, trazodone 50 mg p.o. q.h.s. ALLERGIES: He has no known drug allergies. 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 FAMILY HISTORY: Positive for coronary artery disease. Negative for peptic ulcer disease. SOCIAL HISTORY: Negative for smoking or drinking alcohol. REVIEW OF SYSTEMS: Other than the epigastric and chest discomfort and abdominal distention were negative for comprehensive review of systems. EXAMINATION: VITAL SIGNS: Today, temperature was 36.6, pulse 60 regular, blood pressure 121/67, respiratory rate 16, O2 saturation 96% on 2 L per nasal cannula. GENERAL: This is a well-developed, well-nourished gentleman. No distress. INTEGUMENT: Clear. HEENT: Head atraumatic. Well-healed surgical scar in the occiput. Pupils equal, round, and reactive to light. EOMs intact. Sclerae nonicteric. Nares patent. Mucous membranes moist. Dentition good. NECK: Supple. Trachea midline. LYMPHATICS: No cervical or axillary adenopathy palpated. LUNGS: Clear to percussion and auscultation. CARDIOVASCULAR: Regular rhythm and rate. Normal S1, S2 without murmur. Peripheral pulses strong bilaterally. No pedal edema. GASTROINTESTINAL: Abdomen distended, quiet bowel sounds. Succussion splash noted on palpation and auscultation. Nontender. No palpable mass. G tube in place; the skin site looks clean and healed. EXTREMITIES: Without deformity. NEURO: Patient was alert and oriented x3. No obvious focal neurologic deficits. LABS: White count 6.87, hemoglobin 10.1, hematocrit 31.7, platelets 241,000. Protime 13.1, INR 1.03, PTT 25. Electrolytes normal. BUN 18, creatinine 0.7, glucose 98. LFTs normal with the exception of alkaline phosphatase of 138, lipase elevated at 774. KUB last night revealed distended stomach (markedly), small bowel and colon decompressed, and no intraperitoneal air or abnormal calculi noted. CT scan of the abdomen yesterday night revealed a small left pleural effusion with bibasilar consolidative opacities consistent with atelectasis, mild cardiomegaly. Normal liver, bile ducts, and gallbladder. Normal pancreas and spleen. Normal adrenals and kidneys. No retroperitoneal or mesenteric adenopathy. Circumferential thickening of distal esophagus. Marked distention of the stomach to the junction of the gastric antrum and 1st portion of the duodenum. G tube in place. Large amount of matter in the stomach consistent with gastric outlet obstruction. IMPRESSION: 1. Gastric outlet obstruction, likely related to chronic peptic ulcer disease of the antrum and the duodenum with possible scarring versus edema. 2. Elevated lipase, likely related to peptic ulcer disease, no clinical evidence of pancreatitis. 3. Recent brain surgery with resultant dysphagia. 4. Hyperlipidemia by history. 5. Hypertension by history. RECOMMENDATIONS: 1. Low intermittent suction to G-tube in an attempt to clear debris from stomach. 2. IV PPI therapy. 3. May take other medications with a sip of water and clamp tube for 1 hour after medications. 4. Will reevaluate the patient tomorrow morning and, if significant clearance of the stomach via gastric tube suction, will then set up for evaluation of the esophagogastroduodenoscopy with endotracheal intubation and propofol anesthesia. /[id number]/MODL MTDD
--- NOTE | 2019-01-04 13:53 | ASMTCMCOM ---
CM Note CM Note Notes: Patient came in with history of brain tumor resection with subsequent dysphagia requiring PEG tube presents with epigastric pain after 4 days of eating. CM met with patient and . ordered PT/OTstill pending. Patient is current with [facility] outpatient rehab and doing well independently with support of . Anticipate will discharge independently when stable. CM to follow. Plan: independent Date Signed: 01/04/2019 11:45 AM Electronically Signed By:Kathy Hughes
[2019-01-04] MEDS: ATORVASTATIN CALCIUM 40 MG TAB PO SCH (21:14)
[2019-01-04] MEDS: traZODone 50 MG TAB PO SCH (21:14)
[2019-01-05] MEDS: PANTOPRAZOLE SODIUM 40 MG VIAL IVP SCH ×2 (08:26→21:08)
[2019-01-05] MEDS: levETIRAcetam 500 MG TAB PO SCH ×3 (08:27→21:25)
[2019-01-05] MEDS: FLUDROCORTISONE ACETATE 0.1 MG TAB PO SCH ×2 (08:27→08:36)
[2019-01-05] MEDS: SODIUM CHLORIDE 1,000 MG TAB PO SCH ×2 (08:27→08:35)
[2019-01-05] MEDS: MIDODRINE HCL 5 MG TAB PO SCH ×2 (08:27→08:36)
[2019-01-05] MEDS: ENOXAPARIN 40 MG/0.4 ML SYR SC SCH ×2 (08:28→08:35)
--- NOTE | 2019-01-05 10:32 | HOSPPROG ---
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 # dysphagia - from above - improving, cleared to eat # double vision - d/t tumor # orthostatic hypotension - currently on midodrine and florinef - continue for now given orthostasis this am # CAD - home meds Subjective: significant gastric output yesterday via peg; abd less distended and less painful today Objective: Vital Signs Temp Pulse Resp BP Pulse Ox 36.9 C 70 16 83/55 L 90 L 01/05/19 08:01 01/05/19 08:01 01/05/19 08:01 01/05/19 08:05 01/05/19 08:01 Laboratory Results 01/04/19 04:39 01/04/19 04:39 01/04/19 01/05/19 01/06/19 05:59 05:59 05:59 Intake Total 2000 Output Total 1200 600 Balance 2000 -1200 -600 PT 13.1 SEC (12.0-15.0) 01/03/19 22:25 INR 1.03 (0.83-1.16) 01/03/19 22:25 - Time Spent With Patient Time Spent with Patient: greater than 35 minutes Time Spent with Patient: Greater than 35 minutes spent on this patients care, greater than 50% of time spent counseling, educating, and coordinating care regarding the above mentioned plan. - Physical Exam Constitutional: no apparent distress, appears nourished Cardiovascular: no murmur, rub, or gallop, No diastolic murmur, No tachycardia, No bradycardia Respiratory: no respiratory distress, no rales or rhonchi, clear to auscultation Gastrointestinal: soft, non-tender abdomen, other (PEG), No rebound, No distension ICD10 Worksheet Patient Problems: Problems Problem Status Onset Brain mass Acute Seizure Acute Sepsis Acute Hypotension Acute Pneumonia Acute Abdominal pain Acute
--- NOTE | 2019-01-05 12:12 | PDMN ---
Medical Necessity Medical necessity: Change to inpt as of 01/05/19 @ 10:30, meets inpt criteria per MD order and [facility] M-05, Abdominal Pain, Undiagnosed. 58 y/o admitted initially as OBS with severe epigastric pain and distention, CT revealed gastric outlet obstruction, likely r/t chronic PUD. Pt is s/p brain tumor resection w/resultant dysphagia requiring PEG tube feedings, also significant ulcers of distal stomach and sm bowel on EGD 11/2018, recently advanced to reg diet and then started to develop above symptoms which brought him to ED. IV PPI , low suction to G-tube. Upgraded to inpt for further workup needed for gastric distention, unclear if due to mech obstruction, EGD likely today, est LOS>2MN for ongoing eval/management of above.
--- NOTE | 2019-01-05 12:27 | ASMTCMCOM ---
CM Note CM Note Notes: Pt hoping to discharge with support from independently. Therapies still pending. [facility] from [facility] ([phone]) contacted CM to confirm that they are supplying pt with home PEG formula and they would like dietary notes and updated orders upon discharge. Referral started to them. CM to follow. D/C Plan: TBD likely Independent with Tube feeding from [facility] Date Signed: 01/05/2019 12:26 PM Electronically Signed By:Pat Decker
[2019-01-05] MEDS ORDERED: LR 1,000 ML IV ONE (16:21)
--- NOTE | 2019-01-05 17:29 | PDANEPAE ---
ANE History of Present Illness gastric outlet obstruction ANE Past Medical History - Cardiovascular History Hx Hypertension: Yes Hx Arrhythmias: No Hx Chest Pain: No Hx Coronary Artery / Peripheral Vascular Disease: Yes Hx CHF / Valvular Disease: No Hx Palpitations: No Cardiovascular History Comment: 2 stents placed 2013 after [place]. No issues since stents and last cath was negative - Pulmonary History Hx COPD: No Hx Asthma/Reactive Airway Disease: No Hx Recent Upper Respiratory Infection: No Hx Oxygen in Use at Home: No Hx Sleep Apnea: No Sleep Apnea Screening Result - Last Documented: Positive Pulmonary History Comment: recent aspiration pneumonia after brain tumor resection in 12/01 - Neurologic History Hx Cerebrovascular Accident: No Hx Seizures: Yes Hx Dementia: No - Endocrine History Hx Diabetes: No Hypothyroid: No Hyperthyroid: No Obesity: no - Renal History Hx Renal Disorders: No - Liver History Hx Hepatic Disorders: No - Neurological & Psychiatric Hx Hx Neurological and Psychiatric Disorders: Yes Neurological / Psychiatric History Comment: seizures disorder - Cancer History Hx Cancer: Yes Cancer History Comment: recent brain tumor resection in 12/01 - Congenital Disorder History Hx Congenital Disorders: No - GI History GERD: moderate Hx Gastrointestinal Disorders: No Gastrointestinal History Comment: none - Other Health History Other Health History: L healing scratch on hand - Chronic Pain History Chronic Pain: No - Surgical History Prior Surgeries: none ANE Review of Systems Review of systems is: negative Review of Systems: - Exercise capacity Exercise capacity: >=4 METS ANE Patient History - Allergies Allergies/Adverse Reactions: No Known Allergies Allergy (Verified 11/27/18 01:41) - Home Medications Home medications: home medication list seen and reviewed Home Medications: Atorvastatin Calcium [Lipitor 40 mg (*)] 40 mg PO HS 01/04/19 [Last Taken ] Fludrocortisone Acetate [Florinef] 0.2 mg PO DAILY 01/04/19 [Last Taken 01/03/19 ] Lansoprazole [Prevacid] 30 mg PO BID 01/04/19 [Last Taken 01/03/19 09:00] Midodrine HCl 5 mg PO DAILY 01/04/19 [Last Taken 01/03/19] Midodrine HCl 10 mg PO HS PRN 01/04/19 [Last Taken Unknown] Sodium Chloride [Salt Tablet] 1 gm PO DAILY 01/04/19 [Last Taken 01/03/19] levETIRAcetam [Keppra 500 mg (*)] 500 mg PO BID 01/04/19 [Last Taken 01/03/19 09 :00] traZODone [traZODONE 50MG (*)] 50 mg PO HS 01/04/19 [Last Taken 01/02/19] - NPO status NPO Status: no food or drink >8 hours NPO Since - Liquids (Date): 01/05/19 NPO Since - Liquids (Time): 15:00 - Anes Hx Anes Hx: no prior problems - Smoking Hx Smoking Status: Never smoked - Family Anes Hx Family Hx Anesthesia Complications: none ANE Labs/Vital Signs - Labs Result Diagrams: 01/04/19 04:39 01/04/19 04:39 - Vital Signs Vital Signs: reviewed preoperatively; see RN documention for details (discussed bp with patient and . pt on midodrine for low bp in am. has high bp in afternoon. this low bp started after brain tumor resection in 12/01) Blood Pressure: 203/116 Heart Rate: 75 Respiratory Rate: 18 O2 Sat (%): 91 Height: 167.64 cm Weight: 71.214 kg ANE Physical Exam - Airway Neck exam: FROM Mallampati Score: Class 2 Mouth exam: normal dental/mouth exam - Pulmonary Pulmonary: no respiratory distress - Cardiovascular Cardiovascular: regular rate and rhythym - ASA Status ASA Status: III ANE Anesthesia Plan Anesthesia Plan: general endotracheal anesthesia (plan for rsi with video laryngoscope 2/2 gastric outlet obstruction) Specialized Airway: video laryngoscope
[2019-01-05] MEDS ORDERED: fentaNYL 100 MCG/2 ML INJ ONE (17:43)
[2019-01-05] MEDS ORDERED: PROPOFOL 200 MG/20 ML VIAL ONE (17:43)
[2019-01-05] MEDS ORDERED: ROCURONIUM 50 MG/5 ML VIAL ONE (17:45)
[2019-01-05] MEDS ORDERED: SUGAMMADEX SODIUM 200 MG/2 ML VIAL IVP ONE (17:57)
[2019-01-05] MEDS ORDERED: DEXAMETHASONE 4 MG/ML VIAL ONE ×2 (17:57)
[2019-01-05] MEDS ORDERED: ONDANSETRON 4 MG/2 ML VIAL IVP PRN (18:05)
[2019-01-05] MEDS ORDERED: PHENYLEPHRINE HCL 100 MCG/ML SYR IVP PRN (18:05)
[2019-01-05] MEDS ORDERED: METOCLOPRAMIDE 10 MG/2 ML VIAL IVP PRN (18:05)
[2019-01-05] MEDS ORDERED: NALOXONE HCL 0.4 MG/ML INJ IVP PRN (18:05)
[2019-01-05] MEDS ORDERED: HYDROmorphONE/DILAUDID 2 MG/ML INJ IVP PRN (18:05)
[2019-01-05] MEDS ORDERED: PROMETHAZINE HCL 25 MG/ML INJ IVP PRN (18:05)
[2019-01-05] MEDS ORDERED: ALBUTEROL 3 ML DEYVIAL IH PRN (18:05)
[2019-01-05] MEDS ORDERED: LR 500 ML IV PRN (18:05)
[2019-01-05] MEDS ORDERED: oxyCODONE IR 5 MG TAB PO PRN (18:05)
[2019-01-05] MEDS ORDERED: DEXAMETHASONE 4 MG/ML VIAL IVP PRN (18:05)
[2019-01-05] MEDS ORDERED: fentaNYL 100 MCG/2 ML INJ IVP PRN (18:05)
[2019-01-05] MEDS ORDERED: ACETAMINOPHEN 500 MG TAB PO PRN (18:05)
[2019-01-05] MEDS ORDERED: LABETALOL HCL 5 MG/ML 20 ML MDV IVP PRN (18:05)
[2019-01-05] MEDS ORDERED: MEPERIDINE 25 MG/0.5 ML AMP IVP PRN (18:05)
--- NOTE | 2019-01-05 18:35 | GIREPORT ---
[facility] Surgical Services - Endoscopy Department Patient Name: Rosas Jacobsen Procedure Date: 01/05/2019 5:03 PM Patient Type: Inpatient Attending MD/ ER Physician: Mark Linn MD Procedure: Upper GI endoscopy Indications: Gastric outlet obstruction. Providers: Mark Linn MD Medicines: General Anesthesia Complications: No immediate complications. Description of Procedure: After obtaining informed consent, the endoscope was passed under direct vision. Throughout the procedure, the patient's blood pressure, pulse, and oxygen saturations were monitored continuously. The Endoscope was intro duced through the mouth, and advanced to the duodenal bulb. The upper GI endo scopy was accomplished without difficulty. The patient tolerated the procedur e well. Findings: The examined esophagus was normal. A medium amount of food (residue) was found in the gastric fundus. Lava ge of the area was performed using a moderate amount of sterile water, result ing in incomplete clearance with fair visualization. An acquired benign-appearing, intrinsic severe stenosis was found in th e first portion of the duodenum and was non-traversed. Unable to advance guidewire across stenosis. Estimated Blood Loss: Estimated blood loss: none. Post Op Diagnosis: - Normal esophagus. - A medium amount of food (residue) in the stomach. - Acquired duodenal stenosis. - No specimens collected. Recommendation: - Return patient to [facility] for [facility]. - Continue present medications. - NPO indefinitely. - Consult surgeon (Gopal Sanford MD) tomorrow. - The findings and recommendations were discussed with the patient and their spouse. Attending Participation: I personally performed the entire procedure. Mark Linn MD Mark Linn MD 01/05/2019 6:34:50 PM This report has been signed electronicallyMark Linn MD Number of Addenda: 0 Note Initiated On: 01/05/2019 5:03 PM [email or web address]
--- NOTE | 2019-01-05 18:38 | SOAPPROG ---
SANDRA Progress Note Assessment/Plan: Assessment: 58-year-old male with recent brain tumor resection requiring a PEG tube for nutrition He presents now with gastric outlet obstruction and is found to have a duodenal stricture post bulbar which is very tight and unable to be passed Presently with G-tube in place and on PPIs Plan: Will evaluated in the a.m. 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
[2019-01-05] MEDS: traZODone 50 MG TAB PO SCH (21:07)
[2019-01-05] MEDS: ATORVASTATIN CALCIUM 40 MG TAB PO SCH (21:07)
[2019-01-05] MEDS: NS W/ 20 KCl/L 1,000 ML IV SCH (21:08)
[2019-01-06] MEDS: NS W/ 20 KCl/L 1,000 ML IV SCH ×2 (07:13→17:02)
[2019-01-06] MEDS: ENOXAPARIN 40 MG/0.4 ML SYR SC SCH (08:34)
[2019-01-06] MEDS: PANTOPRAZOLE SODIUM 40 MG VIAL IVP SCH ×2 (08:34→21:06)
[2019-01-06] MEDS: levETIRAcetam 500 MG TAB PO SCH ×2 (08:37→21:07)
[2019-01-06] MEDS: FLUDROCORTISONE ACETATE 0.1 MG TAB PO SCH ×2 (08:38→08:56)
[2019-01-06] MEDS ORDERED: cefOXitin SODIUM 2 GM in NS 100 ML IV ONE (10:37)
--- NOTE | 2019-01-06 11:06 | GCON ---
[f rep st] CONSULTATION GENERAL SURGERY CONSULTATION REASON FOR CONSULT: Gastric outlet obstruction. HISTORY OF PRESENT ILLNESS: The patient is a pleasant 58-year-old male who works at [employer] [employer], who has been admitted with a gastric outlet obstruction. 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 His course is complicated by dysphagia requiring a gastrostomy tube. Upon placement of the G tube, he was found to have apparently multiple bleeding gastric and duodenal ulcers. These were cauterized and he has been on proton pump inhibitors. He began noticing epigastric pain upon resuming regular food. He came through the emergency department and was found to have gastric distention and esophagitis. He is now status post upper endoscopy, which revealed duodenal stenosis, likely secondary to his peptic ulcer disease. There is a medium amount of residual food in the stomach. He is now n.p.o. and we are asked to evaluate him for a gastric outlet obstruction. PAST MEDICAL HISTORY: Includes coronary artery disease status post coronary stent placement, hypertension, hyperlipidemia and seizures as a teen. PAST SURGICAL HISTORY: Includes coronary stent and suboccipital craniotomy and brain tumor resection on November 16, 2018. Home medications per chart review include midodrine, Prevacid, Florinef, Lipitor, trazodone, Keppra and salt tablets. ALLERGIES: No known drug allergies. SOCIAL HISTORY: The patient works at [employer] [employer]. He is a nonsmoker and he is here with his . PHYSICAL EXAMINATION: GENERAL: Exam reveals a well-developed, well-nourished 58-year-old male in no acute distress. HEENT: Normocephalic, atraumatic. Sclerae are white. Pupils are equal and round. CHEST: Clear to auscultation bilaterally. CARDIAC: Regular rate and rhythm. ABDOMEN: Soft, nontender with an upper midline gastrostomy tube. EXTREMITIES: Warm and dry without edema. IMPRESSION: This is a 58-year-old male with a history of brain tumor resection and subsequent dysphagia requiring G-tube with incidentally found peptic ulcer disease, now with acquired duodenal stenosis, gastric outlet obstruction. PLAN: The patient was seen and examined with Dr. Sanford. The plan is to bring him to the operating room for a gastric emptying procedure. He will likely have a gastrojejunostomy. Dr. Sanford' plan is to discuss this further with Gastroenterology to determine the extent of his ulcer disease as he may require a partial gastrectomy. We will also discuss whether we need to continue his G- tube. We could remove it and close the G-tube opening during surgery versus keeping it in place in case it is needed. If we do not remove then G-tube then it will need to be kept in place until until the tract matures. Risks and options discussed with patient and his in detail and he requests to proceed. We have a tentative surgery time of 8 am, tomorrow, 01/07/19. /[id number]/MODL MTDD
--- NOTE | 2019-01-06 15:16 | HOSPPROG ---
Hospitalist Progress Note Assessment/Plan: 58-year-old male with recent brain tumor resection requiring a PEG tube for nutrition. He presents now with gastric outlet obstruction and is found to have a duodenal stricture post bulbar. Reviewed his care w Dr Linn, reviewed care w JAIRO Daniel with Dr Sanford. 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 Lovenox on HOLD Subjective: River has no c/o pain Objective: Vital Signs Temp Pulse Resp BP Pulse Ox 36.6 C 74 16 133/78 H 93 01/06/19 07:32 01/06/19 07:32 01/06/19 07:32 01/06/19 07:32 01/06/19 07:32 01/05/19 01/06/19 01/07/19 05:59 05:59 05:59 Intake Total 1572 Output Total 1555 Balance 17 PT 13.1 SEC (12.0-15.0) 01/03/19 22:25 INR 1.03 (0.83-1.16) 01/03/19 22:25 - Physical Exam Constitutional: appears nourished Ears, Nose, Mouth, Throat: hearing normal Cardiovascular: regular rate and rhythym Respiratory: no respiratory distress Skin: warm Musculoskeletal: generalized weakness Neurologic: AAOx3 Psychiatric: interacting appropriately ICD10 Worksheet Patient Problems: Problems Problem Status Onset Abdominal pain Acute Brain mass Acute Hypotension Acute Pneumonia Acute Seizure Acute Sepsis Acute
--- NOTE | 2019-01-06 15:58 | SOAPPROG ---
SOAP Progress Note Assessment/Plan: Assessment: 1. GOO secondary to duodenal stricture of distal duodenal bulb. Plan: Laparotomy tomorrow swith gastric drainage procedure as indicated. Mark Linn MD [phone] 01/06/19 15:57 Subjective: CC: GOO. Interval HPI: No c/o abdominal pain, nausea or vomiting. Objective: Vital Signs Temp Pulse Resp BP Pulse Ox 36.6 C 66 16 120/74 97 01/06/19 15:11 01/06/19 15:11 01/06/19 15:11 01/06/19 15:11 01/06/19 15:11 01/05/19 01/06/19 01/07/19 05:59 05:59 05:59 Intake Total 1572 Output Total 1555 Balance 17 PT 13.1 SEC (12.0-15.0) 01/03/19 22:25 INR 1.03 (0.83-1.16) 01/03/19 22:25 Physical Exam - Physical Exam General Appearance: WD/WN, alert, no apparent distress Respiratory: lungs clear, normal breath sounds Cardiac/Chest: regular rate, rhythm Abdomen: normal bowel sounds, non-tender, soft Skin: normal color, warm/dry Neuro/Psych: alert, normal mood/affect, oriented x 3 ICD10 Worksheet Patient Problems: Problems Problem Status Onset Abdominal pain Acute Brain mass Acute Hypotension Acute Pneumonia Acute Seizure Acute Sepsis Acute
--- NOTE | 2019-01-06 20:23 | GCON ---
[f rep st] CONSULTATION CARDIOLOGY CONSULTATION DATE OF CONSULTATION: 01/06/2019 INDICATION FOR CONSULTATION: Recent development of orthostatic hypotension, now with systemic hypert ension. HISTORY OF PRESENT ILLNESS: This patient is a pleasant 58-year-old gentleman well known to my practi ce with a previous history of inferior wall myocardial infarction with PCI x3 to the right coronary a rtery in 2012, hyperlipidemia, and hypertension who was in his usual state of health until earlier is year when he had a syncopal episode and became unresponsive. 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 He subsequently underwent neurosurgery on November 16, , with Dr. Mendez of Neurosurge ry. His postoperative course was complicated by significant orthostatic hypotension requiring compression stockings as well as abdominal binder coupled with medical therapy with Florinef 0.2 mg q.a.m. and m idodrine 10 mg p.o. daily. I last saw him in the office on December 24, 2018, at which time he was doing fairly well. We titrated down his midodrine to 5 mg daily secondary to elevated blood pressure readings. He subsequently presented to [facility] on January 04, 2019, with increasing complaints of abdominal discomfort. This occurred 4 days after been given clearance to eat after suffering fro m esophageal dysphagia. He was found to have significant abdominal distention and found to have neelam myke outlet obstruction. He has been consulted by General Surgery, Dr. Gopal Sanford. Current plan i s for him to undergo a gastric emptying procedure and gastrojejunostomy tomorrow with Dr. Sanford and p ossible partial gastrectomy. Throughout the course of his hospitalization, he has been hypertensive. He has been on midodrine 5 m g in the morning and Florinef 0.2 mg daily as well. His blood pressure has been consistently elevate d with readings in the 170s, 180s, and 190s. Peak blood pressure of 209/115 yesterday evening at eric roximately 1957. He does have occasional low blood pressure readings with standing. These episodes were asymptomatic. Lowest documented blood pressure of 83/55. He presents today generally feeling well. He denies palpitations, dizziness, lightheadedness, near s yncope, or syncope. He has no complaints of chest pain or chest pressure. No shortness of breath or dyspnea. PAST MEDICAL HISTORY: Coronary disease, previous inferior wall infarction in 2013 with PCI x3 to the right coronary artery, hyperlipidemia, history of seizure disorder on chronic Keppra therapy, and re cent brain tumor status post neurosurgery November 16. MEDICATIONS ON ADMISSION: Midodrine 5 mg daily with p.r.n. dose of 10 mg as needed for hypotension, fludrocortisone 0.2 mg daily, atorvastatin 40 mg daily, trazodone 50 mg p.o. q.h.s., Keppra 500 mg p. o. b.i.d., salt tablets 1 g p.o. daily, Prevacid 30 mg b.i.d. ALLERGIES: No known allergies to medications. SOCIAL HISTORY: This patient works here at [employer]. He is . He lives with his . He is a lifelong nonsmoker. PHYSICAL EXAMINATION: VITAL SIGNS: Blood pressure currently 133/78, heart rate 74, respiratory rate of 16, oxygen saturation 93% on room air, temperature 36.6. GENERAL: He is awake, alert, oriented, appropriate. No apparent distress. NECK: There is no evidence of JVP or carotid bruits. LUNGS: Clear to auscultation bilaterally. CARDIAC: S1, S2. Regular rate and rhythm. No murmurs, rubs, or gallops. PMI is not displaced. ABDOMEN: Not examined. LOWER EXTREMITIES: He has 1+ pitting jacobo a in the ankles. Right greater than left. No evidence of cyanosis or clubbing. DATA: White blood cell count 6.87, hemoglobin 10.1, hematocrit of 31.7, platelet count 241. Sodium 138, potassium 3.7, chloride 109, bicarb 25, BUN 18, creatinine 0.7. Most recent echocardiogram October 21, 2018, demonstrating LVEF of 51% with no significant valvular di sease. He did undergo a left heart catheterization on February 26, 2017, demonstrating patent stents to the RCA w ith minimal in-stent stenosis with no evidence of flow-limiting coronary disease and normal left vent ricular function. IMPRESSION: 1. Hypertension. 2. Recent history of orthostatic hypotension. 3. Gastric outlet obstruction. 4. Status post neurosurgery November 16, 2018. In summary, this patient has made significant improvements regarding orthostatic hypotension. He is no longer wearing abdominal binder or compression stockings. His blood pressure has been markedly el evated. I think it is appropriate to discontinue midodrine completely at this time. We will also de crease Florinef dose to 0.1 mg daily. We will continue to monitor blood pressure closely. Regarding upcoming surgery with Dr. Sanford, he does not require further preoperative testing. PLAN: 1. Discontinue midodrine. 2. Decrease Florinef to 0.1 mg daily. 3. We will continue to monitor blood pressure closely. 4. No further preoperative cardiovascular testing. 5. We will continue to follow along with this patient's care. /[id number]/MODL
[2019-01-06] MEDS: traZODone 50 MG TAB PO SCH (21:07)
[2019-01-06] MEDS: ATORVASTATIN CALCIUM 40 MG TAB PO SCH (21:07)
[2019-01-07] MEDS: NS W/ 20 KCl/L 1,000 ML IV SCH ×2 (03:20→20:22)
[2019-01-07] MEDS ORDERED: cefOXitin SODIUM 2 GM in NS 100 ML IV ONE (06:00)
[2019-01-07] MEDS ORDERED: LR 1,000 ML IV ONE (06:51)
[2019-01-07] MEDS ORDERED: BUPIVACAINE 0.5% 30 ML SDV ONE (06:56)
--- NOTE | 2019-01-07 07:25 | PDANEPAE ---
ANE History of Present Illness gastric outlet obstruction, here for partial gastrectomy and jejunostomy placement ANE Past Medical History - Cardiovascular History Hx Hypertension: Yes Hx Arrhythmias: No Hx Chest Pain: No Hx Coronary Artery / Peripheral Vascular Disease: Yes Hx CHF / Valvular Disease: No Hx Palpitations: No Cardiovascular History Comment: 2 stents placed 2013 after CO. No issues since stents and last cath was negative - Pulmonary History Hx COPD: No Hx Asthma/Reactive Airway Disease: No Hx Recent Upper Respiratory Infection: No Hx Oxygen in Use at Home: No Hx Sleep Apnea: No Sleep Apnea Screening Result - Last Documented: Positive Pulmonary History Comment: recent aspiration pneumonia after brain tumor resection in 12/01 - Neurologic History Hx Cerebrovascular Accident: No Hx Seizures: Yes Hx Dementia: No - Endocrine History Hx Diabetes: No Hypothyroid: No Hyperthyroid: No Obesity: no - Renal History Hx Renal Disorders: No - Liver History Hx Hepatic Disorders: No - Neurological & Psychiatric Hx Hx Neurological and Psychiatric Disorders: Yes Neurological / Psychiatric History Comment: seizures disorder - Cancer History Hx Cancer: Yes Cancer History Comment: recent brain tumor resection in 12/01 - Congenital Disorder History Hx Congenital Disorders: No - GI History GERD: moderate Hx Gastrointestinal Disorders: No Gastrointestinal History Comment: none - Other Health History Other Health History: L healing scratch on hand - Chronic Pain History Chronic Pain: No - Surgical History Prior Surgeries: none ANE Review of Systems Review of Systems: ANE Patient History - Allergies Allergies/Adverse Reactions: No Known Allergies Allergy (Verified 11/27/18 01:41) - Home Medications Home Medications: Atorvastatin Calcium [Lipitor 40 mg (*)] 40 mg PO HS 01/04/19 [Last Taken ] Fludrocortisone Acetate [Florinef] 0.2 mg PO DAILY 01/04/19 [Last Taken 01/03/19 ] Lansoprazole [Prevacid] 30 mg PO BID 01/04/19 [Last Taken 01/03/19 09:00] Midodrine HCl 5 mg PO DAILY 01/04/19 [Last Taken 01/03/19] Midodrine HCl 10 mg PO HS PRN 01/04/19 [Last Taken Unknown] Sodium Chloride [Salt Tablet] 1 gm PO DAILY 01/04/19 [Last Taken 01/03/19] levETIRAcetam [Keppra 500 mg (*)] 500 mg PO BID 01/04/19 [Last Taken 01/03/19 09 :00] traZODone [traZODONE 50MG (*)] 50 mg PO HS 01/04/19 [Last Taken 01/02/19] - NPO status NPO Since - Liquids (Date): 01/07/19 NPO Since - Liquids (Time): 00:00 NPO Since - Solids (Date): 01/07/19 NPO Since - Solids (Time): 00:00 - Smoking Hx Smoking Status: Never smoked - Family Anes Hx Family Hx Anesthesia Complications: none ANE Labs/Vital Signs - Labs Result Diagrams: 01/04/19 04:39 01/04/19 04:39 - Vital Signs Blood Pressure: 130/93 Heart Rate: 72 Respiratory Rate: 18 O2 Sat (%): 95 Height: 167.64 cm Weight: 71.214 kg ANE Physical Exam - Airway Neck exam: decreased ROM Mallampati Score: Class 3 Mouth exam: normal dental/mouth exam - Pulmonary Pulmonary: no respiratory distress, no rales or rhonchi - Cardiovascular Cardiovascular: regular rate and rhythym, no murmur, rub, or gallop - ASA Status ASA Status: III ANE Anesthesia Plan Anesthesia Plan: general endotracheal anesthesia Total IV Anesthesia: No
--- NOTE | 2019-01-07 07:41 | PDHPUP ---
History & Physical Update H&P update statement: This history and physical update is based on an assessment of the patient which was completed after admission or registration (within 24 hours), but prior to the surgery/procedure. H&P update: H&P reviewed & patient examined
[2019-01-07] MEDS ORDERED: ROCURONIUM 100 MG/10 ML VIAL ONE (07:45)
[2019-01-07] MEDS ORDERED: SUGAMMADEX SODIUM 200 MG/2 ML VIAL IVP ONE (07:45)
[2019-01-07] MEDS ORDERED: DEXAMETHASONE 4 MG/ML VIAL ONE (07:45)
[2019-01-07] MEDS ORDERED: PROPOFOL 200 MG/20 ML VIAL ONE ×2 (07:45→09:37)
[2019-01-07] MEDS ORDERED: fentaNYL 100 MCG/2 ML INJ ONE ×4 (07:45→10:09)
[2019-01-07] MEDS ORDERED: ONDANSETRON 4 MG/2 ML VIAL ONE (07:45)
[2019-01-07] MEDS ORDERED: LIDOCAINE 2% 100 MG/5 ML SYR ONE (07:45)
[2019-01-07 08:11] LABS: PLATELET COUNT 338 10^3/uL (150-400)
[2019-01-07] MEDS ORDERED: ACETAMINOPHEN 500 MG TAB PO PRN (09:34)
[2019-01-07] MEDS ORDERED: MEPERIDINE 25 MG/0.5 ML AMP IVP PRN (09:34)
[2019-01-07] MEDS ORDERED: LR 500 ML IV PRN (09:34)
[2019-01-07] MEDS ORDERED: ENALAPRILAT DIHYDRATE 1.25 MG/ML VIAL IVP PRN (09:34)
[2019-01-07] MEDS ORDERED: oxyCODONE IR 5 MG TAB PO PRN (09:34)
[2019-01-07] MEDS ORDERED: NALOXONE HCL 0.4 MG/ML INJ IVP PRN (09:34)
[2019-01-07] MEDS ORDERED: BACITRACIN ZINC 0.5 OZ OINTTUBE TP ONE (09:38)
--- NOTE | 2019-01-07 09:58 | POSTOPPROG ---
Post Op Note Date of Operation: 01/07/19 Surgeon: Edmund Sanford Customer Engagement Analyst: Fernando Anesthesiologist: Zachary Anesthesia: GET(General Endotracheal) Pre-op Diagnosis: Gastric outlet obstruction Post-op Diagnosis: same Indication: same Procedure: Open gastrojejunostomy, removal G tube Findings: Duodenal stricture. No obvious sign of malignancy Inf/Abcess present in the surg proc area at time of surgery?: No Depth: Organ Space EBL: Minimal Bowel Protocol: Yes Clean Closure Performed: N/A
[2019-01-07] MEDS ORDERED: ENALAPRILAT DIHYDRATE 1.25 MG/ML VIAL ONE (10:01)
[2019-01-07] MEDS ORDERED: METOPROLOL TARTRATE 5 MG/5 ML INJ ONE (10:02)
[2019-01-07] MEDS: fentaNYL 100 MCG/2 ML INJ IVP PRN ×2 (10:11→10:21)
[2019-01-07] MEDS ORDERED: HYDROmorphONE/DILAUDID 2 MG/ML INJ ONE (10:30)
[2019-01-07] MEDS: HYDROmorphONE/DILAUDID 2 MG/ML INJ IVP PRN ×6 (10:35→11:16)
--- NOTE | 2019-01-07 10:36 | POSTANESTH ---
Post Anesthetic Evaluation Cardiovascular Status: Normal, Stable, Tx Over/Under Hydration, Other, See Comment (BP running high, treated conservatively because of alterations into the 80-90s systolic on the floor since his brain tumor resection. Spoke with Medicine and she will round on him as soon as he returns to the floor and is ok with the current hypertension and no further treatment in PACU. Pt remains assymptomatic with no head ache and visual changes consistent with pre-op.) Level of Consciousness/Mental Status: Can Participate in Eval, Alert and Oriented Pain Control: Adequate, Prn Tx Ordered Nausea/Vomiting Control: Adequate, Prn Tx Ordered Complications Possibly Related to Anesthesia: None Noted
--- NOTE | 2019-01-07 12:23 | PDCARPN ---
Cardiology Progress Note Assessment/Plan: Assessment: -Recent hx of orthostatic hypotension post neurosurgery -Now with HTN -Hx of CAD with inferior GA and previoius PCI to RCA Plan: -DC sodium tabs -DC Florinef -Restart Metoprolol Tartrate 12.5 mg bid -Restart Lisinopril 2.5 mg once daily -Will reassess this afternoon -Please contact me with BP concerns: [phone] 01/07/19 12:21 Subjective: Mr. Jacobsen underwent partial gastrectomy earlier today with Dr. Sanford. Pt remains hypertensive. I had stopped his midodrine and decreased Florinef yesterday. He is awake and alert. Responds appropriately to questions. Reviewed/Discussed With: hospitalist, multidisciplinary team Objective: Vital Signs (8 Hrs) Temp Pulse Resp BP Pulse Ox 01/07/19 11:47 36.6 C 58 L 18 173/109 H 100 01/07/19 11:31 12 142/79 H 96 01/07/19 11:30 6 L 88 L 01/07/19 11:26 17 151/99 H 95 01/07/19 11:25 14 93 01/07/19 11:21 11 L 161/95 H 96 01/07/19 11:20 13 94 01/07/19 11:16 14 147/94 H 96 01/07/19 11:15 14 97 01/07/19 11:11 13 156/81 H 98 01/07/19 11:10 16 89 L 01/07/19 11:07 16 150/78 H 94 01/07/19 11:05 9 L 90 L 01/07/19 11:01 10 L 191/108 H 01/07/19 11:00 13 96 01/07/19 10:56 15 179/97 H 96 01/07/19 10:55 17 97 01/07/19 10:51 13 194/105 H 95 01/07/19 10:50 12 96 01/07/19 10:46 17 177/103 H 96 01/07/19 10:45 11 L 96 01/07/19 10:41 14 193/111 H 96 01/07/19 10:40 14 96 01/07/19 10:35 14 97 01/07/19 10:31 17 203/100 H 96 01/07/19 10:30 20 97 01/07/19 10:26 18 197/112 H 97 01/07/19 10:25 13 99 01/07/19 10:21 9 L 212/114 H 98 01/07/19 10:20 7 L 98 01/07/19 10:16 3 L 187/112 H 87 L 01/07/19 10:15 9 L 95 01/07/19 10:11 0 L 212/117 H 100 01/07/19 10:10 0 L 100 01/07/19 10:08 4 L 214/119 H 100 01/07/19 10:06 0 L 209/121 H 100 01/07/19 10:05 15 99 01/07/19 10:01 0 L 198/121 H 100 01/07/19 10:00 6 L 99 01/07/19 09:58 36.2 C 64 15 212/118 H 100 01/07/19 07:30 180/107 H 01/07/19 07:25 72 18 130/93 H 95 01/07/19 07:04 36.6 C 71 21 H 196/105 H 97 01/07/19 05:52 72 130/93 H 95 01/07/19 05:51 67 141/89 H 92 01/07/19 05:48 36.9 C 67 18 143/81 H 92 Intake/Output (24 Hrs) 01/06/19 01/07/19 01/08/19 05:59 05:59 05:59 Intake Total 1572 2780 1100 Output Total 1555 360 Balance 17 2780 740 Intake: Oral (ml) 0 590 IV Intake (ml) 600 1040 1100 IV Infused (ml) 972 1150 NS W/ 20 KCl/L 1,000 ml @ 972 1150 100 mls/hr IV CONT ERIN Rx#:[id number] Output: Urine (ml) 1550 350 Toilet 200 Urinal 1550 150 Estimated Blood Loss (ml) 5 10 Emesis (ml) 0 0 NG Tube Output (ml) 0 Left Naris 0 Other: Weight 71.214 kg 71.214 kg Number of Voids Toilet 2 Number of Stools Toilet 1 0 Result Diagrams: 01/07/19 07:50 01/04/19 04:39 ICD10 Worksheet Patient Problems: Problems Problem Status Onset Abdominal pain Acute Brain mass Acute Hypotension Acute Pneumonia Acute Seizure Acute Sepsis Acute
[2019-01-07] MEDS: METOCLOPRAMIDE 10 MG/2 ML VIAL IVP SCH ×2 (12:52→17:58)
[2019-01-07] MEDS: levETIRAcetam 500MG/NACL 100 ML IV SCH ×2 (13:45→20:34)
[2019-01-07] MEDS: PANTOPRAZOLE SODIUM 40 MG VIAL IVP SCH ×2 (13:45→20:34)
[2019-01-07] MEDS: LISINOPRIL 2.5 MG TAB PO SCH (13:47)
[2019-01-07] MEDS: METOPROLOL TARTRATE 25 MG TAB PO SCH ×2 (13:47→20:34)
--- NOTE | 2019-01-07 13:51 | HOSPPROG ---
Hospitalist Progress Note Assessment/Plan: 58-year-old male with recent brain tumor resection requiring a PEG tube for nutrition. He presents now with gastric outlet obstruction and is found to have a duodenal stricture post bulbar. 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 Subjective: Avelino is c/o a sore throat, but overall is feeling fine. Objective: Vital Signs Temp Pulse Resp BP Pulse Ox 36.5 C 64 16 146/84 H 99 01/07/19 12:50 01/07/19 12:50 01/07/19 12:50 01/07/19 12:50 01/07/19 12:50 Laboratory Results 01/07/19 07:50 01/06/19 01/07/19 01/08/19 05:59 05:59 05:59 Intake Total 1572 2780 1100 Output Total 1555 560 Balance 17 2780 540 PT 13.1 SEC (12.0-15.0) 01/03/19 22:25 INR 1.03 (0.83-1.16) 01/03/19 22:25 - Physical Exam Constitutional: no apparent distress, uncomfortable Ears, Nose, Mouth, Throat: hearing normal Cardiovascular: regular rate and rhythym Respiratory: no respiratory distress Gastrointestinal: tenderness, No normoactive bowel sounds (quiet) Skin: warm Musculoskeletal: full muscle strength Neurologic: AAOx3 Psychiatric: interacting appropriately ICD10 Worksheet Patient Problems: Problems Problem Status Onset Abdominal pain Acute Brain mass Acute Hypotension Acute Pneumonia Acute Seizure Acute Sepsis Acute
[2019-01-07] MEDS: levETIRAcetam 500 MG TAB PO SCH (14:27)
[2019-01-07] MEDS: SODIUM CHLORIDE 1,000 MG TAB PO SCH (14:27)
--- NOTE | 2019-01-07 14:58 | ASMTCMCOM ---
CM Note CM Note Notes: Pt doing well with therapies but having surgery today. Pt cleared pt for home at this point, CM to f/u tomorrow. Pt will get tube feeds from [place] at home. Updates sent Radha/ [place] ([phone]) DC Plan: Home w/ and [place] Date Signed: 01/07/2019 02:57 PM Electronically Signed By:Antonia Prasad RN
--- NOTE | 2019-01-07 16:57 | PDCARPN ---
Cardiology Progress Note Assessment/Plan: Assessment: -Recent hx of orthostatic hypotension post neurosurgery -Now with HTN -Hx of CAD with inferior MO and previoius PCI to RCA Plan: -OK for pt to swallow pills. Clamp GE tube for 30 min post swallowing pills. -Restart Metoprolol Tartrate 12.5 mg bid -Restart Lisinopril 2.5 mg once daily -Please contact me with BP concerns: [phone] 01/07/19 12:21 01/07/19 16:55 Subjective: Mr. Jacobsen's BP has improved. Plan to restart his metoprolol and lisionopril this evening. I spoke with Dr. Sanford who stated he could swallow pills and to clamp tube for 30 min to allow for absorption. Objective: Vital Signs (8 Hrs) Temp Pulse Resp BP Pulse Ox 01/07/19 14:47 36.6 C 61 12 151/90 H 98 01/07/19 13:47 36.6 C 63 16 158/92 H 99 01/07/19 12:50 36.5 C 64 16 146/84 H 99 01/07/19 12:47 83 L 01/07/19 11:47 36.6 C 58 L 18 173/109 H 100 01/07/19 11:31 12 142/79 H 96 01/07/19 11:30 6 L 88 L 01/07/19 11:26 17 151/99 H 95 01/07/19 11:25 14 93 01/07/19 11:21 11 L 161/95 H 96 01/07/19 11:20 13 94 01/07/19 11:16 14 147/94 H 96 01/07/19 11:15 14 97 01/07/19 11:11 13 156/81 H 98 01/07/19 11:10 16 89 L 01/07/19 11:07 16 150/78 H 94 01/07/19 11:05 9 L 90 L 01/07/19 11:01 10 L 191/108 H 01/07/19 11:00 13 96 01/07/19 10:56 15 179/97 H 96 01/07/19 10:55 17 97 01/07/19 10:51 13 194/105 H 95 01/07/19 10:50 12 96 01/07/19 10:46 17 177/103 H 96 01/07/19 10:45 11 L 96 01/07/19 10:41 14 193/111 H 96 01/07/19 10:40 14 96 01/07/19 10:35 14 97 01/07/19 10:31 17 203/100 H 96 01/07/19 10:30 20 97 01/07/19 10:26 18 197/112 H 97 01/07/19 10:25 13 99 01/07/19 10:21 9 L 212/114 H 98 01/07/19 10:20 7 L 98 01/07/19 10:16 3 L 187/112 H 87 L 01/07/19 10:15 9 L 95 01/07/19 10:11 0 L 212/117 H 100 01/07/19 10:10 0 L 100 01/07/19 10:08 4 L 214/119 H 100 01/07/19 10:06 0 L 209/121 H 100 01/07/19 10:05 15 99 01/07/19 10:01 0 L 198/121 H 100 01/07/19 10:00 6 L 99 01/07/19 09:58 36.2 C 64 15 212/118 H 100 Intake/Output (24 Hrs) 01/06/19 01/07/19 01/08/19 05:59 05:59 05:59 Intake Total 1572 2780 1100 Output Total 1555 560 Balance 17 2780 540 Intake: Oral (ml) 0 590 IV Intake (ml) 600 1040 1100 IV Infused (ml) 972 1150 NS W/ 20 KCl/L 1,000 ml @ 972 1150 100 mls/hr IV CONT ERIN Rx#:[id number] Output: Urine (ml) 1550 550 Toilet 400 Urinal 1550 150 Estimated Blood Loss (ml) 5 10 Emesis (ml) 0 0 NG Tube Output (ml) 0 Left Naris 0 Other: Weight 71.214 kg 71.214 kg Number of Voids Toilet 2 Number of Stools Toilet 1 0 Result Diagrams: 01/07/19 07:50 01/04/19 04:39 ICD10 Worksheet Patient Problems: Problems Problem Status Onset Abdominal pain Acute Brain mass Acute Hypotension Acute Pneumonia Acute Seizure Acute Sepsis Acute
[2019-01-07] MEDS: HYDROmorphONE/DILAUDID 1 MG/ML INJ IVP PRN (17:20)
[2019-01-07] MEDS: PHENOL 177 ML THROAT SPRAY PO PRN (17:21)
--- NOTE | 2019-01-07 18:06 | SOAPPROG ---
SOAP Progress Note Assessment/Plan: Assessment: GOO secondary to duodenal stricture of distal duodenal bulb. S/P laparotomy and gastro-jejunostomy. Plan: Post op care per Dr Sanford. No F/U EGD needed. I will sign off today. Mark Linn MD [phone] 01/07/19 18:03 Subjective: CC: GOO. Interval HPI: Patient during well today after laparotomy and gastro- jejunostomy. Chronic indwelling G-Tube removed at surgery. Objective: Vital Signs Temp Pulse Resp BP Pulse Ox 36.6 C 61 12 151/90 H 98 01/07/19 14:47 01/07/19 14:47 01/07/19 14:47 01/07/19 14:47 01/07/19 14:47 Laboratory Results 01/07/19 07:50 01/06/19 01/07/19 01/08/19 05:59 05:59 05:59 Intake Total 1572 2780 1100 Output Total 1555 1360 Balance 17 2780 -260 PT 13.1 SEC (12.0-15.0) 01/03/19 22:25 INR 1.03 (0.83-1.16) 01/03/19 22:25 Physical Exam - Physical Exam General Appearance: alert, no apparent distress Respiratory: lungs clear, normal breath sounds Cardiac/Chest: regular rate, rhythm Abdomen: non-tender, soft, other (incision clean and dry.) Skin: normal color, warm/dry Neuro/Psych: alert, normal mood/affect, oriented x 3 ICD10 Worksheet Patient Problems: Problems Problem Status Onset Abdominal pain Acute Brain mass Acute Hypotension Acute Pneumonia Acute Seizure Acute Sepsis Acute
[2019-01-07] MEDS: traZODone 50 MG TAB PO SCH (20:34)
[2019-01-07] MEDS: ATORVASTATIN CALCIUM 40 MG TAB PO SCH (20:34)
[2019-01-08] MEDS: METOCLOPRAMIDE 10 MG/2 ML VIAL IVP SCH ×5 (00:20→23:36)
[2019-01-08] MEDS: HYDROmorphONE/DILAUDID 1 MG/ML INJ IVP PRN ×3 (03:28→12:00)
[2019-01-08] MEDS: NS W/ 20 KCl/L 1,000 ML IV SCH ×2 (06:07→17:57)
[2019-01-08] MEDS: METOPROLOL TARTRATE 25 MG TAB PO SCH ×2 (07:55→20:09)
[2019-01-08] MEDS: LISINOPRIL 2.5 MG TAB PO SCH (07:56)
[2019-01-08] MEDS: ENOXAPARIN 40 MG/0.4 ML SYR SC SCH (07:57)
[2019-01-08] MEDS: PANTOPRAZOLE SODIUM 40 MG VIAL IVP SCH ×2 (07:57→20:10)
[2019-01-08 09:02] LABS: PLATELET COUNT 415 10^3/uL (150-400)
[2019-01-08] MEDS: levETIRAcetam 500MG/NACL 100 ML IV SCH ×2 (09:24→20:10)
--- NOTE | 2019-01-08 10:04 | SOAPPROG ---
SANDRA Progress Note Assessment/Plan: Assessment: 58-year-old male with recent brain tumor resection requiring a PEG tube for nutrition He presents now with gastric outlet obstruction and is found to have a duodenal stricture post bulbar which is very tight and unable to be passed Presently with G-tube in place and on PPIs Plan: Will evaluated in the a.m. 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 duodenal stricture 01/05/19 18:35 01/08/19 10:03 DOING WELL/ AFEBRILE/ WOUND OK/ MINIMAL NG OUT/ +BS/ HOPEFULLY NG OUT SOON BUT NO FLATUS YET CHEST CLEAR/ COR RR/ HEENT NONICTERIC Objective: Vital Signs Temp Pulse Resp BP Pulse Ox 36.6 C 66 16 188/106 H 98 01/08/19 07:42 01/08/19 07:55 01/08/19 07:42 01/08/19 07:56 01/08/19 07:42 Laboratory Results 01/08/19 08:35 01/07/19 01/08/19 01/09/19 05:59 05:59 05:59 Intake Total 2780 1700 1216 Output Total 2009 200 Balance 2780 -310 1016 PT 13.1 SEC (12.0-15.0) 01/03/19 22:25 INR 1.03 (0.83-1.16) 01/03/19 22:25 ICD10 Worksheet Patient Problems: Problems Problem Status Onset Abdominal pain Acute Brain mass Acute Hypotension Acute Pneumonia Acute Seizure Acute Sepsis Acute
[2019-01-08] MEDS: PHENOL 177 ML THROAT SPRAY PO PRN (12:00)
--- NOTE | 2019-01-08 15:23 | HOSPPROG ---
Hospitalist Progress Note Assessment/Plan: 58-year-old male with recent brain tumor resection requiring a PEG tube for nutrition. He presents now with gastric outlet obstruction and is found to have a duodenal stricture post bulbar. 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 Has some abdominal pain w getting up and oob. Objective: Vital Signs Temp Pulse Resp BP Pulse Ox 36.6 C 60 16 162/99 H 96 01/08/19 11:50 01/08/19 12:59 01/08/19 11:50 01/08/19 12:59 01/08/19 11:50 Laboratory Results 01/08/19 08:35 01/07/19 01/08/19 01/09/19 05:59 05:59 05:59 Intake Total 2780 1700 1216 Output Total 2009 200 Balance 2780 -310 1016 PT 13.1 SEC (12.0-15.0) 01/03/19 22:25 INR 1.03 (0.83-1.16) 01/03/19 22:25 - Physical Exam Constitutional: uncomfortable Ears, Nose, Mouth, Throat: hearing normal Cardiovascular: regular rate and rhythym, no murmur, rub, or gallop Respiratory: no respiratory distress Gastrointestinal: tenderness, No normoactive bowel sounds (no bowel sounds) Skin: warm Musculoskeletal: generalized weakness Neurologic: AAOx3 Psychiatric: interacting appropriately ICD10 Worksheet Patient Problems: Problems Problem Status Onset Abdominal pain Acute Brain mass Acute Hypotension Acute Pneumonia Acute Seizure Acute Sepsis Acute
[2019-01-08] MEDS ORDERED: oxyCODONE IR 5 MG TAB PO PRN (17:13)
--- NOTE | 2019-01-08 17:37 | PDCARPN ---
Cardiology Progress Note Assessment/Plan: Assessment: -Recent hx of orthostatic hypotension post neurosurgery -Now with HTN -Hx of CAD with inferior CA and previoius PCI to RCA Plan: -OK for pt to swallow pills. Clamp GE tube for 30 min post swallowing pills. -Increase Metoprolol Tartrate 25 mg bid -Increaes Lisinopril 5 mg once daily (fri dose this evening) -Please contact me with BP concerns: [phone] 01/08/19 17:37 Subjective: Mr. Jacobsen started on Metoprolol 12.5 mg bid and Lisinopril 2.5 mg daily last PM. BP improved but readings today remain elevated. He is off of midodrine , florinef and salt tabs. He has no cardiac complaints. No headache or new neuro changes. Orthostasis has resolved. Reviewed/Discussed With: hospitalist Objective: Vital Signs (8 Hrs) Temp Pulse Resp BP Pulse Ox 01/08/19 16:00 36.6 C 68 16 172/108 H 93 01/08/19 12:59 60 162/99 H 01/08/19 11:50 36.6 C 60 16 184/100 H 96 Intake/Output (24 Hrs) 01/07/19 01/08/19 01/09/19 05:59 05:59 05:59 Intake Total 2780 1700 1216 Output Total 2009 200 Balance 2780 -310 1016 Intake: Oral (ml) 590 0 IV Intake (ml) 1040 1100 1216 IV Infused (ml) 1150 600 NS W/ 20 KCl/L 1,000 ml @ 1150 600 100 mls/hr IV CONT ERIN Rx#:[id number] Output: Urine (ml) 2000 200 Toilet 600 200 Urinal 1400 Estimated Blood Loss (ml) 10 Emesis (ml) 0 NG Tube Output (ml) 0 Left Naris 0 Other: Weight 71.214 kg Number of Voids Toilet 2 1 Urinal 1 Number of Stools Toilet 0 0 Result Diagrams: 01/08/19 08:35 01/04/19 04:39 ICD10 Worksheet Patient Problems: Problems Problem Status Onset Abdominal pain Acute Brain mass Acute Hypotension Acute Pneumonia Acute Seizure Acute Sepsis Acute
[2019-01-08] MEDS: LISINOPRIL 5 MG TAB PO SCH (17:56)
[2019-01-08] MEDS: ATORVASTATIN CALCIUM 40 MG TAB PO SCH (20:10)
[2019-01-08] MEDS: traZODone 50 MG TAB PO SCH (20:50)
[2019-01-09] MEDS: NS W/ 20 KCl/L 1,000 ML IV SCH (05:10)
[2019-01-09] MEDS: METOCLOPRAMIDE 10 MG/2 ML VIAL IVP SCH ×3 (05:13→18:58)
--- NOTE | 2019-01-09 07:55 | PDCARPN ---
Cardiology Progress Note Assessment/Plan: Assessment: -Recent hx of orthostatic hypotension post neurosurgery -Now with HTN -Hx of CAD with inferior MD and previoius PCI to RCA Plan: -OK for pt to swallow pills. Clamp GE tube for 30 min post swallowing pills. -Continue Metoprolol Tartrate 25 mg bid -Continue Lisinopril 5 mg once daily -NO need to evaluate orthostatic vital signs -Please contact me with BP concerns: [phone] 01/08/19 17:37 01/09/19 07:54 Subjective: Mr. Jacobsen has no further orthostatic BP complaints. BP readings have improved with increased dose of metoprolol and lisinopril. No complaints of dizziness, lightheadedness or syncope. Objective: Vital Signs (8 Hrs) Temp Pulse Resp BP Pulse Ox 01/09/19 07:21 37.0 C 70 16 129/70 H 91 L 01/09/19 03:17 37.1 C 69 16 112/63 92 01/09/19 00:00 37.1 C 66 16 105/60 90 L Intake/Output (24 Hrs) 01/08/19 01/09/19 01/10/19 05:59 05:59 05:59 Intake Total 1700 2738 Output Total 2009 950 Balance -310 1788 Intake: Oral (ml) 0 IV Intake (ml) 1100 2738 IV Infused (ml) 600 NS W/ 20 KCl/L 1,000 ml @ 600 100 mls/hr IV CONT ERIN Rx#:[id number] Output: Urine (ml) 2000 900 Toilet 600 900 Urinal 1400 Estimated Blood Loss (ml) 10 Emesis (ml) 0 NG Tube Output (ml) 0 50 Left Naris 0 50 Other: Weight 71.214 kg Number of Voids Toilet 1 Urinal 1 Number of Stools Toilet 0 Result Diagrams: 01/08/19 08:35 01/04/19 04:39 - Physical Exam Constitutional: no apparent distress, other (NG tube in place ) ICD10 Worksheet Patient Problems: Problems Problem Status Onset Abdominal pain Acute Brain mass Acute Hypotension Acute Pneumonia Acute Seizure Acute Sepsis Acute
--- NOTE | 2019-01-09 08:40 | SOAPPROG ---
SOAP Progress Note Assessment/Plan: Assessment: 58yo M c duodenal obstruction s/p gastrojej - VSS, HDs - pain improving each day - NGT output has been minimal, will DC today. Only sips and chips. He has really minimal bowel sounds - ambulate, pain control, ok to shower Plan: 01/09/19 08:39 Subjective: pain beter each day Objective: Vital Signs Temp Pulse Resp BP Pulse Ox 37.0 C 70 16 129/70 H 91 L 01/09/19 07:21 01/09/19 07:21 01/09/19 07:21 01/09/19 07:21 01/09/19 07:21 Laboratory Results 01/08/19 08:35 01/08/19 01/09/19 01/10/19 05:59 05:59 05:59 Intake Total 1700 2738 Output Total 2009 Balance -310 1788 PT 13.1 SEC (12.0-15.0) 01/03/19 22:25 INR 1.03 (0.83-1.16) 01/03/19 22:25 ICD10 Worksheet Patient Problems: Problems Problem Status Onset Abdominal pain Acute Brain mass Acute Hypotension Acute Pneumonia Acute Seizure Acute Sepsis Acute
--- NOTE | 2019-01-09 09:45 | GOP ---
[f rep st] OPERATIVE REPORT DATE OF OPERATION: 01/07/2019 SURGEON: Edmund Sanford MD BUSINESS OBJECTS DEVELOPER: Kathy King NP PREOPERATIVE DIAGNOSIS: 1. Gastric outlet obstruction. 2. G-tube. 3. Umbilical hernia. POSTOPERATIVE DIAGNOSIS: 1. Gastric outlet obstruction. 2. G-tube. 3. Umbilical hernia. PROCEDURE PERFORMED: 1. Gastrojejunostomy. 2. Repair of gastrotomy site. 3. Umbilical hernia repair. FINDINGS: The patient was found to have a very tight stenosis of the bulbar portion of the duodenum. The stomach was normal. There was no evidence of metastatic disease or cancer. ESTIMATED BLOOD LOSS: Negligible. DESCRIPTION OF PROCEDURE: The patient was taken to the operating room where he received satisfactory general endotracheal anesthesia. He was placed in a supine position and prepped and draped in the u sual sterile fashion. A midline abdominal incision was made and carried through the linea alba and down to include the umbi lical hernia defect. The umbilical hernia was dissected free, and its contents were reduced. The fa scial edges were freshened, and the sac was removed. Attention was turned to the stomach. The stomach was grasped with a Cynthia clamp and retracted inferiorly. The previously placed G-tube was removed. That site was closed with a running 3-0 Vicryl suture for the inner layer and 3-0 silk Lembert sutures for the second layer. The omentum was taken off the edge of the stomach, exposing th e posterior wall of the stomach. A piece of proximal jejunum was brought up in an antecolic fashion, and a gastrojejunostomy was created at the posterior wall of stomach, creating a good 3-fingerbreadt h anastomosis; this was done with anterior and posterior layers of interrupted 3-0 silk and a running inner layer of 3-0 Vicryl. An NG tube was passed down the efferent limb. The wound was irrigated, and hemostasis was assured. The linea alba was closed with a running #1 PDS suture, and the umbilical hernia defect was closed wi th interrupted 0 PDS [id number] sutures. The subcutaneous tissue was closed with 3-0 Vicryl and the skin with a subcuticular 4-0 Monocryl stitch. The wounds were infiltrated with % Jamaal elinor. He tolerated the procedures well and was taken to the recovery room in good condition. There were no complications. /[id number]/MODL
[2019-01-09] MEDS: PANTOPRAZOLE SODIUM 40 MG VIAL IVP SCH ×2 (09:59→20:53)
[2019-01-09] MEDS: METOPROLOL TARTRATE 25 MG TAB PO SCH ×2 (10:00→20:53)
[2019-01-09] MEDS: LISINOPRIL 5 MG TAB PO SCH (10:02)
[2019-01-09] MEDS: ENOXAPARIN 40 MG/0.4 ML SYR SC SCH (10:02)
[2019-01-09] MEDS: levETIRAcetam 500MG/NACL 100 ML IV SCH ×2 (10:02→20:53)
--- NOTE | 2019-01-09 10:44 | ASMTCMCOM ---
CM Note CM Note Notes: Pt had surgery yesterday, NG tube out and is trying sips and chips. PT cleared pt for home, will dc home w/support of and [facility]. Please notify [facility] at [facility] when pt discharges [phone] DC Plan: Home w/ [facility] Date Signed: 01/09/2019 10:43 AM Electronically Signed By:Antonia Prasad RN
--- NOTE | 2019-01-09 13:00 | HOSPPROG ---
Hospitalist Progress Note Assessment/Plan: 58-year-old male with recent brain tumor resection requiring a PEG tube for nutrition. He presents now with gastric outlet obstruction and is found to have a duodenal stricture post bulbar. 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 Objective: Vital Signs Temp Pulse Resp BP Pulse Ox 37.1 C 72 16 152/93 H 91 L 01/09/19 12:00 01/09/19 12:00 01/09/19 12:00 01/09/19 12:00 01/09/19 12:00 Laboratory Results 01/08/19 08:35 01/08/19 01/09/19 01/10/19 05:59 05:59 05:59 Intake Total 1700 2738 Output Total 2010 950 Balance -310 1788 PT 13.1 SEC (12.0-15.0) 01/03/19 22:25 INR 1.03 (0.83-1.16) 01/03/19 22:25 - Physical Exam Constitutional: no apparent distress, appears nourished Ears, Nose, Mouth, Throat: hearing normal Respiratory: no respiratory distress Gastrointestinal: tenderness, No normoactive bowel sounds (quiet) Skin: warm Musculoskeletal: full muscle strength Neurologic: AAOx3 Psychiatric: interacting appropriately ICD10 Worksheet Patient Problems: Problems Problem Status Onset Abdominal pain Acute Brain mass Acute Hypotension Acute Pneumonia Acute Seizure Acute Sepsis Acute
[2019-01-09] MEDS: ATORVASTATIN CALCIUM 40 MG TAB PO SCH (20:53)
[2019-01-09] MEDS: traZODone 50 MG TAB PO SCH (20:53)
[2019-01-10] MEDS: METOCLOPRAMIDE 10 MG/2 ML VIAL IVP SCH ×4 (01:08→18:41)
[2019-01-10 05:11] LABS: PLATELET COUNT 345 10^3/uL (150-400)
[2019-01-10] MEDS: NS W/ 20 KCl/L 1,000 ML IV SCH ×2 (05:46→07:10)
[2019-01-10] MEDS: levETIRAcetam 500MG/NACL 100 ML IV SCH (08:22)
[2019-01-10] MEDS: METOPROLOL TARTRATE 25 MG TAB PO SCH ×2 (08:22→21:45)
[2019-01-10] MEDS: LISINOPRIL 5 MG TAB PO SCH (08:22)
[2019-01-10] MEDS: PANTOPRAZOLE SODIUM 40 MG VIAL IVP SCH ×2 (08:22→21:44)
[2019-01-10] MEDS: ENOXAPARIN 40 MG/0.4 ML SYR SC SCH (08:23)
--- NOTE | 2019-01-10 08:48 | SOAPPROG ---
SOAP Progress Note Assessment/Plan: Assessment: 58yo M c duodenal obstruction s/p gastrojej - VSS, HDs - pain improving each day - Reg diet - ambulate, pain control, ok to shower Plan: 01/09/19 08:39 01/10/19 08:48 Subjective: passing gas, no nausea Objective: Vital Signs Temp Pulse Resp BP Pulse Ox 36.8 C 68 16 127/72 H 93 01/10/19 07:56 01/10/19 07:56 01/10/19 07:56 01/10/19 07:56 01/10/19 07:56 Laboratory Results 01/10/19 04:43 01/10/19 04:43 01/09/19 01/10/19 01/11/19 05:59 05:59 05:59 Intake Total 2738 Output Total 950 1100 350 Balance 1788 -1100 -350 PT 13.1 SEC (12.0-15.0) 01/03/19 22:25 INR 1.03 (0.83-1.16) 01/03/19 22:25 ICD10 Worksheet Patient Problems: Problems Problem Status Onset Abdominal pain Acute Brain mass Acute Hypotension Acute Pneumonia Acute Seizure Acute Sepsis Acute
--- NOTE | 2019-01-10 11:41 | HOSPPROG ---
Hospitalist Progress Note Assessment/Plan: 58-year-old male with recent brain tumor resection, who required a PEG tube for nutrition, presented with gastric outlet obstruction and was found to have a duodenal stricture post bulbar. # gastric outlet obstruction r/t duodenal stricture - s/p partial gastrojejunostomy w removal of G tube. NG tube out. 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 Pain controlled. Taking a little more po. No N/V. No BM. No fevers. Objective: Vital Signs Temp Pulse Resp BP Pulse Ox 36.8 C 68 16 127/72 H 93 01/10/19 07:56 01/10/19 07:56 01/10/19 07:56 01/10/19 07:56 01/10/19 07:56 Laboratory Results 01/10/19 04:43 01/10/19 04:43 01/09/19 01/10/19 01/11/19 05:59 05:59 05:59 Intake Total 2738 Output Total 950 1100 350 Balance 1788 -1100 -350 PT 13.1 SEC (12.0-15.0) 01/03/19 22:25 INR 1.03 (0.83-1.16) 01/03/19 22:25 - Physical Exam Constitutional: no apparent distress Eyes: PERRL Ears, Nose, Mouth, Throat: moist mucous membranes Cardiovascular: regular rate and rhythym Respiratory: no respiratory distress, reduced air movement Gastrointestinal: other (soft, nd, no ttp, no r/r/g, hypoactive BS) Skin: warm Musculoskeletal: full muscle strength Neurologic: AAOx3 Psychiatric: interacting appropriately ICD10 Worksheet Patient Problems: Problems Problem Status Onset Brain mass Acute Seizure Acute Sepsis Acute Hypotension Acute Pneumonia Acute Abdominal pain Acute
--- NOTE | 2019-01-10 11:47 | PDCARPN ---
Cardiology Progress Note Assessment/Plan: Assessment: -Recent hx of orthostatic hypotension post neurosurgery -Now with HTN -Hx of CAD with inferior PA and previoius PCI to RCA Plan: -Continue Metoprolol Tartrate 25 mg bid -Continue Lisinopril 5 mg once daily -NO need to evaluate orthostatic vital signs -will arrange for out patient follow up with me at [facility] -Will sign off 01/10/19 11:47 Subjective: Mr. Jacobsen is feeling well. G tube removed yesterday, passing gas. BP remains stable. No complaints of dizziness, lightheadedness or near syncope. Objective: Vital Signs (8 Hrs) Temp Pulse Resp BP Pulse Ox 01/10/19 07:56 36.8 C 68 16 127/72 H 93 01/10/19 04:00 37.3 C 71 16 131/77 H 92 Intake/Output (24 Hrs) 01/09/19 01/10/19 01/11/19 05:59 05:59 05:59 Intake Total 2738 Output Total 950 1100 350 Balance 1788 -1100 -350 Intake: IV Intake (ml) 2738 Output: Urine (ml) 900 1100 350 Toilet 900 150 Urinal 1100 200 NG Tube Output (ml) 50 Left Naris 50 Other: Number of Voids Toilet 1 Result Diagrams: 01/10/19 04:43 01/10/19 04:43 - Physical Exam Neurologic: AAOx3, CN II-XII grossly intact Psychiatric: cooperative ICD10 Worksheet Patient Problems: Problems Problem Status Onset Abdominal pain Acute Brain mass Acute Hypotension Acute Pneumonia Acute Seizure Acute Sepsis Acute
[2019-01-10] MEDS: traZODone 50 MG TAB PO SCH (21:44)
[2019-01-10] MEDS: levETIRAcetam 500 MG TAB PO SCH (21:46)
[2019-01-10] MEDS: ATORVASTATIN CALCIUM 40 MG TAB PO SCH (21:46)
[2019-01-11] MEDS: METOCLOPRAMIDE 10 MG/2 ML VIAL IVP SCH ×2 (00:27→06:23)
[2019-01-11] MEDS ORDERED: NS 1,000 ML IV ONE (05:04)
[2019-01-11] MEDS ORDERED: NS 1,000 ML IV SCH (07:00)
--- NOTE | 2019-01-11 08:16 | SOAPPROG ---
SOAP Progress Note Assessment/Plan: Assessment/Plan: 58 Y M hx brain tumor resection c subsequent transient dysphagia now admitted c GOO 2/2 acquired duodenal stenosis 2/2 bleeding peptic ulcer disease c cauterization during G tube placement. s/p gastrojejunostomy for gastric emptying and removal of G tube c repair of gastrocutaneous fistula. On regular diet. D/c reglan. Change protonix bid IV to PO. Doing well from surgery. Hypotensive overnight. On lisinopril and metoprolol. He was initially hypertensive. IVF restarted. Will get H&H. Appreciate cards and hospitalist input. Ok to d/c to home from surgical standpoint but will need medical/card clearance in light of hypotensive episode. Seen with Dr. Sanford. S: eating fine. maybe not drinking much yesterday. O: alert nad no wob rrr abd soft wounds intact 01/11/19 08:09 Objective: Vital Signs Temp Pulse Resp BP Pulse Ox 36.3 C 65 16 91/63 L 90 L 01/11/19 07:50 01/11/19 07:50 01/11/19 07:50 01/11/19 07:50 01/11/19 07:50 Laboratory Results 01/11/19 07:25 01/10/19 01/11/19 01/12/19 05:59 05:59 05:59 Intake Total 500 950 Output Total 1100 1150 Balance -1100 -650 950 PT 13.1 SEC (12.0-15.0) 01/03/19 22:25 INR 1.03 (0.83-1.16) 01/03/19 22:25 ICD10 Worksheet Patient Problems: Problems Problem Status Onset Abdominal pain Acute Brain mass Acute Hypotension Acute Pneumonia Acute Seizure Acute Sepsis Acute
[2019-01-11] MEDS ORDERED: PANTOPRAZOLE SODIUM 40 MG TAB PO SCH (09:00)
[2019-01-11] MEDS ORDERED: METOPROLOL TARTRATE 25 MG TAB PO SCH (09:00)
[2019-01-11] MEDS: levETIRAcetam 500 MG TAB PO SCH (10:07)
[2019-01-11] MEDS: ENOXAPARIN 40 MG/0.4 ML SYR SC SCH (10:07)
--- NOTE | 2019-01-11 10:42 | ASMTLACE ---
LACE Length of stay for Answers: 7-13 days current admission Acuity / Level of Answers: Yes Care: Did the patient have an inpatient admission? Comorbidities - select Answers: Any tumor (including all that apply lymphoma or leukemia) Coronary Artery Disease Previous myocardial infarction Other Notes: HTN; HLD; Seizures # of Emergency department Answers: 3-4 visits in the last 6 months Score: 17 Date Signed: 01/11/2019 10:39 AM Electronically Signed By:Pat Decker
--- NOTE | 2019-01-11 10:47 | ASDISCHSUM ---
Discharge Information Plan Status:Home with No Needs Medically Cleared to Leave:01/11/2019 Discharge Date:01/11/2019 CM D/C Disposition:Home, Routine, Self-Care ADT D/C Disposition:Home, Routine, Self-Care Projected Discharge Date:01/07/2019 11:00 AM Transportation at D/C:Family Discharge Delay Reason: Follow-Up Date:01/07/2019 11:00 AM Discharge Slot: Final Diagnosis:gastrointestinal obstruction Placement Information Referral Type:Home Infusion Referral ID:[id number] Provider Name: Address 1: Phone Number: Address 2: Fax Number: City: Selection Factors: State: Patient Contact Information Contact Name:CROW Relationship: Address:[address] [address] City:[place] [facility] Phone: [facility] Code:[place] [address] Email: Financial Information Financial Class:[employer] Primary Plan Desc:[facility] Primary Plan Number:[id number] Secondary Plan Desc: Secondary Plan Number: Assessment Information LACE LACE Length of stay for Answers: 7-13 days current admission Acuity / Level of Answers: Yes Care: Did the patient have an inpatient admission? Comorbidities - select Answers: Any tumor (including all that apply lymphoma or leukemia) Coronary Artery Disease Previous myocardial infarction Other Notes: HTN; HLD; Seizures # of Emergency department Answers: 3-4 visits in the last 6 months Score: 17 Date Signed: 01/11/2019 10:39 AM Electronically Signed By:Pat Decker [facility] CM Progress Note CM Note CM Note Notes: Patient came in with history of brain tumor resection with subsequent dysphagia requiring PEG tube presents with epigastric pain after 4 days of eating. CM met with patient and . ordered PT/OTstill pending. Patient is current with [facility] outpatient rehab and doing well independently with support of . Anticipate will discharge independently when stable. CM to follow. Plan: independent Date Signed: 01/04/2019 11:45 AM Electronically Signed By:Kathy Hughes [facility] Progress Note CM Note CM Note Notes: Pt hoping to discharge with support from independently. Therapies still pending. Aisa from [employer] ([phone]) contacted CM to confirm that they are supplying pt with home PEG formula and they would like dietary notes and updated orders upon discharge. Referral started to them. CM to follow. D/C Plan: TBD likely Independent with Tube feeding from [facility] Date Signed: 01/05/2019 12:26 PM Electronically Signed By:Pat Decker [facility] Progress Note CM Note CM Note Notes: Pt doing well with therapies but having surgery today. Pt cleared pt for home at this point, CM to f/u tomorrow. Pt will get tube feeds from [facility] at home. Updates sent Radha/ [facility] ([phone]) DC Plan: Home w/ and [facility] [place] Date Signed: 01/07/2019 02:57 PM Electronically Signed By:Antonia Prasad RN [facility] CM Progress Note CM Note CM Note Notes: Pt had surgery yesterday, NG tube out and is trying sips and chips. PT cleared pt for home, will dc home w/support of and [facility]. Please notify [facility] at [facility] when pt discharges [phone] DC Plan: Home w/ [place] Date Signed: 01/09/2019 10:43 AM Electronically Signed By:Antonia Prasad RN Case Management Discharge Plan Note Case Management Discharge Discharge Order Complete? Answers: Yes Patient to Obtain Answers: via Family Medications Transportation Arranged Answers: Family/Friends Transport will Pick (Date 01/11/2019 12:00 AM & Time) Family Notified Answers: Yes Notes: in the room Discharge Comments Notes: Spoke with pt and in the room. Pt had PEG tube removed during this hospitalization and will no longer need tube feedings from [place]. [facility] from [facility] notified. At pt's request, message sent to [facility] that pt would like to donate existing tube formula. Pt and prefer to discharge independently and follow up with outpatient rehabilitation. No CM needs noted at this time. Date Signed: 01/11/2019 10:45 AM Electronically Signed By:Pat Decker Intervention Information
[2019-01-11 11:49] VITALS: BP 121/76
--- NOTE | 2019-01-11 14:01 | GDS ---
[f rep st] DISCHARGE SUMMARY DISCHARGE DIAGNOSES: 1. Gastric outlet obstruction related to duodenal stricture. 2. Postoperative ileus. 3. Leukocytosis. 4. Esophagitis. 5. History of fourth ventricle tumor. 6. Dysphagia. 7. Double vision. 8. Orthostatic hypotension. 9. Hypertension. 10. History of coronary artery disease. CONSULTATIONS: 1. Cardiology. 2. Surgery. PHYSICAL EXAM: GENERAL: The patient is alert. VITAL SIGNS: Afebrile at 36.9, pulse 65, respiratory rate 16, blood pressure is 121/76. He is saturating 94% on room air. I have seen evaluated the pat ient on the day of discharge. HOSPITAL COURSE: The patient is a 58-year-old male who presented to the hospital with complaints of abdominal pain. He was evaluated and diagnosed with: 1. Gastric outlet obstruction related to duodenal stricture. During this hospitalization, he had a partial gastrojejunostomy with removal of his G-tube. He is tolerating a bland, soft diet and has be en cleared by Surgery to be discharged home. 2. Postop ileus. This has resolved. 3. Leukocytosis in the setting of acute reaction. 4. Esophagitis with peptic ulcer disease. The patient requires proton pump inhibitor. At the time of disposition, Protonix 40 mg b.i.d. has been prescribed. 5. 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 This was resected in November of 2018. He will continue on Ke ppra. 6. Dysphagia. This has improved. 7. Double vision. This is secondary to the patient's tumor resection. 8. Orthostatic hypotension. The patient does have waxing and waning between hypotension and hyperte nsion. He did receive a consultation from Cardiology during this hospitalization. His midodrine, as well as Florinef and salt tablets, have been discontinued. He was initially started on Lopressor, a s well as lisinopril, for hypertension. However, he did not tolerate this. He will be discharged wi th no home medications for hypo or hypertension. He was instructed to take his blood pressure on a d aily basis and follow up with Dr. Ledezma in the outpatient setting. 9. History of coronary artery disease. This is stable. 10. Disposition. The patient will be discharged home with home health care and his . There are no pending studies. DISCHARGE MEDICATIONS: Please refer to EMR form. I have provided a prescription for Protonix 40 mg b.i.d. and have discontinued his midodrine, Prevacid, Florinef, and salt tablets. FOLLOWUP: With Dr. Gopal Sanford, as well as Dr. Ludin Ledezma and the patient's primary care physician , Dr. Anupama Fragoso. I spent greater than 35 minutes in the care, coordination, and management of this patient's dispositi on. /[id number]/MODL
== END 2019-01-11 15:32 | disposition home or self-care (01) | DRG 327 ==
LOC: F3E 01-04 01:19 → OBSVTOIN 01-05 10:30
PROVIDERS: ADMIT Student in an Organized Health Care Education/Training Program; ATTEND Student in an Organized Health Care Education/Training Program
PROC: 0D968ZZ Drainage of Stomach, Via Natural or Artificial Opening Endoscopic (ICD-10-PCS; 2019-01-05)
PROC: 0D160ZA Bypass Stomach to Jejunum, Open Approach (ICD-10-PCS; principal; 2019-01-07 07:45)
PROC: 0WQF0ZZ Repair Abdominal Wall, Open Approach (ICD-10-PCS; principal; 2019-01-07 07:45)
DX: K31.1 Adult hypertrophic pyloric stenosis (principal); K31.5 Obstruction of duodenum; K91.89 Other postprocedural complications and disorders of digestive system; R13.10 Dysphagia, unspecified; K42.9 Umbilical hernia without obstruction or gangrene; I95.1 Orthostatic hypotension; E86.9 Volume depletion, unspecified; I10 Essential (primary) hypertension; E78.5 Hyperlipidemia, unspecified; K26.7 Chronic duodenal ulcer without hemorrhage or perforation; K25.7 Chronic gastric ulcer without hemorrhage or perforation; K20.9 Esophagitis, unspecified; I25.10 Atherosclerotic heart disease of native coronary artery without angina pectoris; H53.2 Diplopia; Z93.1 Gastrostomy status; I25.2 Old myocardial infarction; Z95.5 Presence of coronary angioplasty implant and graft; Z86.011 Personal history of benign neoplasm of the brain
CPT/HCPCS: 96374; 97112-GP; 97116-GP; 97162-GP; 97165-GO; 97530-GO; 97530-GP; 97535-GO; C1726; G0378; J0694; J1100; J1170; J1650; J1953; J2001; J2405; J2704; J2765; J3010; Q9967

== ENCOUNTER 2019-01-17 04:14 | Inpatient (IN) | payer OTHER ==
[2019-01-17] MEDS ORDERED: NS 1,000 ML IV ONE ×2 (04:26→04:41)
--- NOTE | 2019-01-17 04:28 | EDPHY ---
H & P Time Seen by Provider: 01/17/19 04:26 HPI/ROS: HPI CHIEF COMPLAINT: Chills, cough, shortness of breath HISTORY OF PRESENT ILLNESS: 58-year-old male, presents emergency room with chills that started around 3:00 a.m.. Developing coughing with bloody sputum, and shortness of breath. The thought maybe it was abdominal incision that was causing him to get infected and have chills. However this appears clean, dry and intact. He arrives to the emergency room is noted to have an O2 sat of 79%. Is coughing blood-tinged sputum. Appears short of breath. 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 Family History: Noncontributory ROS REVIEW OF SYSTEMS: 10 Systems were reviewed and negative with the exception of the elements mentioned in the history of present illness. Exam Constitutional triage nursing summary reviewed, vital signs reviewed, awake/ alert. Vital signs at triage hypoxic 80%, tachycardic 114 Eyes normal conjunctivae and sclera, EOMI, PERRLA. HENT normal inspection, atraumatic, moist mucus membranes, no epistaxis, neck supple/ no meningismus, no raccoon eyes. Respiratory decreased breath sounds bilaterally, crackles, blood tinged sputum Cardiovascular tachycardia, regular rhythm, no murmur, no edema, distal pulses normal. Gastrointestinal soft, non-tender, no rebound, no guarding, normal bowel sounds, no distension, no pulsatile mass. Genitourinary no CVA tenderness. Musculoskeletal no midline vertebral tenderness, full range of motion, no calf swelling, no tenderness of extremities, no meningismus, good pulses, neurovascularly intact. Skin pink, warm, & dry, no rash, skin atraumatic. Neurologic awake, alert and oriented x 3, AAOx3, moves all 4 extremities equally, motor intact, sensory intact, CN II-XII intact, normal cerebellar, normal vision, normal speech. Psychiatric normal mood/affect. Heme/Lymph/Immune no lymphadenopathy. Differential Diagnosis: Includes but is not limited to in a particular order sepsis, bacteremia, pneumonia, PE Medical Decision Making: Plan for this patient IV establishment, blood cultures , lactic acid, chest x-ray, EKG, troponin. Re-evaluation: EKG interpretation by me on record in Education Everytime system. Impression time of EKG 4:40 a.m., sinus rhythm rate of 94, no signs of ST elevation. T-wave abnormality noted to 3 AVF. Chest x-ray reviewed one-view right lower lobe pneumonia present. CT angiogram of the chest pending due to hemoptysis. 0533: Spoke with Dr. Singh, agrees to admit Patient and updated, agree to admit Admit for sepsis, PNa Admit for: Pna, Tachycardia Hypoxia Dehydration Sepsis. Trending lactic Acid. Vital signs currently at 5:37 a.m. Heart rate 78, blood pressure 116/66, pulse ox 90% on 2 L. Patient mentating appropriately. Critical Care: Total Critical Care Time Spent Managing this Patient: 65Minutes. This time was spent Exclusively with this patient. This Care was exclusive of procedures. The Organ System/life at risk was sepsis, hypoxia, pneumonia This Patient was in Critical Condition because sepsis hypoxia, pneumonia CT scan of the chest with IV contrast shows no evidence of pulmonary embolism however this does show increasing abnormal bibasilar appy alert interstitial disease likely representing combination progressive bilateral pneumonia with superimposed interstitial pulmonary edema new small left pleural effusion. This was faxed me by direct Radiology at 4:53 a.m.. Repeat lactic acid 1.4. Source: Patient, Family - Medical/Surgical History Hx Asthma: No Hx Chronic Respiratory Disease: No Hx Diabetes: No Hx Cardiac Disease: Yes Hx Renal Disease: No Hx Cirrhosis: No Hx Alcoholism: No Hx HIV/AIDS: No Hx Splenectomy or Spleen Trauma: No Other PMH: GA with 2 stents (2012), Seizure (10/14/2018) , HTN, Brain tumor, craniotomy (11/16), dudodenal gastric ulcers (cauterized) - Social History Smoking Status: Never smoked Constitutional: Initial Vital Signs Heart Rate 104 H 01/17/19 04:25 Respiratory Rate 20 01/17/19 04:25 Blood Pressure 123/72 H 01/17/19 04:25 O2 Sat (%) 80 L 01/17/19 04:25 O2 Delivery Mode Room Air O2 (L/minute) 2 Allergies/Adverse Reactions: No Known Allergies Allergy (Verified 01/17/19 09:10) Home Medications: Medication Instructions Recorded Atorvastatin Calcium [Lipitor 40 40 mg PO HS 01/04/19 mg (*)] levETIRAcetam [Keppra 500 mg (*)] 500 mg PO BID 01/04/19 traZODone [traZODONE 50MG (*)] 50 mg PO HS 01/04/19 Acetaminophen [Tylenol 325mg (*)] 650 mg PO Q4HRS PRN tab 01/11/19 Pantoprazole Sodium [Protonix 40mg 40 mg PO BID #60 tab 01/11/19 (*)] levOFLOXACIN [levAQUIN (*)] 750 mg PO DAILY #4 tab 01/20/19 Medical Decision Making - Data Points Laboratory Results: Laboratory Results 01/17/19 04:30 01/17/19 04:30 Microbiology Results: MICROBIOLOGY 01/17/19 11:00 Sputum, Expectorated - Final 01/17/19 11:00 Sputum, Expectorated Sputum Culture - Final Gram Neg 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 Medications Given: Discontinued Medications Acetaminophen (Tylenol) 1,000 mg PO EDNOW ONE Stop: 01/17/19 04:34 Last Admin: 01/17/19 04:36 Dose: 1,000 mg Atorvastatin Calcium (Lipitor) 40 mg PO HS [facility] Stop: 07/16/19 20:59 Last Admin: 01/19/19 21:27 Dose: 40 mg Sodium Chloride (Ns) 1,000 mls @ 0 mls/hr IV EDNOW ONE; Wide Open PRN Reason: Protocol Stop: 01/17/19 04:27 Last Admin: 01/17/19 04:31 Dose: 1,000 mls Vancomycin/Sodium Chloride (Vancomycin 1 Gm (Premix)) 250 mls @ 250 mls/hr IV EDNOW ONE PRN Reason: Protocol Stop: 01/17/19 05:32 Last Admin: 01/17/19 05:11 Dose: 250 mls Piperacillin/Tazobactam/Dextrose (Zosyn (Premix)) 100 mls @ 200 mls/hr IV EDNOW ONE PRN Reason: Protocol Stop: 01/17/19 05:02 Last Admin: 01/17/19 05:11 Dose: 100 mls Sodium Chloride (Ns) 1,000 mls @ 0 mls/hr IV ONCE ONE PRN Reason: Wide Open Stop: 01/17/19 04:42 Last Admin: 01/17/19 04:45 Dose: 1,000 mls Piperacillin/Tazobactam/Dextrose (Zosyn 3.375 Gm (Premix)) 50 mls @ 100 mls/hr IV Q6HRS ERIN PRN Reason: Protocol Stop: 02/16/19 11:59 Last Admin: 01/20/19 11:30 Dose: 50 mls Vancomycin/Sodium Chloride (Vancomycin 1 Gm (Premix)) 250 mls @ 250 mls/hr IV Q12H ERIN Stop: 02/16/19 17:59 Last Admin: 01/18/19 06:52 Dose: 250 mls Sodium Chloride (Ns) 1,000 mls @ 125 mls/hr IV CONT ERIN Stop: 01/18/19 17:59 Last Admin: 01/18/19 07:40 Dose: 1,000 mls Sodium Chloride (Ns) 500 mls @ 0 mls/hr IV ONCE ONE PRN Reason: Wide Open Stop: 01/17/19 14:24 Last Admin: 01/17/19 14:53 Dose: 500 mls Sodium Chloride (Ns) 1,000 mls @ 100 mls/hr IV CONT ERIN Stop: 01/18/19 22:59 Last Admin: 01/18/19 14:35 Dose: 1,000 mls Levetiracetam (Keppra) 500 mg PO BID ERIN Stop: 07/16/19 09:29 Last Admin: 01/20/19 08:14 Dose: 500 mg Levofloxacin (Levaquin) 750 mg PO ONCE ONE PRN Reason: Protocol Stop: 01/20/19 13:17 Last Admin: 01/20/19 14:30 Dose: 750 mg Pantoprazole Sodium (Protonix) 40 mg PO BID ERIN Stop: 07/16/19 09:29 Last Admin: 01/20/19 08:14 Dose: 40 mg Trazodone HCl (Trazodone) 50 mg PO HS ERIN Stop: 07/16/19 20:59 Last Admin: 01/19/19 21:28 Dose: 50 mg Point of Care Test Results: Chemistry 01/17/19 01/17/19 04:33 04:29 POC Sodium 145 mEq/L mEq/L (135-145) POC Potassium 3.9 mEq/L mEq/L (3.3-5.0) POC Chloride 106 mEq/L mEq/L (97-110) POC Total CO2 25 mEq/L mEq/L (22-31) POC BUN 9 mg/dL mg/dL (7-23) POC Creatinine 0.9 mg/dL mg/dL (0.7-1.3) POC Glucose 135 mg/dL H mg/dL (70-100) POC Troponin I 0.02 ng/mL ng/mL (0.00-0.08) ISTAT H&H 01/17/19 04:33 POC Hgb 13.3 gm/dL L gm/dL (13.7-17.5) POC Hct 39 % L % (40-51) Departure - Departure Disposition: [facility] Inpatient Acute Clinical Impression: Pneumonia Qualifiers: Pneumonia type: aspiration pneumonia Aspiration pneumonia type: unspecified Laterality: bilateral Lung location: lower lobe of lung Qualified Code(s): J69.0 - Pneumonitis due to inhalation of food and vomit Condition: Good
[2019-01-17] MEDS ORDERED: ACETAMINOPHEN 500 MG TAB PO ONE (04:33)
[2019-01-17] MEDS ORDERED: VANCOMYCIN HCL/NORMAL SALINE 250 ML IV ONE (04:33)
[2019-01-17] MEDS ORDERED: PIPERACILLIN/TAZO 4.5 GM/DEX 100 ML IV ONE (04:33)
[2019-01-17 04:36] LABS: PLATELET COUNT 466 10^3/uL (150-400)
[2019-01-17] MEDS ORDERED: IOPAMIDOL (ISOVUE 370) 100 ML BTL IV ONE (04:43)
[2019-01-17 04:45] LABS: INR 1.03 (0.83-1.16); PROTIME(PATIENT) 13.1 SEC (12.0-15.0)
[2019-01-17] MEDS ORDERED: ONDANSETRON DISINTEGRATING 4 MG TAB PO PRN (05:33)
[2019-01-17] MEDS ORDERED: ACETAMINOPHEN 325 MG TAB PO PRN (05:33)
[2019-01-17] MEDS ORDERED: ONDANSETRON 4 MG/2 ML VIAL IVP PRN (05:33)
--- NOTE | 2019-01-17 06:27 | PDGENHP ---
History and Physical - Chief Complaint Chills, fever - History of Present Illness 58 yo M w/ hx of brain tumor s/p resection, dysphagia related to cerebral edema , and gastric outlet obstruction s/p gastrojejunostomy presents with fever and chills. The patient has been doing well since discharge from the hospital on 01/12. Over the last 2 days his noted he seemed more fatigued than usual. Last night he developed chills in addition to noting a change in the nature of his sputum. He has had a chronic cough since his surgery. His abdominal surgical incision has developed mild erythema and serosanguineous discharge from the inferior aspect. As a result of these symptoms they decided to come to the ED for evaluation. Upon arrival in the ED the patient was noted to be febrile, tachycardic, and hypoxic. WBC is elevated at 13k and CT of his chest demonstrates bilateral pneumonia R>L. He is being admitted for sepsis due to bilateral pneumonia. Case discussed with ED physician Dr. Arnold; records reviewed and summarized above. History Information - Allergies/Home Medication List Allergies/Adverse Reactions: No Known Allergies Allergy (Verified 11/27/18 01:41) Home Medications: Atorvastatin Calcium [Lipitor 40 mg (*)] 40 mg PO HS 01/04/19 [Last Taken ] levETIRAcetam [Keppra 500 mg (*)] 500 mg PO BID 01/04/19 [Last Taken 01/03/19 09 :00] traZODone [traZODONE 50MG (*)] 50 mg PO HS 01/04/19 [Last Taken 01/02/19] I have personally reviewed and updated: family history, medical history - Past Medical History coronary artery disease, hypertension, hyperlipidemia, seizures (as a teen) - Surgical History Reports: coronary stent Additional surgical history: Suboccipital craniotomy and brain tumor resection - Family History Positive for: CAD Additional family history: brother with epilepsy - Social History Smoking Status: Never smoked Additional social history: , works here at [employer] Review of Systems Review of Systems: ROS: 10pt was reviewed & negative except for what was stated in HPI & below Physical Exam Physical Exam: Temp Pulse Resp BP Pulse Ox 37.7 C 77 19 111/54 L 97 01/17/19 05:20 01/17/19 06:03 01/17/19 06:03 01/17/19 06:03 01/17/19 06:03 O2 (L/minute) 4 Constitutional: appears nourished, uncomfortable Eyes: PERRL, EOMI Ears, Nose, Mouth, Throat: moist mucous membranes, no oral mucosal ulcers Cardiovascular: regular rate and rhythym, no murmur, rub, or gallop Respiratory: no respiratory distress, inspiratory crackles (Bilateral bases R>L) Gastrointestinal: normoactive bowel sounds, soft, non-tender abdomen Skin: warm, other (Midline abdominal incision with mild erythema and serosangineous drainage from inferior aspect) Musculoskeletal: full muscle strength, no muscle tenderness Neurologic: AAOx3, CN II-XII Intact Psychiatric: interacting appropriately, not anxious Lab Data & Imaging Review 01/17/19 04:30 01/17/19 04:30 WBC 13.02 10^3/uL (3.80-9.50) H 01/17/19 04:30 RBC 4.26 10^6/uL (4.40-6.38) L 01/17/19 04:30 Hgb 12.4 g/dL (13.7-17.5) L 01/17/19 04:30 POC Hgb 13.3 gm/dL (13.7-17.5) L 01/17/19 04:33 Hct 38.7 % (40.0-51.0) L 01/17/19 04:30 POC Hct 39 % (40-51) L 01/17/19 04:33 MCV 90.8 fL (81.5-99.8) 01/17/19 04:30 MCH 29.1 pg (27.9-34.1) 01/17/19 04:30 MCHC 32.0 g/dL (32.4-36.7) L 01/17/19 04:30 RDW 14.6 % (11.5-15.2) 01/17/19 04:30 Plt Count 466 10^3/uL (150-400) H 01/17/19 04:30 MPV 8.8 fL (8.7-11.7) 01/17/19 04:30 Neut % (Auto) 87.4 % (39.3-74.2) H 01/17/19 04:30 Lymph % (Auto) 6.5 % (15.0-45.0) L 01/17/19 04:30 Dickenson % (Auto) 5.4 % (4.5-13.0) 01/17/19 04:30 Eos % (Auto) 0.3 % (0.6-7.6) L 01/17/19 04:30 Baso % (Auto) 0.2 % (0.3-1.7) L 01/17/19 04:30 Nucleat RBC Rel Count 0.0 % (0.0-0.2) 01/17/19 04:30 Absolute Neuts (auto) 11.38 10^3/uL (1.70-6.50) H 01/17/19 04:30 Absolute Lymphs (auto) 0.84 10^3/uL (1.00-3.00) L 01/17/19 04:30 Absolute Monos (auto) 0.70 10^3/uL (0.30-0.80) 01/17/19 04:30 Absolute Eos (auto) 0.04 10^3/uL (0.03-0.40) 01/17/19 04:30 Absolute Basos (auto) 0.03 10^3/uL (0.02-0.10) 01/17/19 04:30 Absolute Nucleated RBC 0.00 10^3/uL (0-0.01) 01/17/19 04:30 Immature Gran % 0.2 % (0.0-1.1) 01/17/19 04:30 Immature Gran # 0.03 10^3/uL (0.00-0.10) 01/17/19 04:30 PT 13.1 SEC (12.0-15.0) 01/17/19 04:30 INR 1.03 (0.83-1.16) 01/17/19 04:30 APTT 21.3 SEC (23.0-38.0) L 01/17/19 04:30 VBG Lactic Acid 1.4 mmol/L (0.7-2.1) 01/17/19 05:40 POC Sodium 145 mEq/L (135-145) 01/17/19 04:33 Sodium 142 mEq/L (135-145) 01/17/19 04:30 POC Potassium 3.9 mEq/L (3.3-5.0) 01/17/19 04:33 Potassium 4.3 mEq/L (3.5-5.2) 01/17/19 04:30 POC Chloride 106 mEq/L (97-110) 01/17/19 04:33 Chloride 107 mEq/L (97-110) 01/17/19 04:30 Carbon Dioxide 23 mEq/l (22-31) 01/17/19 04:30 POC Total CO2 25 mEq/L (22-31) 01/17/19 04:33 Anion Gap 12 mEq/L (6-14) 01/17/19 04:30 POC BUN 9 mg/dL (7-23) 01/17/19 04:33 BUN 10 mg/dL (7-23) 01/17/19 04:30 Creatinine 0.8 mg/dL (0.7-1.3) 01/17/19 04:30 POC Creatinine 0.9 mg/dL (0.7-1.3) 01/17/19 04:33 Estimated GFR > 60 01/17/19 04:30 Glucose 127 mg/dL (70-100) H 01/17/19 04:30 POC Glucose 135 mg/dL (70-100) H 01/17/19 04:33 Calcium 8.7 mg/dL (8.5-10.4) 01/17/19 04:30 Magnesium 1.6 mg/dL (1.6-2.3) 01/17/19 04:30 Total Bilirubin 0.5 mg/dL (0.1-1.4) 01/17/19 04:30 Conjugated Bilirubin 0.3 mg/dL (0.0-0.5) 01/17/19 04:30 Unconjugated Bilirubin 0.2 mg/dL (0.0-1.1) 01/17/19 04:30 AST 29 IU/L (17-59) 01/17/19 04:30 ALT 43 IU/L (21-72) 01/17/19 04:30 Alkaline Phosphatase 118 IU/L (38-126) 01/17/19 04:30 POC Troponin I 0.02 ng/mL (0.00-0.08) 01/17/19 04:29 NT-Pro-B Natriuret Pep 680 pg/mL (0-125) H 01/17/19 04:30 Total Protein 5.6 g/dL (6.3-8.2) L 01/17/19 04:30 Albumin 3.1 g/dL (3.5-5.0) L 01/17/19 04:30 Lipase 373 IU/L (23-300) H 01/17/19 04:30 Assessment & Plan Assessment: 58 yo M w/ hx of brain tumor s/p resection, dysphagia related to cerebral edema , and gastric outlet obstruction s/p gastrojejunostomy presents with sepsis due to pneumonia. Plan: 1. Sepsis - Due to bilateral pneumonia; the etiology of this is likely aspiration and perhaps sub-acute related to recent gastric outlet obstruction. He has been seeing a speech therapist regularly who has not noted ongoing aspiration. 4/4 SIRS criteria noted on admission, SOFA score of 6. His abdominal incision does demonstrate mild erythema but does not appear clearly infected at this time. - Vancomycin, Zosyn for broad coverage initially noting multiple recent hospitalizations and risk for resistant organisms - Blood and sputum cultures ordered - S/p 30 mL/kg fluid bolus, additional IVF PRN - Monitor abdominal incision, wound care ordered 2. Dysphagia - This was due to sequelae from brain surgery but has been much improved. He follows regularly with speech therapy who has recommended a regular diet. - RN swallow screen ordered - Will resume regular diet if he passes this 3. Gastric outlet obstruction - S/p partial gastrojejunostomy with removal of G- tube and hernia repair by Dr. Sanford. His abdominal incision has mild erythema but not clearly infected. - Wound care consult placed 4. Blood pressure lability - This has been noted during recent admissions. He is not currently on antihypertensives or medications to increase BP. - Monitor BP 5. Hx Brain tumor - S/p resection in November of 2018. - Continue Keppra pending reconciliation Diet - Regular pending swallow screen Code - Full Ppx - SCDs Dispo - Admit under observation status
[2019-01-17] MEDS ORDERED: IPRATROPIUM/ALBUTEROL 3 ML DEYVIAL IH PRN (09:36)
[2019-01-17] MEDS: NS 1,000 ML IV SCH (10:45)
[2019-01-17] MEDS: levETIRAcetam 500 MG TAB PO SCH ×2 (10:50→22:20)
[2019-01-17] MEDS: PANTOPRAZOLE SODIUM 40 MG TAB PO SCH ×2 (10:50→22:20)
[2019-01-17] MEDS: PIPERACILLIN/TAZO 3.375 GM/DEX 50 ML IV SCH ×2 (12:44→17:44)
[2019-01-17] MEDS ORDERED: NS 500 ML IV ONE (14:23)
[2019-01-17] MEDS: VANCOMYCIN HCL/NORMAL SALINE 250 ML IV SCH (19:01)
--- NOTE | 2019-01-17 19:49 | HOSPPROG ---
Hospitalist Progress Note Assessment/Plan: The patient is a 58-year-old male with PMH gastric outlet obstruction with recent surgery, dysphagia, recently resected brain tumor, and aspiration pneumonia who was admitted for fatigue and found to have recurrent aspiration pneumonia. Per pt/, he always gets aspiration PNA after having NGT (which was removed a few days after his last operation on 01/07). ASSESSMENT/PLAN: Aspiration pneumonia Severe sepsis, 2/2 above - improving Acute hypoxemic respiratory failure, resolved Hypotension Labile BP H/o recent brain tumor, s/p resection Dysphagia, controlled H/o gastric outlet obstruction, s/p recent surgery -Gave 500cc NS bolus for hypotension and continuing maintenance IVF. -If BP continues to be labile, any changes to BP meds must go through Dr. Ledezma ( per pt/ this was discussed at pt's last hospitalization). -I have reviewed prior outpatient and inpatient records, including ST progress notes x 2 this past week. -Pt getting specialized ST with electrodes regularly as outpt -- recommend he resume this as outpt. ST during this visit not needed. Continue ST recs. -Continue Abx. FU Blood/sputum Cx. -Checked resp panel. -Adding prn SVNs, O2, CPT - flutter valve. VTE prophylaxis: SCDs Code Status: Full code Status: obs Disposition: med tele ____ SUBJECTIVE: Patient was seen this morning, was feeling much better after having received IV fluids and antibiotics. He wants to go home soon. OBJECTIVE: Physical Exam: General: The patient is a male who is alert and in no acute distress. HEENT: normocephalic, extraocular movements intact, conjunctivae clear. Mucous membranes moist. Neck: trachea midline, no visible masses. CV: +S1/S2, RRR, no MRG. Resp: unlabored, CTAB no RRW. Abd: soft and nondistended. Musculoskeletal: Normal muscle tone/bulk. Neuro: cranial nerves II - XII grossly intact. Intact gross motor and sensory function. Psych: Appropriate mood and appropriate affect. Skin: Mild pallor. No petechiae. Heme/lymph: No peripheral edema at bilateral lower extremities. Labs/Imaging/Other Tests: Personally reviewed/interpreted. CXR - personally interpreted - bilat LL infiltrates. CTA chest - bilat LL infiltrates, small bilat pleural effusions. Objective: Vital Signs Temp Pulse Resp BP Pulse Ox 37.0 C 64 10 L 96/56 L 95 01/17/19 15:49 01/17/19 15:49 01/17/19 15:49 01/17/19 15:49 01/17/19 15:49 Microbiology 01/17/19 11:00 - Final Sputum, Expectorated 01/17/19 11:00 Respiratory Panel (PCR) - Final Nasal, Sinus - Swab No Organism Detected By Pcr 01/16/19 01/17/19 01/18/19 05:59 05:59 05:59 Intake Total 4000 Output Total 750 Balance 3250 PT 13.1 SEC (12.0-15.0) 01/17/19 04:30 INR 1.03 (0.83-1.16) 01/17/19 04:30 - Time Spent With Patient Time Spent with Patient: greater than 35 minutes Time Spent with Patient: Greater than 35 minutes spent on this patients care, greater than 50% of time spent counseling, educating, and coordinating care regarding the above mentioned plan. ICD10 Worksheet Patient Problems: Problems Problem Status Onset Pneumonia Acute Abdominal pain Acute Brain mass Acute Hypotension Acute Seizure Acute Sepsis Acute
[2019-01-17] MEDS: ATORVASTATIN CALCIUM 40 MG TAB PO SCH (22:20)
[2019-01-17] MEDS: traZODone 50 MG TAB PO SCH (22:20)
[2019-01-18] MEDS: PIPERACILLIN/TAZO 3.375 GM/DEX 50 ML IV SCH ×4 (00:07→17:38)
[2019-01-18] MEDS: VANCOMYCIN HCL/NORMAL SALINE 250 ML IV SCH (06:52)
[2019-01-18] MEDS: NS 1,000 ML IV SCH (07:40)
[2019-01-18] MEDS: PANTOPRAZOLE SODIUM 40 MG TAB PO SCH ×2 (08:11→20:39)
[2019-01-18] MEDS: levETIRAcetam 500 MG TAB PO SCH ×2 (08:11→20:39)
[2019-01-18 08:58] LABS: PLATELET COUNT 336 10^3/uL (150-400)
--- NOTE | 2019-01-18 09:57 | SOAPPROG ---
SOAP Progress Note Assessment/Plan: Assessment/Plan: 58 Y M admitted with PNA. Asked to see patient for his gastrojejunostomy surgical incision. G tube site completely healed. Minimum amount of serosanguinous fluid expressed from incision at umbilicus. There is some mild erythema and induration but no fluctuance. No purulence. Will continue to observe. If he has an early infection then his PNA abx should give him good coverage. May need an I&D but not at this point. Discussed close follow up in the office if discharged soon. Otherwise, we will check back tomorrow in house. 01/18/19 09:54 Objective: Vital Signs Temp Pulse Resp BP Pulse Ox 36.7 C 69 15 90/57 L 91 L 01/18/19 07:58 01/18/19 07:58 01/18/19 07:58 01/18/19 07:58 01/18/19 07:58 Microbiology 01/17/19 11:00 - Final Sputum, Expectorated 01/17/19 11:00 Respiratory Panel (PCR) - Final Nasal, Sinus - Swab No Organism Detected By Pcr Laboratory Results 01/18/19 08:45 01/17/19 01/18/19 01/19/19 05:59 05:59 05:59 Intake Total 6300 Output Total 2650 Balance 3650 PT 13.1 SEC (12.0-15.0) 01/17/19 04:30 INR 1.03 (0.83-1.16) 01/17/19 04:30 ICD10 Worksheet Patient Problems: Problems Problem Status Onset Pneumonia Acute Abdominal pain Acute Brain mass Acute Hypotension Acute Seizure Acute Sepsis Acute
--- NOTE | 2019-01-18 12:03 | HOSPPROG ---
Hospitalist Progress Note Assessment/Plan: 58-year-old male with h/o gastric outlet obstruction with recent surgery, dysphagia, recently resected brain tumor, and aspiration pneumonia who was admitted for fatigue and found to have recurrent aspiration pneumonia. Per pt/ , he always gets aspiration PNA after having NGT (which was removed a few days after his last operation on 01/07). ASSESSMENT/PLAN: Aspiration pneumonia - CT pers reviewed/interp, b/l infiltrates R>L. -cont zosyn, will d/c vanc, doubt MRSA -speech/swallow eval, followed by outpt [employer] Severe sepsis, 2/2 above - a bit hypotensive this am, improved with NS bolus. Lactate normalized. -NS bolus now -atbx as above -BCx's ngtd, sputum Cx neg, RVP neg Acute hypoxemic respiratory failure, resolved Hypotension - Labile BP -check am cortisol, may benefit from florinef H/o recent brain tumor, s/p resection -cont Keppra Dysphagia, controlled - discussed with speech, may do repeat VFSS H/o gastric outlet obstruction, s/p recent surgery - abdominal incision draining a bit, surgery aware and following Full code DVT PPLX Dispo - change to inpt for ongoing management of severe sepsis and PNA Subjective: Pt feels well. He notes his BP is frequently low, even into the 70' s in the morning so he feels like SBP in the 80's is good. Denies dizziness. No CP or SOB. Not coughing much. Presenting symptom was chills/rigors. No fevers overnight. Objective: Vital Signs Temp Pulse Resp BP Pulse Ox 36.6 C 96 15 82/47 L 90 L 01/18/19 10:38 01/18/19 10:38 01/18/19 10:38 01/18/19 10:38 01/18/19 10:38 Microbiology 01/17/19 11:00 - Final Sputum, Expectorated 01/17/19 11:00 Respiratory Panel (PCR) - Final Nasal, Sinus - Swab No Organism Detected By Pcr Laboratory Results 01/18/19 08:45 01/17/19 01/18/19 01/19/19 05:59 05:59 05:59 Intake Total 6300 Output Total 2650 Balance 3650 PT 13.1 SEC (12.0-15.0) 01/17/19 04:30 INR 1.03 (0.83-1.16) 01/17/19 04:30 - Physical Exam Constitutional: no apparent distress Eyes: PERRL Ears, Nose, Mouth, Throat: moist mucous membranes Cardiovascular: regular rate and rhythym Respiratory: no respiratory distress, inspiratory crackles Gastrointestinal: normoactive bowel sounds, soft, non-tender abdomen, other ( abdominal incision draining a bit from umbilicus, no significant erythema or induration) Skin: warm Musculoskeletal: full muscle strength Neurologic: AAOx3 ICD10 Worksheet Patient Problems: Problems Problem Status Onset Pneumonia Acute Abdominal pain Acute Brain mass Acute Hypotension Acute Seizure Acute Sepsis Acute
[2019-01-18] MEDS ORDERED: NS 1,000 ML IV SCH (13:00)
--- NOTE | 2019-01-18 13:21 | PDMN ---
Medical Necessity Medical necessity: Change to inpt as of 01/18/19 @ 08:14, meets inpt criteria per MD order and MCG M-160, Sepsis and Other Febrile Illness, without Focal Infection, A-3 days. Upgraded to inpt for ongoing management of severe sepsis and PNA, cont IV ABX, PT/OT/[employer] TRADES ASSISTANTS evals pending. 58 y/o presented initially w/ fatigue, chills, fever, elev lactate, hypotensive, and tachycardic, admitted w/ sepsis sec to bilateral pneumonia, likely due to aspiration. Hypotensive this AM requiring fluid bolus, last BP 82/47. Hx gastric outlet syndrome w/recent surgery, dysphagia, recently resected brain tumor. Anticipate>2MN for further treatment of above.
--- NOTE | 2019-01-18 15:56 | ASMTCMCOM ---
CM Note CM Note Notes: Pts case discussed in tx rounds. Pt is a 58 y/o man admitted for PNA and sepsis. Pt is an employee here at [employer]. PT and SPL have been ordered. Needs are TBD at this time. CM to follow. Plan: TBD Date Signed: 01/18/2019 03:03 PM Electronically Signed By:RADHA Hopkins
[2019-01-18] MEDS: ATORVASTATIN CALCIUM 40 MG TAB PO SCH (20:39)
[2019-01-18] MEDS: traZODone 50 MG TAB PO SCH (20:49)
[2019-01-19] MEDS: PIPERACILLIN/TAZO 3.375 GM/DEX 50 ML IV SCH ×4 (00:16→18:19)
[2019-01-19 04:35] LABS: PLATELET COUNT 351 10^3/uL (150-400)
[2019-01-19] MEDS ORDERED: COSYNTROPIN 0.25 MG/2 ML SYRINGE IVP ONE (06:44)
[2019-01-19] MEDS: levETIRAcetam 500 MG TAB PO SCH ×2 (09:33→21:27)
[2019-01-19] MEDS: PANTOPRAZOLE SODIUM 40 MG TAB PO SCH ×2 (09:34→21:28)
--- NOTE | 2019-01-19 11:56 | GPN ---
[f rep st] PROCEDURE NOTE PREPROCEDURE DIAGNOSIS: Wound drainage and fluctuance. NAME OF PROCEDURE: Incision and drainage of abdominal wound fluid collection. DESCRIPTION OF PROCEDURE: A time-out was performed and verbal informed consent was obtained. The area was sterilized with ChloraPrep and squared out in the normal sterile fashion. The area was anesthetized with 1% lidocaine and adequate analgesia was achieved. Using a 15 blade scalpel, I made a half-inch incision along his old scar. Clear serosanguineous fluid was released. The area was irrigated with normal saline and packed with quarter-inch iodoform gauze. Hemostasis was achieved. There were no complications and the patient tolerated the procedure well. Cultures were sent to the lab. /[id number]/MODL MTDD
--- NOTE | 2019-01-19 13:23 | HOSPPROG ---
Hospitalist Progress Note Assessment/Plan: 58-year-old male with h/o gastric outlet obstruction with recent surgery, dysphagia, recently resected brain tumor, and aspiration pneumonia who presented with fatigue and rigors, found to have recurrent aspiration pneumonia. NGT was removed a few days after his last operation on 01/07. ASSESSMENT/PLAN: Aspiration pneumonia - CT pers reviewed/interp, b/l infiltrates R>L. -cont zosyn, Vanc d/c'd as low suspicion for MRSA -can likely transition to po Augmentin tomorrow -followed by outpt HEALTH THERAPIST Severe sepsis, 2/2 above - improved -atbx as above -BCx's ngtd, sputum Cx neg, RVP neg Acute hypoxemic respiratory failure - pt desatted to 46% this am (good O2 pleth waveform) while asleep off O2. Suspect CARLOS plus PNA increased risk for acute hypoxemia. -keep on O2, 2 LPM during day, 3 LPM at night and would discharge with home O2 for night-time at minimum -needs outpt sleep study Hypotension - Labile BP, had previously been on midodrine and florinef, but has remained stable without any meds recently. Discussed with Dr. Ledezma, who prefers to avoid any BP raising of BP lowering meds unless necessary and if required, call Dr. Ledezma first. -low am cortisol noted, but no cosyntropin available to do stim test -BP's much more stable today, cont to monitor H/o recent brain tumor, s/p resection -cont Keppra H/o gastric outlet obstruction, s/p recent surgery - abdominal incision draining a bit with fluctuant area -surgery did bedside I&D today, GS and Cx pending Full code DVT PPLX Dispo - cont inpt Subjective: Pt feels ok. Per RN, he desatted to 46% while asleep early this am. He recovered within a few minutes and remains on O2 today without further desats. No fevers overnight. Not much cough. No CP or SOB. Abdominal incision with decreased drainage. Objective: Vital Signs Temp Pulse Resp BP Pulse Ox 37.1 C 65 13 117/73 97 01/19/19 11:23 01/19/19 11:23 01/19/19 11:23 01/19/19 11:23 01/19/19 11:23 Laboratory Results 01/19/19 04:00 01/18/19 01/19/19 01/20/19 05:59 05:59 05:59 Intake Total 1850 Output Total 900 625 Balance 950 -625 PT 13.1 SEC (12.0-15.0) 01/17/19 04:30 INR 1.03 (0.83-1.16) 01/17/19 04:30 - Physical Exam Constitutional: no apparent distress Eyes: PERRL Ears, Nose, Mouth, Throat: moist mucous membranes Cardiovascular: regular rate and rhythym Respiratory: no respiratory distress, inspiratory crackles Gastrointestinal: normoactive bowel sounds, soft, non-tender abdomen, other ( midline incision with small amout of drainage from umbilicus with fluctuant area ) Skin: warm Musculoskeletal: full muscle strength Neurologic: AAOx3 Psychiatric: interacting appropriately ICD10 Worksheet Patient Problems: Problems Problem Status Onset Pneumonia Acute Abdominal pain Acute Brain mass Acute Hypotension Acute Seizure Acute Sepsis Acute
--- NOTE | 2019-01-19 13:25 | ASMTCMCOM ---
CM Note CM Note Notes: Pts case discussed in tx rounds. PT and SPL are both recommending outpatient rehab follow up. Pt does not have any needs at this time. CM available for changes. Plan: Independent Date Signed: 01/19/2019 01:13 PM Electronically Signed By:RADHA Hopkins
[2019-01-19] MEDS: ATORVASTATIN CALCIUM 40 MG TAB PO SCH (21:27)
[2019-01-19] MEDS: traZODone 50 MG TAB PO SCH (21:28)
[2019-01-20] MEDS: PIPERACILLIN/TAZO 3.375 GM/DEX 50 ML IV SCH ×3 (01:57→11:30)
[2019-01-20] MEDS: PANTOPRAZOLE SODIUM 40 MG TAB PO SCH (08:14)
[2019-01-20] MEDS: levETIRAcetam 500 MG TAB PO SCH (08:14)
[2019-01-20 11:50] VITALS: BP 100/60
--- NOTE | 2019-01-20 13:32 | PDHOMEO2F ---
Home Oxygen Face to Face Home Orders: I certify that a physician or a nurse practitioner or physician's assistant front end manager has had a [id number]-urtr encounter with this patient on the date of this order due to the diagnosis listed, which relates to the primary reason the patient requires home oxygen. Alternative treatments have been tried, or considered, and deemed ineffective. It is anticipated that supplemental oxygen will result in improvement with treatment. Home oxygen qualifying diagnosis: pneumonia, central sleep apnea SpO2 on room air (%): 85% Frequency of home oxygen needed: continuous Home oxygen liters per minute: 2 Home oxygen delivery device: nasal cannula Concentrator: Yes E-tanks for mobility and back up: Yes If ordering portable O2, is the patient mobile in the home?: Yes I certify that, based on these findings, the home oxygen is medically necessary for this patient for the following length of time. Length of time home oxygen needed: 1 month Home Oxygen Comment: Pt has acute pneumonia and is recovering from both brain surgery and abdominal surgery with abd wound infection he has obvious worsening hypoxemia during sleep here, and describes sxs at home of CARLOS, but he also is at high risk of CSA with his brain mass surgery. Will be seeing [facility] for diagnosis of his sleep apnea
--- NOTE | 2019-01-20 13:49 | PDDCSUM ---
Discharge Summary Discharge Summary: DISCHARGE DIAGNOSES: * Acute severe sepsis * Acute pneumonia, possible aspiration * Wound infection at laparotomy incision from surgery done during prior hospitalization * Acute hypoxemic respiratory failure * Sleep apnea as noted, unable to determine central verses obstructive * Recent resection of brain tumor * Gastric outlet obstruction status post surgery for that during previous hospital stay CONSULTANTS: Dr. Edmund Sanford PROCEDURES: CT scan of chest showing bilateral pneumonia HOSPITAL COURSE SUMMARY: This patient who has had 2 recent surgeries including removal of her brain mass and treatment for gastric outlet obstruction, comes in with significant fevers. 2 findings included severe hypoxemic respiratory failure and sepsis with a bilateral pneumonia severe dense infiltrates in both lungs. In addition there was a minor cellulitis infection surrounding the inferior portion of his abdominal incision which was opened at the inferior 1 cm of that wound and draining small amount of fluid. There was no defined abscess. Bedside exploration of the wound by the surgery team did not find any pockets that needed to be opened or any necrotic tissue. The patient was treated with wound care and antibiotics. He received Zosyn here and had excellent response to that. At this point his wound looks much better but is still draining small amount of fluid. His breathing is much better in his sepsis has resolved. He still needing some oxygen and at times has even at rest 85% oxygen on room air today. He has intermittently better oxygen levels at rest but is consistently hypoxemic during physical activity. He also is noted to have significant sleep apnea here with worsened hypoxia and his describes symptoms of some obstructive sleep apnea at home. Given his recent brain surgery for tumor he also is at risk for some central sleep apnea. At this point he felt stable for discharge to home. There is a culture still pending from his wound that had a gram-negative feliz that is a lactose finished cloth checker but we do not have the ID or sensitivities so our antibiotics for the pneumonia and wound are still empiric at this time and will need to be following the cultures. Dr. Sanford team will be following the wound culture and I will follow this as well. In addition he needs ongoing wound care and he will be doing this with Dr. Sanford at home. He will be needing home care with physical therapy. He also be set up with home oxygen therapy and will need to be assessed for sleep apnea once he is recovered from his surgeries and infections. PENDING TEST RESULTS: Final culture results from blood and from abdominal incision wound MEDICATION CHANGES: Addition of Levaquin 750 mg daily for 4 days Home oxygen FOLLOW-UP PLAN: He will see Dr. Sanford in 2 days for wound assessment and dressing change He is to make an appoint with Dr. Fragoso in 7-10 days He is to make an appointment at [facility] to assess for sleep apnea Greater than 35 minutes bedside and care coordination time today
--- NOTE | 2019-01-20 14:04 | PDHOMEO2F ---
Home Oxygen Face to Face Home Orders: I certify that a physician or a nurse practitioner or physician's administrative sales assistant has had a uzub-xo-abai encounter with this patient on the date of this order due to the diagnosis listed, which relates to the primary reason the patient requires home oxygen. Alternative treatments have been tried, or considered, and deemed ineffective. It is anticipated that supplemental oxygen will result in improvement with treatment. Home oxygen qualifying diagnosis: pneumonia, sleep apnea, suspect central SpO2 on room air (%): 85 Frequency of home oxygen needed: continuous Home oxygen liters per minute: 2 Home oxygen delivery device: nasal cannula Concentrator: Yes E-tanks for mobility and back up: Yes If ordering portable O2, is the patient mobile in the home?: Yes I certify that, based on these findings, the home oxygen is medically necessary for this patient for the following length of time. Length of time home oxygen needed: 1 month Home Oxygen Comment: Patient with acute pneumonia but also recovering both from brain surgery for tumor and abdominal surgery and has acute abdominal wound infection. He has obvious hypoxemia at rest as low as 85% today worsened with activity but also is noted to have hypoxemia worsens during sleep here. describes symptoms of obstructive apnea at home but also is at high risk of central apnea with his brain mass. He will be seeing [facility]
--- NOTE | 2019-01-20 14:07 | SOAPPROG ---
SOAP Progress Note Assessment/Plan: Assessment/plan: 58 y/o M s/p gastrojejunostomy for duodenal stricture. Now admitted for pna. Now s/p bedside I&D of wound seroma. Cultures growing gram negative rods. Packing and dressing changed today. Wound appears clean with healthy granulation tissue throughout. Surrounding erythema has resolved. Drainage remains serosanguinous in nature. Afebrile. Discussed with hospitalist. Will place pt on course of levaquin. Plans to be discharged today. Follow up in our office on Friday for packing and dressing change. S: No complaints. Tolerating regular diet and having normal bowel movements. O: Alert Afebrile No increased WOB Abdomen: soft, nontender, nondistended, wound is clean with serosang drainage. 01/20/19 14:03 Objective: Vital Signs Temp Pulse Resp BP Pulse Ox 36.8 C 59 L 18 100/60 96 01/20/19 11:49 01/20/19 11:49 01/20/19 11:49 01/20/19 11:49 01/20/19 11:49 Microbiology 01/19/19 10:15 Gram Stain - Final Abdomen - Swab Laboratory Results 01/19/19 04:00 01/19/19 01/20/19 01/21/19 05:59 05:59 05:59 Intake Total 1850 350 Output Total 900 2225 Balance 950 -1875 PT 13.1 SEC (12.0-15.0) 01/17/19 04:30 INR 1.03 (0.83-1.16) 01/17/19 04:30 ICD10 Worksheet Patient Problems: Problems Problem Status Onset Pneumonia Acute Abdominal pain Acute Brain mass Acute Hypotension Acute Seizure Acute Sepsis Acute
--- NOTE | 2019-01-21 13:38 | CPEKG ---
Test Reason : OPEN Blood Pressure : / mmHG Vent. Rate : 094 BPM Atrial Rate : 094 BPM P-R Int : 123 ms QRS Dur : 095 ms QT Int : 341 ms P-R-T Axes : 021 051 -22 degrees QTc Int : 427 ms Sinus rhythm Inferior infarct, age indeterminate Confirmed by Jacki Moore ([id number]) on 01/21/2019 1:38:27 PM Referred By: Rey Bonilla Confirmed By:Jacki Moore
== END 2019-01-20 15:22 | disposition home or self-care (01) | DRG 853 ==
LOC: F2W 06:18 → OBSVTOIN 01-18 08:14
PROVIDERS: ADMIT Student in an Organized Health Care Education/Training Program; ATTEND Student in an Organized Health Care Education/Training Program
PROC: 0J980ZZ Drainage of Abdomen Subcutaneous Tissue and Fascia, Open Approach (ICD-10-PCS; principal; 2019-01-19)
DX: A41.9 Sepsis, unspecified organism (principal); J69.0 Pneumonitis due to inhalation of food and vomit; J96.01 Acute respiratory failure with hypoxia; T81.41XA Infection following a procedure, superficial incisional surgical site, initial encounter; L03.311 Cellulitis of abdominal wall; R65.20 Severe sepsis without septic shock; E86.9 Volume depletion, unspecified; G47.30 Sleep apnea, unspecified; Z98.890 Other specified postprocedural states
CPT/HCPCS: 82435-PO; 82565-PO; 82947-PO; 84132-PO; 84295-PO; 84484-ER; 84520-PO; 85014-ER; 92610-GN; 96365; 96366; 97116-GP; 97161-GP; G0378; J2543; J3370; Q9967

== ENCOUNTER → 2019-03-17 | Outpatient (CLI) | payer OTHER | LOC: FIMAGING 16:17 ==

== ENCOUNTER → 2019-03-17 | Outpatient (CLI) | payer OTHER | LOC: FIMAGING 15:42 ==

== ENCOUNTER → 2019-04-07 | Outpatient (CLI) | payer OTHER | LOC: FIMAGING 14:53 ==